=== PATIENT | male | born 1960 | race Caucasian/White ===

== ENCOUNTER 2020-07-06 | Inpatient (IN) | payer MEDICAID, SELFPAY ==
[2020-07-07 04:03] VITALS: BMI 11.0
[2020-07-08] VITALS (8 sets, daily range): BP systolic 112–155; BP diastolic 71–87; PULSE 65–92; RESP 18–20; TEMP 35.8–37; O2SAT 93–98; BMI 34.2
[2020-07-08 06:29] LABS: INTERNATIONAL NORM RATIO 1.3 (0.9-1.1); Prothrombin Time 15.2 SEC (10.8-13.0)
[2020-07-08 06:32] LABS: PTT Heparin Drip 61.7 SEC (53-77.9)
[2020-07-08] MEDS: Heparin Sodium,Porcine/1/2NS 25,000 UNIT/250 ML IV.SOLN 14.19 UNIT IVCONT (06:45)
[2020-07-08 06:49] LABS: Hematocrit 37.3 % (42-52); Hemoglobin 12.2 g/dl (14.0-18.0); Mean Corpuscular HGB Conc 32.7 g/dl (31.0-36.0); Mean Corpuscular Volume 97.9 fL (80-98); Mean Platelet Volume 10.7 fL (9.4-12.4); Platelet Count 452 X10*3/uL (160-400); Red Blood Count 3.81 X10*6/uL (4.60-5.80); Red Cell Distribution Width 12.6 % (11.0-16.0); White Blood Count 10.6 X10*3/uL (4.8-10.8)
--- NOTE | 2020-07-08 08:53 | P.CDIC_ITS ---
CDI Concurrent Query Service Date: 07/08/20 Documentation Clarification: Please clarify if you are treating a proba ble/suspected/likely or confirmed: Metabolic Encephalopathy Toxic Encephalopathy Toxic/Metabolic Encephalopathy Metabolic encephalopathy Provider Response: Metabolic Encephalopathy PLEASE DO NOT DELETE/MODIFY EXISTING CONTENT Additional information is needed in order to code to the highest accuracy and appropriate Severity of Illness (SOI). Please clarify the information noted below in your progress notes and discharge summary. Risk Factors/Clinical Indicators/Treatments 60 year old male admitted with NSTEMI, Acute on subacute Stroke, Encephalopathy possibly secondary to stroke, Right Hemianopsia Confused on admit, usually alert and oriented x3 T 98.6, P 65, R 18, BP 144/78, SAT 95% Trop 803.9, WBC 16.2 CDS: Pauly Booker RN Contact Number: [phone] Please Review the information above and exercise your independent professional judgment in responding to the query. If you concur, pleas document in the PROGRESS NOTES and DISCHARGE SUMMARY. If you do not agree with the query, please document in the query above. THIS QUERY IS PART OF THE PERMANENT MEDICAL RECORD
[2020-07-08] MEDS: Multivitamin TABLET 1 TAB PO (09:11)
[2020-07-08] MEDS: Aspirin 81 MG TAB.CHEW PO (09:11)
[2020-07-08] MEDS: Atorvastatin Calcium 80 MG TABLET PO (09:11)
--- NOTE | 2020-07-08 13:56 | P.PNIM_ITS ---
Subjective Subjective Date of Service: 07/08/20 Interval History: no new issues Constitutional Constitutional: Denies chills and Denies fever(s) ENT Ears, Nose, Mouth, and Throat: Denies neck pain Cardiovascular Cardiovascular: Denies chest pain and Denies dyspnea Respiratory Respiratory: Denies cough and Denies dyspnea Gastrointestinal Gastrointestinal: Denies abdominal pain, Denies diarrhea and Denies nausea Musculoskeletal Musculoskeletal: Denies neck pain Neurologic Neurologic: Denies focal weakness Physical Exam Vital Signs and I&O and Narrative: Vital Signs and I&O: Vital Signs Temp 97.1 F 07/08/20 12:00 Pulse 89 07/08/20 12:00 Resp 18 07/08/20 12:00 BP 140/87 H 07/08/20 12:00 Pulse Ox 95 07/08/20 04:00 Intake & Output 07/07/20 07/08/20 07/08/20 18:59 06:59 18:59 Intake Total 0 / 0 250 / 250 Output Total 500 / 500 400 / 400 Balance -500 / -500 -150 / -150 Urine Output (Aver age ml/kg/hr) 0.40 0.32 Weight 105 kg Intake: Intake, Intraper itoneal Amount 0 / 0 Intake, IV Amoun t 250 / 250 Heparin Sodium ,Porcine/1/2NS 25 250 / 250 ,000 unit In 2 50 ml @ Per Protocol IVCON T .Q0M [facility] Rx#: [id number] Output: Output, Urine Am ount 500 / 500 400 / 400 Other: Breakfast % Eate n 100% Urine Bathroom Urine Color Yellow Body Mass Index 34.2 Const: General: cooperative, healthy appearing and no acute distress Eyes: Pupils: Equal, round and reactive pupils present Neck: Neck: Yes supple Chest: Chest palpation & inspection: normal inspection of the chest Resp: Effort & Inspection: normal respiratory effort and able to speak in complete sentences Auscultation: clear to auscultation bilaterally Cardio: Jugular venous distension: no JVD Rhythm: regular rhythm Heart sounds: S1 normal heart sound present and S2 normal heart sound present GI: Inspection: Yes normal to inspection Palpation (GI): Soft to palpation Auscultation: normal bowel sounds Skin: General skin exam: no rashes or lesions noted Neuro: Cranial nerves: Yes Equal, round and reactive pupils present Motor exam (neuro): Other motor observations present ( no motor deficit) Objective Data Current Medications Generic Name Dose Route Start Last Admin Trade Name Freq PRN Reason Stop Dose Admin Acetaminophen 650 mg 07/08/20 00:00 Acetaminophen 325 Mg Tablet PO Q6H PRN Pain, Mild (Pain Scale 1-3) Al Hydroxide/Mg Hydroxide 30 ml 07/08/20 00:00 Magnesium Hydrox/Alum Hydrox 30 Ml Oral.Susp PO Q4H PRN heartburn/nausea Aspirin 81 mg 07/08/20 09:00 07/08/20 09:11 Aspirin 81 Mg Tab.Chew PO 81 mg DAILY JULIO Administration Atorvastatin Calcium 80 mg 07/08/20 09:00 07/08/20 09:11 Atorvastatin Calcium 80 Mg Tablet PO 80 mg DAILY JULIO Administration Docusate Sodium 100 mg 07/08/20 00:00 Docusate Sodium 100 Mg Capsule PO DAILY PRN Constipation Multivitamins/Vitamin C 1 tab 07/08/20 09:00 07/08/20 09:11 Multivitamin Tablet PO 1 tab DAILY [facility] Administration Ondansetron HCl 4 mg 07/08/20 00:00 Ondansetron Hcl 4 Mg/2 Ml Vial IVPUSH Q8H PRN Nausea and Vomiting Sodium Chloride 2 ml 07/08/20 00:00 07/08/20 09:11 0.9 % Sodium Chloride Flush 3 Ml Syringe IVFLUSH Not Given QSHIFT [facility] Warfarin Sodium 2 mg 07/08/20 18:00 Warfarin Sodium 2 Mg Tablet PO DAILY@1800 [facility] Warfarin Sodium 5 mg 07/08/20 18:00 Warfarin Sodium 5 Mg Tablet PO DAILY@1800 [facility] Labs CBC & Chem 7: 07/08/20 07:00 07/07/20 06:02 Labs: Laboratory Results - last 24 hr 07/05/20 07/05/20 07/05/20 19:33 19:33 19:55 MCV MCH MCHC RDW RDW Coeff of Nano Plt Count MPV Immature Gran % (Auto) Neut % (Auto) Lymph % (Auto) [place] % (Auto) Eos % (Auto) Baso % (Auto) Abs Immat Gran (auto) Absolute Lymphs (auto) Absolute Monos (auto) Absolute Eos (auto) Absolute Basos (auto) Absolute Nucleated RBC Nucleated RBC % (auto) Absolute Neutrophils Smear Tech's Comments Hold Purple Top PT INR APTT PTT (Heparin Protocol) Hold Blue Top Bicarbonate 27 Anion Gap 14 Estimated Creat Clear 138.0 Est GFR (Non-Af Amer) > 60 Random Glucose 94 Fasting Glucose Lactic Acid Calcium Magnesium Cancelled 2.3 Total Bilirubin 0.3 Direct Bilirubin 0.2 AST 18 ALT 42 H Alkaline Phosphatase 72 Troponin I High Sens Total Protein 7.3 Albumin 4.1 Triglycerides Cholesterol LDL Cholesterol, Calc HDL Cholesterol Lipase 8 Hold Red Top Urine Color Urine Appearance Urine pH Ur Specific [place] Urine Protein Urine Glucose (UA) Urine Ketones Urine Blood Urine Nitrite Urine WBC (Auto) Urine Opiates Screen Ur Barbiturates Screen Phencyclidine Screen Ur Amphetamines Screen U Benzodiazepines Scrn Urine Cocaine Screen U Cannabinoids Screen Ethyl Alcohol Coronavirus (PCR) NEGATIVE 07/05/20 07/05/20 07/05/20 19:55 19:55 19:55 MCV MCH MCHC RDW RDW Coeff of Nano Plt Count MPV Immature Gran % (Auto) Neut % (Auto) Lymph % (Auto) [place] % (Auto) Eos % (Auto) Baso % (Auto) Abs Immat Gran (auto) Absolute Lymphs (auto) Absolute Monos (auto) Absolute Eos (auto) Absolute Basos (auto) Absolute Nucleated RBC Nucleated RBC % (auto) Absolute Neutrophils Smear Tech's Comments Hold Purple Top PT INR APTT PTT (Heparin Protocol) Hold Blue Top SEE NOTE Bicarbonate Anion Gap Estimated Creat Clear Est GFR (Non-Af Amer) Random Glucose Fasting Glucose Lactic Acid Calcium Magnesium Total Bilirubin Direct Bilirubin AST ALT Alkaline Phosphatase Troponin I High Sens 803.9 H Total Protein Albumin Triglycerides Cholesterol LDL Cholesterol, Calc HDL Cholesterol Lipase Hold Red Top SEE NOTE Urine Color Urine Appearance Urine pH Ur Specific [place] Urine Protein Urine Glucose (UA) Urine Ketones Urine Blood Urine Nitrite Urine WBC (Auto) Urine Opiates Screen Ur Barbiturates Screen Phencyclidine Screen Ur Amphetamines Screen U Benzodiazepines Scrn Urine Cocaine Screen U Cannabinoids Screen Ethyl Alcohol Coronavirus (PCR) 07/05/20 07/05/20 07/05/20 19:55 19:55 20:14 MCV 97.0 MCH 32.5 MCHC 33.5 RDW RDW Coeff of Nano 12.2 Plt Count 436 H MPV 9.5 Immature Gran % (Auto) 0.5 H Neut % (Auto) 72.2 Lymph % (Auto) 15.4 L [place] % (Auto) 10.8 Eos % (Auto) 0.6 Baso % (Auto) 0.5 Abs Immat Gran (auto) 0.08 H Absolute Lymphs (auto) 2.5 Absolute Monos (auto) 1.7 H Absolute Eos (auto) 0.1 Absolute Basos (auto) 0.1 Absolute Nucleated RBC 0.000 Nucleated RBC % (auto) 0.0 Absolute Neutrophils 11.7 H Smear Tech's Comments VERIFIED Hold Purple Top SEE NOTE PT 16.2 H INR 1.4 H APTT 36.2 PTT (Heparin Protocol) Hold Blue Top Bicarbonate Anion Gap Estimated Creat Clear Est GFR (Non-Af Amer) Random Glucose Fasting Glucose Lactic Acid Calcium Magnesium Total Bilirubin Direct Bilirubin AST ALT Alkaline Phosphatase Troponin I High Sens Total Protein Albumin Triglycerides Cholesterol LDL Cholesterol, Calc HDL Cholesterol Lipase Hold Red Top Urine Color Urine Appearance Urine pH Ur Specific [place] Urine Protein Urine Glucose (UA) Urine Ketones Urine Blood Urine Nitrite Urine WBC (Auto) Urine Opiates Screen Ur Barbiturates Screen Phencyclidine Screen Ur Amphetamines Screen U Benzodiazepines Scrn Urine Cocaine Screen U Cannabinoids Screen Ethyl Alcohol < 10 Coronavirus (PCR) 07/05/20 07/05/20 07/05/20 20:14 20:14 22:07 MCV MCH MCHC RDW RDW Coeff of Nano Plt Count MPV Immature Gran % (Auto) Neut % (Auto) Lymph % (Auto) [place] % (Auto) Eos % (Auto) Baso % (Auto) Abs Immat Gran (auto) Absolute Lymphs (auto) Absolute Monos (auto) Absolute Eos (auto) Absolute Basos (auto) Absolute Nucleated RBC Nucleated RBC % (auto) Absolute Neutrophils Smear Tech's Comments Hold Purple Top PT INR APTT PTT (Heparin Protocol) Hold Blue Top Bicarbonate Anion Gap Estimated Creat Clear Est GFR (Non-Af Amer) Random Glucose Fasting Glucose Lactic Acid 1.7 Calcium Magnesium Total Bilirubin Direct Bilirubin AST ALT Alkaline Phosphatase Troponin I High Sens Total Protein Albumin Triglycerides Cholesterol LDL Cholesterol, Calc HDL Cholesterol Lipase Hold Red Top Urine Color YELLOW Urine Appearance CLEAR Urine pH 6.5 Ur Specific [place] 1.015 Urine Protein NEG Urine Glucose (UA) NEG Urine Ketones NEG Urine Blood NEG Urine Nitrite NEG Urine WBC (Auto) NEG Urine Opiates Screen Ur Barbiturates Screen Phencyclidine Screen Ur Amphetamines Screen U Benzodiazepines Scrn Urine Cocaine Screen U Cannabinoids Screen Ethyl Alcohol Coronavirus (PCR) Cancelled 07/05/20 07/06/20 07/06/20 22:07 00:44 00:44 MCV MCH MCHC RDW RDW Coeff of Nano Plt Count MPV Immature Gran % (Auto) Neut % (Auto) Lymph % (Auto) [place] % (Auto) Eos % (Auto) Baso % (Auto) Abs Immat Gran (auto) Absolute Lymphs (auto) Absolute Monos (auto) Absolute Eos (auto) Absolute Basos (auto) Absolute Nucleated RBC Nucleated RBC % (auto) Absolute Neutrophils Smear Tech's Comments Hold Purple Top PT INR APTT PTT (Heparin Protocol) 44.6 L Hold Blue Top Bicarbonate Anion Gap Estimated Creat Clear Est GFR (Non-Af Amer) Random Glucose Fasting Glucose Lactic Acid Calcium Magnesium Total Bilirubin Direct Bilirubin AST ALT Alkaline Phosphatase Troponin I High Sens 759.7 H Total Protein Albumin Triglycerides Cholesterol LDL Cholesterol, Calc HDL Cholesterol Lipase Hold Red Top Urine Color Urine Appearance Urine pH Ur Specific [place] Urine Protein Urine Glucose (UA) Urine Ketones Urine Blood Urine Nitrite Urine WBC (Auto) Urine Opiates Screen NOT DETECTED Ur Barbiturates Screen NOT DETECTED Phencyclidine Screen NOT DETECTED Ur Amphetamines Screen NOT DETECTED U Benzodiazepines Scrn NOT DETECTED Urine Cocaine Screen NOT DETECTED U Cannabinoids Screen NOT DETECTED Ethyl Alcohol Coronavirus (PCR) 07/06/20 07/06/20 07/06/20 03:58 03:58 03:58 MCV 96.0 MCH 32.5 MCHC 33.8 RDW RDW Coeff of Nano 12.4 Plt Count 437 H MPV 10.0 Immature Gran % (Auto) 0.4 Neut % (Auto) 60.0 Lymph % (Auto) 26.3 [place] % (Auto) 11.0 Eos % (Auto) 1.6 Baso % (Auto) 0.7 Abs Immat Gran (auto) 0.05 H Absolute Lymphs (auto) 3.1 Absolute Monos (auto) 1.3 H Absolute Eos (auto) 0.2 Absolute Basos (auto) 0.1 Absolute Nucleated RBC 0.000 Nucleated RBC % (auto) 0.0 Absolute Neutrophils 7.2 Smear Tech's Comments Hold Purple Top PT INR APTT PTT (Heparin Protocol) 42.4 L Hold Blue Top Bicarbonate 25 Anion Gap 12 Estimated Creat Clear 152.9 Est GFR (Non-Af Amer) > 60 Random Glucose Fasting Glucose 101 H Lactic Acid Calcium 8.6 Magnesium Total Bilirubin Direct Bilirubin AST ALT Alkaline Phosphatase Troponin I High Sens Total Protein Albumin Triglycerides Cholesterol LDL Cholesterol, Calc HDL Cholesterol Lipase Hold Red Top Urine Color Urine Appearance Urine pH Ur Specific [place] Urine Protein Urine Glucose (UA) Urine Ketones Urine Blood Urine Nitrite Urine WBC (Auto) Urine Opiates Screen Ur Barbiturates Screen Phencyclidine Screen Ur Amphetamines Screen U Benzodiazepines Scrn Urine Cocaine Screen U Cannabinoids Screen Ethyl Alcohol Coronavirus (PCR) 07/06/20 07/06/20 07/06/20 11:33 17:55 23:44 MCV MCH MCHC RDW RDW Coeff of Nano Plt Count MPV Immature Gran % (Auto) Neut % (Auto) Lymph % (Auto) [place] % (Auto) Eos % (Auto) Baso % (Auto) Abs Immat Gran (auto) Absolute Lymphs (auto) Absolute Monos (auto) Absolute Eos (auto) Absolute Basos (auto) Absolute Nucleated RBC Nucleated RBC % (auto) Absolute Neutrophils Smear Tech's Comments Hold Purple Top PT INR APTT PTT (Heparin Protocol) 39.9 L 61.1 D 62.1 Hold Blue Top Bicarbonate Anion Gap Estimated Creat Clear Est GFR (Non-Af Amer) Random Glucose Fasting Glucose Lactic Acid Calcium Magnesium Total Bilirubin Direct Bilirubin AST ALT Alkaline Phosphatase Troponin I High Sens Total Protein Albumin Triglycerides Cholesterol LDL Cholesterol, Calc HDL Cholesterol Lipase Hold Red Top Urine Color Urine Appearance Urine pH Ur Specific [place] Urine Protein Urine Glucose (UA) Urine Ketones Urine Blood Urine Nitrite Urine WBC (Auto) Urine Opiates Screen Ur Barbiturates Screen Phencyclidine Screen Ur Amphetamines Screen U Benzodiazepines Scrn Urine Cocaine Screen U Cannabinoids Screen Ethyl Alcohol Coronavirus (PCR) 07/07/20 07/07/20 07/07/20 06:02 06:02 06:02 MCV Cancelled MCH Cancelled MCHC Cancelled RDW RDW Coeff of Nano Cancelled Plt Count Cancelled MPV Cancelled Immature Gran % (Auto) Neut % (Auto) Lymph % (Auto) [place] % (Auto) Eos % (Auto) Baso % (Auto) Abs Immat Gran (auto) Absolute Lymphs (auto) Absolute Monos (auto) Absolute Eos (auto) Absolute Basos (auto) Absolute Nucleated RBC Cancelled Nucleated RBC % (auto) Cancelled Absolute Neutrophils Smear Tech's Comments Hold Purple Top PT INR APTT PTT (Heparin Protocol) Hold Blue Top Bicarbonate 28 Anion Gap 10 L Estimated Creat Clear 139.1 Est GFR (Non-Af Amer) > 60 Random Glucose Fasting Glucose 103 H Lactic Acid Calcium 9.1 Magnesium Total Bilirubin Direct Bilirubin AST ALT Alkaline Phosphatase Troponin I High Sens Total Protein Albumin Triglycerides 103 Cholesterol 148 LDL Cholesterol, Calc 105 HDL Cholesterol 23 Lipase Hold Red Top Urine Color Urine Appearance Urine pH Ur Specific [place] Urine Protein Urine Glucose (UA) Urine Ketones Urine Blood Urine Nitrite Urine WBC (Auto) Urine Opiates Screen Ur Barbiturates Screen Phencyclidine Screen Ur Amphetamines Screen U Benzodiazepines Scrn Urine Cocaine Screen U Cannabinoids Screen Ethyl Alcohol Coronavirus (PCR) 07/07/20 07/07/20 07/07/20 06:02 06:02 14:07 MCV 98.5 H MCH 32.1 MCHC 32.6 RDW RDW Coeff of Nano 12.8 Plt Count 448 H MPV 10.6 Immature Gran % (Auto) Neut % (Auto) Lymph % (Auto) [place] % (Auto) Eos % (Auto) Baso % (Auto) Abs Immat Gran (auto) Absolute Lymphs (auto) Absolute Monos (auto) Absolute Eos (auto) Absolute Basos (auto) Absolute Nucleated RBC 0.000 Nucleated RBC % (auto) 0.0 Absolute Neutrophils Smear Tech's Comments Hold Purple Top PT 15.7 H INR 1.3 H APTT PTT (Heparin Protocol) 59.1 Hold Blue Top Bicarbonate Anion Gap Estimated Creat Clear Est GFR (Non-Af Amer) Random Glucose Fasting Glucose Lactic Acid Calcium Magnesium Total Bilirubin Direct Bilirubin AST ALT Alkaline Phosphatase Troponin I High Sens Total Protein Albumin Triglycerides Cholesterol LDL Cholesterol, Calc HDL Cholesterol Lipase Hold Red Top Urine Color Urine Appearance Urine pH Ur Specific [place] Urine Protein Urine Glucose (UA) Urine Ketones Urine Blood Urine Nitrite Urine WBC (Auto) Urine Opiates Screen Ur Barbiturates Screen Phencyclidine Screen Ur Amphetamines Screen U Benzodiazepines Scrn Urine Cocaine Screen U Cannabinoids Screen Ethyl Alcohol Coronavirus (PCR) 07/08/20 07/08/20 07/08/20 05:55 05:55 06:00 MCV 97.9 MCH 32.0 MCHC 32.7 RDW 12.6 RDW Coeff of Nano Plt Count 452 H MPV 10.7 Immature Gran % (Auto) Neut % (Auto) Lymph % (Auto) [place] % (Auto) Eos % (Auto) Baso % (Auto) Abs Immat Gran (auto) Absolute Lymphs (auto) Absolute Monos (auto) Absolute Eos (auto) Absolute Basos (auto) Absolute Nucleated RBC 0.000 Nucleated RBC % (auto) 0.0 Absolute Neutrophils Smear Tech's Comments Hold Purple Top PT 15.2 H Not Rcvd INR 1.3 H Not Rcvd APTT PTT (Heparin Protocol) 61.7 Not Rcvd Hold Blue Top Bicarbonate Anion Gap Estimated Creat Clear Est GFR (Non-Af Amer) Random Glucose Fasting Glucose Lactic Acid Calcium Magnesium Total Bilirubin Direct Bilirubin AST ALT Alkaline Phosphatase Troponin I High Sens Total Protein Albumin Triglycerides Cholesterol LDL Cholesterol, Calc HDL Cholesterol Lipase Hold Red Top Urine Color Urine Appearance Urine pH Ur Specific [place] Urine Protein Urine Glucose (UA) Urine Ketones Urine Blood Urine Nitrite Urine WBC (Auto) Urine Opiates Screen Ur Barbiturates Screen Phencyclidine Screen Ur Amphetamines Screen U Benzodiazepines Scrn Urine Cocaine Screen U Cannabinoids Screen Ethyl Alcohol Coronavirus (PCR) 07/08/20 07:00 MCV Not Rcvd MCH Not Rcvd MCHC Not Rcvd RDW RDW Coeff of Nano Not Rcvd Plt Count Not Rcvd MPV Not Rcvd Immature Gran % (Auto) Neut % (Auto) Lymph % (Auto) [place] % (Auto) Eos % (Auto) Baso % (Auto) Abs Immat Gran (auto) Absolute Lymphs (auto) Absolute Monos (auto) Absolute Eos (auto) Absolute Basos (auto) Absolute Nucleated RBC Not Rcvd Nucleated RBC % (auto) Not Rcvd Absolute Neutrophils Smear Tech's Comments Hold Purple Top PT INR APTT PTT (Heparin Protocol) Hold Blue Top Bicarbonate Anion Gap Estimated Creat Clear Est GFR (Non-Af Amer) Random Glucose Fasting Glucose Lactic Acid Calcium Magnesium Total Bilirubin Direct Bilirubin AST ALT Alkaline Phosphatase Troponin I High Sens Total Protein Albumin Triglycerides Cholesterol LDL Cholesterol, Calc HDL Cholesterol Lipase Hold Red Top Urine Color Urine Appearance Urine pH Ur Specific [place] Urine Protein Urine Glucose (UA) Urine Ketones Urine Blood Urine Nitrite Urine WBC (Auto) Urine Opiates Screen Ur Barbiturates Screen Phencyclidine Screen Ur Amphetamines Screen U Benzodiazepines Scrn Urine Cocaine Screen U Cannabinoids Screen Ethyl Alcohol Coronavirus (PCR) Progress Note: A&P (1) Stroke: Status: Acute Assessment and Plan: this is a 60-year-old male who is admitted for CVA and NSTEMI 1. acute/subacute infarct of the left DIE [employer] territory suspect cardioembolic in nature aspirin, statin coumadin pt/ot 2. NSTEMI completed iv heparin gtt asa, statin start metoprolol -- 25mg bid outpatient ischemic work up 3. Leukocytosis reactive
--- NOTE | 2020-07-08 14:20 | P.PNCA_ITS ---
Subjective Subjective Principal diagnosis: CVA, recent inferior myocardial infarction Interval history: no new issues. patient denies any chest pain. Continues to have visual field issues. Also continues to have some mild memory deficits. Physical Exam Vital Signs and I&O: Vital Signs Temp 97.1 F 07/08/20 12:00 Pulse 89 07/08/20 12:00 Resp 18 07/08/20 12:00 BP 140/87 H 07/08/20 12:00 Pulse Ox 95 07/08/20 04:00 Intake & Output 07/07/20 07/08/20 07/08/20 18:59 06:59 18:59 Intake Total 0 / 0 470 / 470 Output Total 500 / 500 900 / 900 Balance -500 / -500 -430 / -430 Urine Output (Average ml/kg/hr) 0.40 0.71 Weight 231 lb 7.766 oz Intake: Intake, Oral Amount 220 / 220 Intake, Intraperitoneal Amount 0 / 0 Intake, IV Amount 250 / 250 Heparin Sodium,Porcine/1/2NS 25 250 / 250 ,000 unit In 250 ml @ Per Protocol IVCONT .Q0M [facility] Rx#: [id number] Output: Output, Urine Amount 500 / 500 900 / 900 Other: Breakfast % Eaten 100% Lunch % Eaten 75% Urine Bathroom Urine Color Yellow Body Mass Index 34.2 Const General: cooperative, comfortable, no acute distress, well developed, alert and awake Orientation/consciousness: patient oriented x3 HENMT Head: Yes normocephalic and Yes atraumatic Eyes General: appearance normal, both eyes and all related structures Neck Neck: Yes trachea midline and Yes no JVD Carotids: normal carotid upstroke Chest Chest palpation & inspection: normal inspection of the chest Resp Effort & Inspection: normal respiratory effort Auscultation: clear to auscultation bilaterally Cardio Palpation: normal PMI Rate: regular rate Rhythm: regular rhythm Heart sounds: S1 normal heart sound present and S2 normal heart sound present GI Inspection: Yes normal to inspection Auscultation: normal bowel sounds Skin General skin exam: no rashes or lesions noted, elasticity normal and turgor normal Neuro General: patient oriented x3 and no focal motor deficits Extrem General: Yes normal to inspection and Yes no clubbing, cyanosis or edema Psych Appearance: grossly normal and well kempt Progress Note: A&P Assessment and plan (1) Recent inferior myocardial infarction: Problem details: patient currently not having any cardiac symptoms. Currently on appropriate medical therapy. Continue low-dose aspirin therapy. Add Toprol-XL 25 mg if okay with Neurology. Continue high-intensity statin therapy. Eventually will require ischemic cardiac workup to evaluate for myocardial ischemia and further invasive workup if needed. Will currently deferred due to recent stroke. Ambulate as tolerated. Heparin can be stopped from cardiac perspective. However given that he most likely had embolic stroke, will need to transition to Lovenox if okay with Neurology and continue to use warfarin to target INR between 2 and 3. patient can be discharged from cardiac perspective. Follow-up will be set up in cardiology clinic after stress test in 4 weeks time. Status: Acute (2) Stroke: Status: Acute Fall Risk Details Current Medications: Current Medications Generic Name Dose Route Start Last Admin Trade Name Freq PRN Reason Stop Dose Admin Acetaminophen 650 mg 07/08/20 00:00 Acetaminophen 325 Mg Tablet PO Q6H PRN Pain, Mild (Pain Scale 1-3) Al Hydroxide/Mg Hydroxide 30 ml 07/08/20 00:00 Magnesium Hydrox/Alum Hydrox 30 Ml Oral.Susp PO Q4H PRN heartburn/nausea Aspirin 81 mg 07/08/20 09:00 07/08/20 09:11 Aspirin 81 Mg Tab.Chew PO 81 mg DAILY JULIO Administration Atorvastatin Calcium 80 mg 07/08/20 09:00 07/08/20 09:11 Atorvastatin Calcium 80 Mg Tablet PO 80 mg DAILY JULIO Administration Docusate Sodium 100 mg 07/08/20 00:00 Docusate Sodium 100 Mg Capsule PO DAILY PRN Constipation Metoprolol Tartrate 25 mg 07/08/20 21:00 Metoprolol Tartrate 25 Mg Tablet PO BID [facility] Protocol Multivitamins/Vitamin C 1 tab 07/08/20 09:00 07/08/20 09:11 Multivitamin Tablet PO 1 tab DAILY JULIO Administration Ondansetron HCl 4 mg 07/08/20 00:00 Ondansetron Hcl 4 Mg/2 Ml Vial IVPUSH Q8H PRN Nausea and Vomiting Sodium Chloride 2 ml 07/08/20 00:00 07/08/20 09:11 0.9 % Sodium Chloride Flush 3 Ml Syringe IVFLUSH Not Given QSHIFT [facility] Warfarin Sodium 2 mg 07/08/20 18:00 Warfarin Sodium 2 Mg Tablet PO DAILY@1800 [facility] Warfarin Sodium 5 mg 07/08/20 18:00 Warfarin Sodium 5 Mg Tablet PO DAILY@1800 JULIO Time Spent With Patient Time: Total time spent is greater than 50% in coordination of care (as documented) at patient's floor/unit and/or counseling patient: Time with patient: 15 - 24 minutes
--- NOTE | 2020-07-08 14:47 | MHC.STROKE ---
I met with the patient again today. We discussed his diagnosis of stroke, the location of his stroke and related deficits. I provided handouts and MRI screenshot of the actually stroke. We discussed his right visual field loss and neglect. He admits that he can't even determine if someone is on his right side. He talked about driving and I did mention that he is not cleared to drive due to the vision loss and he will only be able to drive when he is cleared by a doctor. He did mention that he has a family history of stroke and that his father from a stroke. He currently lives with his girlfriend and she had asked for some stroke information. I did review all the pamphlets with the RN today and she will review this with the girlfriend Little perez. I am also available for any questions. He could benefit from rehab but it is uncertain if he would qualify due to his limited insurance. He is willing to participate as an Outpatient but he's not sure how he would get here. His cognitive abilities are inconsistent and he definitely has difficultly remembering certain things. Case Management will need to clarify any safety concerns with the girlfriend Little. Review OT's recommendations. I did discuss this information with Dr. Erickson and the patient is not cleared for discharge today. I will continue to follow.
[2020-07-08] MEDS: 0.9 % Sodium Chloride Flush 3 ML SYRINGE 2 ML IVFLUSH ×2 (15:16→23:20)
[2020-07-08] MEDS: Warfarin Sodium 2 MG TABLET PO (17:44)
[2020-07-08] MEDS: Warfarin Sodium 5 MG TABLET PO (17:45)
[2020-07-08] MEDS: Metoprolol Tartrate 25 MG TABLET PO (23:18)
[2020-07-09] VITALS (11 sets, daily range): BP systolic 106–145; BP diastolic 58–86; PULSE 66–87; RESP 16–20; TEMP 36.5–37; O2SAT 94–98
[2020-07-09] MEDS: 0.9 % Sodium Chloride Flush 3 ML SYRINGE 2 ML IVFLUSH ×2 (10:42→16:23)
[2020-07-09] MEDS: Metoprolol Tartrate 25 MG TABLET PO ×2 (10:42→20:43)
[2020-07-09] MEDS: Multivitamin TABLET 1 TAB PO (10:42)
[2020-07-09] MEDS: Aspirin 81 MG TAB.CHEW PO (10:42)
--- NOTE | 2020-07-09 13:43 | MHC.CM.PN ---
Patient has a new PCP appt for 07/13/20 at 10:15 am with Any Patel NP at [address] [place] [address] Dr Mills. Covering MD made aware. CM will continue to follow patient for discharge needs.
[2020-07-09 13:46] LABS: INTERNATIONAL NORM RATIO 1.6 (0.9-1.1)
--- NOTE | 2020-07-09 14:34 | MHC.CM.PN ---
CM spoke with Tresa Yoo by phone and given new PCP appt information.
[2020-07-09] MEDS: Warfarin Sodium 5 MG TABLET PO (17:59)
[2020-07-09] MEDS: Warfarin Sodium 2 MG TABLET PO (18:00)
[2020-07-10 03:46] VITALS: BP 120/76; PULSE 61; RESP 18; TEMP 36.6; O2SAT 95
[2020-07-10 06:42] LABS: Hematocrit 40.3 % (42-52); Hemoglobin 12.6 g/dl (14.0-18.0); Mean Corpuscular HGB Conc 31.3 g/dl (31.0-36.0); Mean Corpuscular Hemoglobin 32.1 pg (27.0-33.0); Mean Corpuscular Volume 102.5 fL (80-98); Mean Platelet Volume 10.9 fL (9.4-12.4); Platelet Count 363 X10*3/uL (160-400); Red Blood Count 3.93 X10*6/uL (4.60-5.80); Red Cell Distribution Width 12.8 % (11.0-16.0); White Blood Count 9.2 X10*3/uL (4.8-10.8)
[2020-07-10 08:00] VITALS: BP 119/70; PULSE 61; RESP 18; TEMP 36.6; O2SAT 96
[2020-07-10] MEDS: Atorvastatin Calcium 80 MG TABLET PO (08:53)
[2020-07-10] MEDS: Metoprolol Tartrate 25 MG TABLET PO (08:53)
[2020-07-10] MEDS: Aspirin 81 MG TAB.CHEW PO (08:53)
[2020-07-10] MEDS: 0.9 % Sodium Chloride Flush 3 ML SYRINGE 2 ML IVFLUSH ×2 (08:53)
[2020-07-10] MEDS: Multivitamin TABLET 1 TAB PO (08:53)
[2020-07-10 12:00] VITALS: BP 130/78; PULSE 96; RESP 18; TEMP 36.7; O2SAT 96
--- NOTE | 2020-07-10 12:27 | PM.DS ---
DS: Providers Provider Date of admission: 07/07/20 03:18 Primary care physician: None Physician Consults: 07/07/20 04:14 Consult to Cardiology Routine Consulting Provider: Tyrone Montanez Reason for consultation: NSTEMI Has provider been notified: Yes 07/07/20 04:17 Consult to Neurology Routine Consulting Provider: Ciera Gray Reason for consultation: Stroke Has provider been notified: Yes DS: Diagnosis Discharge Diagnosis (1) Recent inferior myocardial infarction: Status: Acute (2) Stroke: Status: Acute DS: Summary Hospital Course Hospital Course: patient was admitted for acute / subacute CVA and NSTEMI. He received 48 hours of IV heparin. He was started on high-intensity statin and aspirin along with beta-camden. MRI revealed INS[employer] territory infarct. There was strong suspicion for cardioembolic stroke therefore after heparin course Coumadin was started. And will be continued. Patient now has some visual deficits, minimal motor deficits, plan is to discharge home and continue with aspirin, statin, Coumadin, beta-camden. He will follow-up with Cardiology for plans for stress test in 1 month. Time Spent with Patient Time attestation: Total time spent providing and/or coordinating discharge services: Physical Exam Vital Signs and I&O and Narrative: Vital Signs and I&O: Vital Signs Temp 98.0 F 07/10/20 12:00 Pulse 96 07/10/20 12:00 Resp 18 07/10/20 12:00 BP 130/78 07/10/20 12:00 Pulse Ox 96 07/10/20 12:00 Intake & Output 07/09/20 07/10/20 07/10/20 18:59 06:59 18:59 Intake Total 480 / 1280 800 / 1280 Output Total 300 / 301 Balance 180 / 979 799 / 979 Urine Output (Aver age ml/kg/hr) 0.24 0.00 0.00 Intake: Intake, Oral Klever unt 480 / 480 Intake, Intraper itoneal Amount 800 / 800 Output: Output, Urine Am ount 300 / 301 1 301 Other: Breakfast % Eate n 100% Lunch % Eaten 75% Number of Unmeas ured Voids 2 Urine Bathroom Urine Color Yellow Body Mass Index 34.2 Const: General: cooperative, healthy appearing, comfortable, no acute distress, well developed, alert and awake Orientation/consciousness: patient oriented x3 HENMT: Head: Yes normocephalic and Yes atraumatic Eyes: General: appearance normal, both eyes and all related structures Pupils: Equal, round and reactive pupils present Neck: Neck: Yes trachea midline, Yes supple and Yes no JVD Carotids: normal carotid upstroke Chest: Chest palpation & inspection: normal inspection of the chest Resp: Effort & Inspection: normal respiratory effort and able to speak in complete sentences Auscultation: clear to auscultation bilaterally Cardio: Jugular venous distension: no JVD Palpation: normal PMI Rate: regular rate Rhythm: regular rhythm Heart sounds: S1 normal heart sound present and S2 normal heart sound present GI: Inspection: Yes normal to inspection Palpation (GI): Soft to palpation Auscultation: normal bowel sounds Skin: General skin exam: no rashes or lesions noted, elasticity normal and turgor normal Neuro: General: patient oriented x3 and no focal motor deficits Cranial nerves: Yes Equal, round and reactive pupils present Extrem: General: Yes normal to inspection and Yes no clubbing, cyanosis or edema Psych: Appearance: grossly normal and well kempt DS: Data Data Completed and Pending Labs on day of discharge: Labs from last 24 hours 07/10/20 07/09/20 05:57 13:19 WBC 9.2 RBC 3.93 L Hgb 12.6 L Hct 40.3 L MCV 102.5 H MCH 32.1 MCHC 31.3 RDW 12.8 Plt Count 363 MPV 10.9 Absolute Nucleated RBC 0.000 Nucleated RBC % (auto) 0.0 PT 19.0 H D INR 1.6 H Discharge Plan Discharge Patient Disposition: Home, Self-Care Referrals: Ciera Gray MD [Physician] - 1 Week Physician,None [Primary Care Provider] - Tyrone Montanez MD [Physician] - 4 Weeks Discharge Medications: New atorvastatin 80 mg Tablet 80 mg PO DAILY Qty: 30 RF: 0 warfarin [Jantoven] 5 mg Tablet 5 mg PO DAILY@1800 Qty: 30 RF: 0 metoprolol tartrate 25 mg Tablet 25 mg PO BID Qty: 60 RF: 0 Continued multivitamin Tablet 1 tab PO DAILY RF: 0 aspirin 81 mg Tablet 81 mg PO DAILY RF: 0 Discharge Orders: Discharge Order (Routine); Ordered 10/03/20 Ordered By: Alfred Lin Activity on Discharge: As tolerated Patient Instructions: How to Stop Smoking (ED), Low-Sodium Diet (ED) Visit Report Forms: Patient Portal Discharge page Care Plan Goals: prevent further strokes Health Concerns: coronary disease, CVA Plan of Treatment: started on Coumadin, follow-up with Coumadin clinic and dose for INR 2-3 started on Lipitor, metoprolol continue aspirin follow-up with Cardiology for stress test in 1 month
[2020-07-10 12:32] LABS: INTERNATIONAL NORM RATIO 1.7 (0.9-1.1); Prothrombin Time 20.7 SEC (10.8-13.0)
--- NOTE | 2020-07-10 12:36 | MHC.CM.PN ---
PT WILL BE DISCHARGED HOME TODAY. PT HAS A FIRST APPT WITH YONATAN ARMANDO AT [address] [place] [address] ON 07/13/20 AT 10:15. DISCHARGE INSTRUCTIONS INCLUDE REQUESTING A [facility] REFERRAL AT THIS APPT SO THAT THE HOME PT SERVICES CAN START [facility] WILL NOT SEE PT UNTIL HE SEES A PCP
== END 2020-07-10 13:42 | disposition home or self-care (01) | DRG 64 ==
PROVIDERS: Internal Medicine; Admitting Provider Internal Medicine; Emergency Provider Nurse Practitioner Family; Visit Provider Internal Medicine
DX: I63.512 Cerebral infarction due to unspecified occlusion or stenosis of left middle cerebral artery (principal); I21.4 Non-ST elevation (NSTEMI) myocardial infarction; G93.41 Metabolic encephalopathy; F17.210 Nicotine dependence, cigarettes, uncomplicated; R29.700 NIHSS score 0; D72.829 Elevated white blood cell count, unspecified; H53.47 Heteronymous bilateral field defects; Z71.6 Tobacco abuse counseling; Z11.59 Encounter for screening for other viral diseases; Z79.82 Long term (current) use of aspirin; Z79.899 Other long term (current) drug therapy
CPT/HCPCS: 36415; 70450; 70496; 70498; 70551; 71046; 80048; 80051; 80061; 80076; 80307; 80320; 81003; 82550; 82565; 82947; 83605; 83690; 83735; 84484; 84520; 85025; 85027; 85610; 85730; 86618; 86666; 86753; 87040; 93005; 93306; 93880; 96361; 96365; 96366; 97163; 97167; 97530; 97535; 99285; Q9957; Q9967; U0003

== ENCOUNTER 2020-07-13 12:54 | Outpatient (REF) | payer OTHER, SELFPAY ==
[2020-07-13 14:16] LABS: MANUAL DIFF FLAG NO
[2020-07-13 14:18] LABS: Basophils Absolute Auto 0.1 X10*3/uL (0.0-0.2); Basophils Percent Auto 0.8 % (0-2); Eosinophils Absolute Auto 0.2 X10*3/uL (0.0-0.4); Eosinophils Percent Auto 1.9 % (0-4); Hematocrit 43.2 % (42-52); Hemoglobin 14.2 g/dl (14.0-18.0); Imm Gran Abs Auto 0.05 X10*3/uL (0.00-0.03); Imm Gran Pct Auto 0.6 % (0.0-0.4); Lymphocytes Absolute Auto 2.5 X10*3/uL (1.2-4.9); Lymphocytes Percent Auto 29.8 % (20-40); Mean Corpuscular HGB Conc 32.9 g/dl (31.0-36.0); Mean Corpuscular Hemoglobin 32.4 pg (27.0-33.0); Mean Corpuscular Volume 98.6 fL (80-98); Mean Platelet Volume 10.8 fL (9.4-12.4); Monocytes Absolute Auto 0.7 X10*3/uL (0.1-1.2); Monocytes Percent Auto 7.6 % (2-11); Neutrophils Percent Auto 59.3 % (45-73); Platelet Count 480 X10*3/uL (160-400); Red Blood Count 4.38 X10*6/uL (4.60-5.80); Red Cell Distribution Width 12.7 % (11.0-16.0); White Blood Count 8.5 X10*3/uL (4.8-10.8)
[2020-07-13 14:42] LABS: Anion Gap 12 (12-20); Blood Urea Nitrogen 20 mg/dL (9-16); Carbon Dioxide 30 mmol/L (22-29); Chloride 104 mmol/L (96-108); Estimated Glomerular Filt Rate > 60; Glucose Fasting 162 mg/dL (60-99); Potassium 4.9 mmol/l (3.3-5.1); Sodium 141 mmol/L (135-145)
[2020-07-13 15:35] LABS: Cholesterol 138 mg/dL; HDL Cholesterol 28 mg/dL; LDL Cholesterol Calculated 85 mg/dl; Triglycerides 129 mg/dL
== END 2020-07-13 12:55 | disposition home or self-care (01) ==
LOC: HO.LAB 12:54
PROVIDERS: PCP Nurse Practitioner Family; Visit Provider Nurse Practitioner Family
DX: I63.9 Cerebral infarction, unspecified (principal)
CPT/HCPCS: 36415; 80048; 80061; 85025

== ENCOUNTER 2020-07-19 10:08 | Outpatient (REF) | payer OTHER, SELFPAY ==
[2020-07-19 11:14] LABS: INTERNATIONAL NORM RATIO 1.6 (0.9-1.1); Prothrombin Time 19.3 SEC (10.8-13.0)
== END 2020-07-19 10:09 | disposition home or self-care (01) ==
LOC: HO.LAB 10:08
PROVIDERS: PCP Nurse Practitioner Family; Visit Provider Internal Medicine Cardiovascular Disease
DX: I63.9 Cerebral infarction, unspecified (principal)
CPT/HCPCS: 36415; 85610

== ENCOUNTER 2020-07-30 13:25 | Outpatient (REF) | payer OTHER, SELFPAY ==
[2020-07-30 14:29] LABS: INTERNATIONAL NORM RATIO 1.5 (0.9-1.1); Prothrombin Time 17.9 SEC (10.8-13.0)
== END 2020-07-30 13:26 | disposition home or self-care (01) ==
LOC: HO.LAB 13:25
PROVIDERS: Visit Provider Internal Medicine
DX: I63.9 Cerebral infarction, unspecified (principal)
CPT/HCPCS: 36415; 85610

== ENCOUNTER → 2020-08-02 10:28 | Outpatient (BNVA) | payer OTHER, SELFPAY | PROVIDERS: PCP Nurse Practitioner Family; Visit Provider Nurse Practitioner Family | DX: I21.19 ST elevation (STEMI) myocardial infarction involving other coronary artery of inferior wall (principal); I69.398 Other sequelae of cerebral infarction; H53.9 Unspecified visual disturbance | CPT/HCPCS: 93005; 99214 ==

== ENCOUNTER → 2020-08-06 10:24 | Outpatient (BNVA) | payer OTHER, SELFPAY | PROVIDERS: PCP Internal Medicine; Visit Provider Internal Medicine | DX: Z86.73 Personal history of transient ischemic attack (TIA), and cerebral infarction without residual deficits (principal); Z51.81 Encounter for therapeutic drug level monitoring; Z79.01 Long term (current) use of anticoagulants | CPT/HCPCS: 85610; 99211 ==

== ENCOUNTER → 2020-08-09 10:19 | Outpatient (BNVA) | payer OTHER, SELFPAY | PROVIDERS: PCP Internal Medicine; Visit Provider Internal Medicine | DX: Z86.73 Personal history of transient ischemic attack (TIA), and cerebral infarction without residual deficits (principal); Z51.81 Encounter for therapeutic drug level monitoring; Z79.01 Long term (current) use of anticoagulants | CPT/HCPCS: 85610; 99211 ==

== ENCOUNTER → 2020-08-12 | Outpatient (BNVA) | payer OTHER, SELFPAY | PROVIDERS: PCP Internal Medicine; Visit Provider Internal Medicine | DX: Z86.73 Personal history of transient ischemic attack (TIA), and cerebral infarction without residual deficits (principal) | CPT/HCPCS: 85610; 99211 ==

== ENCOUNTER → 2020-08-16 10:06 | Outpatient (BNVA) | payer OTHER, SELFPAY | PROVIDERS: PCP Internal Medicine; Visit Provider Internal Medicine | DX: Z86.73 Personal history of transient ischemic attack (TIA), and cerebral infarction without residual deficits (principal); Z51.81 Encounter for therapeutic drug level monitoring; Z79.01 Long term (current) use of anticoagulants | CPT/HCPCS: 85610; 99211 ==

== ENCOUNTER → 2020-08-17 08:21 | Outpatient (REF) | payer OTHER, SELFPAY ==
--- NOTE | 2020-08-17 | NM_ITS ---
Lexiscan Myocardial perfusion study Indication: Coronary disease, myocardial infarction, stroke, assess for ischemia Technique: The patient was brought in for a Lexiscan perfusion study on 08/17/2020 and was injected 0.4 mg of Lexiscan intravenously. Within a minute of this injection 35 mCi of sestamibi was given intravenously. Images were obtained using the SPECT gamma camera interlaced with the gating device. Images were obtained in supine position. Resting perfusion study was performed on 08/18/2020. Patient was administered 35 mCi of sestamibi intravenously at rest. Images were then obtained in supine position. Total DLP 81mGy-cm. Images were processed with the software and compared side to side in short axis, horizontal long axis and vertical long axis views. Findings: Raw acquisition was reviewed. The stress perfusion study showed absent tracer uptake along the inferior wall. No significant improvement with CT attenuation correction. The gated study shows normal LV systolic function with calculated LVEF of 55%. LV cavity is normal in size. The gated study shows absent wall thickening along the inferior wall. Resting study shows absent tracer uptake along the inferior wall. Gating at rest reveals ejection fraction at 56%. The findings are consistent with no reversible defects. Fixed inferior wall perfusion defect. NM/NM naa perf SPECT rest & str Impression: 1. Myocardial perfusion imaging study shows evidence of old inferior wall myocardial infarction. No clear evidence of any ischemia. 2. Gated LVEF is 55% during stress and 56% during rest. 3. Transient ischemic dilatation not present. EKG component of the test reported separately.
--- NOTE | 2020-08-17 08:29 | CA_ITS ---
Acquisition Time: 2020-08-17 09:41:08 Total Exercise Time: 00:02:00 Test Indications: Post [facility] Medications: METOPROLOL WARFARIN ATORVASTATIN SERTRALINE CYCLOBENZAPRINE Protocol: LEXISCAN Max HR: 115 BPM 70% of Pred: 162 BPM Max BP: 124/078 mmHG Max Work Load: 1.0 METS Pharmacological stress test using Lexiscan while sitting and kicking his feet. Pt tolerated well. Denies any anginal sx. EKG without any arrhythmias, non-diagnostic for ischemia. Nuclear images to follow. Normotensive response to test. Test reviewed with Dr. Ashley. Referred By: Tyrone Montanez Overread By: Pebbles Love
--- NOTE | 2020-08-17 08:29 | CA_ITS ---
Transthoracic Echocardiogram Patient (Last, First, Middle): Mau Guzman H Gender: Male Date of : 1960 Age: 60 Procedure Date: 08/17/2020 Procedure Type: Transthoracic Echocardiogram Location: OP Height: 175.26 cm Weight: 98.43 kg BSA: 2.14 m2 Heart Rate: bpm BP: 120 / 70 mmHg Lock Operator: TAINA Referring MD: Griselda Marie GEAR SHAPER-C Wound/Ostomy Clinical Nurse Specialist: Tyrone Montanez MD Symptoms: I21.19 - ST elevation (STEMI) myocardial infarction involving other coronary artery of inferior wall Study Quality: Fair ECG Rhythm: Sinus Conclusions: - 1. Low normal LV systolic function with inferior wall motion abnormality with no change compared to prior study Findings Left Ventricle Normal left ventricular cavity size. The left ventricular systolic function is low normal. The visually estimated ejection fraction is between 50-55%. definity contrast reveals wall motion abnormality in inferior wall and in the mid inferior wall there is a small outpouching consistent with aneurysm. Wall Motion Rest Echo Findings The basal inferior segment is hypokinetic. The mid inferior segment is akinetic. All other scored wall segments showed normal motion. Prior Study Comparison No significant change compared to prior study dated: 07/06/2020. Measurements 2D Systolic Function EF 4C: 58.10 >55% EF 2C: 46.00 >55% EF BiP: 52.70 >55% Mitral Valve MV Pk E: 0.46 MV PK A: 0.76 MV Decel Time: 158.00 E/A: 0.60 E'Lateral: 9.68 E'Medial: 6.53 E/E' Med: 7.10 E/E' Lat: 4.80 PHT: 46.00 MVA PHT: 4.78 Decel [place]: 2.91 Diastolic Function MV Pk E: 0.46 MV Pk A: 0.76 E/A: 0.60 E'Medial: 6.53 E/E' Med: 7.10 E' Laterial: 9.68 E/E' Lat: 4.80 Updated in Other Vendor System with Status of Final Tyrone Montanez MD electronically signed on 08/18/2020 2:04:35 PM with status of Final
== END ==
LOC: HO.CARD 08:21
PROVIDERS: Visit Provider Nurse Practitioner Family
DX: I63.9 Cerebral infarction, unspecified (principal); I21.19 ST elevation (STEMI) myocardial infarction involving other coronary artery of inferior wall
CPT/HCPCS: 70120; 78452; 93017; A9500; J0280; J2785; Q9957

== ENCOUNTER → 2020-08-19 09:34 | Outpatient (BNVA) | payer OTHER, SELFPAY | PROVIDERS: PCP Internal Medicine; Visit Provider Internal Medicine | DX: Z86.73 Personal history of transient ischemic attack (TIA), and cerebral infarction without residual deficits (principal); Z51.81 Encounter for therapeutic drug level monitoring; Z79.01 Long term (current) use of anticoagulants | CPT/HCPCS: 85610; 99211 ==

== ENCOUNTER → 2020-08-23 09:16 | Outpatient (BNVA) | payer OTHER, SELFPAY | PROVIDERS: PCP Internal Medicine; Visit Provider Internal Medicine | DX: Z86.73 Personal history of transient ischemic attack (TIA), and cerebral infarction without residual deficits (principal); Z51.81 Encounter for therapeutic drug level monitoring; Z79.01 Long term (current) use of anticoagulants | CPT/HCPCS: 85610; 99211 ==

== ENCOUNTER → 2020-08-26 09:41 | Outpatient (BNVA) | payer OTHER, SELFPAY | PROVIDERS: PCP Internal Medicine; Visit Provider Internal Medicine | DX: Z86.73 Personal history of transient ischemic attack (TIA), and cerebral infarction without residual deficits (principal); Z51.81 Encounter for therapeutic drug level monitoring; Z79.01 Long term (current) use of anticoagulants | CPT/HCPCS: 85610; 99211 ==

== ENCOUNTER → 2020-08-30 09:27 | Outpatient (BNVA) | payer OTHER, SELFPAY | PROVIDERS: PCP Internal Medicine; Visit Provider Internal Medicine | DX: Z86.73 Personal history of transient ischemic attack (TIA), and cerebral infarction without residual deficits (principal); Z51.81 Encounter for therapeutic drug level monitoring; Z79.01 Long term (current) use of anticoagulants | CPT/HCPCS: 85610; 99211 ==

== ENCOUNTER → 2020-09-09 10:22 | Outpatient (BNVA) | payer OTHER, SELFPAY | PROVIDERS: PCP Internal Medicine; Visit Provider Internal Medicine | DX: Z86.73 Personal history of transient ischemic attack (TIA), and cerebral infarction without residual deficits (principal); Z51.81 Encounter for therapeutic drug level monitoring; Z79.01 Long term (current) use of anticoagulants | CPT/HCPCS: 85610; 99211 ==

== ENCOUNTER → 2020-09-13 10:02 | Outpatient (BNVA) | payer OTHER, SELFPAY | PROVIDERS: PCP Internal Medicine; Referring Provider Internal Medicine; Visit Provider Internal Medicine Cardiovascular Disease | DX: I21.19 ST elevation (STEMI) myocardial infarction involving other coronary artery of inferior wall (principal); I63.9 Cerebral infarction, unspecified | CPT/HCPCS: 99212 ==

== ENCOUNTER → 2020-09-16 10:36 | Outpatient (BNVA) | payer OTHER, SELFPAY | PROVIDERS: PCP Internal Medicine; Visit Provider Internal Medicine | DX: Z86.73 Personal history of transient ischemic attack (TIA), and cerebral infarction without residual deficits (principal); Z51.81 Encounter for therapeutic drug level monitoring; Z79.01 Long term (current) use of anticoagulants | CPT/HCPCS: 85610; 99211 ==

== ENCOUNTER → 2020-09-20 10:22 | Outpatient (BNVA) | payer OTHER, SELFPAY | PROVIDERS: PCP Internal Medicine; Visit Provider Internal Medicine | DX: Z86.73 Personal history of transient ischemic attack (TIA), and cerebral infarction without residual deficits (principal); Z51.81 Encounter for therapeutic drug level monitoring; Z79.01 Long term (current) use of anticoagulants | CPT/HCPCS: 85610; 99211 ==

== ENCOUNTER → 2020-09-27 09:02 | Outpatient (BNVA) | payer OTHER, SELFPAY | PROVIDERS: PCP Internal Medicine; Visit Provider Internal Medicine | DX: Z86.73 Personal history of transient ischemic attack (TIA), and cerebral infarction without residual deficits (principal); Z51.81 Encounter for therapeutic drug level monitoring; Z79.01 Long term (current) use of anticoagulants | CPT/HCPCS: 85610; 99211 ==

== ENCOUNTER → 2020-10-07 09:22 | Outpatient (BNVA) | payer OTHER, SELFPAY | PROVIDERS: PCP Internal Medicine; Visit Provider Internal Medicine | DX: Z86.73 Personal history of transient ischemic attack (TIA), and cerebral infarction without residual deficits (principal); Z51.81 Encounter for therapeutic drug level monitoring; Z79.01 Long term (current) use of anticoagulants | CPT/HCPCS: 85610; 99211 ==

== ENCOUNTER → 2020-10-18 08:39 | Outpatient (BNVA) | payer OTHER, SELFPAY | PROVIDERS: PCP Internal Medicine; Visit Provider Internal Medicine | DX: Z86.73 Personal history of transient ischemic attack (TIA), and cerebral infarction without residual deficits (principal); Z79.01 Long term (current) use of anticoagulants; Z51.81 Encounter for therapeutic drug level monitoring | CPT/HCPCS: 85610; 99211 ==

== ENCOUNTER → 2020-11-01 08:36 | Outpatient (BNVA) | payer OTHER, SELFPAY | PROVIDERS: PCP Internal Medicine; Visit Provider Internal Medicine | DX: Z86.73 Personal history of transient ischemic attack (TIA), and cerebral infarction without residual deficits (principal); Z79.01 Long term (current) use of anticoagulants; Z51.81 Encounter for therapeutic drug level monitoring | CPT/HCPCS: 85610; 99211 ==

== ENCOUNTER → 2020-11-19 08:48 | Outpatient (BNVA) | payer OTHER, SELFPAY | PROVIDERS: PCP Internal Medicine; Visit Provider Internal Medicine | DX: Z86.73 Personal history of transient ischemic attack (TIA), and cerebral infarction without residual deficits (principal); Z51.81 Encounter for therapeutic drug level monitoring; Z79.01 Long term (current) use of anticoagulants | CPT/HCPCS: 85610; 99211 ==

== ENCOUNTER → 2020-11-29 08:27 | Outpatient (BNVA) | payer OTHER, SELFPAY | PROVIDERS: PCP Internal Medicine; Visit Provider Internal Medicine | DX: Z86.73 Personal history of transient ischemic attack (TIA), and cerebral infarction without residual deficits (principal); Z51.81 Encounter for therapeutic drug level monitoring; Z79.01 Long term (current) use of anticoagulants | CPT/HCPCS: 85610; 99211 ==

== ENCOUNTER → 2020-12-10 08:35 | Outpatient (BNVA) | payer OTHER, SELFPAY | PROVIDERS: PCP Internal Medicine; Visit Provider Internal Medicine | DX: Z86.73 Personal history of transient ischemic attack (TIA), and cerebral infarction without residual deficits (principal); Z51.81 Encounter for therapeutic drug level monitoring; Z79.01 Long term (current) use of anticoagulants | CPT/HCPCS: 85610; 99211 ==

== ENCOUNTER → 2020-12-24 08:35 | Outpatient (BNVA) | payer OTHER, SELFPAY | PROVIDERS: PCP Internal Medicine; Visit Provider Internal Medicine | DX: Z86.73 Personal history of transient ischemic attack (TIA), and cerebral infarction without residual deficits (principal); Z51.81 Encounter for therapeutic drug level monitoring; Z79.01 Long term (current) use of anticoagulants | CPT/HCPCS: 85610; 99211 ==

== ENCOUNTER → 2021-01-07 08:29 | Outpatient (BNVA) | payer OTHER, SELFPAY | PROVIDERS: PCP Internal Medicine; Visit Provider Internal Medicine | DX: Z86.73 Personal history of transient ischemic attack (TIA), and cerebral infarction without residual deficits (principal); Z79.01 Long term (current) use of anticoagulants; Z51.81 Encounter for therapeutic drug level monitoring | CPT/HCPCS: 85610; 99211 ==

== ENCOUNTER 2021-01-07 09:00 | Outpatient (REF) | payer OTHER, SELFPAY ==
[2021-01-07 13:32] LABS: SARS COV2 PCR INHOUSE NEGATIVE (Negative)
== END 2021-01-07 09:01 | disposition home or self-care (01) ==
LOC: HO.LAB 09:00
PROVIDERS: Visit Provider Internal Medicine
DX: Z20.822 Contact with and (suspected) exposure to COVID-19 (principal)
CPT/HCPCS: C9803; U0003

== ENCOUNTER → 2021-01-10 09:36 | Outpatient (BNVA) | payer OTHER, SELFPAY | PROVIDERS: PCP Internal Medicine; Visit Provider Internal Medicine | DX: Z86.73 Personal history of transient ischemic attack (TIA), and cerebral infarction without residual deficits (principal); Z79.01 Long term (current) use of anticoagulants; Z51.81 Encounter for therapeutic drug level monitoring | CPT/HCPCS: 85610; 99211 ==

== ENCOUNTER → 2021-01-14 08:39 | Outpatient (BNVA) | payer OTHER, SELFPAY | PROVIDERS: PCP Internal Medicine; Visit Provider Internal Medicine | DX: Z86.73 Personal history of transient ischemic attack (TIA), and cerebral infarction without residual deficits (principal); Z79.01 Long term (current) use of anticoagulants; Z51.81 Encounter for therapeutic drug level monitoring | CPT/HCPCS: 85610; 99211 ==

== ENCOUNTER → 2021-01-26 08:10 | Outpatient (BNVA) | payer OTHER, SELFPAY | PROVIDERS: PCP Internal Medicine; Visit Provider Internal Medicine | DX: Z86.73 Personal history of transient ischemic attack (TIA), and cerebral infarction without residual deficits (principal); Z79.01 Long term (current) use of anticoagulants; Z51.81 Encounter for therapeutic drug level monitoring | CPT/HCPCS: 36415; 85610; 99211 ==

== ENCOUNTER → 2021-01-28 08:27 | Outpatient (BNVA) | payer OTHER, SELFPAY | PROVIDERS: PCP Internal Medicine; Visit Provider Internal Medicine | DX: Z86.73 Personal history of transient ischemic attack (TIA), and cerebral infarction without residual deficits (principal); Z79.01 Long term (current) use of anticoagulants; Z51.81 Encounter for therapeutic drug level monitoring | CPT/HCPCS: 85610; 99211 ==

== ENCOUNTER → 2021-02-04 08:41 | Outpatient (BNVA) | payer OTHER, SELFPAY | PROVIDERS: PCP Internal Medicine; Visit Provider Internal Medicine | DX: Z86.73 Personal history of transient ischemic attack (TIA), and cerebral infarction without residual deficits (principal); Z51.81 Encounter for therapeutic drug level monitoring; Z79.01 Long term (current) use of anticoagulants | CPT/HCPCS: 85610; 99211 ==

== ENCOUNTER 2021-02-09 14:15 | Outpatient (RCR) | payer OTHER, SELFPAY ==
--- NOTE | 2020-09-09 12:07 | MHC.OT.DC ---
[address] [phone] F: [phone] Occupational Therapy Discharge Note Provider: Dr Gray Diagnosis: HEMIANOPSIA MILD RECEPTIVE APHASIA Date of Evaluation: 08/05/20 Date of Discharge: 09/09/20 Treatments to Date: 12 Cancellations to Date: 0 No Shows to Date: 0 Discharge Status: Achieved Goals Discharge Summary: Progressing w/ reading, coordination and strengthening. Still getting frustrated, but able to complete more tasks. Goals met, pt to continue reading at home and recommend television antenna installer consult and continue patching strong eye to strengthen weaker right eye. Pt to start w/ speech therapy next week, also w/ cardiology follow up. Electronically Signed By: Maryann Parada OTR/L Please Sign and return to therapist, thank you for your referral.
== END 2021-03-03 10:36 | disposition other institution (70) ==
LOC: HO.SH 14:15
PROVIDERS: Visit Provider Psychiatry & Neurology Neurology
DX: I63.9 Cerebral infarction, unspecified (principal); H54.10 Blindness, one eye, low vision other eye, unspecified eyes
CPT/HCPCS: 85610; 97110; 97112; 97166; 97530; 99211

== ENCOUNTER → 2021-02-11 08:46 | Outpatient (BNVA) | payer OTHER, SELFPAY | PROVIDERS: PCP Internal Medicine; Visit Provider Internal Medicine | DX: Z86.73 Personal history of transient ischemic attack (TIA), and cerebral infarction without residual deficits (principal); Z79.01 Long term (current) use of anticoagulants; Z51.81 Encounter for therapeutic drug level monitoring | CPT/HCPCS: 85610; 99211 ==

== ENCOUNTER → 2021-02-15 09:04 | Outpatient (BNVA) | payer OTHER, SELFPAY | PROVIDERS: PCP Internal Medicine; Visit Provider Internal Medicine | DX: Z86.73 Personal history of transient ischemic attack (TIA), and cerebral infarction without residual deficits (principal); Z51.81 Encounter for therapeutic drug level monitoring; Z79.01 Long term (current) use of anticoagulants | CPT/HCPCS: 36415; 85610; 99211 ==

== ENCOUNTER 2021-02-15 09:31 | Outpatient (REF) | payer OTHER, SELFPAY ==
[2021-02-15 09:52] LABS: COVID-19 Test Negative (Negative); IDNOW Serial# 55D5AD1C
== END 2021-02-15 09:32 | disposition home or self-care (01) ==
LOC: HO.LAB 09:31
PROVIDERS: Visit Provider Internal Medicine
DX: Z20.822 Contact with and (suspected) exposure to COVID-19 (principal)
CPT/HCPCS: 36415; 87635; C9803

== ENCOUNTER 2021-02-17 09:18 | Outpatient (REF) | payer OTHER, SELFPAY ==
[2021-02-17 09:59] LABS: Hematocrit 44.4 % (42-52); Hemoglobin 15.2 g/dl (14.0-18.0); Mean Corpuscular HGB Conc 34.2 g/dl (31.0-36.0); Mean Corpuscular Hemoglobin 31.5 pg (27.0-33.0); Mean Corpuscular Volume 91.9 fL (80-98); Platelet Count 344 X10*3/uL (160-400); Red Blood Count 4.83 X10*6/uL (4.60-5.80); Red Cell Distribution Width 13.2 % (11.0-16.0); White Blood Count 11.1 X10*3/uL (4.8-10.8)
[2021-02-17 10:15] LABS: Prothrombin Time 214.6 SEC (10.8-13.0)
[2021-02-17 10:24] LABS: INTERNATIONAL NORM RATIO 17.5 (0.9-1.1)
[2021-02-17 10:26] LABS: Anion Gap 15 (12-20); Blood Urea Nitrogen 20 mg/dL (9-16); Calcium 9.2 mg/dL (8.4-10.2); Carbon Dioxide 25 mmol/L (22-29); Chloride 98 mmol/L (96-108); Estimated Glomerular Filt Rate > 60; Glucose Random 152 mg/dL (60-115); Potassium 3.5 mmol/L (3.3-5.1); Sodium 134 mmol/L (135-145)
== END 2021-02-17 09:19 | disposition home or self-care (01) ==
LOC: HO.LAB 09:18
PROVIDERS: PCP Internal Medicine; Visit Provider Internal Medicine
DX: Z86.73 Personal history of transient ischemic attack (TIA), and cerebral infarction without residual deficits (principal); Z51.81 Encounter for therapeutic drug level monitoring; Z79.01 Long term (current) use of anticoagulants
CPT/HCPCS: 36415; 80048; 85027; 85610; 99212

== ENCOUNTER 2021-02-17 10:38 | Inpatient (IN) | payer OTHER, SELFPAY ==
--- NOTE | ~2021-02-17 | XR_ITS ---
EXAMINATION: XR ABDOMEN KUB CLINICAL INDICATION: Status post exploratory laparotomy. COMPARISON: Abdomen 02/19/2021. CT scan abdomen pelvis 02/20/2021 TECHNIQUE: AP view of the abdomen. FINDINGS: Surgical clips vertically oriented through the mid abdomen. Gastric tube partially visualized in the upper abdomen. There is continued significant gaseous distention of the bowel loops. The severity of distention of bowel loops is similar to the exam of 02/20/2021. XR/XR abdomen 1V IMPRESSION: Continued gaseous distention of bowel loops similar to prior CT study 02/20/2021. Surgical skin clips at the midline abdomen. Gastric tube partially visualized in the upper abdomen.
--- NOTE | ~2021-02-17 | XR_ITS ---
EXAMINATION: XR CHEST CLINICAL INFORMATION: NG tube placement. COMPARISON: 02/17/2021 at 3:25 PM TECHNIQUE: Frontal view of the chest was obtained. FINDINGS: The lungs are hypoexpanded but clear. The heart size and pulmonary vascularity is normal. There is an enteric tube with its tip at the GE junction and needs to be advanced at least by 10 cm. The end hole is in distal esophagus. XR/XR chest 1V IMPRESSION: Hypoexpanded lungs without acute process. Advanced enteric tube by 10 cm.
--- NOTE | ~2021-02-17 | XR_ITS ---
EXAMINATION: XR ABDOMEN COMPLETE CLINICAL INDICATION: Sigmoid colonic obstructions, suspected sigmoid volvulus. COMPARISON: CT of the abdomen and pelvis done on 02/17/2021. TECHNIQUE: 2 views of the abdomen. FINDINGS: Multiple air-fluid levels are seen at the upper to mid abdomen. No definite evidence of any free intraperitoneal air on this limited images. Distended bowel loops are reidentified, better visualized on prior CT study. Interval placement of an NG tube is seen. Overall the degree of distention of bowel loops appear improved. XR/XR abdomen 3V IMPRESSION: Interval improvement of bowel distention in this patient with distal sigmoid colonic obstruction secondary to soft tissue mass, visualized on prior CT study dated 02/17/2021.
--- NOTE | ~2021-02-17 | XR_ITS ---
EXAMINATION: XR ABDOMEN KUB CLINICAL INDICATION: Check NG tube placement COMPARISON: Previous CT of the abdomen and pelvis most recent 02/23/2021 TECHNIQUE: AP view of the abdomen. FINDINGS: There is a nasogastric tube projects over the proximal stomach. There is interval decrease in bowel dilatation compared to previous x-ray 02/23/2021. There is no evidence of free air. There are midline skin trevor. There is mild scoliosis and degenerative change of the spine. XR/XR abdomen 1V IMPRESSION: Nasogastric tube projects over the stomach. There is interval decrease in bowel dilatation compared to 02/23/2021 exam.
--- NOTE | ~2021-02-17 | XR_ITS ---
EXAMINATION: XR CHEST CLINICAL INFORMATION: NG tube placement COMPARISON: CT abdomen pelvis 11:32AM today TECHNIQUE: Frontal view of the chest was obtained. FINDINGS: Since the prior study an NG tube has been placed and has its tip in the distal gastric antrum. The chest radiograph is otherwise unremarkable. XR/XR chest 1V IMPRESSION: NG tube with tip in distal antrum
--- NOTE | ~2021-02-17 | CT_ITS ---
EXAMINATION: CT ABDOMEN AND PELVIS WITH CONTRAST CLINICAL INFORMATION: Upper abdominal pain with nausea and vomiting COMPARISON: None TECHNIQUE: Multidetector volumetric images were obtained from the superior aspect of the liver through the pubic symphysis following administration 85 mL of Omnipaque 350 intravenous contrast. Sagittal and coronal reformatted images were obtained on the technologist's workstation. Oral contrast: No This CT examination was performed using dose optimization techniques as appropriate, variously including the following: *Automated exposure control *Adjustment of mA and/or kV according to patient size (this includes techniques or standardized protocols for targeted exams where dose is matched to indication/reason for exam; i.e. extremities or head) *Use of iterative reconstruction technique DLP: 762 mGy-cm FINDINGS: LUNG BASES: Lung bases appear unremarkable without evidence of pleural or pericardial effusion. LIVER, GALLBLADDER, AND BILIARY TREE: The liver is normal in size, shape, and attenuation. No focal hepatic lesion or biliary ductal dilatation is present. The gallbladder is unremarkable with no evidence of radiopaque gallstones, gallbladder wall thickening, or obvious pericholecystic inflammatory changes. PANCREAS: There has been fatty atrophy of the pancreas. No suspicious masses or peripancreatic inflammatory change. SPLEEN: Unremarkable. ADRENAL GLANDS: Unremarkable. KIDNEYS AND URETERS: The kidneys are normal in size, shape, and attenuation. No hydronephrosis, hydroureter, or calculi seen. No perinephric stranding. There is a 2.4 cm right renal lower pole cyst. There is a small amount of fluid seen about the distal left ureter adjacent to sigmoid colon. BLADDER: Unremarkable. GASTROINTESTINAL TRACT: No free air or free fluid is identified. There are multiple loops of dilated small bowel as well as dilatation of the proximal descending, transverse, and right colon. The small bowel loops are dilated up to 5 cm in diameter. The cecum measures up to 8 cm in diameter. The proximal sigmoid colon is approximately 8 cm in diameter. There is colonic obstruction in the region of the sigmoid colon with there is a large soft tissue mass measuring approximately 5.1 x 3.6 x 3.3 cm in size. This is suspicious for sigmoid colon cancer. ABDOMINAL WALL: No significant hernia is appreciated. LYMPH NODES: No lymphadenopathy is appreciated. VASCULAR: Unremarkable. OSSEOUS STRUCTURES: There is multilevel degenerative change present. No suspicious destructive bony lesions are identified. CT/CT abdomen pelvis w con IMPRESSION: Sigmoid colon obstruction by soft tissue mass suspicious for colon carcinoma. Dilated loops of large and small bowel are present proximal to this level of obstruction.
--- NOTE | ~2021-02-17 | XR_ITS ---
EXAMINATION: XR CHEST CLINICAL INFORMATION: NG tube position COMPARISON: 02/28/2021 TECHNIQUE: Frontal view of the chest was obtained. FINDINGS: Enteric tube terminates in the region of the gastric fundus. Right-sided PICC line terminates near the cavoatrial junction. Cardiac leads overlie the chest. Lungs are well expanded. No consolidation, edema, or effusion. No pneumothorax. The cardiomediastinal silhouette is within normal limits. XR/XR chest 1V IMPRESSION: Enteric tube terminates in the stomach. No acute pulmonary finding.
--- NOTE | ~2021-02-17 | XR_ITS ---
EXAMINATION: XR CHEST CLINICAL INFORMATION: NG tube placement COMPARISON: 02/23/2021 TECHNIQUE: Frontal view of the chest was obtained. FINDINGS: No significant abnormality is noted involving the heart, lungs, mediastinum, bony thorax or soft tissues. A right-sided PICC line has its tip in the distal SVC. An NG tube is present, either new or the prior tube has been advanced, now with its tip coiled in the fundus. XR/XR chest 1V IMPRESSION: NG tube in good position with tip coiled in fundus. Interval placement of right-sided PICC line with tip in distal SVC
--- NOTE | ~2021-02-17 | CT_ITS ---
EXAMINATION: CT ABDOMEN AND PELVIS WITH CONTRAST CLINICAL INFORMATION: Abdominal distention. COMPARISON: CT of the abdomen and pelvis done on 02/17/2021. TECHNIQUE: Multidetector volumetric images were obtained from the superior aspect of the liver through the pubic symphysis following administration 85 mL of Omnipaque 350 intravenous contrast. Sagittal and coronal reformatted images were obtained on the technologist's workstation. Oral contrast: No This CT examination was performed using dose optimization techniques as appropriate, variously including the following: *Automated exposure control *Adjustment of mA and/or kV according to patient size (this includes techniques or standardized protocols for targeted exams where dose is matched to indication/reason for exam; i.e. extremities or head) *Use of iterative reconstruction technique DLP: 726 mGy-cm FINDINGS: LUNG BASES: Interval development of linear airspace disease is noted at both lung bases, most consistent with hypoventilatory, atelectatic changes. LIVER, GALLBLADDER, AND BILIARY TREE: The liver is normal in size, shape, and attenuation. No focal hepatic lesion or biliary ductal dilatation is present. The gallbladder is unremarkable with no evidence of radiopaque gallstones, gallbladder wall thickening, or obvious pericholecystic inflammatory changes. PANCREAS: Partially fatty replaced throughout the entire pancreas, unchanged. SPLEEN: Unremarkable. ADRENAL GLANDS: Unremarkable. KIDNEYS AND URETERS: The kidneys are normal in size, shape, and attenuation. No hydronephrosis, hydroureter, or calculi seen. No perinephric stranding. Stable 2.4 cm cortical renal cyst at the inferior pole of the right kidney. BLADDER: Suboptimally distended, grossly appears unremarkable. GASTROINTESTINAL TRACT: Reidentified evidence of distal sigmoid colonic high-grade obstruction secondary to lobulated annular constricting soft tissue mass, presumably represent malignancy. The degree of cecal distention measures 7.6 cm, appeared relatively unchanged. The degree of small bowel distention also appear similar to prior study. The stomach is decompressed secondary to NG tube with its tip seen projecting in the region of the second part of the duodenum. No evidence of any pneumatosis, free intraperitoneal air or mesenteric venous gas. No evidence of any definite mesenteric lymphadenopathy. ABDOMINAL WALL: No significant hernia is appreciated. LYMPH NODES: Normal. VASCULAR: Mild diffuse atherosclerotic disease. PELVIC VISCERA: There is no pelvic mass present. There is no free fluid and/or free air present. OSSEOUS STRUCTURES: No suspicious focal lesion. CT/CT abdomen pelvis w con IMPRESSION: 1. Evidence of high-grade distal sigmoid colonic obstruction secondary to presumed malignancy, appears similar to prior study dated 02/17/2021. 2. No CT evidence of superimposed bowel ischemia and/or perforation.
[2021-02-17 10:46] VITALS: BP 139/87; PULSE 85; RESP 15; TEMP 37.1; O2SAT 95; BMI 30.5
--- NOTE | 2021-02-17 10:53 | ED.RECABL ---
HPI - Recheck/Abnormal Lab/Rx General Chief Complaint: General Medical Stated Complaint: INR 17.5 Time Seen by Provider: 02/17/21 10:51 Source: patient and old records reviewed Mode of arrival: ambulatory Limitations: no limitations History of Present Illness HPI narrative: 61 yo male with hx of likely cardioembolic stroke in [employer]PRESENT[employer] territory with inf wall STEMI currently managed on coumadin but has had issues with stabilizing INR - has been off coumadin x 2 days due to INR 9.8 currently 17.5 no trauma no bleeding, does note 2 weeks of feeling ill poor PO intake, depressed, partner manages all of his medications, no NSAID use, denies ingesting extra doses, not on any NSAIDs MD complaint: abnormal lab Initial visit (ago): hour(s) Initial visit for: other Returns today for: called because of abnormal lab/test (INR 17.5) Symptoms since prior visit: no new symptoms Context: called for abnormal lab result Associated symptoms: malaise, nausea and abdominal pain Related Data Home Medications Medication Instructions Recorded Confirmed sertraline 50 mg tablet 50 mg PO DAILY 08/02/20 02/04/21 melatonin 10 mg PO DAILY PRN 10/04/20 02/04/21 gabapentin 300 mg capsule mg PO 11/29/20 02/04/21 sertraline 100 mg tablet 100 mg PO DAILY 11/29/20 02/04/21 melatonin 5 mg tablet 5 mg PO DAILY PRN 01/07/21 02/04/21 Previous Rx's Medication Instructions Recorded cyclobenzaprine 10 mg tablet 10 mg PO BEDTIME PRN #30 tab 10/03/20 meloxicam 7.5 mg tablet 7.5 mg PO DAILY #14 tab 10/13/20 atorvastatin 80 mg tablet 80 mg PO DAILY #30 tab 12/06/20 metoprolol tartrate 25 mg tablet 25 mg PO BID #60 tab 12/06/20 baclofen 20 mg tablet 20 mg PO DAILY #30 tab 12/11/20 zolpidem 5 mg tablet 5 mg PO BEDTIME 30 Days #30 tab 12/22/20 warfarin 7.5 mg tablet 7.5 mg PO DAILY #30 tab 02/04/21 Allergies Allergy/AdvReac Type Severity Reaction Status Date / Time No Known Allergies Allergy Verified 02/17/21 09:18 Review of Systems Review of Systems: Constitutional : pos Weight loss, No Fever, No Chills, pos Fatigue, pos Malaise ENT/Mouth : No sore throat, No Rhinorrhea Eyes: No Eye Pain, No Swelling, No Redness Cardiovascular : No Chest Pain, No SOB, No Dyspnea on Exertion, No Orthopnea, No Edema, No Palpitations Respiratory : No Cough, No Sputum, No Wheezing Gastrointestinal : pos Nausea, No Vomiting, No Diarrhea, No Constipation, pos abdominal Pain, No Hematochezia, No Melena Genitourinary : No Dysuria, No Urinary Frequency, No Hematuria, Musculoskeletal : No joint pain, No Myalgias, No Joint Swelling Skin : No Skin Lesions, No rash Neuro : pos Weakness, No Numbness, No Dizziness, No Headache Psych : No Anxiety/Panic, No Depression Heme/Lymph: No Bruising, No Bleeding,No Lymphadenopathy Endocrine : No Polyuria, No Polydipsia All other systems reviewed and are negative [facility] Past Medical History Attestation statement: The following information was validated with the patient. Medical History Depression High cholesterol HTN (hypertension) Knee pain, bilateral ST elevation myocardial infarction (STEMI) of inferior wall (~07/2020) Stroke (~07/2020) Family History Family History Father Stroke Mother No problems noted. Social History Social History Smoking Status: Current every day smoker Packs Per Day: 12 Cigarettes Per Day: 12 Advance Directives: No Advance Directives Information Provided: No Physical Exam Vital Signs: Vital Signs: Last Vital Signs Temp 98.7 F 02/17/21 10:46 Pulse 85 02/17/21 10:46 Resp 15 02/17/21 10:46 BP 139/87 02/17/21 10:46 Pulse Ox 95 02/17/21 10:46 Body Mass Index 30.5 Appearance: Alert. Oriented X3. No acute distress. Eyes: Pupils equal, round and reactive to light. ENT: Pharynx normal. Neck: Normal inspection. Neck supple. CVS: Normal heart rate and rhythm. Pulses normal. Respiratory: No respiratory distress. Breath sounds normal. Abdomen: Soft and nontender. Skin: Skin warm and dry. Normal skin color. Normal skin turgor. Extremities: No lower extremity edema. No calf ttp Neuro: Oriented X 3. No motor deficit. No sensory deficit. Course Course Course Narrative: call to surgery Dr. Mackenzie 1222pm Dr. Mackenzie aware - CT scan results and findings, recommends medical admit with GI then surgery will see discussed findings with patient and partner MDM - Recheck/Abnormal Lab/Rx MDM Narrative Medical decision making narrative: 61 yo male with hx of likely cardioembolic stroke in [employer]ENT[employer] territory with inf wall STEMI currently managed on coumadin but has had issues with stabilizing INR - has been off coumadin x 2 days due to INR 9.8 currently 17.5 no trauma no bleeding, does note 2 weeks of feeling ill poor PO intake, depressed, partner manages all of his medications, no NSAID use, denies ingesting extra doses, not on any NSAIDs at this time will need labs, type an screen, has no oral bleeding but oral Vit K ordered, CT scan for mass, IVF, zofran dispo per results and findings. Lab Data Labs: Lab Results 02/17/21 02/17/21 02/17/21 Range/Units 11:18 11:19 11:19 PT 229.1 H (10.8-13.0) SEC INR 18.7 H* (0.9-1.1) APTT 68.8 H* (24.1-38.0) SEC Magnesium 2.0 (1.6-2.6) mg/dL Total Bilirubin 0.7 (0.0-1.0) mg/dL Direct Bilirubin 0.5 (0.0-0.5) mg/dL AST 21 (5-37) U/L ALT 30 (0-40) U/L Alkaline Phosphatase 87 (39-117) U/L Total Protein 6.3 L (6.5-8.0) g/dL Albumin 3.6 (3.5-5.0) g/dL Lipase 5 L (8-78) U/L Blood Type A Positive Antibody Screen NEGATIVE ECG Data Attestation: I personally reviewed and interpreted this ECG as follows: ECG interpretation date: 02/17/21 ECG interpretation time: 11:36 Interpretation: Rate: 88 Rhythm: NSR [place]: left Normal P waves. Normal AYESHA. Normal QRS complex. ST T wave : no FRANCISCO, nonsepcific anterior leads qTC: normal prior studies: change from prior on 9/28/20 but at that time was inf wall STEMI The study has been interpreted contemporaneously by me. Discharge Plan Discharge Clinical Impression: Supratherapeutic INR, Colonic mass Patient Disposition: Admitted As Inpatient Prescriptions: No Action cyclobenzaprine 10 mg tablet 10 mg PO BEDTIME PRN (Reason: for muscle spasm) Qty: 30 RF: 0 meloxicam 7.5 mg tablet 7.5 mg PO DAILY Qty: 14 RF: 0 metoprolol tartrate 25 mg tablet 25 mg PO BID Qty: 60 RF: 2 atorvastatin 80 mg tablet 80 mg PO DAILY Qty: 30 RF: 2 baclofen 20 mg tablet 20 mg PO DAILY Qty: 30 RF: 0 zolpidem 5 mg tablet 5 mg PO BEDTIME 30 Days Qty: 30 RF: 0 warfarin 7.5 mg tablet 7.5 mg PO DAILY Qty: 30 RF: 11 melatonin 5 mg capsule 10 mg PO DAILY PRN (Reason: for insomnia) RF: 0 melatonin 5 mg tablet 5 mg PO DAILY PRN (Reason: insomnia) RF: 0 sertraline 50 mg tablet 50 mg PO DAILY RF: 0 gabapentin 300 mg capsule PO RF: 0 sertraline 100 mg tablet 100 mg PO DAILY RF: 0
--- NOTE | 2021-02-17 11:01 | ECG_ITS ---
Test Reason : GENERAL MEDICAL Blood Pressure : / mmHG Vent. Rate : 088 BPM Atrial Rate : 088 BPM P-R Int : 150 ms QRS Dur : 122 ms QT Int : 390 ms P-R-T Axes : 043 -23 036 degrees QTc Int : 471 ms Normal sinus rhythm Possible Lateral infarct , age undetermined Inferior infarct (cited on or before 05-JUL-2020) Abnormal ECG When compared with ECG of 05-JUL-2020 21:23, Borderline criteria for Lateral infarct are now Present ST no longer elevated in Inferior leads ST no longer depressed in Anterior leads Nonspecific T wave abnormality now evident in Anterior leads Nonspecific T wave abnormality, improved in Lateral leads Referred By: Brissa Landin Electronically Signed By:KAR NEW MD
[2021-02-17 11:39] LABS: Prothrombin Time 229.1 SEC (10.8-13.0)
[2021-02-17] MEDS: 0.9 % Sodium Chloride 1,000 ML 999 ML IVCONT (11:44)
[2021-02-17] MEDS: ondansetron HCL 4 MG/2 ML VIAL IVPUSH (11:45)
[2021-02-17] MEDS: Phytonadione (Vit K1) Oral 10 MG/ML AMPUL 5 MG PO ×2 (11:45→11:47)
[2021-02-17] MEDS: iohexoL 350 MG/ML 100 ML INFUS..BTL IV (11:47)
[2021-02-17 11:50] LABS: INTERNATIONAL NORM RATIO 18.7 (0.9-1.1); Partial Thromboplastin Time 68.8 SEC (24.1-38.0)
[2021-02-17 12:13] LABS: Alanine Aminotransferase 30 U/L (0-40); Albumin Level 3.6 g/dL (3.5-5.0); Alkaline Phosphatase 87 U/L (39-117); Aspartate Amino Transferase 21 U/L (5-37); Bilirubin Direct 0.5 mg/dL (0.0-0.5); Bilirubin Total 0.7 mg/dL (0.0-1.0); Lipase 5 U/L (8-78); Total Protein 6.3 g/dL (6.5-8.0)
[2021-02-17 14:21] LABS: Troponin-I High Sensitivity 15.8 ng/L (<3.5-35.0)
--- NOTE | 2021-02-17 14:22 | P.HPHOSP_ITS ---
History of Present Illness Date of Service: 02/17/21 Chief Complaint: abdominal pain, nausea, vomiting This is a 61-year-old male who is not the best of historians (due to prior stroke) with a past medical history of CVA and AR, on Coumadin who presents to the hospital with complaints of progressive abdominal pain with associated nausea and nonbloody/nonbilious vomiting over the last 2 weeks. He also endorses changes in bowel habit with intermittent diarrhea followed by constipation. He reports his last bowel movement as this AM. He reports passing flatus at this time. He denies any bleeding. He reports a decrease in appetite over these last few weeks as well. No fevers or chills reported. He denies mata ving a colonoscopy in the past. He endorses that his sister was diagnosed with colon cancer in her 50s. Upon arrival to the emergency room, his workup which included a CT scan of the abdomen and pelvis revealed sigmoid colon obstruction with a soft tissue mass which is suspicious for colon carcinoma. Dilated loops of small and large bowel are also present. His blood work revealed an INR greater than 18. In regards to this elevated INR -- I spoke with his significant other [place] who states that she gives him ALL his medications and he has missed a few days due to his abdominal symptoms. The case was discussed by the ED provider with General Surgeon stone sandblaster who recommended admission to Medicine with a Gastroenterology consult. I discussed the case with Dr. Romano from General surgery who will be seeing the patient and advised an NG tube insertion at this time. Review of Systems Review of Systems: General - denies fevers or chills, denies weakness or fatigue HEENT -denies blurred vision, denies headache, denies sore throat Cardiovascular - denies chest pain or palpitations, denies edema Respiratory -positive for diffuse abdominal pain, nausea, vomiting, changes in bowel habit Gastrointestinal - denies abdominal pain, nausea, vomiting, diarrhea - denies flank pain, denies dysuria, denies frequency or urgency Musculoskeletal - denies back pain, denies hip pain, denies knee pain, denies shoulder pain Neurological - +memory loss -- chronic Skin, denies any bruising or redness Psychiatric - denies any suicidal ideation, hallucinations, homicidal ideation Endocrinology - denies intolerance to hot / cold temperatures [facility] Medical History Depression High cholesterol HTN (hypertension) Knee pain, bilateral ST elevation myocardial infarction (STEMI) of inferior wall (~07/2020) Stroke (~07/2020) Family History (Updated 02/17/21 @ 14:35 by Anam Erickson MD) Father Stroke Mother No problems noted. Sister Colon cancer Social History Smoking Status: Current every day smoker Packs Per Day: 12 Cigarettes Per Day: 12 Advance Directives: No Advance Directives Information Provided: No Meds Allergies Allergy/AdvReac Type Severity Reaction Status Date / Time No Known Allergies Allergy Verified 02/17/21 09:18 Home Medications Medication Instructions Recorded Confirmed Last Taken Type sertraline 50 mg tablet 50 mg PO DAILY 08/02/20 02/04/21 10/04/20 History 50 melatonin 10 mg PO DAILY PRN 10/04/20 02/04/21 10/03/20 History gabapentin 300 mg capsule mg PO 11/29/20 02/04/21 Unknown History sertraline 100 mg tablet 100 mg PO DAILY 11/29/20 02/04/21 Unknown History melatonin 5 mg tablet 5 mg PO DAILY PRN 01/07/21 02/04/21 Unknown History Physical Exam Vital Signs and Narrative: Vital Signs: Last Vital Signs Temp 98.7 F 02/17/21 10:46 Pulse 85 02/17/21 10:46 Resp 15 02/17/21 10:46 BP 139/87 02/17/21 10:46 Pulse Ox 95 02/17/21 10:46 Body Mass Index 30.5 Const: Other: Constitutional - Awake and Alert, No apparent distress Eyes - PERRLA, EOMI Cardiovascular - S1S2, RRR, No edema Respiratory - Normal lung expansion, Normal respiratory effort, No respiratory distress, CTA bilaterally Gastrointestinal - distended but without any rebound or guarding; no significant tenderness to palpation - No CVA tenderness Extremities - no calf tenderness bilaterally, no swelling Musculoskeletal - Normal inspection, normal ROM Skin - Warm/Dry Neurological - AAOx3 but poor historian Psychological - Appropriate affect Results Labs Labs: Laboratory Results - last 24 hr 02/17/21 02/17/21 02/17/21 11:18 11:19 11:19 PT 229.1 H INR 18.7 H* APTT 68.8 H* Magnesium 2.0 Total Bilirubin 0.7 Direct Bilirubin 0.5 AST 21 ALT 30 Alkaline Phosphatase 87 Troponin I High Sens Total Protein 6.3 L Albumin 3.6 Lipase 5 L Blood Type A Positive Antibody Screen NEGATIVE 02/17/21 13:38 PT INR APTT Magnesium Total Bilirubin Direct Bilirubin AST ALT Alkaline Phosphatase Troponin I High Sens 15.8 Total Protein Albumin Lipase Blood Type Antibody Screen Imaging Radiologist's Impressions: Impressions Abdomen/Pelvis CT 02/17/21 11:01 IMPRESSION: Sigmoid colon obstruction by soft tissue mass suspicious for colon carcinoma. Dilated loops of large and small bowel are present proximal to this level of obstruction. Assessment and Plan (1) Colonic obstruction: Status: Acute This is a 61-year-old male with no prior colonoscopy who presents to the hospital with complaints of diffuse abdominal pain with associated nausea vomiting and changes in his bowel habits over the last several weeks along with poor oral intake. He is diagnosed with colonic obstruction likely secondary to colon cancer. 1. Colonic obstruction Per CT. Likely colon cancer Discussed with Dr. Romano from General surgery, she will be seen the patient. She recommended inserting NG tube at this time Will also get GI consult Suspect he will need Surgical resection -- given his cardiac history, will get cardiology for clerance keep NPO for now IVF fluids IV morphine for pain IV zofran for nausea 2. Supratherapeutic INR missed last few doses, suspect secondary to poor nutrition received Vit k in ED, will recheck tomorrow and proceed with further vit K as needed (will reverse more urgently if requested by GI/ Gen Surg). on coumadin - ? for cardioembolic nature of prior cva 3. CAD s/p AR continue baseline meds once med rec completed 4. History of CVA continue statin, hold coumadin as above Full Code DVT pptx, lovenox
[2021-02-17 14:55] VITALS: BP 143/91; PULSE 98; RESP 17; TEMP 37.1; O2SAT 94
[2021-02-17 16:00] VITALS: BP 121/82; PULSE 107; RESP 20; TEMP 37.4; O2SAT 94
[2021-02-17] MEDS: LORazepam 2 MG/ML VIAL 1 MG IVPUSH (16:15)
--- NOTE | 2021-02-17 17:13 | PC.NURSE ---
attempted to call report rn unavailable. awaiting call back.
[2021-02-17] MEDS: Dextrose 5 % and 0.9 % NaCl 1,000 ML 100 ML IVCONT (17:17)
--- NOTE | 2021-02-17 17:53 | PM.CNGS ---
History of Present Illness Consult details Consult date: 02/17/21 Reason for consult: other (Sigmoid Colonic obstruction) Requesting physician: Anam Erickson Narrative: This is a 61-year-old gentleman who has had no medical care until June of 2020 when he suffered a heart attack and stroke requiring him to be placed on Coumadin. Patient has been on Coumadin has been supratherapeutic for at least 2 weeks. He was in the clinic today for his normal follow-up to evaluate his INR level and was found to have an elevated level of 17. He was sent to the emergency department where he was found to have an INR of 18.7. Further history documents that he has felt unwell with poor appetite for several weeks and has had at least a 10 lb weight loss in that time frame. He reports he had a full day of vomiting of even liquids about 5-6 days ago. He has not had any vomiting since then but has had occasional nausea. He reports abdominal distention for several weeks. He has had alternating loose stools and some constipation. He has been moving his bowels at least every other day however. He had a bowel movement this morning and has been passing gas all along. Patient denies abdominal pain but reports feeling very fatigued. He denies any shortness of breath or chest pain. Patient has residual memory loss since the stroke in June of 2020. He is cared for by his girlfriend. Patient underwent a CT scan abdomen and pelvis today given his history and was found to have dilation of the small bowel and the colon all the way up to an area of narrowing in the distal sigmoid colon. Patient has normal white blood cell count. Review of Systems Constitutional: Constitutional: Denies chills, Reports difficulty sleeping, Denies excessive sweating, Reports fatigue, Denies fever(s), Denies headache(s), Denies night sweats, Reports weakness and Reports weight loss Eyes: Eyes: Reports blind spots, Denies blurry vision, Denies diplopia, Denies eye discharge, Reports loss of peripheral vision (Since having the stroke in June 2020) and Reports loss of vision ENT: Reports Normal hearing present, Denies change in voice, Denies headache(s), Denies neck mass, Denies sore throat, Denies throat swelling and Denies tongue swelling Cardiovascular: Cardiovascular: Denies chest pain, Denies chest pain at rest, Denies chest pain with activity, Denies edema, Denies leg edema and Denies dyspnea on exertion Respiratory: Respiratory: Denies cough, Denies excessive phlegm production, Denies dyspnea on exertion, Denies stridor and Denies wheezing Gastrointestinal: Gastrointestinal: Denies abdominal pain, Denies melena, Denies bloating, Denies hematochezia, Reports change in stool character (Loose stools), Reports constipation, Reports early satiety, Denies heartburn, Reports nausea and Denies vomiting Genitourinary: Genitourinary: Denies hematuria, Denies dysuria, Reports urinary frequency, Denies urinary hesitancy, Denies urinary incontinence and Denies urinary urgency Musculoskeletal: Musculoskeletal: Reports back pain, Reports arthralgias and Reports muscle weakness Integumentary/Breasts: Skin/Breast: Denies breast swelling, Denies breast pain, Denies breast mass, Denies change in pigmentation, Denies new lesions and Denies rash Neurologic: Reports Normal hearing present, Denies confusion, Denies headache(s), Denies lack of coordination, Denies focal weakness, Reports loss of vision, Reports memory loss, Denies paresthesias and Reports weakness Psychiatric: Psychiatric: Reports anxiety, Denies confusion, Reports depression and Reports memory loss Endocrine: Endocrine: Denies cold intolerance, Denies excessive sweating and Reports fatigue Hematologic/Lymphatic: Hematologic/Lymphatic: Denies easy bleeding, Denies easy bruising and Denies lymphadenopathy Allergic/Immunologic: Allergic/Immunologic: Denies urticaria, Denies throat swelling, Denies tongue swelling and Denies wheezing PMFSH Past Medical History Medical History (Updated 02/17/21 @ 18:01 by Maude Romano MD) Anxiety Depression High cholesterol HTN (hypertension) Knee pain, bilateral ST elevation myocardial infarction (STEMI) of inferior wall (~07/2020) Stroke (~07/2020) Family History Family History (Updated 02/17/21 @ 18:03 by Maude Romano MD) Father Stroke Heart attack Mother Heart attack Sister Diverticulitis Heart attack Brother No problems noted. Sister No problems noted. Brother No problems noted. Surgical History Surgical History (Updated 02/17/21 @ 18:01 by Maude Romano MD) No pertinent past surgical history Social History Social History (Updated 02/17/21 @ 18:04 by Maued Romano MD) Household Members: Significant Other Alcohol intake: former Smoking Status: Current every day smoker Cigarettes Per Day: 10 Use of substances other than those prescribed or required for medical reasons: No Advance Directives: No Advance Directives Information Provided: No Meds Allergies Allergy/AdvReac Type Severity Reaction Status Date / Time No Known Allergies Allergy Verified 02/17/21 09:18 Active Medications: Current Medications Generic Name Dose Route Start Last Admin Trade Name Freq PRN Reason Stop Dose Admin Acetaminophen 650 mg 02/17/21 17:35 Acetaminophen 325 Mg Tablet PO Q6H PRN Pain, Mild (Pain Scale 1-3) Dextrose/Sodium Chloride 1,000 mls @ 100 mls/hr 02/17/21 15:11 02/17/21 17:17 D5ns IVCONT 100 mls/hr .Q10H JULIO Administration Morphine Sulfate 4 mg 02/17/21 15:11 Morphine Sulfate 4 Mg/Ml Cartridge IVPUSH Q4H PRN Pain, Severe (Pain Scale 7-10) Pharmacy Consult 1 each 02/17/21 15:11 Consult Rx Perform Med Rec MISCELLANE ONCE PRN Consult order Sodium Chloride 3 ml 02/17/21 17:35 0.9 % Sodium Chloride Flush 3 Ml Syringe IVFLUSH QSHIFT [facility] Home Medications Medication Instructions Recorded Confirmed Last Taken Type gabapentin 300 mg capsule 300 mg PO BID 11/29/20 02/17/21 02/17/21 History sertraline 100 mg tablet 100 mg PO DAILY 11/29/20 02/17/21 02/17/21 History melatonin 5 mg tablet 5 mg PO DAILY PRN 01/07/21 02/17/21 02/16/21 History Physical Exam Vital Signs: Vital Signs: Last Vital Signs Temp 99.3 F 02/17/21 16:00 Pulse 107 H 02/17/21 16:00 Resp 20 02/17/21 16:00 BP 121/82 02/17/21 16:00 Pulse Ox 94 02/17/21 16:00 Body Mass Index 30.5 Const: General: No confusion Orientation/consciousness: No confusion HENMT: Head: Yes normal to inspection, Yes normocephalic and Yes atraumatic Ears: hearing grossly normal bilaterally Mouth: Normal oral and palatal mucosa present Throat: Yes posterior oropharynx normal Eyes: General: appearance normal, both eyes and all related structures EOM: EOMs intact bilaterally Neck: Neck: Yes normal visual inspection, Yes no lymphadenopathy, Yes trachea midline and Yes no JVD Resp: Effort & Inspection: normal respiratory effort and able to speak in complete sentences Auscultation: clear to auscultation bilaterally Cardio: Jugular venous distension: no JVD Heart sounds: S1 normal heart sound present, S2 normal heart sound present, no click, no gallops, no murmurs and no rubs GI: Other: Mild tympany to percussion Inspection: Yes distended (Softly) Palpation (GI): Soft to palpation, nontender, no guarding, not rigid, hepatosplenomegaly present, no hernias and no masses Rectal Exam - Male: Yes deferred Skin: General skin exam: no rashes or lesions noted Neuro: General: No confusion Cranial nerves: Yes Normal hearing present Extrem: General: Yes normal to inspection and Yes full ROM Psych: Appearance: grossly normal Results Labs Labs: Abnormal lab results 02/17/21 02/17/21 Range/Units 11:19 11:19 PT 229.1 H (10.8-13.0) SEC INR 18.7 H* (0.9-1.1) APTT 68.8 H* (24.1-38.0) SEC Total Protein 6.3 L (6.5-8.0) g/dL Lipase 5 L (8-78) U/L Liver Function 02/17/21 Range/Units 11:19 Total Bilirubin 0.7 (0.0-1.0) mg/dL Direct Bilirubin 0.5 (0.0-0.5) mg/dL AST 21 (5-37) U/L ALT 30 (0-40) U/L Alkaline Phosphatase 87 (39-117) U/L Albumin 3.6 (3.5-5.0) g/dL All other labs normal. Assessment and Plan (1) Colonic obstruction: Status: Acute This is a 61-year-old gentleman with a history of a heart attack and stroke in June of 2020 who previously had not had any medical care for 20 years. Patient has never had a colonoscopy and came into the emergency department today with 2 week history of obstipation nausea and poor oral intake. On CT scan the patient has been found to have an obstructing or nearly obstructing sigmoid lesion which is causing small-bowel and colonic distention. Patient does have recent history of passing gas and having bowel movements at least every other day so he may not be completely obstructed. GI consult should be obtained to determine whether this patient is appropriate for stenting and colonic prep to perform a colonoscopy to plan for sigmoid resection of this area seen on CT scan. If this patient is deemed to be in appropriate for colonic stenting of this obstructed area the patient will need a sigmoid resection with colostomy as his bowel cannot be prepped. I have discussed this at length with the patient and his girlfriend and they agree to proceed whichever way is appropriate. I will await the consult from the structural engineer before making a decision for surgical intervention. Thank you for this consultation I will continue to follow with you. Patient will need to have his INR reversed to a normal range which would be below 1.5 prior to surgical intervention. I spent about an hour and 10 minutes performing history and physical exam reviewing patient's blood work and radiologic studies and visualizing the CT scan images and discussing the plan with the patient and his girlfriend.
[2021-02-17 18:15] VITALS: BP 120/79; PULSE 111; RESP 18; TEMP 36.5; O2SAT 93
[2021-02-17 19:16] VITALS: BP 122/65; PULSE 105; RESP 20; TEMP 37.3; O2SAT 93
--- NOTE | 2021-02-17 19:40 | PM.EVENT ---
Event Note Date of Service: 02/17/21 Event Note: GI Consult received--I will see patient tomorrow and possibly try to set up a Flex sig to at least obtain a biopsy and make a tentative diagnosis before the weekend. I've ordered a STAT PT/INR for this evening and will try to correct INR. Will keep NPO after midnight.Thanks
[2021-02-17 20:30] LABS: Prothrombin Time 141.8 SEC (10.8-13.0)
[2021-02-17 20:33] LABS: INTERNATIONAL NORM RATIO 11.6 (0.9-1.1)
[2021-02-17] MEDS: Phytonadione (Vit K1) 10 MG in 0.9 % Sodium Chloride 50 ML 51 MG IV (23:04)
[2021-02-17 23:38] VITALS: BP 118/68; PULSE 105; RESP 18; TEMP 36.8; O2SAT 93
[2021-02-18] VITALS (8 sets, daily range): BP systolic 119–137; BP diastolic 68–88; PULSE 95–104; RESP 18–22; TEMP 36.5–37.9; O2SAT 91–96
[2021-02-18] MEDS: Dextrose 5 % and 0.9 % NaCl 1,000 ML 100 ML IVCONT (03:52)
[2021-02-18 06:37] LABS: Hemoglobin 13.3 g/dl (14.0-18.0); Mean Corpuscular HGB Conc 34.1 g/dl (31.0-36.0); Mean Corpuscular Hemoglobin 31.4 pg (27.0-33.0); Mean Platelet Volume 10.5 fL (9.4-12.4); Platelet Count 304 X10*3/uL (160-400); Red Blood Count 4.24 X10*6/uL (4.60-5.80); Red Cell Distribution Width 13.4 % (11.0-16.0); White Blood Count 12.4 X10*3/uL (4.8-10.8)
[2021-02-18 06:41] LABS: INTERNATIONAL NORM RATIO 2.2 (0.9-1.1); Prothrombin Time 26.5 SEC (10.8-13.0)
[2021-02-18 07:05] LABS: Band Neutrophils Percent 19 % (3-5); Eosinophils Absolute Manual 0.1 X10*3/UL (0.0-0.8); Eosinophils Percent Manual 1 % (0-4); Lymphocytes Absolute Manual 2.4 X10*3/uL (0.6-4.8); Lymphocytes Percent Manual 19 % (20-40); Monocytes Absolute Manual 2.4 X10*3/uL (0.0-1.2); Monocytes Percent Manual 19 % (2-11); Neutrophils Absolute Manual 7.6 X10*3/uL (2.2-7.9); Neutrophils Percent Manual 42 % (45-73)
[2021-02-18 07:10] LABS: Burr Cells 2+ (3-5) /OIF; Platelet Estimate NORMAL (NORMAL); Platelet Morphology Comment NORMAL; RBC Morphology NOTED
[2021-02-18 07:36] LABS: Anion Gap 11 (12-20); Blood Urea Nitrogen 18 mg/dL (9-16); Calcium 8.3 mg/dL (8.4-10.2); Carbon Dioxide 24 mmol/L (22-29); Chloride 104 mmol/L (96-108); Creatinine Clr Calc Pharmacy 149.9; Estimated Glomerular Filt Rate > 60; Glucose Random 139 mg/dL (60-115); Potassium 2.7 mmol/L (3.3-5.1); Sodium 136 mmol/L (135-145)
--- NOTE | 2021-02-18 09:12 | MHC.CM.PN ---
Patient is documented to not be the best Historian r/t past CVA in 2020; CM spoke with S.O./HCP/[facility] at [phone]. Patient lives in a duplex with Little and has no prior services nor DME. Home is the goal for dc and CM has initiated and will follow for dc planning.
[2021-02-18 09:49] LABS: Magnesium 2.1 mg/dL (1.6-2.6)
--- NOTE | 2021-02-18 09:51 | P.CDIC_ITS ---
CD[facility] Concurrent Query Service Date: 02/18/21 Documentation Clarification: Please clarify if you are treating a proba ble/suspected/likely or confirmed: Labs: Hypokalemia POA Please specify if known Hypokalemia Provider Response: Other Other Diagnosis: Hypokalemia PLEASE DO NOT DELETE/MODIFY EXISTING CONTENT Additional information is needed in order to code to the highest accuracy and appropriate Severity of Illness (SOI). Please clarify the information noted below in your progress notes and discharge summary. Risk Factors/Clinical Indicators/Treatments LAB FINDINGS: potassium 2.7 nausea, vomiting, malaise IV potassium chloride CDS: Rhina Sanchez CCS, [facility]IS Contact Number: [phone] Please Review the information above and exercise your independent professional judgment in responding to the query. If you concur, pleas document in the PROGRESS NOTES and DISCHARGE SUMMARY. If you do not agree with the query, please document in the query above. THIS QUERY IS PART OF THE PERMANENT MEDICAL RECORD
--- NOTE | 2021-02-18 10:20 | HO.PM.IMPN ---
Subjective Subjective Date of Service: 02/18/21 Interval History: seen and examined this AM reports minimal abd pain reports passing flatus denies other medical complaints ROS General - no fevers or chills Cardiovascular - no chest pain Respiratory - no shortness of breath or cough Abdominal- minimal abdominal pain, nausea, vomiting, diarrhea Physical Exam Vital Signs: Vital Signs: Last Vital Signs Temp 98.5 F 02/18/21 08:00 Pulse 100 02/18/21 08:00 Resp 20 02/18/21 08:00 BP 129/88 02/18/21 08:00 Pulse Ox 91 L 02/18/21 08:00 Body Mass Index 30.5 Const: Other: Constitutional - Awake and Alert, No apparent distress HEENT - PERRLA, EOMI, NG in place without any drainage Cardiovascular - S1S2, RRR, No edema Respiratory - Normal lung expansion, Normal respiratory effort, No respiratory distress, CTA bilaterally Gastrointestinal - distended but without any rebound or guarding; no significant tenderness to palpation - No CVA tenderness Extremities - no calf tenderness bilaterally, no swelling Musculoskeletal - Normal inspection, normal ROM Skin - Warm/Dry Neurological - AAOx3 but poor historian Psychological - Appropriate affect Objective Data Current Medications Generic Name Dose Route Start Last Admin Trade Name Freq PRN Reason Stop Dose Admin Acetaminophen 650 mg 02/17/21 17:35 Acetaminophen 325 Mg Tablet PO Q6H PRN Pain, Mild (Pain Scale 1-3) Potassium Chloride 10 meq in 100 mls @ 100 mls/hr 02/18/21 09:30 IV 02/18/21 13:29 Q1H JULIO Phytonadione 10 mg/ Sodium 51 mls @ 51 mls/hr 02/18/21 09:55 Chloride IV 02/18/21 10:54 ONCE ONE Potassium Chloride/Dextrose/Sod Cl 20 meq in 1,000 mls @ 100 mls/hr 02/18/21 11:00 IVCONT .Q10H JULIO Metoprolol Tartrate 5 mg 02/18/21 09:40 Metoprolol Tartrate 5 Mg/5 Ml Vial IVPUSH Q6H PRN HR > 110 Morphine Sulfate 4 mg 02/17/21 15:11 Morphine Sulfate 4 Mg/Ml Cartridge IVPUSH Q4H PRN Pain, Severe (Pain Scale 7-10) Pharmacy Consult 1 each 02/17/21 15:11 Consult Rx Perform Med Rec MISCELLANE ONCE PRN Consult order Sodium Chloride 3 ml 02/17/21 17:35 02/18/21 07:43 0.9 % Sodium Chloride Flush 3 Ml Syringe IVFLUSH Not Given QSHIFT JULIO Labs CBC & Chem 7: 02/18/21 06:14 02/18/21 06:14 Assessment and Plan (1) Colonic obstruction: Status: Acute Assessment and Plan: This is a 61-year-old male with no prior colonoscopy who presents to the hospital with complaints of diffuse abdominal pain with associated nausea vomiting and changes in his bowel habits over the last several weeks along with poor oral intake. He is diagnosed with colonic obstruction likely secondary to colon cancer. 1. Colonic obstruction Per CT. Likely colon cancer seen by surgery -- will ultimately need resection GI to see the patient today -- will plan for scope if INR able to decreased Keep NPO D/w Dr. Romano -- keep NG in place for now, keep NPO 2. Supratherapeutic INR Decreased down to 2.2 this AM will give a dose of IV vit k 10mg now and recheck a stat INR around 2pm, if within acceptable range may get his scope today 3. CAD s/p NM continue baseline meds once med rec completed will get cardiology evaluation for planned procedures 4. History of CVA continue statin, on coumadin as his prior CVA was felt to be secondary to cardioembolic source (see d/ summary from July 2020) 5. HypoK give IV 40meq K, change IVF to include 20meq of K in each bag check Mag Full Code DVT pptx, mechanical
[2021-02-18] MEDS: Phytonadione (Vit K1) 10 MG in 0.9 % Sodium Chloride 50 ML 51 MG IV (10:30)
[2021-02-18] MEDS: Potassium Chloride/H20 10 MEQ/100 ML PIGGYBACK 100 MEQ IV ×6 (10:38→17:46)
--- NOTE | 2021-02-18 10:52 | PM.CNCAR ---
History of Present Illness History of Present Illness Date of Service: 02/18/21 Requesting physician: Anam Erickson Chief complaint: colonic obstruction,supratherapeutic inr Narrative: 61-year-old gentleman who is known to Dr. Montanez in our office. He has background history of bilateral knee arthritis, stroke and in few was STEMI in July 2020. It appears he had CVA and OH at the same time. He has been on anticoagulation. 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 There is no transient ischemic dilatation pointing to her multivessel disease. He is now presenting for diffuse abdominal pain with nausea and vomiting. He has been found to have colonic obstruction likely due to colon cancer. He was on Coumadin due to the embolic CVA and is therapeutic right now. No bleeding issues. He is complaining of thirst and the has an NG tube in place. He is denying any chest discomfort shortness of breath. He is saying is not very active but denies symptoms right now. It appears for the inferior wall OH he had no symptoms and there is concern that he may have defective anginal warning system. Review of Systems Review of Systems: Abdominal discomfort, thirst Yes all other systems are reviewed and are negative [facility] Past Medical History Medical History (Updated 02/17/21 @ 18:01 by Maude Romano MD) Anxiety Depression High cholesterol HTN (hypertension) Knee pain, bilateral ST elevation myocardial infarction (STEMI) of inferior wall (~07/2020) Stroke (~07/2020) Family History Family History (Updated 02/17/21 @ 18:03 by Maude Romano MD) Father Stroke Heart attack Mother Heart attack Sister Diverticulitis Heart attack Brother No problems noted. Sister No problems noted. Brother No problems noted. Surgical History Surgical History (Updated 02/17/21 @ 18:01 by Maude Romano MD) No pertinent past surgical history Social History Social History (Updated 02/17/21 @ 18:04 by Maude Romano MD) Household Members: Spouse Housing: House Alcohol intake: former Smoking Status: Current every day smoker Packs Per Day: 0.5 Cigarettes Per Day: 10.0 Years Smoked: 30 Second Hand Smoke Exposure: No service: No Current occupational status: disabled Meds Allergies Allergy/AdvReac Type Severity Reaction Status Date / Time No Known Allergies Allergy Verified 02/17/21 09:18 Active Medications: Current Medications Generic Name Dose Route Start Last Admin Trade Name Vivian PRN Reason Stop Dose Admin Acetaminophen 650 mg 02/17/21 17:35 Acetaminophen 325 Mg Tablet PO Q6H PRN Pain, Mild (Pain Scale 1-3) Potassium Chloride 10 meq in 100 mls @ 100 mls/hr 02/18/21 09:30 02/18/21 10:38 IV 02/18/21 13:29 100 mls/hr Q1H JULIO Administration Phytonadione 10 mg/ Sodium 51 mls @ 51 mls/hr 02/18/21 09:55 02/18/21 10:30 Chloride IV 02/18/21 10:54 51 mls/hr ONCE ONE Administration Potassium Chloride/Dextrose/Sod Cl 20 meq in 1,000 mls @ 100 mls/hr 02/18/21 11:00 IVCONT .Q10H JULIO Metoprolol Tartrate 5 mg 02/18/21 09:40 Metoprolol Tartrate 5 Mg/5 Ml Vial IVPUSH Q6H PRN HR > 110 Morphine Sulfate 4 mg 02/17/21 15:11 Morphine Sulfate 4 Mg/Ml Cartridge IVPUSH Q4H PRN Pain, Severe (Pain Scale 7-10) Pharmacy Consult 1 each 02/17/21 15:11 Consult Rx Perform Med Rec MISCELLANE ONCE PRN Consult order Sodium Chloride 3 ml 02/17/21 17:35 02/18/21 07:43 0.9 % Sodium Chloride Flush 3 Ml Syringe IVFLUSH Not Given QSHIFT [facility] Home Medications Medication Instructions Recorded Confirmed Last Taken Type gabapentin 300 mg capsule 300 mg PO BID 11/29/20 02/17/21 02/17/21 History sertraline 100 mg tablet 100 mg PO DAILY 11/29/20 02/17/21 02/17/21 History melatonin 5 mg tablet 5 mg PO DAILY PRN 01/07/21 02/17/21 02/16/21 History Physical Exam Vital Signs: Vital Signs: Last Vital Signs Temp 98.5 F 02/18/21 08:00 Pulse 100 02/18/21 08:00 Resp 20 02/18/21 08:00 BP 129/88 02/18/21 08:00 Pulse Ox 91 L 02/18/21 08:00 Body Mass Index 30.5 GENERAL APPEARANCE: NG tube in place. NECK: no carotid bruit, no jugular venous distention. SKIN: no suspicious lesions, warm and dry. HEART: no murmurs, regular rate and rhythm. LUNGS: clear to auscultation bilaterally. ABDOMEN: Mildly distended. EXTREMITIES: no edema. PERIPHERAL PULSES: equal. NEUROLOGIC: AAO X 3 Results Labs and Meds Result diagrams: 02/18/21 06:14 02/18/21 06:14 Lab results: Laboratory Results - last 24 hr 02/17/21 02/17/21 02/17/21 11:18 11:19 11:19 WBC RBC Hgb Hct MCV MCH MCHC RDW Plt Count MPV Immature Gran % (Auto) Neut % (Auto) Lymph % (Auto) Angelina % (Auto) Eos % (Auto) Baso % (Auto) Lymph # (Auto) Angelina # (Auto) Eos # (Auto) Baso # (Auto) Abs Immat Gran (auto) Absolute Neuts (auto) Absolute Nucleated RBC Nucleated RBC % (auto) Neutrophils % (Manual) Band Neutrophils % Lymphocytes % (Manual) Monocytes % (Manual) Eosinophils % (Manual) Abs Neuts (Manual) Lymphocytes # (Manual) Monocytes # (Manual) Eosinophils # (Manual) Platelet Estimate Plt Morphology Comment RBC Morphology Yassine Cells PT 229.1 H INR 18.7 H* APTT 68.8 H* Sodium Potassium Chloride Carbon Dioxide Anion Gap BUN Creatinine Estim Creat Clear Calc Estimated GFR Random Glucose Calcium Magnesium 2.0 Total Bilirubin 0.7 Direct Bilirubin 0.5 AST 21 ALT 30 Alkaline Phosphatase 87 Troponin I High Sens Total Protein 6.3 L Albumin 3.6 Lipase 5 L Blood Type A Positive Antibody Screen NEGATIVE 02/17/21 02/17/21 02/18/21 13:38 20:10 06:14 WBC 12.4 H RBC 4.24 L Hgb 13.3 L Hct 39.0 L MCV 92.0 MCH 31.4 MCHC 34.1 RDW 13.4 Plt Count 304 MPV 10.5 Immature Gran % (Auto) Cancelled Neut % (Auto) Cancelled Lymph % (Auto) Cancelled Angelina % (Auto) Cancelled Eos % (Auto) Cancelled Baso % (Auto) Cancelled Lymph # (Auto) Cancelled Angelina # (Auto) Cancelled Eos # (Auto) Cancelled Baso # (Auto) Cancelled Abs Immat Gran (auto) Cancelled Absolute Neuts (auto) Cancelled Absolute Nucleated RBC 0.000 Nucleated RBC % (auto) 0.0 Neutrophils % (Manual) 42 L Band Neutrophils % 19 H Lymphocytes % (Manual) 19 L Monocytes % (Manual) 19 H Eosinophils % (Manual) 1 Abs Neuts (Manual) 7.6 Lymphocytes # (Manual) 2.4 Monocytes # (Manual) 2.4 H Eosinophils # (Manual) 0.1 Platelet Estimate NORMAL Plt Morphology Comment NORMAL RBC Morphology NOTED Yassine Cells 2+ (3-5) PT 141.8 H D INR 11.6 H* D APTT Sodium Potassium Chloride Carbon Dioxide Anion Gap BUN Creatinine Estim Creat Clear Calc Estimated GFR Random Glucose Calcium Magnesium Total Bilirubin Direct Bilirubin AST ALT Alkaline Phosphatase Troponin I High Sens 15.8 Total Protein Albumin Lipase Blood Type Antibody Screen 02/18/21 02/18/21 06:14 06:14 WBC RBC Hgb Hct MCV MCH MCHC RDW Plt Count MPV Immature Gran % (Auto) Neut % (Auto) Lymph % (Auto) Angelina % (Auto) Eos % (Auto) Baso % (Auto) Lymph # (Auto) Angelina # (Auto) Eos # (Auto) Baso # (Auto) Abs Immat Gran (auto) Absolute Neuts (auto) Absolute Nucleated RBC Nucleated RBC % (auto) Neutrophils % (Manual) Band Neutrophils % Lymphocytes % (Manual) Monocytes % (Manual) Eosinophils % (Manual) Abs Neuts (Manual) Lymphocytes # (Manual) Monocytes # (Manual) Eosinophils # (Manual) Platelet Estimate Plt Morphology Comment RBC Morphology Yassine Cells PT 26.5 H D INR 2.2 H APTT Sodium 136 Potassium 2.7 L D Chloride 104 Carbon Dioxide 24 Anion Gap 11 L BUN 18 H Creatinine 0.60 Estim Creat Clear Calc 149.9 Estimated GFR > 60 Random Glucose 139 H Calcium 8.3 L D Magnesium 2.1 Total Bilirubin Direct Bilirubin AST ALT Alkaline Phosphatase Troponin I High Sens Total Protein Albumin Lipase Blood Type Antibody Screen Imaging Radiologist's impression: Impressions Abdomen/Pelvis CT 02/17/21 11:01 IMPRESSION: Sigmoid colon obstruction by soft tissue mass suspicious for colon carcinoma. Dilated loops of large and small bowel are present proximal to this level of obstruction. Chest X-Ray 02/17/21 15:19 IMPRESSION: NG tube with tip in distal antrum Assessment and Plan (1) Colonic obstruction: Status: Acute (2) Colonic mass: Status: Acute (3) Stroke: Qualifiers: CVA mechanism: unspecified Qualified Code(s): I63.9 - Cerebral infarction, unspecified Status: Acute (4) ST elevation myocardial infarction (STEMI) of inferior wall: Status: Acute Pleasant 61-year-old gentleman who is here for colonic obstruction likely secondary to colon cancer. He has been managed with NG tube decompression right now. There is possibility that he may go to operating room. He previously had late presenting inferior wall OH for which she was medically managed and had likely embolic CVA at the same time and was started on Coumadin for this presentation. He never had chest discomfort shortness of breath. Subsequent to that he had a Lexiscan performed which showed infarct in the inferior wall without transient ischemic dilatation. He has no chest pain or shortness of breath. If he requires surgery I think he can proceed with intermediate risk. Continue to hold the Coumadin. With his previous embolic CVA, I think we should try not to reverse him with vitamin K unless we really need to. He is hypoxic which is likely due to atelectasis. As is abdomen is decompressed he should be given incentive spirometry. We will follow along with you. Thank you for allowing me to participate in the care of your patient. Please feel free to contact me if you have any questions.
--- NOTE | 2021-02-18 11:43 | PM.EVENT ---
Event Note Date of Service: 02/18/21 Event Note: GI Consult-Full note dictated Imp: Obstructing sigmoid mass, probably neoplastic. Presently feels a little better with NG drainage. Abdominal exam remains distended, tympanitic, and with decreased, high-pitched BS. Rec: Will attempt a Flex sig today after INR is corrected to some degree. Full consent obtained from the patient for this, including risks of bleeding and perforation. Will continue with Vit K, but may need some FFP. Further options after that would include a colonic stent placement at a different facility so as to allow for a bowel cleanout preoperatively, or just proceeding with surgery here which could then require a temporary colostomy. D/W patient in detail and he is comfortable with this plan. Will D/W Dr. Romano. Thanks
--- NOTE | 2021-02-18 11:51 | MHC.SHP ---
Pre-Procedural Eval Section A The patient is an INPATIENT: Yes The History & Physical has been completed within 30 days and I have reviewed it.: Yes Section B Chief Complaint: colonic obstruction,supratherapeutic inr Allergies: Allergies Allergy/AdvReac Type Severity Reaction Status Date / Time No Known Allergies Allergy Verified 02/17/21 09:18 Plan I have reviewed the history and physical and performed a pertinent physical examination on my patient. No changes have occurred unless specified.
[2021-02-18] MEDS: KCl 20 mEq in 5% Dex/0.45% Sod 20 MEQ/1,000 ML IV.SOLN 100 MEQ IVCONT ×2 (12:00→21:57)
[2021-02-18 14:51] LABS: INTERNATIONAL NORM RATIO 1.7 (0.9-1.1); Prothrombin Time 20.2 SEC (10.8-13.0)
--- NOTE | 2021-02-18 15:43 | P.CONAN_ITS ---
FORM[facility]LY [facility] Active Problems Active Problems: All Active Problems (Updated 02/17/21 @ 18:01 by Maude pettit MD) Colonic obstruction (Acute) Hospital discharge follow-up (Acute) Current use of anticoagulant therapy (Acute) Supratherapeutic INR (Acute) Colonic mass (Acute) ST elevation myocardial infarction (STEMI) of inferior wall (Acute ~07/2020) Stroke (Acute ~07/2020) Knee pain, bilateral (Acute) Past Medical History Medical History Anxiety Depression High cholesterol HTN (hypertension) Knee pain, bilateral ST elevation myocardial infarction (STEMI) of inferior wall (~07/2020) Stroke (~07/2020) Family History Family History Father Stroke Heart attack Mother Heart attack Sister Diverticulitis Heart attack Brother No problems noted. Sister No problems noted. Brother No problems noted. Surgical History Surgical History No pertinent past surgical history Social History Social History Household Members: Spouse Housing: House Alcohol intake: former Smoking Status: Current every day smoker Packs Per Day: 0.5 Cigarettes Per Day: 10.0 Years Smoked: 30 Second Hand Smoke Exposure: No service: No Current occupational status: disabled Meds Allergies Allergy/AdvReac Type Severity Reaction Status Date / Time No Known Allergies Allergy Verified 02/17/21 09:18 Active Medications: Current Medications Generic Name Dose Route Start Last Admin Trade Name Freq PRN Reason Stop Dose Admin Acetaminophen 650 mg 02/17/21 17:35 Acetaminophen 325 Mg Tablet PO Q6H PRN Pain, Mild (Pain Scale 1-3) Potassium Chloride/Dextrose/Sod Cl 20 meq in 1,000 mls @ 100 mls/hr 02/18/21 11:00 02/18/21 12:00 IVCONT 100 mls/hr .Q10H JULIO Administration Potassium Chloride 10 meq in 100 mls @ 100 mls/hr 02/18/21 15:30 IV 02/18/21 17:29 Q1H JULIO Metoprolol Tartrate 5 mg 02/18/21 09:40 Metoprolol Tartrate 5 Mg/5 Ml Vial IVPUSH Q6H PRN HR > 110 Morphine Sulfate 4 mg 02/17/21 15:11 Morphine Sulfate 4 Mg/Ml Cartridge IVPUSH Q4H PRN Pain, Severe (Pain Scale 7-10) Pharmacy Consult 1 each 02/17/21 15:11 Consult Rx Perform Med Rec MISCELLANE ONCE PRN Consult order Sodium Chloride 3 ml 02/17/21 17:35 02/18/21 07:43 0.9 % Sodium Chloride Flush 3 Ml Syringe IVFLUSH Not Given [facility] Home Medications Medication Instructions Recorded Confirmed Last Taken Type gabapentin 300 mg capsule 300 mg PO BID 11/29/20 02/17/21 02/17/21 History sertraline 100 mg tablet 100 mg PO DAILY 11/29/20 02/17/21 02/17/21 History melatonin 5 mg tablet 5 mg PO DAILY PRN 01/07/21 02/17/21 02/16/21 History Exam Exam Date and Time: February 18, 2021 1543 Height,Weight and Vital Signs: Height 5 ft 9 in Weight 93.894 kg Last Vital Signs Temp 100.3 F 02/18/21 15:29 Pulse 100 02/18/21 15:29 Resp 18 02/18/21 15:29 BP 128/76 02/18/21 15:29 Pulse Ox 95 02/18/21 15:29 Pertinent Lab Results Pertinent Lab Results: Laboratory Tests 02/17/21 02/17/21 02/17/21 11:18 11:19 11:19 WBC RBC Hgb Hct MCV MCH MCHC RDW Plt Count MPV Immature Gran % (Auto) Neut % (Auto) Lymph % (Auto) Keith % (Auto) Eos % (Auto) Baso % (Auto) Lymph # (Auto) Keith # (Auto) Eos # (Auto) Baso # (Auto) Abs Immat Gran (auto) Absolute Neuts (auto) Absolute Nucleated RBC Nucleated RBC % (auto) Neutrophils % (Manual) Band Neutrophils % Lymphocytes % (Manual) Monocytes % (Manual) Eosinophils % (Manual) Abs Neuts (Manual) Lymphocytes # (Manual) Monocytes # (Manual) Eosinophils # (Manual) Platelet Estimate Plt Morphology Comment RBC Morphology Eden Cells PT 229.1 H INR 18.7 H* APTT 68.8 H* Sodium Potassium Chloride Carbon Dioxide Anion Gap BUN Creatinine Estim Creat Clear Calc Estimated GFR Random Glucose Calcium Magnesium 2.0 Total Bilirubin 0.7 Direct Bilirubin 0.5 AST 21 ALT 30 Alkaline Phosphatase 87 Troponin I High Sens Total Protein 6.3 L Albumin 3.6 Lipase 5 L Carcinoembryonic Ag Blood Type A Positive Antibody Screen NEGATIVE 02/17/21 02/17/21 02/18/21 13:38 20:10 06:14 WBC 12.4 H RBC 4.24 L Hgb 13.3 L Hct 39.0 L MCV 92.0 MCH 31.4 MCHC 34.1 RDW 13.4 Plt Count 304 MPV 10.5 Immature Gran % (Auto) Cancelled Neut % (Auto) Cancelled Lymph % (Auto) Cancelled Keith % (Auto) Cancelled Eos % (Auto) Cancelled Baso % (Auto) Cancelled Lymph # (Auto) Cancelled Keith # (Auto) Cancelled Eos # (Auto) Cancelled Baso # (Auto) Cancelled Abs Immat Gran (auto) Cancelled Absolute Neuts (auto) Cancelled Absolute Nucleated RBC 0.000 Nucleated RBC % (auto) 0.0 Neutrophils % (Manual) 42 L Band Neutrophils % 19 H Lymphocytes % (Manual) 19 L Monocytes % (Manual) 19 H Eosinophils % (Manual) 1 Abs Neuts (Manual) 7.6 Lymphocytes # (Manual) 2.4 Monocytes # (Manual) 2.4 H Eosinophils # (Manual) 0.1 Platelet Estimate NORMAL Plt Morphology Comment NORMAL RBC Morphology NOTED Eden Cells 2+ (3-5) PT 141.8 H D INR 11.6 H* D APTT Sodium Potassium Chloride Carbon Dioxide Anion Gap BUN Creatinine Estim Creat Clear Calc Estimated GFR Random Glucose Calcium Magnesium Total Bilirubin Direct Bilirubin AST ALT Alkaline Phosphatase Troponin I High Sens 15.8 Total Protein Albumin Lipase Carcinoembryonic Ag Blood Type Antibody Screen 02/18/21 02/18/21 02/18/21 06:14 06:14 14:17 WBC RBC Hgb Hct MCV MCH MCHC RDW Plt Count MPV Immature Gran % (Auto) Neut % (Auto) Lymph % (Auto) Keith % (Auto) Eos % (Auto) Baso % (Auto) Lymph # (Auto) Keith # (Auto) Eos # (Auto) Baso # (Auto) Abs Immat Gran (auto) Absolute Neuts (auto) Absolute Nucleated RBC Nucleated RBC % (auto) Neutrophils % (Manual) Band Neutrophils % Lymphocytes % (Manual) Monocytes % (Manual) Eosinophils % (Manual) Abs Neuts (Manual) Lymphocytes # (Manual) Monocytes # (Manual) Eosinophils # (Manual) Platelet Estimate Plt Morphology Comment RBC Morphology Yassine Cells PT 26.5 H D 20.2 H D INR 2.2 H 1.7 H APTT Sodium 136 Potassium 2.7 L D Chloride 104 Carbon Dioxide 24 Anion Gap 11 L BUN 18 H Creatinine 0.60 Estim Creat Clear Calc 149.9 Estimated GFR > 60 Random Glucose 139 H Calcium 8.3 L D Magnesium 2.1 Total Bilirubin Direct Bilirubin AST ALT Alkaline Phosphatase Troponin I High Sens Total Protein Albumin Lipase Carcinoembryonic Ag 1.80 Blood Type Antibody Screen 02/18/21 14:17 WBC RBC Hgb Hct MCV MCH MCHC RDW Plt Count MPV Immature Gran % (Auto) Neut % (Auto) Lymph % (Auto) Keith % (Auto) Eos % (Auto) Baso % (Auto) Lymph # (Auto) Keith # (Auto) Eos # (Auto) Baso # (Auto) Abs Immat Gran (auto) Absolute Neuts (auto) Absolute Nucleated RBC Nucleated RBC % (auto) Neutrophils % (Manual) Band Neutrophils % Lymphocytes % (Manual) Monocytes % (Manual) Eosinophils % (Manual) Abs Neuts (Manual) Lymphocytes # (Manual) Monocytes # (Manual) Eosinophils # (Manual) Platelet Estimate Plt Morphology Comment RBC Morphology Yassine Cells PT INR APTT Sodium Potassium 3.0 L Chloride Carbon Dioxide Anion Gap BUN Creatinine Estim Creat Clear Calc Estimated GFR Random Glucose Calcium Magnesium Total Bilirubin Direct Bilirubin AST ALT Alkaline Phosphatase Troponin I High Sens Total Protein Albumin Lipase Carcinoembryonic Ag Blood Type Antibody Screen Airway Mallampati Class: II TM Dist: >3cm Neck ROM: Full Assessment and Plan Assessment Anesthesia Assessment: Anesthesia Plan Discussed and Chart Reviewed Final Anesthetic Review NPO: Yes ASA Class: III and Emergency Final Preanesthetic Review: No Changes in Pt Med Stat, Meds/Allgs Chart Re viewed, Consent Obtained/Reviewed and Anes Risks/Benef Reviewed Patient Risk: Intermediate Procedure Risk: Low Assessment/Block/Sedation in SS: Assess/Block/Sedation-SS Anesthetic Plan Anesthetic Plan: MAC: Disposition: Standard PACU
--- NOTE | 2021-02-18 17:45 | PM.OP ---
Brief Operative Note Date of Service: 02/18/21 Pre-op diagnosis: Sigmoid colon obstruction Post-op diagnosis: other (Probable sigmoid colon volvulus) Procedure: Colonoscopy to the transverse colon Surgeon: Jr German Was an [employer]ing [employer] Operator used for this Procedure?: No Estimated blood loss (mL): 0 Pathology: none sent Condition: stable Disposition: PACU
--- NOTE | 2021-02-18 17:46 | PM.EVENT ---
Event Note Date of Service: 02/18/21 Event Note: Colonoscopy to the transverse colon-Full note dictated Findings: 1. I was able to reach the transverse colon judging by anatomic features. There was no sign of obstructing mass in the sigmoid colon. 2. There was a a lot of solid and liquid brown stool from the rectum to the transverse colon. 3. At 20 cm was an area of persistent puckering and whirl of the folds. The mucosa just distal to this area was notable for pallor, but there was no sign of colitis nor ischemia. The scope easily passed this area at 20cm into a dilated proximal sigmoid colon with normal mucosa. 4. Internal hemorrhoids Rec: Continue NG tube, F/U KUB in AM, NPO except ice and sips. If the obstruction/volvulus recurs he will need surgical intervention. No contraindication to starting Heparin as per Cardioloogy's recommendations. D/W patient. D/W Dr. Stevens. Thanks
[2021-02-18] MEDS: Enoxaparin Sodium 100 MG/ML SYRINGE 95 MG SUBCUT (19:43)
--- NOTE | 2021-02-18 20:32 | OP_ITS ---
SURGEON: Jr German MD INDICATIONS: The patient presents for evaluation of colon obstruction and question of sigmoid mass on CAT scan. Full consent has been obtained from him for this, including risks of bleeding and perforation. PREOPERATIVE DIAGNOSIS: POSTOPERATIVE DIAGNOSIS: PROCEDURE PERFORMED: Colonoscopy to the transverse colon. ESTIMATED BLOOD LOSS: COMPLICATIONS: ANESTHESIA: Monitored anesthesia care. ASSISTANTS: SPECIMENS: PREOPERATIVE DIAGNOSES: Colon obstruction and question of sigmoid mass on CAT scan. POSTOPERATIVE DIAGNOSES: Probable sigmoid volvulus and internal hemorrhoids. No mass visualized.. DESCRIPTION OF PROCEDURE: The patient was placed in the left lateral decubitus position. The digital rectal exam revealed no abnormalities. The Olympus video pediatric colonoscope was entered into the rectum. There was a large amount of stool in the rectum and very distal sigmoid colon. With copious irrigation and insufflation of air, I was able to visualize the lumen to some degree and then get into the transverse colon fairly easily. The transverse colon was clearly visible based on anatomic features. At that point, the scope was slowly withdrawn. There was a large amount of stool, which obscured mucosal view to a great extent. There was no obvious large mass nor any type of obstruction. However, at 20 cm, was what appeared to be a twist with associated puckering and whirl of the colonic folds. I was able to get back and forth past this area, but I could visualize the recurring puckering and whirling of the colonic folds and lumen as my scope was withdrawn into the very distal sigmoid colon. Of note, the sigmoid colon mucosa just distal to this apparent twist was pale, but there was no sign of colitis nor ischemia. The mucosa just proximal to this area was also erythematous, but again no sign of colitis nor ischemia. Again, I did not visualize any mass at this level. In the rectum, the scope was retroflexed visualizing internal hemorrhoids. Portions of the rectal mucosa I did visualize appeared normal. The scope was straightened out and withdrawn from the patient. He tolerated the procedure well and was returned to the recovery area in stable condition. IMPRESSION: 1. Colonic obstruction at level of distal sigmoid colon at 20 cm with what appeared to be a sigmoid volvulus. I did not visualize any mass. 2. Internal hemorrhoids. PLAN: At this point, I would recommend his nasogastric tube be kept in place as I suspect this will recur and he will become obstructed again. I have ordered an abdominal x-ray for the morning. I did review this with Dr. Stevens and he will follow the patient over the weekend and decide if he needs surgery for this problem. He will otherwise be kept n.p.o. except for ice chips and sips of liquid. I do not see any contraindication to starting IV heparin for his underlying cardiac and cerebrovascular disease as recommended by Cardiology. This has been discussed with the patient, his significant other, and Dr. Stevens. MD WILNER Viveros/DUGLAS / [id number] MTDD
--- NOTE | 2021-02-18 22:17 | CONS_ITS ---
DATE OF SERVICE: 02/18/2021 REQUESTING PHYSICIAN: Dr. Erickson REASON FOR CONSULTATION: Sigmoid obstruction due to mass seen on CAT scan. HISTORY OF PRESENT ILLNESS: This has been obtained from the patient and the medical record. The patient is a 61-year-old male who describes at least 2 weeks of progressive GI issues with intermittent nausea, vomiting, abdominal distention, and irregular bowel movements. Prior to this, he reports he was not really having any chronic GI complaints. He has never had a colonoscopy. He has not noticed any hematemesis, coffee-grounds emesis, hematochezia, nor melena. He has noticed abdominal distention and some mild abdominal discomfort. He did have the onset of some vomiting at home but again without any sign of bleeding. He denies any known family history of colorectal cancer. Since admission here, he did have a nasogastric tube placed, which has given him some relief of the distention and discomfort. He describes that he did pass some flatus yesterday and today but has not had a bowel movement. He denies any urinary symptoms. CURRENT MEDICATIONS: Here in the hospital include acetaminophen, potassium, lorazepam, metoprolol, morphine p.r.n., Zofran, vitamin K. At home, he was on medications including Coumadin, atorvastatin, gabapentin, melatonin, metoprolol, sertraline, and Ambien. 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 He denies any history of diabetes nor lung disease. He reports that he has not had any cardiac problems since the heart attack in July. He denies any surgeries. He has a history of hyperlipidemia and depression. Hypertension. 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 He does smoke. He denies any significant alcohol use. FAMILY HISTORY: Negative, although his sister has some type of intraabdominal malignancy, but he is not sure what type. REVIEW OF SYSTEMS: CONSTITUTIONAL: He has been feeling poorly at home in regard to his appetite and energy level. SKIN: No rash. No pruritus. CARDIAC: No chest pain. PULMONARY: No coughing nor hemoptysis. GI: As above. URINARY: No dysuria or hematuria. NEUROLOGIC: He does have some balance issues. EYES: Loss of vision in the right eye due to the stroke. PHYSICAL EXAMINATION: GENERAL: The patient is a pleasant, alert male. He has a nasogastric tube in place. SKIN: Warm and dry. HEENT: Anicteric sclerae. NECK: Supple. CHEST: Clear. CARDIAC: Normal S1, S2. ABDOMEN: Soft and distended. It is tympanitic. Bowel sounds are diminished and somewhat high-pitched. There is no focal mass nor rebound. EXTREMITIES: Without edema. LABORATORY DATA: His CAT scan from last evening describes a dilated small bowel and colon to the level of the sigmoid colon. There appeared to be a colonic obstruction in the region of the sigmoid colon with a probable mass measuring at least 5 cm in diameter. There was no sign of any lymphadenopathy. IMPRESSION: Given the patient's clinical history, this does appear consistent with a bowel obstruction in relation to a neoplastic process in the sigmoid colon. This most likely represents a colon cancer. At this point, he does appear at least significantly partially obstructed. At this point, once we are able to sufficiently lower his PT with INR, I could then perform a flexible sigmoidoscopy at least to obtain biopsies and make a more definitive diagnosis of the situation. I shall try to schedule that for today, but if the INR remains significantly elevated, we could then need to give him FFP to get the procedure done today, or simply wait till Sunday, February 21. Full consent has been obtained for the sigmoidoscopy, including risks of bleeding and perforation. The other issue that comes up at this point would be whether or not he would benefit from a colonic stent placement to open things up and then allow for an overnight oral bowel prep to facilitate surgery and increase the chances of doing a primary resection and anastomosis as opposed to his needing a temporary colostomy. At this point, we shall hopefully get the sigmoidoscopy done today and make further plans depending upon the findings. This has all been discussed with the patient in detail, and he is comfortable with this plan. I shall discuss this with Dr. Romano from Surgery as well. Thank you for this consultation. MD WILNER Viveros/DUGLAS / [id number] MTDD
[2021-02-19] VITALS (7 sets, daily range): BP systolic 123–132; BP diastolic 56–78; PULSE 92–102; RESP 16–20; TEMP 36.6–37.2; O2SAT 92–96
[2021-02-19 05:08] LABS: Hematocrit 34.4 % (42-52); Hemoglobin 11.8 g/dl (14.0-18.0); Mean Corpuscular HGB Conc 34.3 g/dl (31.0-36.0); Mean Corpuscular Hemoglobin 31.6 pg (27.0-33.0); Mean Platelet Volume 10.5 fL (9.4-12.4); Platelet Count 275 X10*3/uL (160-400); Red Blood Count 3.74 X10*6/uL (4.60-5.80); Red Cell Distribution Width 13.3 % (11.0-16.0); White Blood Count 14.4 X10*3/uL (4.8-10.8)
[2021-02-19 05:12] LABS: INTERNATIONAL NORM RATIO 1.6 (0.9-1.1); Prothrombin Time 19.2 SEC (10.8-13.0)
[2021-02-19 05:31] LABS: Anion Gap 9 (12-20); Blood Urea Nitrogen 9 mg/dL (9-16); Carbon Dioxide 27 mmol/L (22-29); Chloride 103 mmol/L (96-108); Creatinine Clr Calc Pharmacy 169.7; Estimated Glomerular Filt Rate > 60; Glucose Random 105 mg/dL (60-115); Potassium 2.8 mmol/L (3.3-5.1); Sodium 136 mmol/L (135-145)
[2021-02-19] MEDS: Enoxaparin Sodium 100 MG/ML SYRINGE 95 MG SUBCUT ×2 (06:08→18:02)
--- NOTE | 2021-02-19 07:14 | HO.POSTANES ---
Post Anesthesia Evaluation Post Anesthesia Evaluation Vital Signs: Vital Signs Temp Pulse Resp BP Pulse Ox 02/19/21 07:12 98.9 F 96 16 132/69 94 02/19/21 04:00 98.4 F 96 18 125/56 L 92 02/18/21 23:16 99.3 F 100 18 122/70 92 02/18/21 19:47 97.7 F 100 18 137/75 93 Anesthesia: Monitored Mental Status: Awake Pain Control: Satisfactory Nausea/Vomiting: None Hydration: Adequate Anesthesia-Related Issues: No Anes. Related Issues
[2021-02-19] MEDS: KCl 20 mEq in 5% Dex/0.45% Sod 20 MEQ/1,000 ML IV.SOLN 100 MEQ IVCONT ×2 (07:28→16:59)
[2021-02-19] MEDS: 0.9 % Sodium Chloride Flush 3 ML SYRINGE IVFLUSH ×3 (07:29→20:41)
--- NOTE | 2021-02-19 09:04 | PM.PNGS ---
Subjective Subjective Date of Service: 02/19/21 Interval history: Patient reports hunger pains but denies passing flatus or bowel movement. Nasogastric tube in place. Physical Exam Vital Signs: Vital Signs: Last Vital Signs Temp 98.9 F 02/19/21 07:12 Pulse 96 02/19/21 07:12 Resp 16 02/19/21 07:12 BP 132/69 02/19/21 07:12 Pulse Ox 94 02/19/21 07:12 Body Mass Index 30.5 Const: General: comfortable and no acute distress Nutritional Appearance: average body habitus Orientation/consciousness: patient oriented x3 Resp: Effort & Inspection: normal respiratory effort GI: Other: Soft, distended and tympanitic to percussion, nontender to palpation. No rebound, guarding, or rigidity Skin: Other: Warm and dry, no rash Neuro: General: patient oriented x3 Extrem: Other: No edema Progress Note: A&P Assessment and plan (1) Colonic obstruction: Status: Acute Assessment and Plan: Discussed with Dr. German last evening following colonoscopy. A whirl sign was identified on colonoscopy suggestive of a volvulus however review of CT reveals a nonredundant sigmoid colon abdominal x-ray today (official report not available the time of this dictation) reveals no evidence of volvulus with a stool filled transverse left and right colon.? Extrinsic compression. Nasogastric tube remains with high output of bilious fluid therefore it is not ready to be removed. Patient will need to stay NPO with nasogastric tube decompression for now. Await return of bowel function. Fall Risk Details Current Medications: Current Medications Generic Name Dose Route Start Last Admin Trade Name Freq PRN Reason Stop Dose Admin Acetaminophen 650 mg 02/17/21 17:35 Acetaminophen 325 Mg Tablet PO Q6H PRN Pain, Mild (Pain Scale 1-3) Enoxaparin Sodium 95 mg 02/18/21 19:00 02/19/21 06:08 Enoxaparin Sodium 100 Mg/Ml Syringe 1 mg/kg (95 mg) 95 mg SUBCUT Administration Q12H JULIO Potassium Chloride/Dextrose/Sod Cl 20 meq in 1,000 mls @ 100 mls/hr 02/18/21 11:00 02/19/21 07:28 IVCONT 100 mls/hr .Q10H JLUIO Administration Metoprolol Tartrate 5 mg 02/18/21 09:40 Metoprolol Tartrate 5 Mg/5 Ml Vial IVPUSH Q6H PRN HR > 110 Morphine Sulfate 4 mg 02/17/21 15:11 Morphine Sulfate 4 Mg/Ml Cartridge IVPUSH Q4H PRN Pain, Severe (Pain Scale 7-10) Pharmacy Consult 1 each 02/17/21 15:11 Consult Rx Perform Med Rec MISCELLANE ONCE PRN Consult order Sodium Chloride 3 ml 02/17/21 17:35 02/19/21 07:29 0.9 % Sodium Chloride Flush 3 Ml Syringe IVFLUSH 3 ml QSHIFT JULIO Administration Time Spent With Patient Time: Total time spent is greater than 50% in coordination of care (as documented) at patient's floor/unit and/or counseling patient: Time with patient: 25 - 35 minutes
--- NOTE | 2021-02-19 10:59 | PM.PNCARD ---
Subjective Subjective Date of Service: 02/19/21 Principal diagnosis: Prior FL, prior CVA, anticoagulation use, colon obstruction Interval history: Cardiology follow-up for prior FL, anticoagulation. Seen at 09:15. Today he reports that he feels uncomfortable with the nasogastric tube. He denies much abdominal discomfort. No shortness of breath with the exception of nasal congestion. No chest pains, palpitations, dizziness, edema. Review of Systems Review of Systems As above Yes all other systems are reviewed and are negative Physical Exam Vital Signs: Last Vital Signs Temp 98.9 F 02/19/21 07:12 Pulse 96 02/19/21 07:12 Resp 16 02/19/21 07:12 BP 132/69 02/19/21 07:12 Pulse Ox 94 02/19/21 07:12 Body Mass Index 30.5 Const General: cooperative, no acute distress, alert and awake Orientation/consciousness: patient oriented x3 Neck Neck: Yes normal visual inspection and Yes no JVD Resp Effort & Inspection: normal respiratory effort, able to speak in complete sentences and not labored Auscultation: clear to auscultation bilaterally, no crackles, no rales, no rhonchi and no wheezes Cardio Palpation: normal PMI Rate: regular rate Rhythm: regular rhythm Heart sounds: S1 normal heart sound present and S2 normal heart sound present Peripheral pulses: Peripheral pulses 2+ throughout Neuro General: patient oriented x3 Extrem General: Yes normal to inspection and No edema Results Labs and Meds Result diagrams: 02/19/21 04:19 02/19/21 04:19 Lab results: Laboratory Results - last 24 hr 02/18/21 02/18/21 02/19/21 14:17 14:17 04:19 WBC RBC Hgb Hct MCV MCH MCHC RDW Plt Count MPV Absolute Nucleated RBC Nucleated RBC % (auto) PT 20.2 H D 19.2 H INR 1.7 H 1.6 H Sodium Potassium 3.0 L Chloride Carbon Dioxide Anion Gap BUN Creatinine Estim Creat Clear Calc Estimated GFR Random Glucose Calcium 02/19/21 02/19/21 04:19 04:19 WBC 14.4 H RBC 3.74 L Hgb 11.8 L Hct 34.4 L MCV 92.0 MCH 31.6 MCHC 34.3 RDW 13.3 Plt Count 275 MPV 10.5 Absolute Nucleated RBC 0.000 Nucleated RBC % (auto) 0.0 PT INR Sodium 136 Potassium 2.8 L Chloride 103 Carbon Dioxide 27 Anion Gap 9 L BUN 9 Creatinine 0.53 Estim Creat Clear Calc 169.7 Estimated GFR > 60 Random Glucose 105 Calcium 8.0 L Imaging Radiologist's impression: Impressions Abdomen X-Ray 02/19/21 07:45 IMPRESSION: Interval improvement of bowel distention in this patient with distal sigmoid colonic obstruction secondary to soft tissue mass, visualized on prior CT study dated 02/17/2021. 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 This admission for abdominal pain, colon obstruction. He has no reports of anginal sounding symptoms. Last echo 08/17/2020 shows EF 50-55%, inferior wall motion abnormality. Nuclear stress test done 08/2020 showing no ischemia, old inferior FL, no TID. His home atorvastatin, aspirin, p.o. metoprolol, Coumadin ( for prior CVA) all on hold. IV metoprolol and Lovenox being given. monitor and storage bin tender shows stable sinus rhythm. In the event that he needs surgery he would be an intermediate cardiac risk. Plan to resume p.o. medications/ coumadin when medically appropriate. Will follow as needed and arrange for outpatient Cardiology follow-up (2) Coronary artery disease: Status: Acute (3) HTN (hypertension): Status: Acute Assessment and Plan: Controlled at present time. (4) Colonic obstruction: Status: Acute Fall Risk Details Current Medications: Current Medications Generic Name Dose Route Start Last Admin Trade Name Pepeq PRN Reason Stop Dose Admin Acetaminophen 650 mg 02/17/21 17:35 Acetaminophen 325 Mg Tablet PO Q6H PRN Pain, Mild (Pain Scale 1-3) Enoxaparin Sodium 95 mg 02/18/21 19:00 02/19/21 06:08 Enoxaparin Sodium 100 Mg/Ml Syringe 1 mg/kg (95 mg) 95 mg SUBCUT Administration Q12H JULIO Potassium Chloride/Dextrose/Sod Cl 20 meq in 1,000 mls @ 100 mls/hr 02/18/21 11:00 02/19/21 07:28 IVCONT 100 mls/hr .Q10H JUILO Administration Metoprolol Tartrate 5 mg 02/18/21 09:40 Metoprolol Tartrate 5 Mg/5 Ml Vial IVPUSH Q6H PRN HR > 110 Morphine Sulfate 4 mg 02/17/21 15:11 Morphine Sulfate 4 Mg/Ml Cartridge IVPUSH Q4H PRN Pain, Severe (Pain Scale 7-10) Pharmacy Consult 1 each 02/17/21 15:11 Consult Rx Perform Med Rec MISCELLANE ONCE PRN Consult order Sodium Chloride 3 ml 02/17/21 17:35 02/19/21 07:29 0.9 % Sodium Chloride Flush 3 Ml Syringe IVFLUSH 3 ml QSHIFT JULIO Administration Time Spent With Patient Time: Total time spent is greater than 50% in coordination of care (as documented) at patient's floor/unit and/or counseling patient: 20 Time with patient: 15 - 24 minutes
--- NOTE | 2021-02-19 12:42 | P.PNIM_ITS ---
Subjective Subjective Date of Service: 02/19/21 <Lana Tobar NP - Last Filed: 02/19/21 13:00> 02/19/21 <David Dumont MD - Last Filed: 02/19/21 13:44> Interval History: Follow up SBO Uncomfortable with NGT Still no flatus or BM Feeling hungry <Lana Tobar NP - Last Filed: 02/19/21 13:00> Physical Exam Vital Signs: Vital Signs: Last Vital Signs Temp 98.5 F 02/19/21 11:04 Pulse 97 02/19/21 11:04 Resp 18 02/19/21 11:04 BP 124/72 02/19/21 11:04 Pulse Ox 94 02/19/21 11:04 Body Mass Index 30.5 <Lana Tobar NP - Last Filed: 02/19/21 13:00> Appearing in no acute distress lung sounds are clear to auscultation heart regular rate rhythm, clear S1, S2 positive bowel sounds, abdomen is soft, nontender neuro patient is alert x3, no focal deficits NGT in place <Lana Tobar NP - Last Filed: 02/19/21 13:00> Objective Data Current Medications Generic Name Dose Route Start Last Admin Trade Name Freq PRN Reason Stop Dose Admin Acetaminophen 650 mg 02/17/21 17:35 Acetaminophen 325 Mg Tablet PO Q6H PRN Pain, Mild (Pain Scale 1-3) Enoxaparin Sodium 95 mg 02/18/21 19:00 02/19/21 06:08 Enoxaparin Sodium 100 Mg/Ml Syringe 1 mg/kg (95 mg) 95 mg SUBCUT Administration Q12H JULIO Potassium Chloride/Dextrose/Sod Cl 20 meq in 1,000 mls @ 100 mls/hr 02/18/21 11:00 02/19/21 07:28 IVCONT 100 mls/hr .Q10H JULIO Administration Metoprolol Tartrate 5 mg 02/18/21 09:40 Metoprolol Tartrate 5 Mg/5 Ml Vial IVPUSH Q6H PRN HR > 110 Morphine Sulfate 4 mg 02/17/21 15:11 Morphine Sulfate 4 Mg/Ml Cartridge IVPUSH Q4H PRN Pain, Severe (Pain Scale 7-10) Pharmacy Consult 1 each 02/17/21 15:11 Consult Rx Perform Med Rec MISCELLANE ONCE PRN Consult order Sodium Chloride 3 ml 02/17/21 17:35 02/19/21 07:29 0.9 % Sodium Chloride Flush 3 Ml Syringe IVFLUSH 3 ml QSHIFT JULIO Administration <Lana Tobar NP - Last Filed: 02/19/21 13:00> Labs CBC & Chem 7: : 02/19/21 04:19 02/19/21 04:19 <Lana Tobar NP - Last Filed: 02/19/21 13:00> Assessment and Plan (1) Bowel obstruction: Status: Acute <Lana Tobar NP - Last Filed: 02/19/21 13:00> Assessment and Plan: This is a 61-year-old male with no prior colonoscopy who presents to the hospital with complaints of diffuse abdominal pain with associated nausea vomiting and changes in his bowel habits over the last several weeks along with poor oral intake. He is diagnosed with colonic obstruction likely secondary to colon cancer. Colonic obstruction. Colonoscopy revealed redundant colon with stool filled transverse colon No flatus or BM, still with high output bilious fluid -Continue NG tube -NPO -GI and gen surg following Hypokalemia. -IV potassium -Follow BMP Supratherapeutic INR. Down to 1.6 today -Coumadin on hold -Continue Lovenox CAD s/p [place] -Cardiology following -No ACS History of CVA -continue statin -coumadin for cardioembolic source but held for now HypoK. resolved -follow BMP Full Code DVT pptx Lovenox (also Therapeutic) Attending: Dr. Dumont <Lana Tobar NP - Last Filed: 02/19/21 13:00> (2) Colonic obstruction: Status: Acute <Lana Tobar NP - Last Filed: 02/19/21 13:00> Assessment and Plan: I saw and examined this patient and discussed finding with CIRCULAR KNIFE CUTTER MACHINE, I agree with above except Hypokalemia has not yet resovlved K of 2.8 and will replace with via IV <David Dumont MD - Last Filed: 02/19/21 13:44>
[2021-02-19] MEDS: Potassium Chloride/H20 10 MEQ/100 ML PIGGYBACK 100 MEQ IV (13:29)
[2021-02-19] MEDS: Potassium Chloride ER 20 MEQ TAB.ER.PRT 60 MEQ PO (16:03)
[2021-02-19] MEDS: Throat Lozenge, Medicated LOZENGE 1 LOZENGE MUCOUS MEM (18:30)
[2021-02-20 03:17] VITALS: BP 121/71; PULSE 106; RESP 18; TEMP 36.9; O2SAT 91
[2021-02-20] MEDS: KCl 20 mEq in 5% Dex/0.45% Sod 20 MEQ/1,000 ML IV.SOLN 100 MEQ IVCONT ×3 (03:20→23:02)
[2021-02-20] MEDS: Enoxaparin Sodium 100 MG/ML SYRINGE 95 MG SUBCUT ×2 (06:20→20:04)
[2021-02-20 06:21] LABS: Basophils Absolute Auto 0.1 X10*3/uL (0.0-0.2); Basophils Percent Auto 0.3 % (0-2); Eosinophils Absolute Auto 0.1 X10*3/uL (0.0-0.4); Eosinophils Percent Auto 0.2 % (0-4); Hematocrit 39.5 % (42-52); Hemoglobin 13.5 g/dl (14.0-18.0); Imm Gran Abs Auto 0.42 X10*3/uL (0.00-0.03); Imm Gran Pct Auto 2.1 % (0.0-0.4); Lymphocytes Absolute Auto 2.4 X10*3/uL (1.2-4.9); Lymphocytes Percent Auto 11.6 % (20-40); MANUAL DIFF FLAG SCAN; Mean Corpuscular HGB Conc 34.2 g/dl (31.0-36.0); Mean Corpuscular Hemoglobin 31.3 pg (27.0-33.0); Mean Corpuscular Volume 91.4 fL (80-98); Mean Platelet Volume 10.7 fL (9.4-12.4); Monocytes Absolute Auto 2.6 X10*3/uL (0.1-1.2); Monocytes Percent Auto 12.7 % (2-11); Neutrophils Absolute Auto 14.9 X10*3/uL (2.0-8.3); Neutrophils Percent Auto 73.1 % (45-73); Red Blood Count 4.32 X10*6/uL (4.60-5.80); Red Cell Distribution Width 13.2 % (11.0-16.0); SCAN SMEAR FLAG 1; White Blood Count 20.4 X10*3/uL (4.8-10.8)
[2021-02-20 06:30] LABS: INTERNATIONAL NORM RATIO 1.5 (0.9-1.1); Prothrombin Time 17.4 SEC (10.8-13.0)
[2021-02-20 06:44] LABS: Anion Gap 12 (12-20); Blood Urea Nitrogen 9 mg/dL (9-16); Calcium 8.5 mg/dL (8.4-10.2); Carbon Dioxide 27 mmol/L (22-29); Chloride 101 mmol/L (96-108); Creatinine Clr Calc Pharmacy 163.5; Estimated Glomerular Filt Rate > 60; Glucose Random 123 mg/dL (60-115); Potassium 3.8 mmol/L (3.3-5.1); Sodium 136 mmol/L (135-145)
[2021-02-20 06:52] LABS: Platelet Count 319 X10*3/uL (160-400); SLIDE REVIEW VERIFIED
[2021-02-20 07:31] VITALS: BP 129/75; PULSE 112; RESP 20; TEMP 36.2; O2SAT 92
[2021-02-20] MEDS: 0.9 % Sodium Chloride Flush 3 ML SYRINGE IVFLUSH ×2 (08:44→20:04)
--- NOTE | 2021-02-20 10:24 | P.PNGS_ITS ---
Subjective Subjective Date of Service: 02/20/21 Interval history: Patient denies passing stool or flatus. Denies significant abdominal pain he continues to feel hungry. Physical Exam Vital Signs: Vital Signs: Last Vital Signs Temp 97.2 F 02/20/21 07:31 Pulse 112 H 02/20/21 07:31 Resp 20 02/20/21 07:31 BP 129/75 02/20/21 07:31 Pulse Ox 92 02/20/21 07:31 Body Mass Index 30.5 Const: General: no acute distress Orientation/consciousness: patient oriented x3 Resp: Other: No respiratory distress Effort & Inspection: normal respiratory effort GI: Other: Nasogastric tube continues to produce bilious material in high quantity. Abdomen is softer, mild tenderness but no rebound, guarding, or rigidity. Skin: General skin exam: no rashes or lesions noted Neuro: General: patient oriented x3 Extrem: General: Yes no clubbing, cyanosis or edema Progress Note: A&P Assessment and plan (1) Bowel obstruction: Status: Acute Assessment and Plan: Patient presents with a distal colonic obstruction presumably from a twist although there is no evidence of volvulus by abdominal x-ray. Previous CT seemed indicated a mass within the wall of the colon however this was not identified by colonoscopy. Repeat abdominal x-ray seems indicate a decrease in the small-bowel dilatation, however he continues to have a high output from the nasogastric tube. He has yet to have a return of his bowel function. I would agree a repeat CT of the abdomen pelvis may be helpful to re-evaluate this area of colonic obstruction, possibly from extrinsic compression verses internal herniation/adhesive band. Patient may require abdominal exploration if con tinued obstruction. Fall Risk Details Current Medications: Current Medications Generic Name Dose Route Start Last Admin Trade Name Freq PRN Reason Stop Dose Admin Acetaminophen 650 mg 02/17/21 17:35 Acetaminophen 325 Mg Tablet PO Q6H PRN Pain, Mild (Pain Scale 1-3) Benzocaine 1 lozenge 02/19/21 18:07 02/19/21 18:30 Throat Lozenge, Medicated Lozenge MUCOUS MEM 1 lozenge Q2H PRN Administration Sore Throat Enoxaparin Sodium 95 mg 02/18/21 19:00 02/20/21 06:20 Enoxaparin Sodium 100 Mg/Ml Syringe 1 mg/kg (95 mg) 95 mg SUBCUT Administration Q12H JULIO Potassium Chloride/Dextrose/Sod Cl 20 meq in 1,000 mls @ 100 mls/hr 02/18/21 11:00 02/20/21 03:20 IVCONT 100 mls/hr .Q10H JULIO Administration Metoprolol Tartrate 5 mg 02/18/21 09:40 Metoprolol Tartrate 5 Mg/5 Ml Vial IVPUSH Q6H PRN HR > 110 Morphine Sulfate 4 mg 02/17/21 15:11 Morphine Sulfate 4 Mg/Ml Cartridge IVPUSH Q4H PRN Pain, Severe (Pain Scale 7-10) Multi-Ingred Medicated Throat [place] 1 spray 02/19/21 18:08 Throat [place], Medicated 20 Ml Bottle MUCOUS MEM Q2H PRN throat pain Pharmacy Consult 1 each 02/17/21 15:11 Consult Rx Perform Med Rec MISCELLANE ONCE PRN Consult order Sodium Chloride 3 ml 02/17/21 17:35 02/20/21 08:44 0.9 % Sodium Chloride Flush 3 Ml Syringe IVFLUSH 3 ml QSHIFT JULIO Administration Time Spent With Patient Time: Total time spent is greater than 50% in coordination of care (as documented) at patient's floor/unit and/or counseling patient: Time with patient: 15 - 24 minutes
[2021-02-20] MEDS: iohexoL 350 MG/ML 100 ML INFUS..BTL 85 ML IV (10:58)
[2021-02-20 11:55] VITALS: BP 132/88; PULSE 106; RESP 20; TEMP 37; O2SAT 92
--- NOTE | 2021-02-20 12:55 | P.PNIM_ITS ---
Subjective Subjective Date of Service: 02/20/21 <Lana Tobar NP - Last Filed: 02/20/21 12:59> 03/08/21 <David Dumont MD - Last Filed: 03/08/21 17:45> Interval History: Follow up SBO Still with discomfort from NGT Abd more distended No flatus or BM <Lana Tobar NP - Last Filed: 02/20/21 12:59> Physical Exam Vital Signs: Vital Signs: Last Vital Signs Temp 98.6 F 02/20/21 11:55 Pulse 106 H 02/20/21 11:55 Resp 20 02/20/21 11:55 BP 132/88 02/20/21 11:55 Pulse Ox 92 02/20/21 11:55 Body Mass Index 30.5 <Lana Tobar NP - Last Filed: 02/20/21 12:59> Appearing in no acute distress lung sounds are clear to auscultation heart regular rate rhythm, clear S1, S2 abdomen distended neuro patient is alert x3, no focal deficits <Lana Tobar NP - Last Filed: 02/20/21 12:59> Objective Data Current Medications Generic Name Dose Route Start Last Admin Trade Name Freq PRN Reason Stop Dose Admin Acetaminophen 650 mg 02/17/21 17:35 Acetaminophen 325 Mg Tablet PO Q6H PRN Pain, Mild (Pain Scale 1-3) Benzocaine 1 lozenge 02/19/21 18:07 02/19/21 18:30 Throat Lozenge, Medicated Lozenge MUCOUS MEM 1 lozenge Q2H PRN Administration Sore Throat Enoxaparin Sodium 95 mg 02/18/21 19:00 02/20/21 06:20 Enoxaparin Sodium 100 Mg/Ml Syringe 1 mg/kg (95 mg) 95 mg SUBCUT Administration Q12H JULIO Potassium Chloride/Dextrose/Sod Cl 20 meq in 1,000 mls @ 100 mls/hr 02/18/21 11:00 02/20/21 03:20 IVCONT 100 mls/hr .Q10H JULIO Administration Metoprolol Tartrate 5 mg 02/18/21 09:40 Metoprolol Tartrate 5 Mg/5 Ml Vial IVPUSH Q6H PRN HR > 110 Morphine Sulfate 4 mg 02/17/21 15:11 Morphine Sulfate 4 Mg/Ml Cartridge IVPUSH Q4H PRN Pain, Severe (Pain Scale 7-10) Multi-Ingred Medicated Throat [place] 1 spray 02/19/21 18:08 Throat [place], Medicated 20 Ml Bottle MUCOUS MEM Q2H PRN throat pain Pharmacy Consult 1 each 02/17/21 15:11 Consult Rx Perform Med Rec MISCELLANE ONCE PRN Consult order Sodium Chloride 3 ml 02/17/21 17:35 02/20/21 08:44 0.9 % Sodium Chloride Flush 3 Ml Syringe IVFLUSH 3 ml QSHIFT JULIO Administration <Lana Tobar NP - Last Filed: 02/20/21 12:59> Labs CBC & Chem 7: : 03/03/21 05:17 03/03/21 05:17 <Lana Tobar NP - Last Filed: 02/20/21 12:59> Assessment and Plan (1) Bowel obstruction: Status: Acute <Lana Tobar NP - Last Filed: 02/20/21 12:59> Assessment and Plan: This is a 61-year-old male with no prior colonoscopy who presents to the hospital with complaints of diffuse abdominal pain with associated nausea vomiting and changes in his bowel habits over the last several weeks along with poor oral intake. He is diagnosed with colonic obstruction likely secondary to colon cancer. Colonic obstruction. Colonoscopy revealed redundant colon with stool filled transverse colon No flatus or BM, still with high output bilious fluid repeat CT today showed HIGH GRADE distal sigmoid obstruction -Continue NG tube -remains NPO -Seen by Gen surg, may need exploratory Hypokalemia. Resolved -IV potassium -Follow BMP Supratherapeutic INR. Down to 1.5 today -Coumadin on hold -Continue Lovenox CAD s/p [place] -Cardiology following -No ACS History of CVA -hold statin -coumadin for cardioembolic source but held for now Full Code DVT pptx Lovenox (also Therapeutic) Attending: Dr. Dumont <Lana Tobar NP - Last Filed: 02/20/21 12:59>
[2021-02-20 15:04] VITALS: BP 123/82; PULSE 104; RESP 20; TEMP 36.6; O2SAT 94
--- NOTE | 2021-02-20 18:05 | PC.NURSE ---
Assumed care at 0700 - NGT placed to low intermittent suction. Abdomen distended, semi firm, hypoactive bowel sounds. Patient not passing flatus but reports having small bowel movement. Total output from NGT from [id number], green/[place] color. Lana Tobar updated and notified General Surgery. Per provider,plan for general surgery to consult in AM to discuss plan of care. Patient updated and aware of plan at this time. Will continue to monitor.
[2021-02-20 19:12] VITALS: BP 112/73; PULSE 109; RESP 18; TEMP 36.8; O2SAT 92
[2021-02-20 23:38] VITALS: BP 125/74; PULSE 75; RESP 18; TEMP 37.4; O2SAT 98
[2021-02-21 04:00] VITALS: BP 130/70; PULSE 102; RESP 18; TEMP 36.4; O2SAT 91
[2021-02-21 04:58] LABS: Hematocrit 38.8 % (42-52); Hemoglobin 13.3 g/dl (14.0-18.0); Mean Corpuscular HGB Conc 34.3 g/dl (31.0-36.0); Mean Corpuscular Hemoglobin 31.3 pg (27.0-33.0); Mean Corpuscular Volume 91.3 fL (80-98); Mean Platelet Volume 10.2 fL (9.4-12.4); Platelet Count 294 X10*3/uL (160-400); Red Blood Count 4.25 X10*6/uL (4.60-5.80); Red Cell Distribution Width 13.4 % (11.0-16.0); White Blood Count 12.5 X10*3/uL (4.8-10.8)
[2021-02-21 05:17] LABS: INTERNATIONAL NORM RATIO 1.4 (0.9-1.1)
[2021-02-21 05:25] LABS: Anion Gap 14 (12-20); Blood Urea Nitrogen 15 mg/dL (9-16); Calcium 8.5 mg/dL (8.4-10.2); Carbon Dioxide 31 mmol/L (22-29); Chloride 99 mmol/L (96-108); Creatinine Clr Calc Pharmacy 152.4; Estimated Glomerular Filt Rate > 60; Glucose Random 129 mg/dL (60-115); Potassium 3.5 mmol/L (3.3-5.1); Sodium 140 mmol/L (135-145)
[2021-02-21 07:51] VITALS: BP 112/74; PULSE 109; RESP 20; TEMP 36.2; O2SAT 93
[2021-02-21 09:12] LABS: Lactate Dehydrogenase 165 U/L (118-273)
--- NOTE | 2021-02-21 09:22 | P.PNGS_ITS ---
Subjective Subjective Date of Service: 02/21/21 Interval history: Patient continues to have very high NG tube outputs on the order of 2500 per shift. Patient underwent sigmoidoscopy 3 days ago which showed no evidence of mass within the colon. The sigmoidoscopy was able to reach the transverse colon and no mucosal lesions were seen or compression. Patient had a repeat CT scan which again documents the same findings as the initial CT scan that there is a mass that is compressing in the mid to distal sigmoid colon. The small bowel and the colon our office still dilated similar to 1st CT scan. Patient does report that he is having bowel movements although there is no documentation of flatus or bowel movement. Repeat CT scan showed that the NG tube was well into the duodenum likely in the 2nd to 3rd portion of duodenum. I recommended that the NG tube be pulled back. Patient's electrolytes are still within normal range. Patient's INR was 1.4 today and he is receiving Lovenox for his anticoagulation. Physical Exam Vital Signs: Vital Signs: Last Vital Signs Temp 97.2 F 02/21/21 07:51 Pulse 109 H 02/21/21 07:51 Resp 20 02/21/21 07:51 BP 112/74 02/21/21 07:51 Pulse Ox 93 02/21/21 07:51 Body Mass Index 30.5 Const: General: cooperative, comfortable and no acute distress GI: Inspection: Yes distended and No incision Palpation (GI): Soft to palpation, Tenderness to palpation present (GI) (Minimally to deep palpation), no guarding, not rigid and No hepatosplenomegaly present Extrem: General: Yes normal to inspection, Yes full ROM, Yes no clubbing, cyanosis or edema and Yes no calf tenderness Progress Note: A&P Assessment and plan (1) Bowel obstruction: Status: Acute Assessment and Plan: This is a 61-year-old gentleman with 2-3 weeks history of bowel obstruction symptoms and a CT scan showing a mass or some external compression of the sigmoid colon causing large and small bowel obstruction. Colonoscopy findings have been negative. Patient will have his NG tube pulled back into the stomach from the duodenum. Continue to monitor electrolytes and replace as needed. I have scheduled the patient for an exploratory laparotomy, sigmoid colectomy, and colostomy creation for feb 23 2021. I will discuss the risks benefits and alternatives with his healthcare proxy as the patient does have some evidence of some confusion given his stroke in June of 2020. Fall Risk Details Current Medications: Current Medications Generic Name Dose Route Start Last Admin Trade Name Freq PRN Reason Stop Dose Admin Acetaminophen 650 mg 02/17/21 17:35 Acetaminophen 325 Mg Tablet PO Q6H PRN Pain, Mild (Pain Scale 1-3) Benzocaine 1 lozenge 02/19/21 18:07 02/19/21 18:30 Throat Lozenge, Medicated Lozenge MUCOUS MEM 1 lozenge Q2H PRN Administration Sore Throat Enoxaparin Sodium 95 mg 02/18/21 19:00 02/21/21 07:45 Enoxaparin Sodium 100 Mg/Ml Syringe 1 mg/kg (95 mg) Not Given SUBCUT Q12H JULIO Potassium Chloride/Dextrose/Sod Cl 20 meq in 1,000 mls @ 100 mls/hr 02/18/21 11:00 02/20/21 23:02 IVCONT 100 mls/hr .Q10H JULIO Administration Metoprolol Tartrate 5 mg 02/18/21 09:40 Metoprolol Tartrate 5 Mg/5 Ml Vial IVPUSH Q6H PRN HR > 110 Morphine Sulfate 4 mg 02/17/21 15:11 Morphine Sulfate 4 Mg/Ml Cartridge IVPUSH Q4H PRN Pain, Severe (Pain Scale 7-10) Multi-Ingred Medicated Throat [place] 1 spray 02/19/21 18:08 02/20/21 17:50 Throat [place], Medicated 20 Ml Bottle MUCOUS MEM 1 spray Q2H PRN Administration throat pain Pharmacy Consult 1 each 02/17/21 15:11 Consult Rx Perform Med Rec MISCELLANE ONCE PRN Consult order Sodium Chloride 3 ml 02/17/21 17:35 02/20/21 20:04 0.9 % Sodium Chloride Flush 3 Ml Syringe IVFLUSH 3 ml QSHIFT JULIO Administration Time Spent With Patient Time: Total time spent is greater than 50% in coordination of care (as documented) at patient's floor/unit and/or counseling patient: Time with patient: 15 - 24 minutes
[2021-02-21] MEDS: Enoxaparin Sodium 100 MG/ML SYRINGE 95 MG SUBCUT ×2 (09:54→20:42)
[2021-02-21] MEDS: 0.9 % Sodium Chloride Flush 3 ML SYRINGE IVFLUSH ×2 (09:54→20:44)
[2021-02-21] MEDS: KCl 20 mEq in 5% Dex/0.45% Sod 20 MEQ/1,000 ML IV.SOLN 100 MEQ IVCONT (09:56)
[2021-02-21 11:30] VITALS: BP 127/80; PULSE 105; RESP 18; TEMP 36.5; O2SAT 91
--- NOTE | 2021-02-21 12:09 | HO.PM.IMPN ---
Subjective Subjective Date of Service: 02/21/21 <Lana Tobar NP - Last Filed: 02/21/21 12:19> 02/21/21 <Anam Erickson MD - Last Filed: 02/21/21 15:40> Interval History: Follow up SBO No Abd pain Discomfort from the NG tube No flatus Small bowel movement last night <Lana Tobar NP - Last Filed: 02/21/21 12:19> Physical Exam Vital Signs: Vital Signs: Last Vital Signs Temp 97.7 F 02/21/21 11:30 Pulse 105 H 02/21/21 11:30 Resp 18 02/21/21 11:30 BP 127/80 02/21/21 11:30 Pulse Ox 91 L 02/21/21 11:30 Body Mass Index 30.5 <Lana Tobar NP - Last Filed: 02/21/21 12:19> Appearing in no acute distress NG tube in place lung sounds are clear to auscultation heart regular rate rhythm, clear S1, S2 hypoactive bowel sounds, abdomen is mildly distended neuro patient is alert x3, no focal deficits <Lana Tobar NP - Last Filed: 02/21/21 12:19> Objective Data Current Medications Generic Name Dose Route Start Last Admin Trade Name Freq PRN Reason Stop Dose Admin Acetaminophen 650 mg 02/17/21 17:35 Acetaminophen 325 Mg Tablet PO Q6H PRN Pain, Mild (Pain Scale 1-3) Benzocaine 1 lozenge 02/19/21 18:07 02/19/21 18:30 Throat Lozenge, Medicated Lozenge MUCOUS MEM 1 lozenge Q2H PRN Administration Sore Throat Enoxaparin Sodium 95 mg 02/21/21 10:00 02/21/21 09:54 Enoxaparin Sodium 100 Mg/Ml Syringe 1 mg/kg (95 mg) 95 mg SUBCUT Administration Q12H JULIO Metoprolol Tartrate 5 mg 02/18/21 09:40 Metoprolol Tartrate 5 Mg/5 Ml Vial IVPUSH Q6H PRN HR > 110 Morphine Sulfate 4 mg 02/17/21 15:11 Morphine Sulfate 4 Mg/Ml Cartridge IVPUSH Q4H PRN Pain, Severe (Pain Scale 7-10) Multi-Ingred Medicated Throat [place] 1 spray 02/19/21 18:08 02/21/21 10:48 Throat [place], Medicated 20 Ml Bottle MUCOUS MEM 1 spray Q2H PRN Administration throat pain Pharmacy Consult 1 each 02/17/21 15:11 Consult Rx Perform Med Rec MISCELLANE ONCE PRN Consult order Sodium Chloride 3 ml 02/17/21 17:35 02/21/21 09:54 0.9 % Sodium Chloride Flush 3 Ml Syringe IVFLUSH 3 ml QSHIFT JULIO Administration <Lana Tobar NP - Last Filed: 02/21/21 12:19> Labs CBC & Chem 7: : 02/21/21 04:24 02/21/21 04:24 <Lana Tobar NP - Last Filed: 02/21/21 12:19> Microbiology Microbiology Results: Microbiology 02/20/21 08:39 Blood - Venous Blood Culture - Preliminary No growth after 24 hours. 02/20/21 08:39 Blood - Venous Blood Culture - Preliminary No growth after 24 hours. <Lana Tobar NP - Last Filed: 02/21/21 12:19> Assessment and Plan (1) Bowel obstruction: Status: Acute <Lana Tobar NP - Last Filed: 02/21/21 12:19> Assessment and Plan: This is a 61-year-old male with no prior colonoscopy who presents to the hospital with complaints of diffuse abdominal pain with associated nausea vomiting and changes in his bowel habits over the last several weeks along with poor oral intake. He is diagnosed with colonic obstruction likely secondary to colon cancer. Colonic obstruction. Colonoscopy revealed redundant colon with stool filled transverse colon No flatus, reports small bowel movement last night NG tube in the duodenum likely reason for I output repeat CT today showed HIGH GRADE distal sigmoid obstruction -adjust NG tube -remains NPO -Seen by Gen surg, exploratory lap on Sunday -hold Lovenox sunday morning Hypokalemia. Resolved -IV potassium -Follow BMP Supratherapeutic INR. Down to 1.4 today -Coumadin on hold -Continue Lovenox CAD s/p [place] -Cardiology following -No ACS History of CVA -hold statin -coumadin for cardioembolic source but held for now Full Code DVT pptx Lovenox (also Therapeutic) Attending: Dr. Erickson <Lana Tobar NP - Last Filed: 02/21/21 12:19>
[2021-02-21 15:58] VITALS: BP 145/65; PULSE 110; RESP 19; TEMP 37.1
[2021-02-21 19:59] VITALS: BP 128/85; PULSE 102; RESP 19; TEMP 36.4; O2SAT 90
[2021-02-21] MEDS: KCl 20 mEq in 5% Dex/0.45% Sod 20 MEQ/1,000 ML IV.SOLN 80 MEQ IVCONT (23:37)
[2021-02-22] VITALS (7 sets, daily range): BP systolic 123–147; BP diastolic 65–94; PULSE 95–112; RESP 17–20; TEMP 36.2–36.8; O2SAT 92–94
[2021-02-22 07:03] LABS: Hematocrit 37.9 % (42-52); Hemoglobin 12.9 g/dl (14.0-18.0); Mean Corpuscular Hemoglobin 31.5 pg (27.0-33.0); Mean Corpuscular Volume 92.4 fL (80-98); Mean Platelet Volume 10.1 fL (9.4-12.4); Platelet Count 294 X10*3/uL (160-400); Red Cell Distribution Width 13.3 % (11.0-16.0); White Blood Count 13.5 X10*3/uL (4.8-10.8)
[2021-02-22 07:10] LABS: INTERNATIONAL NORM RATIO 1.5 (0.9-1.1); Prothrombin Time 17.6 SEC (10.8-13.0)
[2021-02-22 07:31] LABS: Anion Gap 12 (12-20); Blood Urea Nitrogen 17 mg/dL (9-16); Calcium 8.6 mg/dL (8.4-10.2); Carbon Dioxide 33 mmol/L (22-29); Chloride 98 mmol/L (96-108); Creatinine Clr Calc Pharmacy 157.8; Estimated Glomerular Filt Rate > 60; Glucose Random 127 mg/dL (60-115); Potassium 3.7 mmol/L (3.3-5.1); Sodium 139 mmol/L (135-145)
[2021-02-22] MEDS: 0.9 % Sodium Chloride Flush 3 ML SYRINGE IVFLUSH (10:10)
[2021-02-22] MEDS: KCl 20 mEq in 5% Dex/0.45% Sod 20 MEQ/1,000 ML IV.SOLN 80 MEQ IVCONT ×2 (12:09→23:41)
--- NOTE | 2021-02-22 16:47 | P.PNIM_ITS ---
Subjective Subjective Date of Service: 02/23/21 Interval History: Follow up SBO Review of Systems No significant abdominal pain has some diffuse discomfort in the left lower abdominal area. No flatus Still draining to the NG section but improving from yesterday as per the review with staff around 1600-700 mL in last 24 hour. Physical Exam Vital Signs: Vital Signs: Last Vital Signs Temp 98.3 F 02/22/21 15:58 Pulse 100 02/22/21 15:58 Resp 19 02/22/21 15:58 BP 144/88 H 02/22/21 15:58 Pulse Ox 93 02/22/21 15:58 Body Mass Index 30.5 Physical exam: Constitutional: no acute distress NG tube in place-has 300 mL around in the section bag Lungs: lung sounds are clear to auscultation CVS: heart regular rate rhythm, clear S1, S2 Abdomen: hypoactive bowel sounds, abdomen is mildly distended neuro: patient is alert x3, no focal deficits Objective Data Current Medications Generic Name Dose Route Start Last Admin Trade Name Freq PRN Reason Stop Dose Admin Acetaminophen 650 mg 02/17/21 17:35 Acetaminophen 325 Mg Tablet PO Q6H PRN Pain, Mild (Pain Scale 1-3) Benzocaine 1 lozenge 02/19/21 18:07 02/19/21 18:30 Throat Lozenge, Medicated Lozenge MUCOUS MEM 1 lozenge Q2H PRN Administration Sore Throat Enoxaparin Sodium 95 mg 02/21/21 10:00 02/21/21 20:42 Enoxaparin Sodium 100 Mg/Ml Syringe 1 mg/kg (95 mg) 95 mg SUBCUT Administration Q12H JULIO Potassium Chloride/Dextrose/Sod Cl 20 meq in 1,000 mls @ 80 mls/hr 02/21/21 2 3:15 02/22/21 12:09 IVCONT 80 mls/hr .[id number] JULIO Administration Metoprolol Tartrate 5 mg 02/18/21 09:40 Metoprolol Tartrate 5 Mg/5 Ml Vial IVPUSH Q6H PRN HR > 110 Multi-Ingred Medicated Throat [place] 1 spray 02/19/21 18:08 02/21/21 17:52 Throat [place], Medicated 20 Ml Bottle MUCOUS MEM 1 spray Q2H PRN Administration throat pain Pharmacy Consult 1 each 05/13/21 15:11 Consult Rx Perform Med Rec MISCELLANE ONCE PRN Consult order Sodium Chloride 3 ml 02/17/21 17:35 02/22/21 16:04 0.9 % Sodium Chloride Flush 3 Ml Syringe IVFLUSH Not Given QSHIFT JULIO Labs CBC & Chem 7: 02/23/21 05:50 02/23/21 05:50 Microbiology Microbiology Results: Microbiology 02/20/21 08:39 Blood - Venous Blood Culture - Preliminary No growth after 48 hours. 02/20/21 08:39 Blood - Venous Blood Culture - Preliminary No growth after 48 hours. Assessment and Plan (1) Bowel obstruction: Status: Acute Assessment and Plan: 61-year-old male with no prior colonoscopy who presents to the hospital with complaints of diffuse abdominal pain with associated nausea vomiting and changes in his bowel habits over the last several weeks along with poor oral intake. He is diagnosed with colonic obstruction likely secondary to colon cancer. 1.Colonic obstruction. Colonoscopy revealed redundant colon with stool filled transverse colon No flatus, reports small bowel movement last night NG tube in the duodenum likely reason for I output repeat CT today showed HIGH GRADE distal sigmoid obstruction NPO-still draining -Seen by Gen surg, exploratory lap on Sunday -hold Lovenox sunday morning 2.Hypokalemia. Resolved -IV potassium -Follow BMP 3.Supratherapeutic INR. Down to 1.5 today -Coumadin on hold on hold Lovenox for surgery tomorrow. 4.CAD s/p NC -Cardiology following -No ACS 5.History of CVA -hold statin -coumadin for cardioembolic source but held for now
[2021-02-23] VITALS (16 sets, daily range): BP systolic 117–146; BP diastolic 68–96; PULSE 99–106; RESP 15–19; TEMP 35.8–36.8; O2SAT 85–98
[2021-02-23 06:49] LABS: Hematocrit 37.4 % (42-52); Hemoglobin 12.6 g/dl (14.0-18.0); Mean Corpuscular HGB Conc 33.7 g/dl (31.0-36.0); Mean Corpuscular Hemoglobin 31.5 pg (27.0-33.0); Mean Corpuscular Volume 93.5 fL (80-98); Mean Platelet Volume 10.3 fL (9.4-12.4); Platelet Count 294 X10*3/uL (160-400); Red Cell Distribution Width 13.3 % (11.0-16.0); White Blood Count 13.5 X10*3/uL (4.8-10.8)
[2021-02-23 07:03] LABS: INTERNATIONAL NORM RATIO 1.3 (0.9-1.1); Prothrombin Time 15.8 SEC (10.8-13.0)
[2021-02-23 07:07] LABS: Anion Gap 13 (12-20); Blood Urea Nitrogen 15 mg/dL (9-16); Calcium 8.4 mg/dL (8.4-10.2); Carbon Dioxide 30 mmol/L (22-29); Chloride 99 mmol/L (96-108); Creatinine Clr Calc Pharmacy 166.6; Estimated Glomerular Filt Rate > 60; Glucose Random 114 mg/dL (60-115); Potassium 3.7 mmol/L (3.3-5.1); Sodium 138 mmol/L (135-145)
--- NOTE | 2021-02-23 07:35 | PC.NURSE ---
0600; Patient woke up and reported his NG tube feels like it's coming out, he is not sure if he accidentally pulled on it while sleeping. The secure for the NG tube is completely off the nose. Patient is scheduled for exploratory lap today. Hospitalist, Dr. Tidwell was notified and per , NG tube advanced and cxr ordered to verify NG tube placement. Surgery made aware as well. Day shift RN updated.
--- NOTE | 2021-02-23 09:20 | HO.PM.IMPN ---
Subjective Subjective Date of Service: 02/24/21 <Yamil Land MD - Last Filed: 02/24/21 16:55> 02/23/21 <Babs Aguirre PA-C - Last Filed: 02/24/21 12:31> Interval History: mild abd discomfort in left side , had small bm yeaterday ngt suction around 2701-5933 ml <Yamil Land MD - Last Filed: 02/24/21 16:55> Physical Exam Vital Signs: Vital Signs: Last Vital Signs Temp 97.9 F 02/23/21 07:23 Pulse 102 H 02/23/21 07:23 Resp 19 02/23/21 07:23 BP 137/95 H 02/23/21 07:23 Pulse Ox 94 02/23/21 07:23 Body Mass Index 30.5 <Yamil Land MD - Last Filed: 02/24/21 16:55> Constitutional: no acute distress NG tube in place- in the section bag Lungs: lung sounds are clear to auscultation CVS: heart regular rate rhythm, clear S1, S2 Abdomen: hypoactive bowel sounds, abdomen is mildly distended neuro: patient is alert x3, no focal deficits <Yamil Land MD - Last Filed: 02/24/21 16:55> Objective Data Current Medications Generic Name Dose Route Start Last Admin Trade Name Freq PRN Reason Stop Dose Admin Acetaminophen 650 mg 02/17/21 17:35 Acetaminophen 325 Mg Tablet PO Q6H PRN Pain, Mild (Pain Scale 1-3) Benzocaine 1 lozenge 02/19/21 18:07 02/19/21 18:30 Throat Lozenge, Medicated Lozenge MUCOUS MEM 1 lozenge Q2H PRN Administration Sore Throat Enoxaparin Sodium 95 mg 02/21/21 10:00 02/21/21 20:42 Enoxaparin Sodium 100 Mg/Ml Syringe 1 mg/kg (95 mg) 95 mg SUBCUT Administration Q12H JULIO Potassium Chloride/Dextrose/Sod Cl 20 meq in 1,000 mls @ 80 mls/hr 02/21/21 23:15 02/22/21 23:41 IVCONT 80 mls/hr .[id number] JULIO Administration Metoprolol Tartrate 5 mg 02/18/21 09:40 Metoprolol Tartrate 5 Mg/5 Ml Vial IVPUSH Q6H PRN HR > 110 Multi-Ingred Medicated Throat [employer] 1 spray 02/19/21 18:08 02/22/21 20:15 Throat [employer], Medicated 20 Ml Bottle MUCOUS MEM 1 spray Q2H PRN Administration throat pain Pharmacy Consult 1 each 02/17/21 15:11 Consult Rx Perform Med Rec MISCELLANE ONCE PRN Consult order Sodium Chloride 3 ml 02/17/21 17:35 02/23/21 07:43 0.9 % Sodium Chloride Flush 3 Ml Syringe IVFLUSH Not Given QSHIFT JULIO <Yamil Land MD - Last Filed: 02/24/21 16:55> Labs CBC & Chem 7: : 02/24/21 05:23 02/24/21 05:23 <Yamil Land MD - Last Filed: 02/24/21 16:55> Microbiology Microbiology Results: Microbiology 02/20/21 08:39 Blood - Venous Blood Culture - Preliminary No growth after 48 hours. 02/20/21 08:39 Blood - Venous Blood Culture - Preliminary No growth after 48 hours. <Yamil Land MD - Last Filed: 02/24/21 16:55> Assessment and Plan (1) Bowel obstruction: Status: Acute <Yamil Land MD - Last Filed: 02/24/21 16:55> Assessment and Plan: 61-year-old male with no prior colonoscopy who presents to the hospital with complaints of diffuse abdominal pain with associated nausea vomiting and changes in his bowel habits over the last several weeks along with poor oral intake. He is diagnosed with colonic obstruction likely secondary to colon cancer. 1.Colonic obstruction. Colonoscopy revealed redundant colon with stool filled transverse colon No flatus, reports small bowel movement last night NG tube in the duodenum likely reason for I output repeat CT today showed HIGH GRADE distal sigmoid obstruction NPO-still draining -Seen by Gen surg, exploratory lap on today -hold Lovenox 2.Hypokalemia. Resolved given IV potassium, hypokalemia resolved. -Follow BMP 3.Supratherapeutic INR. Down to 1.5 today -Coumadin on hold on hold Lovenox for surgery tomorrow. 4.CAD s/p [place] -Cardiology following -No ACS 5.History of CVA -hold statin -coumadin for cardioembolic source but held for now <Yamil Land MD - Last Filed: 02/24/21 16:55>
--- NOTE | 2021-02-23 10:06 | MHC.CM.PN ---
Patient is having an Exploratory Lap today and appears not likely to be medically cleared for dc today. Home/no services is the goal for dc and CM will continue to follow for possible need to adjust the dc plan.
--- NOTE | 2021-02-23 11:39 | P.PNGS_ITS ---
Subjective Subjective Date of Service: 02/23/21 Interval history: Patient still with average of 400 mL output from the NG tube per shift. No evidence of bowel function. Patient still with distended abdomen but denies abdominal pain. Plan is to take the patient today to the operating room for exploratory laparotomy and likely sigmoid colectomy with colostomy creation as treatment for the obstruction. Lovenox has been held since yesterday. This morning's INR is 1.3 and is appropriate for surgery. Physical Exam Vital Signs: Vital Signs: Last Vital Signs Temp 97.2 F 02/23/21 11:25 Pulse 101 H 02/23/21 11:25 Resp 18 02/23/21 11:25 BP 139/90 H 02/23/21 11:25 Pulse Ox 97 02/23/21 11:25 Body Mass Index 30.5 Const: General: cooperative, comfortable and no acute distress; No confusion Orientation/consciousness: No confusion HENMT: Head: Yes normal to inspection, Yes normocephalic and Yes atraumatic Ears: hearing grossly normal bilaterally Mouth: Normal oral and palatal mucosa present Throat: Yes posterior oropharynx normal Eyes: General: appearance normal, both eyes and all related structures EOM: EOMs intact bilaterally Neck: Neck: Yes normal visual inspection, Yes no lymphadenopathy, Yes trachea midline and Yes no JVD Resp: Effort & Inspection: normal respiratory effort and able to speak in complete sentences Auscultation: clear to auscultation bilaterally Cardio: Jugular venous distension: no JVD Heart sounds: S1 normal heart sound present, S2 normal heart sound present, no click, no gallops, no murmurs and no rubs GI: Other: Mild tympany to percussion Inspection: Yes distended and No incision Palpation (GI): Soft to palpation, nontender, no guarding, not rigid, No hepatosplenomegaly present, no hernias and no masses Rectal Exam - Male: Yes deferred Skin: General skin exam: no rashes or lesions noted Neuro: General: No confusion Cranial nerves: Yes Normal hearing present Extrem: General: Yes normal to inspection, Yes full ROM, Yes no clubbing, cyanosis or edema and Yes no calf tenderness Psych: Appearance: grossly normal Progress Note: A&P Assessment and plan (1) Bowel obstruction: Status: Acute Assessment and Plan: 61-year-old gentleman with obstruction at the level of sigmoid colon but does not appear to be a mucosal lesion causing the obstruction as evidence by the rec ent sigmoidoscopy. Patient continues to have a bowel obstruction with high NG tube outputs. Patient will be taken to the operating room for an exploratory laparotomy with likely sigmoid colectomy and colostomy creation to treat the area of obstruction. Risks benefits and alternatives were discussed with the patient he agrees to proceed. Fall Risk Details Current Medications: Current Medications Generic Name Dose Route Start Last Admin Trade Name Freq PRN Reason Stop Dose Admin Acetaminophen 650 mg 02/17/21 17:35 Acetaminophen 325 Mg Tablet PO Q6H PRN Pain, Mild (Pain Scale 1-3) Benzocaine 1 lozenge 02/19/21 18:07 02/19/21 18:30 Throat Lozenge, Medicated Lozenge MUCOUS MEM 1 lozenge Q2H PRN Administration Sore Throat Enoxaparin Sodium 95 mg 02/21/21 10:00 02/21/21 20:42 Enoxaparin Sodium 100 Mg/Ml Syringe 1 mg/kg (95 mg) 95 mg SUBCUT Administration Q12H JULIO Potassium Chloride/Dextrose/Sod Cl 20 meq in 1,000 mls @ 80 mls/hr 02/21/21 23:15 02/22/21 23:41 IVCONT 80 mls/hr .[id number] JULIO Administration Metoprolol Tartrate 5 mg 02/18/21 09:40 Metoprolol Tartrate 5 Mg/5 Ml Vial IVPUSH Q6H PRN HR > 110 Multi-Ingred Medicated Throat [place] 1 spray 02/19/21 18:08 02/22/21 20:15 Throat [place], Medicated 20 Ml Bottle MUCOUS MEM 1 spray Q2H PRN Administration throat pain Pharmacy Consult 1 each 02/17/21 15:11 Consult Rx Perform Med Rec MISCELLANE ONCE PRN Consult order Sodium Chloride 3 ml 02/17/21 17:35 02/23/21 07:43 0.9 % Sodium Chloride Flush 3 Ml Syringe IVFLUSH Not Given QSHIFT JULIO Time Spent With Patient Time: Total time spent is greater than 50% in coordination of care (as documented) at patient's floor/unit and/or counseling patient: Time with patient: 15 - 24 minutes Procedures Date of Service Date of Service: 02/23/21
[2021-02-23] MEDS: KCl 20 mEq in 5% Dex/0.45% Sod 20 MEQ/1,000 ML IV.SOLN 80 MEQ IVCONT (12:21)
--- NOTE | 2021-02-23 14:27 | P.CONAN_ITS ---
[facility] Active Problems Active Problems: All Active Problems (Updated 02/19/21 @ 12:47 by Lana hastings NP) Bowel obstruction (Acute) HTN (hypertension) (Acute) Coronary artery disease (Acute) History of acute inferior wall [place] (Acute) Colonic obstruction (Acute) Hospital discharge follow-up (Acute) Current use of anticoagulant therapy (Acute) Supratherapeutic INR (Acute) Colonic mass (Acute) ST elevation myocardial infarction (STEMI) of inferior wall (Acute ~07/2020) Stroke (Acute ~07/2020) Knee pain, bilateral (Acute) Past Medical History Medical History Anxiety Coronary artery disease Depression High cholesterol HTN (hypertension) Knee pain, bilateral ST elevation myocardial infarction (STEMI) of inferior wall (~07/2020) Stroke (~07/2020) Family History Family History Father Stroke Heart attack Mother Heart attack Sister Diverticulitis Heart attack Brother No problems noted. Sister No problems noted. Brother No problems noted. Surgical History Surgical History No pertinent past surgical history Social History Social History Household Members: Spouse Housing: House Alcohol intake: former Smoking Status: Current every day smoker Packs Per Day: 0.5 Cigarettes Per Day: 10.0 Years Smoked: 30 Second Hand Smoke Exposure: No service: No Current occupational status: disabled Meds Allergies Allergy/AdvReac Type Severity Reaction Status Date / Time No Known Allergies Allergy Verified 02/17/21 09:18 Active Medications: Current Medications Generic Name Dose Route Start Last Admin Trade Name Freq PRN Reason Stop Dose Admin Acetaminophen 650 mg 02/17/21 17:35 Acetaminophen 325 Mg Tablet PO Q6H PRN Pain, Mild (Pain Scale 1-3) Benzocaine 1 lozenge 02/19/21 18:07 02/19/21 18:30 Throat Lozenge, Medicated Lozenge MUCOUS MEM 1 lozenge Q2H PRN Administration Sore Throat Enoxaparin Sodium 95 mg 02/21/21 10:00 02/21/21 20:42 Enoxaparin Sodium 100 Mg/Ml Syringe 1 mg/kg (95 mg) 95 mg SUBCUT Administration Q12H JULIO Potassium Chloride/Dextrose/Sod Cl 20 meq in 1,000 mls @ 80 mls/hr 02/21/21 23:15 02/23/21 12:21 IVCONT 80 mls/hr .[id number] JULIO Administration Metoprolol Tartrate 5 mg 02/18/21 09:40 Metoprolol Tartrate 5 Mg/5 Ml Vial IVPUSH Q6H PRN HR > 110 Multi-Ingred Medicated Throat [place] 1 spray 02/19/21 18:08 02/22/21 20:15 Throat [place], Medicated 20 Ml Bottle MUCOUS MEM 1 spray Q2H PRN Administration throat pain Pharmacy Consult 1 each 02/17/21 15:11 Consult Rx Perform Med Rec MISCELLANE ONCE PRN Consult order Sodium Chloride 3 ml 02/17/21 17:35 02/23/21 07:43 0.9 % Sodium Chloride Flush 3 Ml Syringe IVFLUSH Not Given QSHIFT [facility] [place] Home Medications Medication Instructions Recorded Confirmed Last Taken Type gabapentin 300 mg capsule 300 mg PO BID 11/29/20 02/17/21 02/17/21 History sertraline 100 mg tablet 100 mg PO DAILY 11/29/20 02/17/21 02/17/21 History melatonin 5 mg tablet 5 mg PO DAILY PRN 01/07/21 02/17/21 02/16/21 History Exam Exam Date and Time: February 23, 2021 1427 Height,Weight and Vital Signs: Height 5 ft 9 in Weight 93.894 kg Last Vital Signs Temp 97.5 F 02/23/21 14:00 Pulse 101 H 02/23/21 14:00 Resp 18 02/23/21 14:00 BP 127/83 02/23/21 14:00 Pulse Ox 94 02/23/21 14:00 Pertinent Lab Results Pertinent Lab Results: Laboratory Tests 02/17/21 02/17/21 02/17/21 11:18 11:19 11:19 WBC RBC Hgb Hct MCV MCH MCHC RDW Plt Count MPV Immature Gran % (Auto) Neut % (Auto) Lymph % (Auto) [place] % (Auto) Eos % (Auto) Baso % (Auto) Lymph # (Auto) [place] # (Auto) Eos # (Auto) Baso # (Auto) Abs Immat Gran (auto) Absolute Neuts (auto) Absolute Nucleated RBC Nucleated RBC % (auto) Neutrophils % (Manual) Band Neutrophils % Lymphocytes % (Manual) Monocytes % (Manual) Eosinophils % (Manual) Abs Neuts (Manual) Lymphocytes # (Manual) Monocytes # (Manual) Eosinophils # (Manual) Platelet Estimate Plt Morphology Comment RBC Morphology [place] Cells Smear Tech's Comments PT 229.1 H INR 18.7 H* APTT 68.8 H* Sodium Potassium Chloride Carbon Dioxide Anion Gap BUN Creatinine Estim Creat Clear Calc Estimated GFR Random Glucose Calcium Magnesium 2.0 Total Bilirubin 0.7 Direct Bilirubin 0.5 AST 21 ALT 30 Alkaline Phosphatase 87 Lactate Dehydrogenase Troponin I High Sens Total Protein 6.3 L Albumin 3.6 Lipase 5 L Carcinoembryonic Ag Blood Type A Positive Antibody Screen NEGATIVE 02/17/21 02/17/21 02/18/21 13:38 20:10 06:14 WBC 12.4 H RBC 4.24 L Hgb 13.3 L Hct 39.0 L MCV 92.0 MCH 31.4 MCHC 34.1 RDW 13.4 Plt Count 304 MPV 10.5 Immature Gran % (Auto) Cancelled Neut % (Auto) Cancelled Lymph % (Auto) Cancelled [place] % (Auto) Cancelled Eos % (Auto) Cancelled Baso % (Auto) Cancelled Lymph # (Auto) Cancelled [place] # (Auto) Cancelled Eos # (Auto) Cancelled Baso # (Auto) Cancelled Abs Immat Gran (auto) Cancelled Absolute Neuts (auto) Cancelled Absolute Nucleated RBC 0.000 Nucleated RBC % (auto) 0.0 Neutrophils % (Manual) 42 L Band Neutrophils % 19 H Lymphocytes % (Manual) 19 L Monocytes % (Manual) 19 H Eosinophils % (Manual) 1 Abs Neuts (Manual) 7.6 Lymphocytes # (Manual) 2.4 Monocytes # (Manual) 2.4 H Eosinophils # (Manual) 0.1 Platelet Estimate NORMAL Plt Morphology Comment NORMAL RBC Morphology NOTED [place] Cells 2+ (3-5) Smear Tech's Comments PT 141.8 H D INR 11.6 H* D APTT Sodium Potassium Chloride Carbon Dioxide Anion Gap BUN Creatinine Estim Creat Clear Calc Estimated GFR Random Glucose Calcium Magnesium Total Bilirubin Direct Bilirubin AST ALT Alkaline Phosphatase Lactate Dehydrogenase Troponin I High Sens 15.8 Total Protein Albumin Lipase Carcinoembryonic Ag Blood Type Antibody Screen 02/18/21 02/18/21 02/18/21 06:14 06:14 14:17 WBC RBC Hgb Hct MCV MCH MCHC RDW Plt Count MPV Immature Gran % (Auto) Neut % (Auto) Lymph % (Auto) [place] % (Auto) Eos % (Auto) Baso % (Auto) Lymph # (Auto) [place] # (Auto) Eos # (Auto) Baso # (Auto) Abs Immat Gran (auto) Absolute Neuts (auto) Absolute Nucleated RBC Nucleated RBC % (auto) Neutrophils % (Manual) Band Neutrophils % Lymphocytes % (Manual) Monocytes % (Manual) Eosinophils % (Manual) Abs Neuts (Manual) Lymphocytes # (Manual) Monocytes # (Manual) Eosinophils # (Manual) Platelet Estimate Plt Morphology Comment RBC Morphology [place] Cells Smear Tech's Comments PT 26.5 H D 20.2 H D INR 2.2 H 1.7 H APTT Sodium 136 Potassium 2.7 L D Chloride 104 Carbon Dioxide 24 Anion Gap 11 L BUN 18 H Creatinine 0.60 Estim Creat Clear Calc 149.9 Estimated GFR > 60 Random Glucose 139 H Calcium 8.3 L D Magnesium 2.1 Total Bilirubin Direct Bilirubin AST ALT Alkaline Phosphatase Lactate Dehydrogenase Troponin I High Sens Total Protein Albumin Lipase Carcinoembryonic Ag 1.80 Blood Type Antibody Screen 02/18/21 02/19/21 02/19/21 14:17 04:19 04:19 WBC 14.4 H RBC 3.74 L Hgb 11.8 L Hct 34.4 L MCV 92.0 MCH 31.6 MCHC 34.3 RDW 13.3 Plt Count 275 MPV 10.5 Immature Gran % (Auto) Neut % (Auto) Lymph % (Auto) [place] % (Auto) Eos % (Auto) Baso % (Auto) Lymph # (Auto) [place] # (Auto) Eos # (Auto) Baso # (Auto) Abs Immat Gran (auto) Absolute Neuts (auto) Absolute Nucleated RBC 0.000 Nucleated RBC % (auto) 0.0 Neutrophils % (Manual) Band Neutrophils % Lymphocytes % (Manual) Monocytes % (Manual) Eosinophils % (Manual) Abs Neuts (Manual) Lymphocytes # (Manual) Monocytes # (Manual) Eosinophils # (Manual) Platelet Estimate Plt Morphology Comment RBC Morphology [place] Cells Smear Tech's Comments PT 19.2 H INR 1.6 H APTT Sodium Potassium 3.0 L Chloride Carbon Dioxide Anion Gap BUN Creatinine Estim Creat Clear Calc Estimated GFR Random Glucose Calcium Magnesium Total Bilirubin Direct Bilirubin AST ALT Alkaline Phosphatase Lactate Dehydrogenase Troponin I High Sens Total Protein Albumin Lipase Carcinoembryonic Ag Blood Type Antibody Screen 02/19/21 02/20/21 02/20/21 04:19 05:22 05:22 WBC 20.4 H RBC 4.32 L Hgb 13.5 L Hct 39.5 L MCV 91.4 MCH 31.3 MCHC 34.2 RDW 13.2 Plt Count 319 MPV 10.7 Immature Gran % (Auto) 2.1 H Neut % (Auto) 73.1 H Lymph % (Auto) 11.6 L [place] % (Auto) 12.7 H Eos % (Auto) 0.2 Baso % (Auto) 0.3 Lymph # (Auto) 2.4 [place] # (Auto) 2.6 H Eos # (Auto) 0.1 Baso # (Auto) 0.1 Abs Immat Gran (auto) 0.42 H Absolute Neuts (auto) 14.9 H Absolute Nucleated RBC 0.000 Nucleated RBC % (auto) 0.0 Neutrophils % (Manual) Band Neutrophils % Lymphocytes % (Manual) Monocytes % (Manual) Eosinophils % (Manual) Abs Neuts (Manual) Lymphocytes # (Manual) Monocytes # (Manual) Eosinophils # (Manual) Platelet Estimate Plt Morphology Comment RBC Morphology [place] Cells Smear Tech's Comments VERIFIED PT INR APTT Sodium 136 136 Potassium 2.8 L 3.8 D Chloride 103 101 Carbon Dioxide 27 27 Anion Gap 9 L 12 BUN 9 9 Creatinine 0.53 0.55 Estim Creat Clear Calc 169.7 163.5 Estimated GFR > 60 > 60 Random Glucose 105 123 H Calcium 8.0 L 8.5 D Magnesium Total Bilirubin Direct Bilirubin AST ALT Alkaline Phosphatase Lactate Dehydrogenase Troponin I High Sens Total Protein Albumin Lipase Carcinoembryonic Ag Blood Type Antibody Screen 02/20/21 02/21/21 02/21/21 05:22 04:24 04:24 WBC 12.5 H RBC 4.25 L Hgb 13.3 L Hct 38.8 L MCV 91.3 MCH 31.3 MCHC 34.3 RDW 13.4 Plt Count 294 MPV 10.2 Immature Gran % (Auto) Neut % (Auto) Lymph % (Auto) [place] % (Auto) Eos % (Auto) Baso % (Auto) Lymph # (Auto) [place] # (Auto) Eos # (Auto) Baso # (Auto) Abs Immat Gran (auto) Absolute Neuts (auto) Absolute Nucleated RBC 0.000 Nucleated RBC % (auto) 0.0 Neutrophils % (Manual) Band Neutrophils % Lymphocytes % (Manual) Monocytes % (Manual) Eosinophils % (Manual) Abs Neuts (Manual) Lymphocytes # (Manual) Monocytes # (Manual) Eosinophils # (Manual) Platelet Estimate Plt Morphology Comment RBC Morphology [place] Cells Smear Tech's Comments PT 17.4 H 17.0 H INR 1.5 H 1.4 H APTT Sodium Potassium Chloride Carbon Dioxide Anion Gap BUN Creatinine Estim Creat Clear Calc Estimated GFR Random Glucose Calcium Magnesium Total Bilirubin Direct Bilirubin AST ALT Alkaline Phosphatase Lactate Dehydrogenase Troponin I High Sens Total Protein Albumin Lipase Carcinoembryonic Ag Blood Type Antibody Screen 02/21/21 02/22/21 02/22/21 04:24 06:31 06:35 WBC 13.5 H RBC 4.10 L Hgb 12.9 L Hct 37.9 L MCV 92.4 MCH 31.5 MCHC 34.0 RDW 13.3 Plt Count 294 MPV 10.1 Immature Gran % (Auto) Neut % (Auto) Lymph % (Auto) [place] % (Auto) Eos % (Auto) Baso % (Auto) Lymph # (Auto) [place] # (Auto) Eos # (Auto) Baso # (Auto) Abs Immat Gran (auto) Absolute Neuts (auto) Absolute Nucleated RBC 0.000 Nucleated RBC % (auto) 0.0 Neutrophils % (Manual) Band Neutrophils % Lymphocytes % (Manual) Monocytes % (Manual) Eosinophils % (Manual) Abs Neuts (Manual) Lymphocytes # (Manual) Monocytes # (Manual) Eosinophils # (Manual) Platelet Estimate Plt Morphology Comment RBC Morphology [place] Cells Smear Tech's Comments PT INR APTT Sodium 140 139 Potassium 3.5 3.7 Chloride 99 98 Carbon Dioxide 31 H 33 H Anion Gap 14 12 BUN 15 D 17 H Creatinine 0.59 0.57 Estim Creat Clear Calc 152.4 157.8 Estimated GFR > 60 > 60 Random Glucose 129 H 127 H Calcium 8.5 8.6 Magnesium Total Bilirubin Direct Bilirubin AST ALT Alkaline Phosphatase Lactate Dehydrogenase 165 Troponin I High Sens Total Protein Albumin Lipase Carcinoembryonic Ag Blood Type Antibody Screen 02/22/21 02/23/21 02/23/21 06:35 05:50 05:50 WBC 13.5 H RBC 4.00 L Hgb 12.6 L Hct 37.4 L MCV 93.5 MCH 31.5 MCHC 33.7 RDW 13.3 Plt Count 294 MPV 10.3 Immature Gran % (Auto) Neut % (Auto) Lymph % (Auto) [place] % (Auto) Eos % (Auto) Baso % (Auto) Lymph # (Auto) [place] # (Auto) Eos # (Auto) Baso # (Auto) Abs Immat Gran (auto) Absolute Neuts (auto) Absolute Nucleated RBC 0.000 Nucleated RBC % (auto) 0.0 Neutrophils % (Manual) Band Neutrophils % Lymphocytes % (Manual) Monocytes % (Manual) Eosinophils % (Manual) Abs Neuts (Manual) Lymphocytes # (Manual) Monocytes # (Manual) Eosinophils # (Manual) Platelet Estimate Plt Morphology Comment RBC Morphology [place] Cells Smear Tech's Comments PT 17.6 H 15.8 H INR 1.5 H 1.3 H APTT Sodium Potassium Chloride Carbon Dioxide Anion Gap BUN Creatinine Estim Creat Clear Calc Estimated GFR Random Glucose Calcium Magnesium Total Bilirubin Direct Bilirubin AST ALT Alkaline Phosphatase Lactate Dehydrogenase Troponin I High Sens Total Protein Albumin Lipase Carcinoembryonic Ag Blood Type Antibody Screen 02/23/21 02/23/21 02/23/21 05:50 05:50 09:50 WBC RBC Hgb Hct MCV MCH MCHC RDW Plt Count MPV Immature Gran % (Auto) Neut % (Auto) Lymph % (Auto) [place] % (Auto) Eos % (Auto) Baso % (Auto) Lymph # (Auto) [place] # (Auto) Eos # (Auto) Baso # (Auto) Abs Immat Gran (auto) Absolute Neuts (auto) Absolute Nucleated RBC Nucleated RBC % (auto) Neutrophils % (Manual) Band Neutrophils % Lymphocytes % (Manual) Monocytes % (Manual) Eosinophils % (Manual) Abs Neuts (Manual) Lymphocytes # (Manual) Monocytes # (Manual) Eosinophils # (Manual) Platelet Estimate Plt Morphology Comment RBC Morphology [place] Cells Smear Tech's Comments PT Cancelled INR Cancelled APTT Sodium 138 Potassium 3.7 Chloride 99 Carbon Dioxide 30 H Anion Gap 13 BUN 15 Creatinine 0.54 Estim Creat Clear Calc 166.6 Estimated GFR > 60 Random Glucose 114 Calcium 8.4 Magnesium Total Bilirubin Direct Bilirubin AST ALT Alkaline Phosphatase Lactate Dehydrogenase Troponin I High Sens Total Protein Albumin Lipase Carcinoembryonic Ag Blood Type A Positive Antibody Screen NEGATIVE Airway Mallampati Class: III TM Dist: >3cm Neck ROM: Full Loose/Missing/Broken Teeth: Yes and Lower Heart: RRR Lungs: CTA
--- NOTE | 2021-02-23 14:30 | PC.NURSE ---
pt to [facility] for colectomy ngt in place left nare from floor. clamped. per dr Muniz place on low wall suction. placement verifed with air. scant amt of brown secretions noted in tubing. Dr Muniz informed. pt denies pain/ n-v. abd lg. round soft. shaved/washed.
--- NOTE | 2021-02-23 18:46 | PM.OP ---
Brief Operative Note Date of Service: 02/23/21 Pre-op diagnosis: Small and large bowel obstruction secondary to sigmoid mass Post-op diagnosis: same Procedure: Exploratory laparotomy, sigmoid colectomy, colostomy creation, takedown of splenic flexure Implants: None Surgeon: Maude Romano MD Anesthesia: GETA Was an Type Rolling Machine Operator used for this Procedure?: Yes Type Rolling Machine Operator: Harjinder Stevens Estimated blood loss (mL): 50 Pathology: other (Sigmoid colon) Condition: stable Disposition: PACU
--- NOTE | 2021-02-23 20:04 | P.PNGS_ITS ---
Subjective Subjective Date of Service: 02/24/21 <Babs Aguirre PA-C - Last Filed: 02/23/21 20:11> 02/24/21 <Maude Romano MD - Last Filed: 02/24/21 09:51> Interval history: POD#1 exploratory laparotomy, sigmoid colectomy, colostomy creation, takedown of splenic flexure. <Babs Aguirre PA-C - Last Filed: 02/23/21 20:11> This is a 61-year-old gentleman on postoperative day 1. 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 Patient is doing well this morning he only complains of incisional tenderness. 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 Patient denies nausea or vomiting. NG tube output over the past shift was 400. Patient would like to drink and has been drinking water even though he has an NG tube in place and should be NPO. Patient's vital signs are within normal limits for postoperative day 1. Patient's heart rate is slightly elevated secondary to pain. Patient's white blood cell count is 23 which is likely related to relative dehydration as we did remove about 1000 mL of stool and gastric contents through the NG tube during surgery. <Maude Romano MD - Last Filed: 02/24/21 09:51> Physical Exam Vital Signs: Vital Signs: Last Vital Signs Temp 98.0 F 02/23/21 19:45 Pulse 104 H 02/23/21 19:45 Resp 18 02/23/21 19:45 BP 136/85 02/23/21 19:45 Pulse Ox 85 L 02/23/21 19:45 Body Mass Index 30.5 <Babs Aguirre PA-C - Last Filed: 02/23/21 20:11> Const: General: cooperative, comfortable and no acute distress <Maude Romano MD - Last Filed: 02/24/21 09:51> GI: Other: Soft mildly distended appropriate incisional tenderness. Dressings are in place and are clean dry intact. Ostomy is in place in the left abdomen is slightly dusky but is productive of stool. <Maude Romano MD - Last Filed: 02/24/21 09:51> Extrem: General: Yes normal to inspection, Yes full ROM, Yes no clubbing, cyanosis or edema and Yes no calf tenderness <Maude Romano MD - Last Filed: 02/24/21 09:51> Progress Note: A&P Assessment and plan (1) Bowel obstruction: Status: Acute <Babs Aguirre PA-C - Last Filed: 02/23/21 20:11> (2) Colonic obstruction: Status: Acute <Babs Aguirre PA-C - Last Filed: 02/23/21 20:11> (3) Colonic mass: Status: Acute <JACE Lockwood Last Filed: 02/23/21 20:11> (4) Colostomy in place: Status: Acute <JACE Lockwood Last Filed: 02/23/21 20:11> (5) H/O resection of large bowel: Status: Acute <Babs Aguirre PA-C - Last Filed: 02/23/21 20:11> (6) Status post Jenna's procedure: Status: Acute <JACE Lockwood Last Filed: 02/23/21 20:11> Assessment and Plan: POD#1 s/p exploratory laparotomy, sigmoid colectomy, colostomy creation, takedown of splenic flexure, which was indicated for small and large bowel obstruction secondary to sigmoid mass. <Babs Aguirre PA-C - Last Filed: 02/23/21 20:11> This is a 61-year-old gentleman who is postoperative day 1. Status post Jenna's procedure for sigmoid colon tumor causing small and large bowel obstruction. Patient has evidence of some bowel function as evidenced through the colostomy. We will continue NG tube placement for now until there is further evidence of bowel function with decrease in the NG tube outputs. Patient should be strict NPO without any ice chips or water so we can determine how much is coming out of the NG tube. We will add TPN as the patient has been relatively malnourished for several weeks prior to coming to the hospital. Patient will be up and out of bed to ambulate or at least in the chair with help from the nursing staff. We will also ensure that patient is using incentive spirometer regularly to avoid atelectasis or pneumonia. We have ordered repeat labs including CBC and basic metabolic panel for tomorrow morning. Gruber catheter will also be be discontinued but strict ins and outs should continue. The <Maude Romano MD - Last Filed: 02/24/21 09:51> Fall Risk Details Current Medications: Current Medications Generic Name Dose Route Start Last Admin Trade Name Freq PRN Reason Stop Dose Admin Acetaminophen 650 mg 02/17/21 17:35 Acetaminophen 325 Mg Tablet PO Q6H PRN Pain, Mild (Pain Scale 1-3) Benzocaine 1 lozenge 02/19/21 18:07 02/19/21 18:30 Throat Lozenge, Medicated Lozenge MUCOUS MEM 1 lozenge Q2H PRN Administration Sore Throat Enoxaparin Sodium 95 mg 02/21/21 10:00 02/21/21 20:42 Enoxaparin Sodium 100 Mg/Ml Syringe 1 mg/kg (95 mg) 95 mg SUBCUT Administration Q12H [facility] Fentanyl 25 mcg 02/23/21 14:44 Fentanyl Citrate/Pf 100 Mcg/2 Ml Vial IVPUSH Q5M PRN Pain, Moderate (Pain Scale 4-6 Fentanyl 25 mcg 02/23/21 17:52 Fentanyl Citrate/Pf 100 Mcg/2 Ml Vial IVPUSH Q5M PRN Pain, Moderate (Pain Scale 4-6 Potassium Chloride/Dextrose/Sod Cl 20 meq in 1,000 mls @ 80 mls/hr 02/21/21 23:15 02/23/21 12:21 IVCONT 80 mls/hr .[id number] JULIO Administration Morphine Sulfate 100 mg in 100 mls @ 0 mls/hr 02/23/21 17:45 IVCONT .Q0M [facility] Protocol Per Protocol Metoprolol Tartrate 5 mg 02/18/21 09:40 Metoprolol Tartrate 5 Mg/5 Ml Vial IVPUSH Q6H PRN HR > 110 Multi-Ingred Medicated Throat [place] 1 spray 02/19/21 18:08 02/22/21 20:15 Throat [place], Medicated 20 Ml Bottle MUCOUS MEM 1 spray Q2H PRN Administration throat pain Naloxone HCl 0.2 mg 02/23/21 16:58 Naloxone Hcl 0.4 Mg/Ml Vial IVPUSH Q2M PRN Excessive sedation or RR < 8 Ondansetron HCl 4 mg 02/23/21 14:44 Ondansetron Hcl 4 Mg/2 Ml Vial IVPUSH ONCE PRN Nausea and Vomiting Ondansetron HCl 4 mg 02/23/21 17:52 Ondansetron Hcl 4 Mg/2 Ml Vial IVPUSH ONCE PRN Nausea and Vomiting Pharmacy Consult 1 each 02/17/21 15:11 Consult Rx Perform Med Rec MISCELLANE ONCE PRN Consult order Sodium Chloride 3 ml 02/17/21 17:35 02/23/21 15:43 0.9 % Sodium Chloride Flush 3 Ml Syringe IVFLUSH Not Given QSHIFT [facility] <Babs Aguirre PA-C - Last Filed: 02/23/21 20:11> Time Spent With Patient Time: Total time spent is greater than 50% in coordination of care (as documented) at patient's floor/unit and/or counseling patient: <Babs Aguirre PA-C - Last Filed: 02/23/21 20:11> Time with patient: less than 15 minutes <Maude Romano MD - Last Filed: 02/24/21 09:51> Procedures Date of Service Date of Service: 02/24/21 <Maude Romano MD - Last Filed: 02/24/21 09:51>
[2021-02-23] MEDS: Morphine Sulfate/NS 100 MG/100 ML PLAST..BAG IVCONT (20:26)
[2021-02-23] MEDS: 0.9 % Sodium Chloride Flush 3 ML SYRINGE IVFLUSH (20:40)
--- NOTE | 2021-02-23 20:51 | PC.NURSE ---
02/23/20212009 Reviewed GYROSCOPIC INSTRUMENT MECHANIC pump setting against ordered in the MAR at bedside with Ector Ramos C RN in addition to assessment of patient surgical dressing and colostomy site . Patient complaining of some pain after transport to his room. Dayana Ramos RN hanging floor ordered IV fluids and GYROSCOPIC INSTRUMENT MECHANIC pump with second RN.
--- NOTE | 2021-02-23 22:29 | OP_ITS ---
SURGEON: Maude Romano MD PREOPERATIVE DIAGNOSIS: Small bowel and large bowel obstruction secondary to a distal sigmoid mass. POSTOPERATIVE DIAGNOSIS: Small bowel and large bowel obstruction secondary to a distal sigmoid mass. PROCEDURE PERFORMED: Exploratory laparotomy, sigmoid colectomy, colostomy creation, splenic flexure takedown. ESTIMATED BLOOD LOSS: About 50 mL. COMPLICATIONS: None. ANESTHESIA: General endotracheal. ASSISTANTS: 1. Babs Aguirre PA-C. 2. Harjinder Stevens MD. SPECIMENS: PREPROCEDURE DIAGNOSIS: Small bowel and large bowel obstruction secondary to a distal sigmoid mass. FINDINGS: A large sigmoid colon mass that was located about 10 cm from the peritoneal reflection causing obstruction of the large and small bowel. CONDITION: Postprocedure is good. COMPLICATIONS: None. DESCRIPTION OF PROCEDURE: The patient was brought into the operating room and placed on operating room table in the supine position. Normal DVT prophylaxis and 2 grams of IV cefotetan were given preoperatively. General anesthesia was induced. The abdomen was prepped and draped in normal sterile fashion using ChloraPrep. Next, a marking pen was used to diamond the planned incision site in the midline. A mixture of 1% lidocaine with epinephrine, 0.25% Marcaine plain was used to anesthetize the planned incision site and subcutaneous tissues. A #10 scalpel was used to make the skin incision. The subcutaneous tissues were dissected down to the level of fascia using cautery. The fascia was opened in the midline as well as the posterior fascia and then the peritoneum was grasped between 2 Hood clamps and entered using Metzenbaum scissors. The peritoneal and fascial incisions were carried to the length of the skin incision. We were able to visualize significantly dilated small intestine. We then found the ileocecal valve and milked the fluid within the bowel and gas back to the stomach until the bowel was completely decompressed. We had Anesthesia placed a new nasogastric tube as the initial tube was completely clogged. After the bowel was completely decompressed, we had drained the stomach of 800 mL to 1 L of feculent material. We then used a Bookwalter to pack away the small bowel in the sides of the abdominal wall in order to get a better look at the sigmoid colon, which we could feel had a hard mass in it about 10 cm from the peritoneal reflection. There were some dense adhesions to the left pelvic sidewall. We took down the white line of Toldt laterally and mobilize the descending colon as much as we could. We then visualized the left side ureter and protected it throughout the dissection of the descending colon. We took down the adhesions to the left pelvic sidewall and mobilized the descending colon down to the peritoneal reflection. We then created a window in the mesentery just above the peritoneal reflection and stapled across the bowel using a Covidien stapler with a purple load. We divided the mesentery using the LigaSure device up to about 10 cm proximal to the palpable mass within the sigmoid colon. We then used an additional purple load contour stapler and 1 additional firing of the 60 mm linear Covidien stapler to complete the resection of this portion of the colon. We passed this off the field for pathology. We then mobilized the proximal portion of the colon up to half of the distal transverse colon. We took down the splenic flexure using the LigaSure device and divided a portion of the gastrocolic omentum as well to get more length on the descending colon to bring it up at the colostomy. Once we had enough length, we created a defect in the abdominal wall on the left side of the abdominal wall at just above the umbilical level, located in the left lateral abdomen. We removed a 2 cm round area of skin and subcutaneous tissue down to the level of fascia. We made a cruciate incision in the anterior fascia and then used a muscle-splitting technique to reach the peritoneum. We opened the peritoneum and dilated 2 to 3 fingerbreadths and brought out the end colostomy onto the abdominal wall without any tension. The bowel was healthy and pink. We then removed the Bookwalter in all of our packing from the abdominal cavity and performed our first count which was correct with the exception of having 2 additional forceps that were added to the count. We then closed the midline surgical incision using 2-0 looped PDS sutures, 1 from the superior portion incision, 1 from the inferior portion incision. We tied the sutures in the midline after palpating the undersurface of the abdominal wall and making sure there was no viscera attached to the suture. There were no gaps in the fascia closure. We then closed the skin with trevor. We placed a blue towel over the trevor. We then matured the colostomy using 3-0 Vicryl sutures. The colostomy was healthy and pink; and prior to maturing the colostomy, we excised the staple line to complete the maturation of the colostomy. I then digitized the colostomy as widely patent. There was no evidence of obstruction or there was no evidence of ischemia at the prostate. We applied a colostomy bag to the colostomy and dry sterile dressing along with ABDs and tape. Given that there were 2 additional instruments found at the final count, we did perform an on-table x-ray to ensure that there were no other instruments on abdominal x-ray. Abdominal x-ray was normal and there were no instruments seen on x-ray. The patient was awakened in stable condition prior to extubation and transferred to the recovery room. There were no complications. SPECIMEN: The sigmoid colon. Maude Romano MD UM/MODL / [id number] MTDD
[2021-02-24] VITALS (23 sets, daily range): BP systolic 112–134; BP diastolic 67–86; PULSE 89–112; RESP 18–20; TEMP 36.4–37.5; O2SAT 90–97; BMI 30.5
[2021-02-24 06:47] LABS: Hematocrit 39.3 % (42-52); Hemoglobin 13.3 g/dl (14.0-18.0); Mean Corpuscular HGB Conc 33.8 g/dl (31.0-36.0); Mean Corpuscular Volume 94.5 fL (80-98); Mean Platelet Volume 10.3 fL (9.4-12.4); Platelet Count 320 X10*3/uL (160-400); Red Blood Count 4.16 X10*6/uL (4.60-5.80); Red Cell Distribution Width 13.6 % (11.0-16.0)
[2021-02-24 06:53] LABS: INTERNATIONAL NORM RATIO 1.5 (0.9-1.1); Prothrombin Time 17.9 SEC (10.8-13.0)
[2021-02-24 07:19] LABS: Anion Gap 14 (12-20); Blood Urea Nitrogen 16 mg/dL (9-16); Carbon Dioxide 30 mmol/L (22-29); Chloride 98 mmol/L (96-108); Creatinine Clr Calc Pharmacy 140.5; Estimated Glomerular Filt Rate > 60; Glucose Random 142 mg/dL (60-115); Potassium 3.9 mmol/L (3.3-5.1); Sodium 138 mmol/L (135-145)
[2021-02-24 07:33] LABS: Calcium 8.2 mg/dL (8.4-10.2)
[2021-02-24] MEDS: KCl 20 mEq in 5% Dex/0.45% Sod 20 MEQ/1,000 ML IV.SOLN 80 MEQ IVCONT (07:45)
[2021-02-24] MEDS: 0.9 % Sodium Chloride Flush 3 ML SYRINGE IVFLUSH (09:36)
[2021-02-24 10:25] LABS: Albumin Level 2.7 g/dL (3.5-5.0); Magnesium 1.9 mg/dL (1.6-2.6); Phosphorus 4.4 mg/dL (2.7-4.5); Triglycerides 72 mg/dL
--- NOTE | 2021-02-24 10:42 | MHC.CLN ---
RE: CONSULT PT TO RECEIVE PPN; RECOMMEND D10 AA4.25 AT 45CC/HR TO PROVIDE 551KCALS, 46G PROTEIN DISCUSSED WITH PHARMACY AND PA; REPLETE LYTES NEEDED
[2021-02-24] MEDS: Lactated Ringers 1,000 ML 80 ML IVCONT ×2 (11:36→23:05)
--- NOTE | 2021-02-24 13:34 | HO.POSTANES ---
Post Anesthesia Evaluation Post Anesthesia Evaluation Vital Signs: Vital Signs Temp Pulse Resp BP Pulse Ox 02/24/21 12:00 106 H 18 133/81 92 02/24/21 11:22 98.9 F 106 H 18 133/81 92 02/24/21 10:00 103 H 18 130/86 92 02/24/21 09:24 97.6 F 108 H 18 130/86 92 02/24/21 08:00 102 H 18 134/73 92 02/24/21 07:18 97.7 F 103 H 18 134/73 93 02/24/21 06:00 97.7 F 105 H 18 127/73 92 02/24/21 04:00 97.9 F 104 H 18 121/70 93 02/24/21 02:49 92 02/24/21 02:00 101 H 18 132/77 94 02/24/21 01:39 97.9 F 101 H 18 132/77 94 Anesthesia: General Endotracheal-GETA Mental Status: Awake Pain Control: Satisfactory Nausea/Vomiting: None Hydration: Adequate Anesthesia-Related Issues: No Anes. Related Issues
[2021-02-24] MEDS: Metoprolol Tartrate 5 MG/5 ML VIAL IVPUSH (16:27)
--- NOTE | 2021-02-24 16:55 | P.PNIM_ITS ---
Subjective Subjective Date of Service: 02/25/21 Interval History: bowel obstruction Review of Systems Patient denies any nausea vomiting No fevers Has some abdominal soreness in the operative area Physical Exam Vital Signs: Vital Signs: Last Vital Signs Temp 98.6 F 02/24/21 15:25 Pulse 112 H 02/24/21 16:27 Resp 20 02/24/21 16:00 BP 134/76 02/24/21 16:27 Pulse Ox 91 L 02/24/21 16:00 Body Mass Index 30.5 Physical exam: Cvs: rrr, [id number] , no murmur res: clear to auscultation ,no rhonchii or wheezing abd: Abdomen seems more soft, still has soreness in the operative area and pain Bowel sounds are heard, no rebound or guarding ext pulses present , no cyanosis neuro: axo3 , nonfocal. Objective Data Current Medications Generic Name Dose Route Start Last Admin Trade Name Freq PRN Reason Stop Dose Admin Acetaminophen 650 mg 02/17/21 17:35 Acetaminophen 325 Mg Tablet PO Q6H PRN Pain, Mild (Pain Scale 1-3) Benzocaine 1 lozenge 02/19/21 18:07 02/19/21 18:30 Throat Lozenge, Medicated Lozenge MUCOUS MEM 1 lozenge Q2H PRN Administration Sore Throat Enoxaparin Sodium 95 mg 02/21/21 10:00 02/21/21 20:42 Enoxaparin Sodium 100 Mg/Ml Syringe 1 mg/kg (95 mg) 95 mg SUBCUT Administration Q12H JULIO Morphine Sulfate 100 mg in 100 mls @ 0 mls/hr 02/23/21 17:45 02/23/21 20:26 IVCONT 1 mg/hr .Q0M JULIO 1 mls/hr Administration Protocol Per Protocol Multivitamins 18.5 ml/ Trace 1,080 mls @ 45 mls/hr 02/24/21 18:00 Metals 1.9 ml/ Amino Acids/ IV 02/25/21 17:59 Electrolytes/Dextrose DAILY@1800 JULIO Lactated Ringer's 1,000 mls @ 80 mls/hr 02/24/21 11:00 02/24/21 11:36 Lr IVCONT 80 mls/hr .[id number] JULIO Administration Metoprolol Tartrate 5 mg 02/18/21 09:40 02/24/21 16:27 Metoprolol Tartrate 5 Mg/5 Ml Vial IVPUSH 5 mg Q6H PRN Administration HR > 110 Multi-Ingred Medicated Throat [place] 1 spray 02/19/21 18:08 02/22/21 20:15 Throat [place], Medicated 20 Ml Bottle MUCOUS MEM 1 spray Q2H PRN Administration throat pain Naloxone HCl 0.2 mg 02/23/21 16:58 Naloxone Hcl 0.4 Mg/Ml Vial IVPUSH Q2M PRN Excessive sedation or RR < 8 Pharmacy Consult 1 each 02/17/21 15:11 Consult Rx Perform Med Rec MISCELLANE ONCE PRN Consult order Sodium Chloride 3 ml 02/17/21 17:35 02/24/21 16:17 0.9 % Sodium Chloride Flush 3 Ml Syringe IVFLUSH Not Given QSHIFT JULIO Labs CBC & Chem 7: 02/25/21 05:27 02/25/21 05:27 Microbiology Microbiology Results: Microbiology 02/20/21 08:39 Blood - Venous Blood Culture - Preliminary No growth after 48 hours. 02/20/21 08:39 Blood - Venous Blood Culture - Preliminary No growth after 48 hours. Assessment and Plan (1) H/O resection of large bowel: Status: Acute (2) Bowel obstruction: Status: Acute Assessment and Plan: 61-year-old male with no prior colonoscopy who presents to the hospital with complaints of diffuse abdominal pain with associated nausea vomiting and changes in his bowel habits over the last several weeks along with poor oral intake. He is diagnosed with colonic obstruction likely secondary to colon cancer. 1.Colonic obstruction. Colonoscopy revealed redundant colon with stool filled transverse colon No flatus, reports small bowel movement last night NG tube in the duodenum likely reason for I output repeat CT today showed HIGH GRADE distal sigmoid obstruction npo , still has ngt suction -Seen by Gen surg, exploratory lap on yetserday -hold Lovenox as per surgery-plan to start 1/2 dose of lovenox in am. started on ppn 2.Hypokalemia. Resolved given IV potassium, hypokalemia resolved. -Follow BMP 3.Supratherapeutic INR. Down to 1.5 today -Coumadin on hold on hold Lovenox for surgery tomorrow. 4.CAD s/p [place] -Cardiology following -No ACS 5.History of CVA -hold statin -coumadin on hold 6. Leukocytosis: No fever UA, chest x-ray, abdominal CT does not show sign of infection, blood culture ne gative Patient is asymptomatic Will monitor CBC Id evaluation
--- NOTE | 2021-02-24 19:41 | PC.NURSE ---
Patient's NGT suctioning minimally. Colostomy minimally full with solid stool. Patient education printed re colostomy. ASSISTANT MEDIA PLANNER assessments q 2 hrs, patient utilizing minimally, reports pain only when moving. Patient's HR sustained in the 110s x 1 hour, PRN metoprolol given at 1630 with good effect; HR 112 to 96. Patient now in the low 100s. No complaints.
--- NOTE | 2021-02-24 22:30 | P.CNID_ITS ---
History of Present Illness Data of Consult Service Date: 02/24/21 Requesting physician: Yamil Land Primary Care Provider: Sanjay Cline MD [facility] Reason for consult: SBO He presents with abdominal discomfort last week He has obstruction due to colon cancer He has no fever or chills Review of Systems Review of Systems: Yes all other systems are reviewed and are negative PMFSH Past Medical History Medical History (Updated 03/11/21 @ 00:02 by Background Jeanne) Anxiety Colostomy in place Coronary artery disease Depression High cholesterol History of acute inferior wall ME HTN (hypertension) Knee pain, bilateral ST elevation myocardial infarction (STEMI) of inferior wall (~07/2020) Stroke (~07/2020) Family History Family History Father Stroke Heart attack Mother Heart attack Sister Diverticulitis Heart attack Brother No problems noted. Sister No problems noted. Brother No problems noted. Surgical History Surgical History (Updated 03/11/21 @ 00:02 by Background Jeanne) H/O resection of large bowel Status post Jenna's procedure Social History Social History (Updated 03/10/21 @ 10:55 by Radha Tobar LPN) Household Members: Spouse Housing: House Do you presently have visiting nurse or other home services: No Alcohol intake: former Patient Tobacco Use Status: Current everyday Tobacco user Cigarette Packs Per Day: 0.5 Cigarettes Per Day: 10.0 Years Smoked: 30 Second Hand Smoke Exposure: No service: No Current occupational status: disabled Meds Allergies Allergy/AdvReac Type Severity Reaction Status Date / Time No Known Allergies Allergy Verified 03/10/21 11:52 Active Medications: Current Medications Generic Name Dose Route Start Last Admin Trade Name Freq PRN Reason Stop Dose Admin Acetaminophen 650 mg 02/17/21 17:35 Acetaminophen 325 Mg Tablet PO Q6H PRN Pain, Mild (Pain Scale 1-3) Benzocaine 1 lozenge 02/19/21 18:07 02/19/21 18:30 Throat Lozenge, Medicated Lozenge MUCOUS MEM 1 lozenge Q2H PRN Administration Sore Throat Enoxaparin Sodium 95 mg 02/21/21 10:00 02/21/21 20:42 Enoxaparin Sodium 100 Mg/Ml Syringe 1 mg/kg (95 mg) 95 mg SUBCUT Administration Q12H JULIO Morphine Sulfate 100 mg in 100 mls @ 0 mls/hr 02/23/21 17:45 02/23/21 20:26 IVCONT 1 mg/hr .Q0M JULIO 1 mls/hr Administration Protocol Per Protocol Multivitamins 18.5 ml/ Trace 1,080 mls @ 45 mls/hr 02/24/21 18:00 02/24/21 17:28 Metals 1.9 ml/ Amino Acids/ IV 02/25/21 17:59 45 mls/hr Electrolytes/Dextrose DAILY@1800 JULIO Administration Lactated Ringer's 1,000 mls @ 80 mls/hr 02/24/21 11:00 02/24/21 11:36 Lr IVCONT 80 mls/hr .[id number] JULIO Administration Metoprolol Tartrate 5 mg 02/18/21 09:40 02/24/21 16:27 Metoprolol Tartrate 5 Mg/5 Ml Vial IVPUSH 5 mg Q6H PRN Administration HR > 110 Multi-Ingred Medicated Throat [place] 1 spray 02/19/21 18:08 02/22/21 20:15 Throat [place], Medicated 20 Ml Bottle MUCOUS MEM 1 spray Q2H PRN Administration throat pain Naloxone HCl 0.2 mg 02/23/21 16:58 Naloxone Hcl 0.4 Mg/Ml Vial IVPUSH Q2M PRN Excessive sedation or RR < 8 Pharmacy Consult 1 each 02/17/21 15:11 Consult Rx Perform Med Rec MISCELLANE ONCE PRN Consult order Sodium Chloride 3 ml 02/17/21 17:35 02/24/21 16:17 0.9 % Sodium Chloride Flush 3 Ml Syringe IVFLUSH Not Given QSHIFT ON LICENSE OF [facility] Home Medications Medication Instructions Recorded Confirmed Last Taken Type melatonin 5 mg tablet 5 mg PO DAILY PRN 01/07/21 03/10/21 02/16/21 History lorazepam 0.5 mg tablet 0.5 mg PO TID PRN 03/10/21 03/10/21 Unknown History warfarin 7.5 mg tablet 7.5 mg PO DAILY 03/10/21 03/10/21 Unknown History Physical Exam Vital Signs: Vital Signs: Last Vital Signs Temp 99.5 F 02/24/21 21:50 Pulse 105 H 02/24/21 22:00 Resp 18 02/24/21 22:00 BP 127/67 02/24/21 22:00 Pulse Ox 91 L 02/24/21 22:00 Body Mass Index 30.5 Const: General: cooperative HENMT: Head: Yes normal to inspection Mouth: abnormal oral mucosae Resp: Effort & Inspection: normal respiratory effort Cardio: Rate: regular rate Rhythm: regular rhythm GI: Palpation (GI): Soft to palpation and nontender : General: Yes no CVA tenderness Back/Spine/Pelvis: Back: no CVA tenderness Results Labs CBC & Chem 7: 03/03/21 05:17 03/03/21 05:17 Labs: Short CBC 02/24/21 Range/Units 05:23 WBC 23.0 H (4.8-10.8) X10*3/uL Hgb 13.3 L (14.0-18.0) g/dl Hct 39.3 L (42-52) % Plt Count 320 (160-400) X10*3/uL BMP 02/24/21 05:23 Sodium 138 Potassium 3.9 Chloride 98 Carbon Dioxide 30 H BUN 16 Creatinine 0.64 Calcium 8.2 L Liver Function 02/24/21 Range/Units 05:23 Albumin 2.7 L D (3.5-5.0) g/dL Microbiology Microbiology Results: Microbiology 02/20/21 08:39 Blood - Venous Blood Culture - Preliminary No growth after 48 hours. 02/20/21 08:39 Blood - Venous Blood Culture - Preliminary No growth after 48 hours. Assessment and Plan (1) Status post Jenna's procedure: Status: Acute He has SBO He has no signs bacteremia He has no signs of infection at this time Leukocytosis may be due to bowel obstruction Would hold antibiotics at this time Follow for any infection Surgery following for any further procedures if needed No contraindication to midline line,no bacteremia
[2021-02-25] VITALS (12 sets, daily range): BP systolic 117–153; BP diastolic 64–83; PULSE 100–122; RESP 16–20; TEMP 36.7–37.6; O2SAT 89–93
[2021-02-25 06:42] LABS: Basophils Percent Auto 0.2 % (0-2); Eosinophils Absolute Auto 0.1 X10*3/uL (0.0-0.4); Eosinophils Percent Auto 0.2 % (0-4); Hematocrit 31.8 % (42-52); Hemoglobin 10.5 g/dl (14.0-18.0); Imm Gran Abs Auto 0.19 X10*3/uL (0.00-0.03); Imm Gran Pct Auto 0.9 % (0.0-0.4); Lymphocytes Absolute Auto 2.2 X10*3/uL (1.2-4.9); Lymphocytes Percent Auto 10.7 % (20-40); MANUAL DIFF FLAG SCAN; Mean Corpuscular Hemoglobin 31.3 pg (27.0-33.0); Mean Corpuscular Volume 94.6 fL (80-98); Mean Platelet Volume 9.9 fL (9.4-12.4); Monocytes Absolute Auto 1.6 X10*3/uL (0.1-1.2); Monocytes Percent Auto 7.8 % (2-11); Neutrophils Absolute Auto 16.8 X10*3/uL (2.0-8.3); Neutrophils Percent Auto 80.2 % (45-73); Platelet Count 258 X10*3/uL (160-400); Red Blood Count 3.36 X10*6/uL (4.60-5.80); Red Cell Distribution Width 13.8 % (11.0-16.0); SCAN SMEAR FLAG 1; White Blood Count 20.9 X10*3/uL (4.8-10.8)
[2021-02-25 06:56] LABS: INTERNATIONAL NORM RATIO 1.5 (0.9-1.1); Prothrombin Time 17.7 SEC (10.8-13.0)
[2021-02-25 07:02] LABS: Anion Gap 8 (12-20); Blood Urea Nitrogen 11 mg/dL (9-16); Calcium 7.9 mg/dL (8.4-10.2); Carbon Dioxide 33 mmol/L (22-29); Chloride 100 mmol/L (96-108); Creatinine Clr Calc Pharmacy 169.7; Estimated Glomerular Filt Rate > 60; Glucose Random 118 mg/dL (60-115); Potassium 3.2 mmol/L (3.3-5.1); Sodium 138 mmol/L (135-145)
[2021-02-25 07:11] LABS: SLIDE REVIEW VERIFIED
--- NOTE | 2021-02-25 08:08 | PC.NURSE ---
[id number]; Patient has a COUNTER DISH CARRIER pump for pain management. This RN educated patient on proper use of COUNTER DISH CARRIER for pain management. Patient has not used the COUNTER DISH CARRIER the entire shift. This RN educated patient multiple times on proper use of COUNTER DISH CARRIER. Patient reports pain level is manageable and does not feel the need to use the COUNTER DISH CARRIER pump. Next shift RN made aware.
--- NOTE | 2021-02-25 09:05 | P.PNGS_ITS ---
Subjective Subjective Date of Service: 02/25/21 Interval history: This is a 61-year-old gentleman on postoperative day 2. Status post sigmoid colectomy and colostomy creation for obstructing sigmoid colon mass. Patient is doing relatively well. White blood cell count is slowly decreasing and is down from 23 yesterday to 20 today. Patient has a decreased potassium level which will be replaced. He reports his pain is well controlled and mostly has discomfort when he gets up from the lying down position or his abdomen is palpated. He denies any nausea or vomiting. NG tube output was not well documented by the nursing staff overnight as there was some difficulty getting the suction to work. The nursing staff reports 300 mL in the past couple of hours from the NG tube and 600 mL of output from 8 p.m. last evening until 6 a.m. this morning. Patient received peripheral nutrition yesterday but will need a PICC line for TPN placement as he has still large amounts of output from the NG tube. Physical Exam Vital Signs: Vital Signs: Last Vital Signs Temp 98.9 F 02/25/21 07:32 Pulse 102 H 02/25/21 07:32 Resp 20 02/25/21 07:32 BP 134/66 02/25/21 07:32 Pulse Ox 89 L 02/25/21 07:32 Body Mass Index 30.5 Const: General: cooperative, healthy appearing, comfortable and no acute distress GI: Other: Abdomen is soft nondistended appropriate incisional tenderness. Colostomy in place in left abdomen which is pink and productive of stool. Midline incision is clean dry intact with trevor in place. There is no evidence of erythema or drainage. Dressing was changed. Inspection: Yes incision Extrem: General: Yes normal to inspection, Yes full ROM, Yes no clubbing, cyanosis or edema and Yes no calf tenderness Progress Note: A&P Assessment and plan (1) Status post Jenna's procedure: Status: Acute Assessment and Plan: This is a 61-year-old gentleman on postoperative day 2. Status post Jenna's procedure for obstructing sigmoid colon mass. We do not have pathology yet. Patient still has large amounts of NG tube output and will be continued on an NG tube suction to low intermittent. Given that the patient has not had any sign ificant nutrition in several weeks patient will have a PICC line placed with TPN administration until there is evidence of return of bowel function with decreasing NG tube outputs. Patient should be out of bed to ambulate or at least to the chair. Gruber catheter was discontinued. Repeat complete blood count was ordered for tomorrow. Patient will have his potassium replaced as well. Ambulation was encouraged. We will discontinue the OCCUPATIONAL HEALTH AND SAFETY OFFICER is the patient is not using the OCCUPATIONAL HEALTH AND SAFETY OFFICER and will add Dilaudid intermittently through the IV. Patient will be restarted on half dose of his Lovenox which will be 50 units b.i.d. through the weekend and then he may be restarted on full-dose Lovenox starting the beginning of the week. Fall Risk Details Current Medications: Current Medications Generic Name Dose Route Start Last Admin Trade Name Freq PRN Reason Stop Dose Admin Acetaminophen 650 mg 02/17/21 17:35 Acetaminophen 325 Mg Tablet PO Q6H PRN Pain, Mild (Pain Scale 1-3) Benzocaine 1 lozenge 02/19/21 18:07 02/19/21 18:30 Throat Lozenge, Medicated Lozenge MUCOUS MEM 1 lozenge Q2H PRN Administration Sore Throat Enoxaparin Sodium 50 mg 02/25/21 09:00 Enoxaparin Sodium 60 Mg/0.6 Ml Syringe SUBCUT Q12H JULIO Morphine Sulfate 100 mg in 100 mls @ 0 mls/hr 02/23/21 17:45 02/23/21 20:26 IVCONT 1 mg/hr .Q0M JULIO 1 mls/hr Administration Protocol Per Protocol Multivitamins 18.5 ml/ Trace 1,080 mls @ 45 mls/hr 02/24/21 18:00 02/24/21 17:28 Metals 1.9 ml/ Amino Acids/ IV 02/25/21 17:59 45 mls/hr Electrolytes/Dextrose DAILY@1800 JULIO Administration Potassium Chloride 10 meq in 100 mls @ 100 mls/hr 02/25/21 08:30 IV 02/25/21 10:29 Q1H JULIO Metoprolol Tartrate 5 mg 02/18/21 09:40 02/24/21 16:27 Metoprolol Tartrate 5 Mg/5 Ml Vial IVPUSH 5 mg Q6H PRN Administration HR > 110 Multi-Ingred Medicated Throat [place] 1 spray 02/19/21 18:08 02/22/21 20:15 Throat [place], Medicated 20 Ml Bottle MUCOUS MEM 1 spray Q2H PRN Administration throat pain Naloxone HCl 0.2 mg 02/23/21 16:58 Naloxone Hcl 0.4 Mg/Ml Vial IVPUSH Q2M PRN Excessive sedation or RR < 8 Pharmacy Consult 1 each 02/17/21 15:11 Consult Rx Perform Med Rec MISCELLANE ONCE PRN Consult order Sodium Chloride 3 ml 02/17/21 17:35 02/25/21 08:24 0.9 % Sodium Chloride Flush 3 Ml Syringe IVFLUSH Not Given QSHIFT JULIO Time Spent With Patient Time: Total time spent is greater than 50% in coordination of care (as documented) at patient's floor/unit and/or counseling patient: Time with patient: less than 15 minutes Procedures Date of Service Date of Service: 02/25/21
--- NOTE | 2021-02-25 09:08 | PM.PNGS ---
Subjective Subjective Date of Service: 02/25/21 Interval history: Patient about to ambulate with assist, will check in again later. WBC trending down. Slightly hypokalemic. Physical Exam Vital Signs: Vital Signs: Last Vital Signs Temp 98.9 F 02/25/21 07:32 Pulse 102 H 02/25/21 07:32 Resp 20 02/25/21 07:32 BP 134/66 02/25/21 07:32 Pulse Ox 89 L 02/25/21 07:32 Body Mass Index 30.5 Progress Note: A&P Fall Risk Details Current Medications: Current Medications Generic Name Dose Route Start Last Admin Trade Name Freq PRN Reason Stop Dose Admin Acetaminophen 650 mg 02/17/21 17:35 Acetaminophen 325 Mg Tablet PO Q6H PRN Pain, Mild (Pain Scale 1-3) Benzocaine 1 lozenge 02/19/21 18:07 02/19/21 18:30 Throat Lozenge, Medicated Lozenge MUCOUS MEM 1 lozenge Q2H PRN Administration Sore Throat Enoxaparin Sodium 50 mg 02/25/21 09:00 Enoxaparin Sodium 60 Mg/0.6 Ml Syringe SUBCUT Q12H JULIO Morphine Sulfate 100 mg in 100 mls @ 0 mls/hr 02/23/21 17:45 02/23/21 20:26 IVCONT 1 mg/hr .Q0M JULIO 1 mls/hr Administration Protocol Per Protocol Multivitamins 18.5 ml/ Trace 1,080 mls @ 45 mls/hr 02/24/21 18:00 02/24/21 17:28 Metals 1.9 ml/ Amino Acids/ IV 02/25/21 17:59 45 mls/hr Electrolytes/Dextrose DAILY@1800 JULIO Administration Potassium Chloride 10 meq in 100 mls @ 100 mls/hr 02/25/21 08:30 IV 02/25/21 10:29 Q1H JULIO Metoprolol Tartrate 5 mg 02/18/21 09:40 02/24/21 16:27 Metoprolol Tartrate 5 Mg/5 Ml Vial IVPUSH 5 mg Q6H PRN Administration HR > 110 Multi-Ingred Medicated Throat [place] 1 spray 02/19/21 18:08 02/22/21 20:15 Throat [place], Medicated 20 Ml Bottle MUCOUS MEM 1 spray Q2H PRN Administration throat pain Naloxone HCl 0.2 mg 02/23/21 16:58 Naloxone Hcl 0.4 Mg/Ml Vial IVPUSH Q2M PRN Excessive sedation or RR < 8 Pharmacy Consult 1 each 02/17/21 15:11 Consult Rx Perform Med Rec MISCELLANE ONCE PRN Consult order Sodium Chloride 3 ml 02/17/21 17:35 02/25/21 08:24 0.9 % Sodium Chloride Flush 3 Ml Syringe IVFLUSH Not Given QSHIFT JULIO Time Spent With Patient Time: Total time spent is greater than 50% in coordination of care (as documented) at patient's floor/unit and/or counseling patient:
[2021-02-25] MEDS: HYDROmorphone HCl 0.5 MG/0.5 ML SYRINGE IVPUSH (10:29)
[2021-02-25] MEDS: Potassium Chloride/H20 10 MEQ/100 ML PIGGYBACK 100 MEQ IV ×2 (10:29→11:36)
--- NOTE | 2021-02-25 11:31 | MHC.CM.PN ---
Per ROUNDS discussion, Patient is not yet medically cleared for dc (Patient needs a Midline and TPN to be started). Home is the goal for dc and CM will continue to follow for possible need to adjust the dc plan.
--- NOTE | 2021-02-25 12:23 | MHC.CLN ---
F/U PT RECEIVING PPN; RECOMMEND INCREASING D10 AA4.25 AT 65CC/HR TO PROVIDE 796KCALS, 66G PROTEIN DISCUSSED WITH PHARMACY; PT TO RECEIVE PICC LINE FOR TPN IF PICC LINE PLACED RECOMMEND CHANGING D15 AA5% AT MAX GOAL RATE 100CC/HR REPLETE LYTES NEEDED
[2021-02-25 13:04] LABS: Albumin Level 2.3 g/dL (3.5-5.0); Magnesium 2.1 mg/dL (1.6-2.6); Phosphorus 2.4 mg/dL (2.7-4.5)
--- NOTE | 2021-02-25 14:15 | PC.NURSE ---
Gruber removed at 0900. Voided 300cc concentrated jean-paul urine at 1400. Dtv#2 @ 2000.
--- NOTE | 2021-02-25 14:16 | PC.NURSE ---
colostomy bag leaked onto dressing, brown soft/loose stool. No stool got on incision. Bag changed. Stoma dark red. Dressing changed to mid abdomen. [employer] d'c'd at 1000. Wasteed 82cc morphine. Witnessed by Joanne Zapata RN. Medicated with dilaudid prn for pain with good effect.
--- NOTE | 2021-02-25 15:45 | HO.PICC ---
PICC Line Insertion NPICC Diagnosis: BOWEL OBSTRUCTION, POOR PO INTAKE Indication: CENTRAL LINE ACCESS FOR TPN ADMINISTRATION Pertinent Labs: REVIEWED Technique: Following informed consent including risks, benefits and alternatives and using sterile technique including cap and mask, sterile gown, glove and drape, the RIGHT arm was prepped and draped in the usual sterile fashion of full barrier technique with CHG. Following completion of [place] Protocol the skin and soft tissues were anesthetized with 1% Lidocaine plain. Using ultrasound guidance, BASILIC vein access was obtained IN SINGLE ATTEMPT BY THIS RN. Over an 0.018 wire through peel-away sheath, a TRIPLE LUMEN, 5-NEPALI, PASV PICC line was positioned. Catheter length is 40 CM internal length, 0 CM external length, for a total trimmed length of 40 CM. The procedure was performed in S272. Tip verification was performed by Codie Aparicio with [employer] 3CG. Tip located in SVC. Ultrasound was used to document vein patency and for needle entry. A formal ultrasound picture and cardiac rhythm strip was recorded. [facility] [place] has released the line for use and it is currently dressed with a StatLock, Tegaderm, and CHG disc. Verification has been performed for blood return and line patency. Arm Circumference: 34 CM Equipment: [employer] POWERPICC SOLO Catheter Type: TRIPLE LUMEN, 5-NEPALI, PASV Lot #: [id number]
--- NOTE | 2021-02-25 16:12 | PM.IDPN ---
Subjective Subjective Date of Service: 02/25/21 Interval History: he has no complaints except abdominal discomfort Critical Care Time (minutes): 15 Objective Data Labs CBC & Chem 7: 03/03/21 05:17 03/03/21 05:17 Labs: Laboratory Results - last 24 hr 02/25/21 02/25/21 02/25/21 05:27 05:27 05:27 WBC 20.9 H RBC 3.36 L Hgb 10.5 L D Hct 31.8 L MCV 94.6 MCH 31.3 MCHC 33.0 RDW 13.8 Plt Count 258 MPV 9.9 Immature Gran % (Auto) 0.9 H Neut % (Auto) 80.2 H Lymph % (Auto) 10.7 L [place] % (Auto) 7.8 Eos % (Auto) 0.2 Baso % (Auto) 0.2 Lymph # (Auto) 2.2 [place] # (Auto) 1.6 H Eos # (Auto) 0.1 Baso # (Auto) 0.0 Abs Immat Gran (auto) 0.19 H Absolute Neuts (auto) 16.8 H Absolute Nucleated RBC 0.000 Nucleated RBC % (auto) 0.0 Smear Tech's Comments VERIFIED PT 17.7 H INR 1.5 H Sodium 138 Potassium 3.2 L Chloride 100 Carbon Dioxide 33 H Anion Gap 8 L BUN 11 Creatinine 0.53 Estim Creat Clear Calc 169.7 Estimated GFR > 60 Random Glucose 118 H Calcium 7.9 L Phosphorus 2.4 L Magnesium 2.1 Albumin 2.3 L Microbiology Microbiology Results: Microbiology 02/20/21 08:39 Blood - Venous Blood Culture - Final No growth after 5 days. 02/20/21 08:39 Blood - Venous Blood Culture - Final No growth after 5 days. Physical Exam Vital Signs: Vital Signs: Last Vital Signs Temp 98.4 F 02/25/21 14:00 Pulse 101 H 02/25/21 14:00 Resp 18 02/25/21 14:00 BP 124/82 02/25/21 14:00 Pulse Ox 91 L 02/25/21 14:00 Body Mass Index 30.5 Const: General: cooperative Resp: Effort & Inspection: normal respiratory effort Cardio: Rate: regular rate Rhythm: regular rhythm GI: Palpation (GI): Soft to palpation and Tenderness to palpation present (GI) Assessment and Plan Assessment and plan (1) Status post Jenna's procedure: Problem details: Leukocytosis new Would check blood culture ?fungus Rx Caspofungin if fungus or worsens Status: Acute (2) H/O resection of large bowel: Status: Acute Time Spent With Patient Time: Total time spent is greater than 50% in coordination of care (as documented) at patient's floor/unit and/or counseling patient: Time with patient: 15 - 24 minutes
[2021-02-25] MEDS: 0.9 % Sodium Chloride Flush 10 ML SYRINGE 5 ML IVFLUSH ×2 (17:41→22:34)
[2021-02-25] MEDS: 0.9 % Sodium Chloride Flush 3 ML SYRINGE IVFLUSH (17:41)
--- NOTE | 2021-02-25 18:03 | HO.PM.IMPN ---
Subjective Subjective Date of Service: 02/25/21 Interval History: bowel obstruction Review of Systems patient still has abdominal soreness, did not pass the the flattus yet still has sectioning significant around 400 mL this morning denies any shortness of breath or Cough or phlegm Physical Exam Vital Signs: Vital Signs: Last Vital Signs Temp 98.4 F 02/25/21 14:00 Pulse 101 H 02/25/21 14:00 Resp 18 02/25/21 14:00 BP 124/82 02/25/21 14:00 Pulse Ox 91 L 02/25/21 14:00 Body Mass Index 30.5 physical exam: Constitutional; not in acute in distress. Cvs: rrr, [id number] , no murmur res: clear to auscultation ,no rhonchii or wheezing abd: Abdomen seems more soft, still has soreness in the operative area and pain. ext pulses present , no cyanosis neuro: axo3 , nonfocal. Objective Data Current Medications Generic Name Dose Route Start Last Admin Trade Name Freq PRN Reason Stop Dose Admin Acetaminophen 650 mg 02/17/21 17:35 Acetaminophen 325 Mg Tablet PO Q6H PRN Pain, Mild (Pain Scale 1-3) Benzocaine 1 lozenge 02/19/21 18:07 02/19/21 18:30 Throat Lozenge, Medicated Lozenge MUCOUS MEM 1 lozenge Q2H PRN Administration Sore Throat Enoxaparin Sodium 50 mg 02/25/21 09:00 Enoxaparin Sodium 60 Mg/0.6 Ml Syringe SUBCUT Q12H JULIO Hydromorphone HCl 0.5 mg 02/25/21 09:12 02/25/21 10:29 Hydromorphone Hcl 0.5 Mg/0.5 Ml Syringe IVPUSH 0.5 mg Q2H PRN Administration Pain, Moderate (Pain Scale 4-6 Multivitamins 14 ml/ Trace 1,440 mls @ 60 mls/hr 02/25/21 18:00 Metals 1.4 ml/ Amino Acids/ IV 02/26/21 17:59 Electrolytes DAILY@1800 JULIO Levalbuterol HCl 1.25 mg 02/25/21 12:00 02/25/21 14:54 Levalbuterol Hcl 1.25 Mg/0.5 Ml Vial.Neb INHALE Not Given RQ4H WHILE AWAKE JULIO Metoprolol Tartrate 5 mg 02/18/21 09:40 02/24/21 16:27 Metoprolol Tartrate 5 Mg/5 Ml Vial IVPUSH 5 mg Q6H PRN Administration HR > 110 Multi-Ingred Medicated Throat [place] 1 spray 02/19/21 18:08 02/22/21 20:15 Throat [place], Medicated 20 Ml Bottle MUCOUS MEM 1 spray Q2H PRN Administration throat pain Naloxone HCl 0.2 mg 02/23/21 16:58 Naloxone Hcl 0.4 Mg/Ml Vial IVPUSH Q2M PRN Excessive sedation or RR < 8 Pharmacy Consult 1 each 02/17/21 15:11 Consult Rx Perform Med Rec MISCELLANE ONCE PRN Consult order Sodium Chloride 3 ml 02/17/21 17:35 02/25/21 17:41 0.9 % Sodium Chloride Flush 3 Ml Syringe IVFLUSH 3 ml QSHIFT JULIO Administration Sodium Chloride 5 ml 02/25/21 15:45 02/25/21 17:41 0.9 % Sodium Chloride Flush 10 Ml Syringe IVFLUSH 5 ml TID JULIO Administration Labs CBC & Chem 7: 02/25/21 05:27 02/25/21 05:27 Microbiology Microbiology Results: Microbiology 02/20/21 08:39 Blood - Venous Blood Culture - Final No growth after 5 days. 02/20/21 08:39 Blood - Venous Blood Culture - Final No growth after 5 days. Assessment and Plan (1) Bowel obstruction: Status: Acute Assessment and Plan: 61-year-old male with no prior colonoscopy who presents to the hospital with complaints of diffuse abdominal pain with associated nausea vomiting and changes in his bowel habits over the last several weeks along with poor oral intake. He is diagnosed with colonic obstruction likely secondary to colon cancer. 1.Colonic obstruction. Colonoscopy revealed redundant colon with stool filled transverse colon No flatus, reports small bowel movement last night NG tube in the duodenum likely reason for I output repeat CT today showed HIGH GRADE distal sigmoid obstruction npo , still has ngt suction, incentive spirometry, chest physio, DuoNeb. -Seen by Gen surg, exploratory lap on yetserday -started 1/2 dose of lovenox in am. started on ppn, switch to tppn once has triple lumen 2.Hypokalemia. Resolved given IV potassium, hypokalemia resolved. -Follow BMP 3.Supratherapeutic INR. Down to 1.5 today -Coumadin on hold on hold Lovenox for surgery tomorrow. 4.CAD s/p [place] -Cardiology following -No ACS 5.History of CVA -hold statin -coumadin on hold 6. Leukocytosis:trending down No fever UA, chest x-ray, abdominal CT does not show sign of infection, blood culture negative Patient is asymptomatic Will monitor CBC Id evaluation (2) H/O resection of large bowel: Status: Acute
[2021-02-26] VITALS (9 sets, daily range): BP systolic 119–140; BP diastolic 63–83; PULSE 87–101; RESP 18–20; TEMP 36.6–38.2; O2SAT 91–98
[2021-02-26] MEDS: 0.9 % Sodium Chloride Flush 3 ML SYRINGE IVFLUSH ×2 (07:38→16:37)
[2021-02-26] MEDS: 0.9 % Sodium Chloride Flush 10 ML SYRINGE 5 ML IVFLUSH ×3 (07:38→22:01)
[2021-02-26 07:53] LABS: Hematocrit 31.4 % (42-52); Hemoglobin 10.4 g/dl (14.0-18.0); Mean Corpuscular HGB Conc 33.1 g/dl (31.0-36.0); Mean Corpuscular Hemoglobin 31.4 pg (27.0-33.0); Mean Corpuscular Volume 94.9 fL (80-98); Mean Platelet Volume 10.2 fL (9.4-12.4); Platelet Count 269 X10*3/uL (160-400); Red Blood Count 3.31 X10*6/uL (4.60-5.80); Red Cell Distribution Width 13.8 % (11.0-16.0); White Blood Count 18.7 X10*3/uL (4.8-10.8)
[2021-02-26 07:56] LABS: INTERNATIONAL NORM RATIO 1.3 (0.9-1.1); Prothrombin Time 15.8 SEC (10.8-13.0)
--- NOTE | 2021-02-26 08:25 | HO.PM.IMPN ---
Subjective Subjective Date of Service: 02/26/21 Interval History: bowel obsruction/mass Review of Systems Still has the abdominal soreness since the sutures area. In denies any chest pain or shortness of breath or cough or phlegm or fever or chills Still has NGT suction around 200 mL Physical Exam Vital Signs: Vital Signs: Last Vital Signs Temp 98.2 F 02/26/21 08:08 Pulse 101 H 02/26/21 08:08 Resp 20 02/26/21 08:08 BP 128/66 02/26/21 08:08 Pulse Ox 92 02/26/21 06:00 Body Mass Index 30.5 Physical exam: Constitutional: Not inacute distress Cvs: rrr, [id number] , no murmur res: clear to auscultation ,no rhonchii or wheezing abd: Abdomen seems more soft, still has soreness in the operative area and pain. ext pulses present , no cyanosis neuro: axo3 , nonfocal. Objective Data Current Medications Generic Name Dose Route Start Last Admin Trade Name Pepeq PRN Reason Stop Dose Admin Acetaminophen 650 mg 02/17/21 17:35 Acetaminophen 325 Mg Tablet PO Q6H PRN Pain, Mild (Pain Scale 1-3) Benzocaine 1 lozenge 02/19/21 18:07 02/19/21 18:30 Throat Lozenge, Medicated Lozenge MUCOUS MEM 1 lozenge Q2H PRN Administration Sore Throat Enoxaparin Sodium 50 mg 02/25/21 09:00 Enoxaparin Sodium 60 Mg/0.6 Ml Syringe SUBCUT Q12H JULIO Hydromorphone HCl 0.5 mg 02/25/21 09:12 02/25/21 10:29 Hydromorphone Hcl 0.5 Mg/0.5 Ml Syringe IVPUSH 0.5 mg Q2H PRN Administration Pain, Moderate (Pain Scale 4-6 Multivitamins 14 ml/ Trace 1,440 mls @ 60 mls/hr 02/25/21 18:00 02/25/21 19:18 Metals 1.4 ml/ Amino Acids/ IV 02/26/21 17:59 60 mls/hr Electrolytes DAILY@1800 JULOI Administration Levalbuterol HCl 1.25 mg 02/25/21 12:00 02/26/21 07:15 Levalbuterol Hcl 1.25 Mg/0.5 Ml Vial.Neb INHALE 1.25 mg RQ4H WHILE AWAKE JULIO Administration Metoprolol Tartrate 5 mg 02/18/21 09:40 02/24/21 16:27 Metoprolol Tartrate 5 Mg/5 Ml Vial IVPUSH 5 mg Q6H PRN Administration HR > 110 Multi-Ingred Medicated Throat [place] 1 spray 02/19/21 18:08 02/22/21 20:15 Throat [place], Medicated 20 Ml Bottle MUCOUS MEM 1 spray Q2H PRN Administration throat pain Naloxone HCl 0.2 mg 02/23/21 16:58 Naloxone Hcl 0.4 Mg/Ml Vial IVPUSH Q2M PRN Excessive sedation or RR < 8 Pharmacy Consult 1 each 02/17/21 15:11 Consult Rx Perform Med Rec MISCELLANE ONCE PRN Consult order Sodium Chloride 3 ml 02/17/21 17:35 02/26/21 07:38 0.9 % Sodium Chloride Flush 3 Ml Syringe IVFLUSH 3 ml QSHIFT JULIO Administration Sodium Chloride 5 ml 02/25/21 15:45 02/26/21 07:38 0.9 % Sodium Chloride Flush 10 Ml Syringe IVFLUSH 5 ml TID JULIO Administration Labs CBC & Chem 7: 02/26/21 05:50 02/26/21 05:50 Microbiology Microbiology Results: Microbiology 02/20/21 08:39 Blood - Venous Blood Culture - Final No growth after 5 days. 02/20/21 08:39 Blood - Venous Blood Culture - Final No growth after 5 days. Assessment and Plan (1) H/O resection of large bowel: Status: Acute (2) Bowel obstruction: Status: Acute Assessment and Plan: 61-year-old male with no prior colonoscopy who presents to the hospital with complaints of diffuse abdominal pain with associated nausea vomiting and changes in his bowel habits over the last several weeks along with poor oral intake. He is diagnosed with colonic obstruction likely secondary to colon cancer. 1.Colonic obstruction. Colonoscopy revealed redundant colon with stool filled transverse colon No flatus, reports small bowel movement last night NG tube in the duodenum likely reason for I output repeat CT today showed HIGH GRADE distal sigmoid obstruction -Seen by Gen surg, exploratory lap on 02/23 npo , still has ngt suction, incentive spirometry, chest physio, DuoNeb prn patient has bm's in his ostomy bag today -started 1/2 dose of lovenox , warfarin hold for now. switch to tpn once has triple lumen 2.Hypokalemia. will add IV potassium, hypokalemia resolved. -Follow BMP 3.Supratherapeutic INR. Down to 1.3 today -Coumadin on hold on Lovenox as above. 4.CAD s/p [place] -Cardiology following -No ACS 5.History of CVA -hold statin -coumadin on hold 6. Leukocytosis:trending down No fever UA, chest x-ray, abdominal CT does not show sign of infection, blood culture negative Patient is asymptomatic Will monitor CBC Id evaluation noted -repeated blood cultures also neg.
[2021-02-26 08:26] LABS: Anion Gap 9 (12-20); Blood Urea Nitrogen 10 mg/dL (9-16); Calcium 8.1 mg/dL (8.4-10.2); Carbon Dioxide 33 mmol/L (22-29); Chloride 101 mmol/L (96-108); Creatinine Clr Calc Pharmacy 183.6; Estimated Glomerular Filt Rate > 60; Glucose Random 132 mg/dL (60-115); Potassium 3.1 mmol/L (3.3-5.1); Sodium 140 mmol/L (135-145)
--- NOTE | 2021-02-26 16:19 | PM.PNGS ---
Subjective Subjective Date of Service: 02/26/21 Interval history: No complaints of nausea. No significant abdominal pain. Physical Exam Vital Signs: Vital Signs: Last Vital Signs Temp 97.8 F 02/26/21 15:55 Pulse 88 02/26/21 15:55 Resp 19 02/26/21 15:55 BP 125/83 02/26/21 15:55 Pulse Ox 91 L 02/26/21 15:55 Body Mass Index 30.5 Const: General: cooperative, no acute distress and alert Resp: Effort & Inspection: normal respiratory effort Auscultation: clear to auscultation bilaterally Cardio: Rate: regular rate Rhythm: regular rhythm GI: Other: Soft, nondistended, incisions clean, healthy appearing left lower quadrant ostomy with moderate liquid stool output Skin: Other: Normal color, warm and dry Progress Note: A&P Assessment and plan (1) Status post Jenna's procedure: Status: Acute (2) Colonic obstruction: Status: Acute Assessment and Plan: 61-year-old male status post Jenna procedure for obstruction of the sigmoid colon on 02/23/2021. He has evidence of return of bowel function with moderate ostomy output, but NG output has been high as well. A trial of NG clamping will be undertaken. Mild hypokalemia is present again today. Will receive KCl IV. Continue TPN. Fall Risk Details Current Medications: Current Medications Generic Name Dose Route Start Last Admin Trade Name Freq PRN Reason Stop Dose Admin Acetaminophen 650 mg 02/17/21 17:35 Acetaminophen 325 Mg Tablet PO Q6H PRN Pain, Mild (Pain Scale 1-3) Benzocaine 1 lozenge 02/19/21 18:07 02/19/21 18:30 Throat Lozenge, Medicated Lozenge MUCOUS MEM 1 lozenge Q2H PRN Administration Sore Throat Enoxaparin Sodium 50 mg 02/25/21 09:00 Enoxaparin Sodium 60 Mg/0.6 Ml Syringe SUBCUT Q12H JULIO Hydromorphone HCl 0.5 mg 02/25/21 09:12 02/25/21 10:29 Hydromorphone Hcl 0.5 Mg/0.5 Ml Syringe IVPUSH 0.5 mg Q2H PRN Administration Pain, Moderate (Pain Scale 4-6 Multivitamins 14 ml/ Trace 1,440 mls @ 60 mls/hr 02/25/21 18:00 02/25/21 19:18 Metals 1.4 ml/ Amino Acids/ IV 02/26/21 17:59 60 mls/hr Electrolytes DAILY@1800 JULIO Administration Multivitamins 10.5 ml/ Trace 1,920 mls @ 80 mls/hr 02/26/21 18:00 Metals 1.1 ml/ Amino Acids/ IV 02/27/21 17:59 Electrolytes DAILY@1800 JULIO Fat Emulsion Intravenous 84 mls @ 7 mls/hr 02/26/21 18:00 Intralipid IV 02/27/21 05:59 .Q12H JULIO Levalbuterol HCl 1.25 mg 02/25/21 12:00 02/26/21 15:11 Levalbuterol Hcl 1.25 Mg/0.5 Ml Vial.Neb INHALE Not Given RQ4H WHILE AWAKE JULIO Metoprolol Tartrate 5 mg 02/18/21 09:40 02/24/21 16:27 Metoprolol Tartrate 5 Mg/5 Ml Vial IVPUSH 5 mg Q6H PRN Administration HR > 110 Multi-Ingred Medicated Throat [place] 1 spray 02/19/21 18:08 02/22/21 20:15 Throat [place], Medicated 20 Ml Bottle MUCOUS MEM 1 spray Q2H PRN Administration throat pain Naloxone HCl 0.2 mg 02/23/21 16:58 Naloxone Hcl 0.4 Mg/Ml Vial IVPUSH Q2M PRN Excessive sedation or RR < 8 Pharmacy Consult 1 each 02/17/21 15:11 Consult Rx Perform Med Rec MISCELLANE ONCE PRN Consult order Sodium Chloride 3 ml 02/17/21 17:35 02/26/21 07:38 0.9 % Sodium Chloride Flush 3 Ml Syringe IVFLUSH 3 ml QSHIFT JULIO Administration Sodium Chloride 5 ml 02/25/21 15:45 02/26/21 07:38 0.9 % Sodium Chloride Flush 10 Ml Syringe IVFLUSH 5 ml TID JULIO Administration Time Spent With Patient Time: Total time spent is greater than 50% in coordination of care (as documented) at patient's floor/unit and/or counseling patient: Time with patient: less than 15 minutes Procedures Date of Service Date of Service: 02/26/21
[2021-02-26] MEDS: HYDROmorphone HCl 0.5 MG/0.5 ML SYRINGE IVPUSH ×2 (16:37→18:42)
[2021-02-26] MEDS: Potassium Chloride/H20 10 MEQ/100 ML PIGGYBACK 100 MEQ IV ×4 (17:19→22:02)
--- NOTE | 2021-02-26 18:34 | PC.NURSE ---
NGT clamped 1135 to 1535; output [address] Portillo notified and this RN was instructed to clamp for another 4 hours and reassess output. Potassium replaced IV. TPN changed, lipids added. Ambulated patient to bathroom with [address], drained 200 mL of liquid stool. Abdominal dressing clean, dry, and intact. Sequentials on. Will pass to oncoming nurse.
[2021-02-27 03:28] VITALS: BP 118/70; PULSE 91; RESP 20; TEMP 36.6; O2SAT 96
[2021-02-27 05:27] LABS: INTERNATIONAL NORM RATIO 1.3 (0.9-1.1); Prothrombin Time 15.7 SEC (10.8-13.0)
[2021-02-27 05:35] LABS: Hematocrit 31.1 % (42-52); Hemoglobin 10.3 g/dl (14.0-18.0); Mean Corpuscular HGB Conc 33.1 g/dl (31.0-36.0); Mean Corpuscular Hemoglobin 31.4 pg (27.0-33.0); Mean Corpuscular Volume 94.8 fL (80-98); Mean Platelet Volume 9.8 fL (9.4-12.4); Platelet Count 302 X10*3/uL (160-400); Red Blood Count 3.28 X10*6/uL (4.60-5.80); Red Cell Distribution Width 13.8 % (11.0-16.0); White Blood Count 14.1 X10*3/uL (4.8-10.8)
[2021-02-27 05:48] LABS: Anion Gap 9 (12-20); Blood Urea Nitrogen 11 mg/dL (9-16); Carbon Dioxide 32 mmol/L (22-29); Chloride 102 mmol/L (96-108); Creatinine Clr Calc Pharmacy 183.6; Estimated Glomerular Filt Rate > 60; Glucose Random 118 mg/dL (60-115); Potassium 3.3 mmol/L (3.3-5.1); Sodium 140 mmol/L (135-145)
[2021-02-27] MEDS: 0.9 % Sodium Chloride Flush 10 ML SYRINGE 5 ML IVFLUSH ×3 (07:31→20:25)
[2021-02-27] MEDS: 0.9 % Sodium Chloride Flush 3 ML SYRINGE IVFLUSH ×3 (07:31→20:25)
[2021-02-27 07:47] VITALS: BP 119/73; PULSE 87; RESP 19; TEMP 36.9; O2SAT 93
[2021-02-27 12:00] VITALS: BP 141/68; PULSE 99; RESP 19; TEMP 36.3; O2SAT 97
--- NOTE | 2021-02-27 13:25 | PM.PNGS ---
Subjective Subjective Date of Service: 02/27/21 Interval history: Thirsty and feels congested from NG tube, no other complaints Physical Exam Vital Signs: Vital Signs: Last Vital Signs Temp 98.4 F 02/27/21 07:47 Pulse 87 02/27/21 07:47 Resp 19 02/27/21 07:47 BP 119/73 02/27/21 07:47 Pulse Ox 93 02/27/21 07:47 Body Mass Index 30.5 Const: Other: Alert, no apparent distress Resp: Effort & Inspection: normal respiratory effort Auscultation: clear to auscultation bilaterally Cardio: Rate: regular rate Rhythm: regular rhythm GI: Other: Soft, nondistended, normal bowel sounds, [place] brown liquid stool and ostomy appliance Skin: Other: Normal color, warm and dry Progress Note: A&P Assessment and plan (1) Status post Jenna's procedure: Status: Acute (2) Bowel obstruction: Status: Acute Assessment and Plan: 61-year-old male presenting with colonic obstruction, now day for post Jenna procedure. Return of bowel function is slow. He is on TPN for nutritional support. Will continue this. Residuals were intermediate with NG tube clamping yesterday and NG tube was left in place. Will repeat trial today. Will request physical therapy evaluation. Hypokalemia resolved today. Fall Risk Details Current Medications: Current Medications Generic Name Dose Route Start Last Admin Trade Name Freq PRN Reason Stop Dose Admin Acetaminophen 650 mg 02/17/21 17:35 Acetaminophen 325 Mg Tablet PO Q6H PRN Pain, Mild (Pain Scale 1-3) Benzocaine 1 lozenge 02/19/21 18:07 02/19/21 18:30 Throat Lozenge, Medicated Lozenge MUCOUS MEM 1 lozenge Q2H PRN Administration Sore Throat Enoxaparin Sodium 50 mg 02/25/21 09:00 Enoxaparin Sodium 60 Mg/0.6 Ml Syringe SUBCUT Q12H JULIO Hydromorphone HCl 0.5 mg 02/25/21 09:12 02/26/21 18:42 Hydromorphone Hcl 0.5 Mg/0.5 Ml Syringe IVPUSH 0.5 mg Q2H PRN Administration Pain, Moderate (Pain Scale 4-6 Multivitamins 10.5 ml/ Trace 1,920 mls @ 80 mls/hr 02/26/21 18:00 02/26/21 19:06 Metals 1.1 ml/ Amino Acids/ IV 02/27/21 17:59 80 mls/hr Electrolytes DAILY@1800 JULIO Administration Multivitamins 10.5 ml/ Trace 1,920 mls @ 80 mls/hr 02/27/21 18:00 Metals 1.1 ml/ Amino Acids/ IV 02/28/21 17:59 Electrolytes DAILY@1800 JULIO Fat Emulsion Intravenous 84 mls @ 7 mls/hr 02/27/21 18:00 Intralipid IV 02/28/21 05:59 .Q12H JULIO Levalbuterol HCl 1.25 mg 02/25/21 12:00 02/27/21 11:40 Levalbuterol Hcl 1.25 Mg/0.5 Ml Vial.Neb INHALE Not Given RQ4H WHILE AWAKE JULIO Metoprolol Tartrate 5 mg 02/18/21 09:40 02/24/21 16:27 Metoprolol Tartrate 5 Mg/5 Ml Vial IVPUSH 5 mg Q6H PRN Administration HR > 110 Multi-Ingred Medicated Throat [place] 1 spray 02/19/21 18:08 02/22/21 20:15 Throat [place], Medicated 20 Ml Bottle MUCOUS MEM 1 spray Q2H PRN Administration throat pain Naloxone HCl 0.2 mg 02/23/21 16:58 Naloxone Hcl 0.4 Mg/Ml Vial IVPUSH Q2M PRN Excessive sedation or RR < 8 Pharmacy Consult 1 each 02/17/21 15:11 Consult Rx Perform Med Rec MISCELLANE ONCE PRN Consult order Sodium Chloride 3 ml 02/17/21 17:35 02/27/21 07:31 0.9 % Sodium Chloride Flush 3 Ml Syringe IVFLUSH 3 ml QSHIFT JULIO Administration Sodium Chloride 5 ml 02/25/21 15:45 02/27/21 07:31 0.9 % Sodium Chloride Flush 10 Ml Syringe IVFLUSH 5 ml TID JULIO Administration Time Spent With Patient Time: Total time spent is greater than 50% in coordination of care (as documented) at patient's floor/unit and/or counseling patient: Time with patient: less than 15 minutes Procedures Date of Service Date of Service: 02/27/21
[2021-02-27 16:00] VITALS: BP 129/73; PULSE 86; RESP 17; TEMP 36.6; O2SAT 93
--- NOTE | 2021-02-27 16:35 | P.PNIM_ITS ---
Subjective Subjective Date of Service: 02/28/21 Interval History: Patient offers no acute complaints requesting to removed the NG-tube, denies abdominal pain. ROS General no headache, no dizziness, no fever CVS no chest pain, no palpitation. Respiratory no cough ,no sob. Gastrointestinal no abdominal pain Physical Exam Vital Signs: Vital Signs: Last Vital Signs Temp 98 F 02/27/21 16:00 Pulse 86 02/27/21 16:00 Resp 17 02/27/21 16:00 BP 129/73 02/27/21 16:00 Pulse Ox 93 02/27/21 16:00 Body Mass Index 30.5 General resting comfortably, no acute distress. Neck supple no JVD. CVS regular rate rhythm, Respiratory lungs clear to auscultation, no respiratory distress, no wheeze, no rhonchi. Gastrointestinal abdomen soft, nontender, midline incision with mild serosang. drainage, ostomy functioning with dark liquidy stool , NG tube with brown drainage Extremities no clubbing cyanosis or edema. Neuro nonfocal, speech clear. Skin no rash Objective Data Current Medications Generic Name Dose Route Start Last Admin Trade Name Freq PRN Reason Stop Dose Admin Acetaminophen 650 mg 02/17/21 17:35 Acetaminophen 325 Mg Tablet PO Q6H PRN Pain, Mild (Pain Scale 1-3) Benzocaine 1 lozenge 02/19/21 18:07 02/19/21 18:30 Throat Lozenge, Medicated Lozenge MUCOUS MEM 1 lozenge Q2H PRN Administration Sore Throat Enoxaparin Sodium 50 mg 02/25/21 09:00 Enoxaparin Sodium 60 Mg/0.6 Ml Syringe SUBCUT Q12H JULIO Hydromorphone HCl 0.5 mg 02/25/21 09:12 02/26/21 18:42 Hydromorphone Hcl 0.5 Mg/0.5 Ml Syringe IVPUSH 0.5 mg Q2H PRN Administration Pain, Moderate (Pain Scale 4-6 Multivitamins 10.5 ml/ Trace 1,920 mls @ 80 mls/hr 02/26/21 18:00 02/26/21 19:06 Metals 1.1 ml/ Amino Acids/ IV 02/27/21 17:59 80 mls/hr Electrolytes DAILY@1800 JULIO Administration Multivitamins 10.5 ml/ Trace 1,920 mls @ 80 mls/hr 02/27/21 18:00 Metals 1.1 ml/ Amino Acids/ IV 02/28/21 17:59 Electrolytes DAILY@1800 [facility] Fat Emulsion Intravenous 84 mls @ 7 mls/hr 02/27/21 18:00 Intralipid IV 02/28/21 05:59 .Q12H JULIO Levalbuterol HCl 1.25 mg 02/25/21 12:00 02/27/21 15:06 Levalbuterol Hcl 1.25 Mg/0.5 Ml Vial.Neb INHALE Not Given RQ4H WHILE AWAKE [facility] Metoprolol Tartrate 5 mg 02/18/21 09:40 02/24/21 16:27 Metoprolol Tartrate 5 Mg/5 Ml Vial IVPUSH 5 mg Q6H PRN Administration HR > 110 Multi-Ingred Medicated Throat [place] 1 spray 02/19/21 18:08 02/22/21 20:15 Throat [place], Medicated 20 Ml Bottle MUCOUS MEM 1 spray Q2H PRN Administration throat pain Naloxone HCl 0.2 mg 02/23/21 16:58 Naloxone Hcl 0.4 Mg/Ml Vial IVPUSH Q2M PRN Excessive sedation or RR < 8 Pharmacy Consult 1 each 02/17/21 15:11 Consult Rx Perform Med Rec MISCELLANE ONCE PRN Consult order Sodium Chloride 3 ml 02/17/21 17:35 02/27/21 14:49 0.9 % Sodium Chloride Flush 3 Ml Syringe IVFLUSH 3 ml QSHIFT JULIO Administration Sodium Chloride 5 ml 02/25/21 15:45 02/27/21 14:49 0.9 % Sodium Chloride Flush 10 Ml Syringe IVFLUSH 5 ml TID JULIO Administration Labs CBC & Chem 7: 02/28/21 06:24 02/28/21 06:23 Microbiology Microbiology Results: Microbiology 02/25/21 13:21 Blood - Venous Blood Culture - Preliminary No growth after 48 hours. 02/25/21 13:21 Blood - Venous Blood Culture - Preliminary No growth after 48 hours. 02/20/21 08:39 Blood - Venous Blood Culture - Final No growth after 5 days. 02/20/21 08:39 Blood - Venous Blood Culture - Final No growth after 5 days. Assessment and Plan (1) Hypokalemia: Status: Acute (2) Status post Jenna's procedure: Status: Acute (3) H/O resection of large bowel: Status: Acute (4) Colostomy in place: Status: Acute (5) Bowel obstruction: Status: Acute (6) HTN (hypertension): Status: Acute (7) Coronary artery disease: Status: Acute (8) History of acute inferior wall PR: Status: Acute (9) Supratherapeutic INR: Status: Acute Assessment and Plan: 61-year-old male with no prior colonoscopy who presents to the hospital with complaints of diffuse abdominal pain with associated nausea vomiting and changes in his bowel habits over the last several weeks along with poor oral intake. He is diagnosed with colonic obstruction likely secondary to colon cancer. 1.Colonic obstruction due to HIGH GRADE distal sigmoid obstruction patient underwent exploratory lap on 02/23 status post Jenna procedure, status post sigmoid colectomy denies abd pain,is npo ,has Ng in place due to high Ng output ,trial of Ng cl amping given by Dr Portillo Continue TPN, moderate ostomy output. Encourage out of bed to chair. 2.Hypokalemia. Potassium improved to 3.3 will give additional IV potassium and Follow BMP 3.Supratherapeutic INR. Down to 1.3 today,Coumadin on hold since npo, continue Lovenox as above. 4.CAD s/p PR Acute coronary syndrome ruled out 5.History of CVA, will resume Coumadin once okay with General surgery, hold statin and resume once tolerating po. 6. Leukocytosis:trending down, No fever workup for infection negative with normal UA, chest x-ray, abdominal CT does not show sign of infection, blood culture negative hold antibiotic Follow clinical course
[2021-02-27] MEDS: Potassium Chloride/H20 10 MEQ/100 ML PIGGYBACK 100 MEQ IV (17:27)
--- NOTE | 2021-02-27 18:37 | PC.NURSE ---
NGT clamped per Dr Portillo 0930 to 1330. 125 mL output x 1 hr later. Cont on intermittent suction as instructed. Ice chips/small sips of water OK. Potassium replaced. TPN/lipids running. No issues.
[2021-02-27 20:00] VITALS: BP 124/80; PULSE 91; RESP 18; TEMP 36.1; O2SAT 93
[2021-02-27 23:53] VITALS: BP 124/73; PULSE 71; RESP 18; TEMP 36.8; O2SAT 92
[2021-02-28] VITALS (10 sets, daily range): BP systolic 118–133; BP diastolic 62–77; PULSE 89–100; RESP 17–20; TEMP 36.4–37.3; O2SAT 91–98
[2021-02-28 07:30] LABS: Hematocrit 34.3 % (42-52); Hemoglobin 11.3 g/dl (14.0-18.0); Mean Corpuscular HGB Conc 32.9 g/dl (31.0-36.0); Mean Corpuscular Hemoglobin 31.6 pg (27.0-33.0); Mean Corpuscular Volume 95.8 fL (80-98); Mean Platelet Volume 10.1 fL (9.4-12.4); Platelet Count 342 X10*3/uL (160-400); Red Blood Count 3.58 X10*6/uL (4.60-5.80); White Blood Count 16.7 X10*3/uL (4.8-10.8)
[2021-02-28 08:19] LABS: Alanine Aminotransferase 161 U/L (0-40); Albumin Level 2.8 g/dL (3.5-5.0); Alkaline Phosphatase 75 U/L (39-117); Anion Gap 15 (12-20); Aspartate Amino Transferase 116 U/L (5-37); Bilirubin Direct 0.3 mg/dL (0.0-0.5); Bilirubin Total 0.7 mg/dL (0.0-1.0); Blood Urea Nitrogen 14 mg/dL (9-16); Calcium 8.4 mg/dL (8.4-10.2); Carbon Dioxide 30 mmol/L (22-29); Chloride 100 mmol/L (96-108); Creatinine Clr Calc Pharmacy 166.6; Estimated Glomerular Filt Rate > 60; Glucose Fasting 124 mg/dL (60-99); Sodium 142 mmol/L (135-145); Total Protein 5.7 g/dL (6.5-8.0)
[2021-02-28 08:22] LABS: Phosphorus 3.9 mg/dL (2.7-4.5)
[2021-02-28 08:27] LABS: Magnesium 2.4 mg/dL (1.6-2.6)
[2021-02-28] MEDS: 0.9 % Sodium Chloride Flush 3 ML SYRINGE IVFLUSH ×3 (08:59→20:56)
[2021-02-28] MEDS: 0.9 % Sodium Chloride Flush 10 ML SYRINGE 5 ML IVFLUSH ×3 (09:00→20:57)
--- NOTE | 2021-02-28 09:18 | PM.PNGS ---
Subjective Subjective Date of Service: 02/28/21 Physical Exam Vital Signs: Vital Signs: Last Vital Signs Temp 98.3 F 02/28/21 07:42 Pulse 92 02/28/21 08:11 Resp 17 02/28/21 07:42 BP 124/74 02/28/21 07:42 Pulse Ox 94 02/28/21 07:42 Body Mass Index 30.5 Const: General: cooperative, healthy appearing, comfortable and no acute distress Resp: Effort & Inspection: normal respiratory effort and able to speak in complete sentences GI: Other: Abdomen is soft nondistended appropriate incisional tenderness. Colostomy in place in left abdomen which is pink and productive of liquid stool. Midline incision is clean dry intact with trevor in place. There is no evidence of erythema or drainage. Inspection: No distended and Yes incision Palpation (GI): Soft to palpation, nontender, no guarding, not rigid, No hepatosplenomegaly present, no hernias and no masses Extrem: General: Yes normal to inspection, Yes full ROM, Yes no clubbing, cyanosis or edema and Yes no calf tenderness Progress Note: A&P Assessment and plan (1) H/O resection of large bowel: Status: Acute (2) Colostomy in place: Status: Acute Assessment and Plan: This is a 61-year-old gentleman on postoperative day number 5 status post Jenna's procedure with colostomy creation for an obstructing sigmoid colon mass. We do not have pathology results yet. Patient denies any nausea or vomiting. He is interested in at least drinking. The patient has been drinking water and ice chips and had a significant amount of output from the NG tube about 1000 mL overnight. Patient has also reportedly been receiving p.o. medications. The patient is to be strict NPO so that we can know how much is coming out the NG tube. Once NG tube output decreases significantly we will perform a clamping trial and if there is less than 100 mL from the NG tube after clamping trial NG tube may be removed and we can start clear liquid diet. Given the NG tube output I will recheck a abdominal x-ray to verify placement of NG tube in the stomach and not in the duodenum. We will continue with strict ins and outs to determine the output from the NG tube. Patient should be out of bed ambulating at least 4 times a day to encourage return of bowel function. Patient should continue on TPN until he is on a regular diet. Patient's full-dose Lovenox may be resumed today Fall Risk Details Current Medications: Current Medications Generic Name Dose Route Start Last Admin Trade Name Vivian PRN Reason Stop Dose Admin Acetaminophen 650 mg 02/17/21 17:35 Acetaminophen 325 Mg Tablet PO Q6H PRN Pain, Mild (Pain Scale 1-3) Benzocaine 1 lozenge 02/19/21 18:07 02/19/21 18:30 Throat Lozenge, Medicated Lozenge MUCOUS MEM 1 lozenge Q2H PRN Administration Sore Throat Enoxaparin Sodium 50 mg 02/25/21 09:00 Enoxaparin Sodium 60 Mg/0.6 Ml Syringe SUBCUT Q12H JULIO Hydromorphone HCl 0.5 mg 02/25/21 09:12 02/26/21 18:42 Hydromorphone Hcl 0.5 Mg/0.5 Ml Syringe IVPUSH 0.5 mg Q2H PRN Administration Pain, Moderate (Pain Scale 4-6 Multivitamins 10.5 ml/ Trace 1,920 mls @ 80 mls/hr 02/27/21 18:00 02/27/21 18:22 Metals 1.1 ml/ Amino Acids/ IV 02/28/21 17:59 80 mls/hr Electrolytes DAILY@1800 JULIO Administration Potassium Chloride 10 meq in 100 mls @ 100 mls/hr 02/28/21 09:15 IV 02/28/21 11:14 Q1H JULIO Levalbuterol HCl 1.25 mg 02/25/21 12:00 02/28/21 08:10 Levalbuterol Hcl 1.25 Mg/0.5 Ml Vial.Neb INHALE 1.25 mg RQ4H WHILE AWAKE JULIO Administration Metoprolol Tartrate 5 mg 02/18/21 09:40 02/24/21 16:27 Metoprolol Tartrate 5 Mg/5 Ml Vial IVPUSH 5 mg Q6H PRN Administration HR > 110 Multi-Ingred Medicated Throat [place] 1 spray 02/19/21 18:08 02/22/21 20:15 Throat [place], Medicated 20 Ml Bottle MUCOUS MEM 1 spray Q2H PRN Administration throat pain Naloxone HCl 0.2 mg 02/23/21 16:58 Naloxone Hcl 0.4 Mg/Ml Vial IVPUSH Q2M PRN Excessive sedation or RR < 8 Pharmacy Consult 1 each 02/17/21 15:11 Consult Rx Perform Med Rec MISCELLANE ONCE PRN Consult order Sodium Chloride 3 ml 02/17/21 17:35 02/28/21 08:59 0.9 % Sodium Chloride Flush 3 Ml Syringe IVFLUSH 3 ml QSHIFT JULIO Administration Sodium Chloride 5 ml 02/25/21 15:45 02/28/21 09:00 0.9 % Sodium Chloride Flush 10 Ml Syringe IVFLUSH 5 ml TID JULIO Administration Time Spent With Patient Time: Total time spent is greater than 50% in coordination of care (as documented) at patient's floor/unit and/or counseling patient: Time with patient: 15 - 24 minutes Procedures Date of Service Date of Service: 02/28/21
[2021-02-28 09:21] LABS: Triglycerides 103 mg/dL
[2021-02-28] MEDS: Potassium Chloride/H20 10 MEQ/100 ML PIGGYBACK 100 MEQ IV ×2 (09:36→11:04)
--- NOTE | 2021-02-28 09:51 | MHC.CLN ---
F/U REVIEWED LABS PT DID RECEIVE PICC; TPN FORMULA CHANGED TO D15 AA5% PT CURRENTLY RECEIVING D15 AA5% AT 80CC/HR WITH 7ML OF 20% LIPIDS PROVIDES 1531KCALS, 96G PROTEIN (1.2G/KG) RECOMMEND INCREASING FORMULA TO D15 AA5% AT MAX GOAL RATE 100CC/HR WITH 7ML OF 20% LIPIDS TO PROVIDE 1872KCALS (23KCALS/KG BASED ON CMW), 120G PROTEIN (1.5G/KG) S/P SX DISCUSSED WITH PHARMACY REPLETE LYTES NEEDED
[2021-02-28] MEDS: LORazepam 2 MG/ML VIAL 0.25 MG IVPUSH (12:46)
[2021-02-28] MEDS: Pantoprazole Sodium 40 MG/10 ML VIAL IVPUSH (13:10)
--- NOTE | 2021-02-28 15:32 | MHC.CM.PN ---
per rounds pt on tpn no plans for dc at [facility] time
--- NOTE | 2021-02-28 16:05 | P.PNIM_ITS ---
Subjective Subjective Date of Service: 02/28/21 Interval History: Patient feeling thirsty noted to have significant NG output overnight up to 1000 mL, since morning shift at 700 mL, daughter at bedside feels patient is anxious. ROS General no headache, no dizziness, no fever CVS no chest pain, no palpitation. Respiratory no cough ,no sob. Gastrointestinal no abdominal pain Physical Exam Vital Signs: Vital Signs: Last Vital Signs Temp 98.2 F 02/28/21 15:25 Pulse 94 02/28/21 15:58 Resp 20 02/28/21 15:25 BP 130/77 02/28/21 15:25 Pulse Ox 92 02/28/21 15:25 Body Mass Index 30.5 General resting comfortably, no acute distress. Neck supple no JVD. CVS regular rate rhythm, Respiratory lungs clear to auscultation, no respiratory distress, no wheeze, no rhonchi. Gastrointestinal abdomen soft, nontender, midline incision in place, ostomy functioning with dark liquidy stool , NG tube with brown drainage 700 mL Extremities no clubbing cyanosis or edema. Neuro nonfocal, speech clear. Skin no rash Objective Data Current Medications Generic Name Dose Route Start Last Admin Trade Name Freq PRN Reason Stop Dose Admin Acetaminophen 650 mg 02/17/21 17:35 Acetaminophen 325 Mg Tablet PO Q6H PRN Pain, Mild (Pain Scale 1-3) Benzocaine 1 lozenge 02/19/21 18:07 02/19/21 18:30 Throat Lozenge, Medicated Lozenge MUCOUS MEM 1 lozenge Q2H PRN Administration Sore Throat Enoxaparin Sodium 50 mg 02/25/21 09:00 Enoxaparin Sodium 60 Mg/0.6 Ml Syringe SUBCUT Q12H JULIO Hydromorphone HCl 0.5 mg 02/25/21 09:12 02/26/21 18:42 Hydromorphone Hcl 0.5 Mg/0.5 Ml Syringe IVPUSH 0.5 mg Q2H PRN Administration Pain, Moderate (Pain Scale 4-6 Multivitamins 10.5 ml/ Trace 1,920 mls @ 80 mls/hr 02/27/21 18:00 02/27/21 18:22 Metals 1.1 ml/ Amino Acids/ IV 02/28/21 17:59 80 mls/hr Electrolytes DAILY@1800 JULIO Administration Potassium Chloride 70 meq/ 2,096 mls @ 100 mls/hr 02/28/21 18:00 Sodium Chloride 70 meq/ IVCONT 03/01/21 14:00 Magnesium Sulfate 10 meq/ DAILY@1800 [facility] Potassium Phosphate 30 mmol/ Calcium Gluconate 9.3 meq/ Multivitamins 10 ml/ Trace Metals 1 ml/ Amino Acids/ Dextrose Fat Emulsion Intravenous 84 mls @ 7 mls/hr 02/28/21 18:00 Intralipid IVCONT 03/01/21 05:59 DAILY@1800 [facility] Potassium Chloride 35 meq/ 400 mls @ 100 mls/hr 03/01/21 14:00 Sodium Chloride 35 meq/ IVCONT 03/01/21 17:59 Magnesium Sulfate 5 meq/ DAILY JULIO Potassium Phosphate 15 mmol/ Calcium Gluconate 4.5 meq/ Amino Acids/Dextrose Levalbuterol HCl 1.25 mg 02/25/21 12:00 02/28/21 15:57 Levalbuterol Hcl 1.25 Mg/0.5 Ml Vial.Neb INHALE 1.25 mg RQ4H WHILE AWAKE JULIO Administration Metoprolol Tartrate 5 mg 02/18/21 09:40 02/24/21 16:27 Metoprolol Tartrate 5 Mg/5 Ml Vial IVPUSH 5 mg Q6H PRN Administration HR > 110 Multi-Ingred Medicated Throat [place] 1 spray 02/19/21 18:08 02/22/21 20:15 Throat [place], Medicated 20 Ml Bottle MUCOUS MEM 1 spray Q2H PRN Administration throat pain Naloxone HCl 0.2 mg 02/23/21 16:58 Naloxone Hcl 0.4 Mg/Ml Vial IVPUSH Q2M PRN Excessive sedation or RR < 8 Pantoprazole Sodium 40 mg 02/28/21 12:45 02/28/21 13:10 Pantoprazole Sodium 40 Mg/10 Ml Vial IVPUSH 40 mg DAILY@0630 [facility] Administration Pharmacy Consult 1 each 02/17/21 15:11 Consult Rx Perform Med Rec MISCELLANE ONCE PRN Consult order Sodium Chloride 3 ml 02/17/21 17:35 02/28/21 15:50 0.9 % Sodium Chloride Flush 3 Ml Syringe IVFLUSH 3 ml QSHIFT [facility] Administration Sodium Chloride 5 ml 02/25/21 15:45 02/28/21 15:50 0.9 % Sodium Chloride Flush 10 Ml Syringe IVFLUSH 5 ml TID JULIO Administration Labs CBC & Chem 7: 02/28/21 06:24 02/28/21 06:23 Microbiology Microbiology Results: Microbiology 02/25/21 13:21 Blood - Venous Blood Culture - Preliminary No growth after 48 hours. 02/25/21 13:21 Blood - Venous Blood Culture - Preliminary No growth after 48 hours. 02/20/21 08:39 Blood - Venous Blood Culture - Final No growth after 5 days. 02/20/21 08:39 Blood - Venous Blood Culture - Final No growth after 5 days. Assessment and Plan (1) Hypokalemia: Status: Acute (2) H/O resection of large bowel: Status: Acute (3) Colostomy in place: Status: Acute (4) Status post Jenna's procedure: Status: Acute (5) Bowel obstruction: Status: Acute (6) HTN (hypertension): Status: Acute (7) Coronary artery disease: Status: Acute Assessment and Plan: 61-year-old male with no prior colonoscopy who presents to the hospital with complaints of diffuse abdominal pain with associated nausea vomiting and changes in his bowel habits over the last several weeks along with poor oral intake. He is diagnosed with colonic obstruction likely secondary to colon cancer. 1.Colonic obstruction due to HIGH GRADE distal sigmoid obstruction patient underwent exploratory lap on 02/23 status post Jenna procedure, status post sigmoid colectomy denies abd pain,is npo ,has Ng in place due to high Ng output , KUB obtained that showed improvement and dilatation of bowels Continue TPN, strongly recommend to completely abstain from drinking water, moderate ostomy output. Encourage out of bed to chair. Will give low-dose Ativan for anxiety, aggressively replace potassium. Case discussed with and daughter at bedside and informed them about Clinical status. 2.Hypokalemia. Potassium dropped to 3.0 will give IV potassium 20 mEq and will add additional potassium and TPN and Follow BMP 3.Supratherapeutic INR. INR remains 1.3 today,Coumadin on hold since npo, con tinue Lovenox as above, hematocrit stable. 4.CAD s/p [place] Acute coronary syndrome ruled out 5.History of CVA, will resume Coumadin once okay with General surgery, hold statin and resume once tolerating po. 6. Leukocytosis: Fluctuating WBC, likely reactive No fever workup for infection negative with normal UA, chest x-ray, abdominal CT does not show sign of infection, blood culture negative hold antibiotic Follow clinical course
[2021-02-28] MEDS: HYDROmorphone HCl 0.5 MG/0.5 ML SYRINGE IVPUSH (17:10)
[2021-02-28] MEDS: Fat Emulsions 20% 250 ML 7 ML IVCONT (18:08)
--- NOTE | 2021-02-28 22:52 | PC.NURSE ---
Addendum entered by Valeria Collier RN 03/01/21 06:29: CRX showed new NG tube is coiled in the fundus. Hospitalist notified - NG tube pulled back. Minimal output throughout most of the night. Hospitalist made aware. Advised to replace NG tube. [employer] at bedside to assist with adjustments and confirm placement, NG tube appears to be in place. New CRX ordered and shows that NG tube is in the stomach. Original Note: Patient noted at 2200 rounds to have pulled out NG tube. Hospitalist notified. New NG tube placed and waiting on chest xray.
[2021-03-01 04:00] VITALS: BP 128/68; PULSE 98; RESP 18; TEMP 36.8; O2SAT 92
[2021-03-01] MEDS: HYDROmorphone HCl 0.5 MG/0.5 ML SYRINGE IVPUSH (04:21)
[2021-03-01] MEDS: Pantoprazole Sodium 40 MG/10 ML VIAL IVPUSH (05:54)
[2021-03-01 06:45] LABS: Basophils Absolute Auto 0.1 X10*3/uL (0.0-0.2); Basophils Percent Auto 0.4 % (0-2); Eosinophils Absolute Auto 0.1 X10*3/uL (0.0-0.4); Eosinophils Percent Auto 0.8 % (0-4); Hematocrit 34.4 % (42-52); Hemoglobin 11.2 g/dl (14.0-18.0); Imm Gran Abs Auto 0.15 X10*3/uL (0.00-0.03); Imm Gran Pct Auto 0.9 % (0.0-0.4); MANUAL DIFF FLAG SCAN; Mean Corpuscular HGB Conc 32.6 g/dl (31.0-36.0); Mean Corpuscular Hemoglobin 31.6 pg (27.0-33.0); Mean Corpuscular Volume 97.2 fL (80-98); Mean Platelet Volume 10.1 fL (9.4-12.4); Monocytes Absolute Auto 1.5 X10*3/uL (0.1-1.2); Neutrophils Absolute Auto 12.9 X10*3/uL (2.0-8.3); Neutrophils Percent Auto 76.9 % (45-73); Platelet Count 359 X10*3/uL (160-400); Red Blood Count 3.54 X10*6/uL (4.60-5.80); Red Cell Distribution Width 14.1 % (11.0-16.0); SCAN SMEAR FLAG 1; White Blood Count 16.7 X10*3/uL (4.8-10.8)
[2021-03-01 07:15] LABS: SLIDE REVIEW VERIFIED
[2021-03-01 07:16] LABS: Anion Gap 14 (12-20); Blood Urea Nitrogen 18 mg/dL (9-16); Calcium 8.3 mg/dL (8.4-10.2); Carbon Dioxide 27 mmol/L (22-29); Chloride 103 mmol/L (96-108); Creatinine Clr Calc Pharmacy 163.5; Estimated Glomerular Filt Rate > 60; Glucose Random 130 mg/dL (60-115); Potassium 3.3 mmol/L (3.3-5.1); Sodium 141 mmol/L (135-145)
[2021-03-01 07:34] VITALS: BP 123/69; PULSE 92; RESP 18; TEMP 36.6; O2SAT 95
--- NOTE | 2021-03-01 09:00 | PM.PNGS ---
Subjective Subjective Date of Service: 03/01/21 Interval history: Patient feels well today. He denies any abdominal pain. Ostomy is working well. Vital signs are within normal limits. White blood cell count is 16.7 other labs are within normal limits. Patient is still on TPN for nutritional support. NG tube output has decreased significantly and was only 100 mL overnight. NG tube output is very clear. Patient denies nausea or vomiting and denies any abdominal bloating. Abdominal x-ray from yesterday showed decrease and bowel gas and the NG tube in the center portion of the stomach. Physical Exam Vital Signs: Vital Signs: Last Vital Signs Temp 97.9 F 03/01/21 07:34 Pulse 92 03/01/21 07:34 Resp 18 03/01/21 07:34 BP 123/69 03/01/21 07:34 Pulse Ox 95 03/01/21 07:34 Body Mass Index 30.5 Const: General: cooperative, healthy appearing, comfortable and no acute distress HENMT: Head: Yes normal to inspection, Yes normocephalic and Yes atraumatic Ears: hearing grossly normal bilaterally Mouth: Normal oral and palatal mucosa present Throat: Yes posterior oropharynx normal Eyes: General: appearance normal, both eyes and all related structures EOM: EOMs intact bilaterally GI: Other: Abdomen is soft nondistended appropriate incisional tenderness. Colostomy in place in left abdomen which is pink and productive of liquid stool. Midline incision is clean dry intact with trevor in place. There is no evidence of erythema or drainage. Inspection: No distended and Yes incision Palpation (GI): Soft to palpation, nontender, no guarding, not rigid, No hepatosplenomegaly present, no hernias and no masses Rectal Exam - Male: Yes deferred Extrem: General: Yes normal to inspection, Yes full ROM, Yes no clubbing, cyanosis or edema and Yes no calf tenderness Psych: Appearance: grossly normal Progress Note: A&P Assessment and plan (1) Status post Jenna's procedure: Status: Acute Assessment and Plan: This is a 61-year-old gentleman on postoperative day 6. Status post Jenna's procedure for obstructing sigmoid colon mass. Patient now with evidence of bowel function return. NG tube output has decreased and ostomy is functioning well. Patient has no abdominal pain and his abdominal distention has resolved. We will clamp the NG tube for 4 hours and recheck the residuals. If residuals are less than 100 mL we will discontinue the NG tube and start clear liquids. Patient encouraged to ambulate in the hallway at least 4 times daily. Continue incentive spirometer use. Continue full dose Lovenox for history of stroke and myocardial infarction recently. Continue TPN for nutritional support and replace electrolytes. Repeat blood work ordered for tomorrow. Fall Risk Details Current Medications: Current Medications Generic Name Dose Route Start Last Admin Trade Name Freq PRN Reason Stop Dose Admin Acetaminophen 650 mg 02/17/21 17:35 Acetaminophen 325 Mg Tablet PO Q6H PRN Pain, Mild (Pain Scale 1-3) Benzocaine 1 lozenge 02/19/21 18:07 02/19/21 18:30 Throat Lozenge, Medicated Lozenge MUCOUS MEM 1 lozenge Q2H PRN Administration Sore Throat Enoxaparin Sodium 50 mg 02/25/21 09:00 Enoxaparin Sodium 60 Mg/0.6 Ml Syringe SUBCUT Q12H JULIO Hydromorphone HCl 0.5 mg 02/25/21 09:12 03/01/21 04:21 Hydromorphone Hcl 0.5 Mg/0.5 Ml Syringe IVPUSH 0.5 mg Q2H PRN Administration Pain, Moderate (Pain Scale 4-6 Potassium Chloride 70 meq/ 2,096 mls @ 100 mls/hr 02/28/21 18:00 02/28/21 17:46 Sodium Chloride 70 meq/ IVCONT 03/01/21 14:00 100 mls/hr Magnesium Sulfate 10 meq/ DAILY@1800 JULIO Administration Potassium Phosphate 30 mmol/ Calcium Gluconate 9.3 meq/ Multivitamins 10 ml/ Trace Metals 1 ml/ Amino Acids/ Dextrose Potassium Chloride 35 meq/ 400 mls @ 100 mls/hr 03/01/21 14:00 Sodium Chloride 35 meq/ IVCONT 03/01/21 17:59 Magnesium Sulfate 5 meq/ DAILY [facility] Potassium Phosphate 15 mmol/ Calcium Gluconate 4.5 meq/ Amino Acids/Dextrose Levalbuterol HCl 1.25 mg 02/25/21 12:00 03/01/21 07:09 Levalbuterol Hcl 1.25 Mg/0.5 Ml Vial.Neb INHALE Not Given RQ4H WHILE AWAKE [facility] Metoprolol Tartrate 5 mg 02/18/21 09:40 02/24/21 16:27 Metoprolol Tartrate 5 Mg/5 Ml Vial IVPUSH 5 mg Q6H PRN Administration HR > 110 Multi-Ingred Medicated Throat [place] 1 spray 02/19/21 18:08 02/28/21 17:12 Throat [place], Medicated 20 Ml Bottle MUCOUS MEM 1 spray Q2H PRN Administration throat pain Naloxone HCl 0.2 mg 02/23/21 16:58 Naloxone Hcl 0.4 Mg/Ml Vial IVPUSH Q2M PRN Excessive sedation or RR < 8 Pantoprazole Sodium 40 mg 02/28/21 12:45 03/01/21 05:54 Pantoprazole Sodium 40 Mg/10 Ml Vial IVPUSH 40 mg DAILY@0630 [facility] Administration Pharmacy Consult 1 each 02/17/21 15:11 Consult Rx Perform Med Rec MISCELLANE ONCE PRN Consult order Sodium Chloride 3 ml 02/17/21 17:35 02/28/21 20:56 0.9 % Sodium Chloride Flush 3 Ml Syringe IVFLUSH 3 ml QSHIFT JULIO Administration Sodium Chloride 5 ml 02/25/21 15:45 02/28/21 20:57 0.9 % Sodium Chloride Flush 10 Ml Syringe IVFLUSH 5 ml TID JULIO Administration Time Spent With Patient Time: Total time spent is greater than 50% in coordination of care (as documented) at patient's floor/unit and/or counseling patient: Time with patient: less than 15 minutes Procedures Date of Service Date of Service: 03/01/21
[2021-03-01 09:34] LABS: Albumin Level 2.8 g/dL (3.5-5.0); Magnesium 2.5 mg/dL (1.6-2.6); Phosphorus 3.7 mg/dL (2.7-4.5)
[2021-03-01] MEDS: 0.9 % Sodium Chloride Flush 3 ML SYRINGE IVFLUSH ×6 (09:43→21:26)
[2021-03-01] MEDS: 0.9 % Sodium Chloride Flush 10 ML SYRINGE 5 ML IVFLUSH ×3 (09:44→21:25)
--- NOTE | 2021-03-01 10:15 | MHC.CLN ---
F/U REVIEWED LABS PT RECEIVING D15 AA5% AT MAX GOAL RATE 100CC/HR WITH 7ML OF 20% LIPIDS TO PROVIDE 1872KCALS (23KCALS/KG BASED ON CMW), 120G PROTEIN (1.5G/KG) S/P SX DISCUSSED WITH PHARMACY; WILL MONITOR BUN CLOSELY REPLETE LYTES NEEDED
[2021-03-01 11:18] VITALS: BP 119/66; PULSE 93; RESP 16; TEMP 37.1; O2SAT 95
[2021-03-01] MEDS: LORazepam 2 MG/ML VIAL 0.25 MG IVPUSH (12:23)
[2021-03-01 15:25] VITALS: BP 125/70; PULSE 89; RESP 20; TEMP 36.8; O2SAT 95
--- NOTE | 2021-03-01 16:01 | PC.NURSE ---
ngtube connected to sxn after being clammped for 4 hrs, no output. Dr Mackenzie notified , ngtube removed per DR andersen. Clear liquid bdiet will be ordered
--- NOTE | 2021-03-01 17:22 | HO.PM.IMPN ---
Subjective Subjective Date of Service: 03/01/21 Interval History: Patient awake alert complaining of discomfort with NG tube noted to have significant decline in NG drainage in last 24 hours, no abdominal pain, no fevers, no other acute issues. ROS General no headache, no dizziness, no fever CVS no chest pain, no palpitation. Respiratory no cough ,no sob. Gastrointestinal no abdominal pain. Physical Exam Vital Signs: Vital Signs: Last Vital Signs Temp 98.3 F 03/01/21 15:25 Pulse 89 03/01/21 15:25 Resp 20 03/01/21 15:25 BP 125/70 03/01/21 15:25 Pulse Ox 95 03/01/21 15:25 Body Mass Index 30.5 General resting comfortably, no acute distress. Neck supple, no JVD. CVS regular rate rhythm, Respiratory lungs clear to auscultation, no respiratory distress, no wheeze, no rhonchi. Gastrointestinal abdomen soft, nontender, midline incision in place, ostomy functioning with dark liquidy stool , NG tube with brown drainage Extremities no clubbing cyanosis or edema. Neuro nonfocal, speech clear. Skin no rash Objective Data Current Medications Generic Name Dose Route Start Last Admin Trade Name Freq PRN Reason Stop Dose Admin Acetaminophen 650 mg 02/17/21 17:35 Acetaminophen 325 Mg Tablet PO Q6H PRN Pain, Mild (Pain Scale 1-3) Benzocaine 1 lozenge 02/19/21 18:07 02/19/21 18:30 Throat Lozenge, Medicated Lozenge MUCOUS MEM 1 lozenge Q2H PRN Administration Sore Throat Enoxaparin Sodium 50 mg 02/25/21 09:00 Enoxaparin Sodium 60 Mg/0.6 Ml Syringe SUBCUT Q12H JULIO Hydromorphone HCl 0.5 mg 02/25/21 09:12 03/01/21 04:21 Hydromorphone Hcl 0.5 Mg/0.5 Ml Syringe IVPUSH 0.5 mg Q2H PRN Administration Pain, Moderate (Pain Scale 4-6 Potassium Chloride 35 meq/ 400 mls @ 100 mls/hr 03/01/21 14:00 03/01/21 14:07 Sodium Chloride 35 meq/ IVCONT 03/01/21 17:59 100 mls/hr Magnesium Sulfate 5 meq/ DAILY JULIO Administration Potassium Phosphate 15 mmol/ Calcium Gluconate 4.5 meq/ Amino Acids/Dextrose Potassium Chloride 70 meq/ 2,094.1048 mls @ 100 mls/hr 03/01/21 18:00 Sodium Chloride 70 meq/ IVCONT 03/02/21 14:57 Magnesium Sulfate 5 meq/ DAILY@1800 [facility] Potassium Phosphate 30 mmol/ Calcium Gluconate 9 meq/ Multivitamins 10 ml/ Trace Metals 1 ml/ Amino Acids/ Dextrose Fat Emulsion Intravenous 84 mls @ 7 mls/hr 03/01/21 18:00 Intralipid IVCONT 03/02/21 05:59 DAILY@1800 [facility] Potassium Chloride 35 meq/ 300 mls @ 100 mls/hr 03/02/21 15:00 Sodium Chloride 35 meq/ IVCONT 03/02/21 17:59 Magnesium Sulfate 2.5 meq/ DAILY@1800 [facility] Potassium Phosphate 15 mmol/ Calcium Gluconate 4.5 meq/ Amino Acids/Dextrose Levalbuterol HCl 1.25 mg 02/25/21 12:00 03/01/21 15:12 Levalbuterol Hcl 1.25 Mg/0.5 Ml Vial.Neb INHALE Not Given RQ4H WHILE AWAKE [facility] Metoprolol Tartrate 5 mg 02/18/21 09:40 02/24/21 16:27 Metoprolol Tartrate 5 Mg/5 Ml Vial IVPUSH 5 mg Q6H PRN Administration HR > 110 Multi-Ingred Medicated Throat [place] 1 spray 02/19/21 18:08 02/28/21 17:12 Throat [place], Medicated 20 Ml Bottle MUCOUS MEM 1 spray Q2H PRN Administration throat pain Naloxone HCl 0.2 mg 02/23/21 16:58 Naloxone Hcl 0.4 Mg/Ml Vial IVPUSH Q2M PRN Excessive sedation or RR < 8 Pantoprazole Sodium 40 mg 02/28/21 12:45 03/01/21 05:54 Pantoprazole Sodium 40 Mg/10 Ml Vial IVPUSH 40 mg DAILY@0630 [facility] Administration Pharmacy Consult 1 each 02/17/21 15:11 Consult Rx Perform Med Rec MISCELLANE ONCE PRN Consult order Sodium Chloride 3 ml 02/17/21 17:35 03/01/21 14:10 0.9 % Sodium Chloride Flush 3 Ml Syringe IVFLUSH 3 ml QSHIFT [facility] Administration Sodium Chloride 5 ml 02/25/21 15:45 03/01/21 14:11 0.9 % Sodium Chloride Flush 10 Ml Syringe IVFLUSH 5 ml TID JULIO Administration Labs CBC & Chem 7: 03/01/21 05:40 03/01/21 05:40 Microbiology Microbiology Results: Microbiology 02/25/21 13:21 Blood - Venous Blood Culture - Preliminary No growth after 48 hours. 02/25/21 13:21 Blood - Venous Blood Culture - Preliminary No growth after 48 hours. 02/20/21 08:39 Blood - Venous Blood Culture - Final No growth after 5 days. 02/20/21 08:39 Blood - Venous Blood Culture - Final No growth after 5 days. Assessment and Plan (1) Hypokalemia: Status: Acute (2) Bowel obstruction: Status: Acute (3) H/O resection of large bowel: Status: Acute (4) Colostomy in place: Status: Acute (5) Status post Jenna's procedure: Status: Acute (6) HTN (hypertension): Status: Acute (7) Coronary artery disease: Status: Acute (8) Current use of anticoagulant therapy: Status: Acute Assessment and Plan: 61-year-old male with no prior colonoscopy who presents to the hospital with complaints of diffuse abdominal pain with associated nausea vomiting and changes in his bowel habits over the last several weeks along with poor oral intake. He is diagnosed with colonic obstruction likely secondary to colon cancer. 1.Colonic obstruction due to HIGH GRADE distal sigmoid obstruction patient underwent exploratory lap on 02/23 status post Jenna procedure, status post sigmoid colectomy denies abd pain,is npo , decreased NG output today, NG tube clamped if continue to have low output, NG will be discontinued and patient will be placed on clear liquid diet case discussed with General surgery Continue TPN, , moderate ostomy output. Encourage out of bed to chair prn Ativan for anxiety. IV Protonix added for GI prophylaxis 2.Hypokalemia. Potassium improved to 3.3, continue additional potassium in TPN and Follow BMP 3.Supratherapeutic INR. Coumadin on hold since npo, hematocrit stable. 4.CAD s/p [place] Acute coronary syndrome ruled out 5.History of CVA, for possible cardio embolic nature of prior CVA patient has been on Coumadin will resume Coumadin once okay with General surgery, hold statin and resume once tolerating po. Continue Lovenox 6. Leukocytosis: Fluctuating WBC, likely reactive No fever workup for infection negative with normal UA, chest x-ray, abdominal CT does not show sign of infection, blood culture negative hold antibiotic Follow clinical course
[2021-03-01] MEDS: Fat Emulsions 20% 250 ML 7 ML IVCONT (18:32)
[2021-03-01 19:39] VITALS: BP 113/63; PULSE 84; RESP 20; TEMP 36.8; O2SAT 95
[2021-03-01 23:25] VITALS: BP 104/63; PULSE 82; RESP 17; TEMP 36.5; O2SAT 93
[2021-03-02 03:04] VITALS: BP 98/62; PULSE 77; RESP 15; TEMP 36.4; O2SAT 94
[2021-03-02 04:49] LABS: CDIFF Ag Negative (Negative); CDIFF Internal ctrl Dots and bkg OK (V); CDiff Toxin Negative (Negative)
[2021-03-02] MEDS: Pantoprazole Sodium 40 MG/10 ML VIAL IVPUSH (05:29)
[2021-03-02 06:28] LABS: Hematocrit 30.6 % (42-52); Hemoglobin 9.9 g/dl (14.0-18.0); Mean Corpuscular HGB Conc 32.4 g/dl (31.0-36.0); Mean Corpuscular Hemoglobin 31.6 pg (27.0-33.0); Mean Corpuscular Volume 97.8 fL (80-98); Mean Platelet Volume 10.2 fL (9.4-12.4); Platelet Count 344 X10*3/uL (160-400); Red Blood Count 3.13 X10*6/uL (4.60-5.80); Red Cell Distribution Width 14.2 % (11.0-16.0); White Blood Count 13.6 X10*3/uL (4.8-10.8)
[2021-03-02 06:55] LABS: Anion Gap 10 (12-20); Blood Urea Nitrogen 16 mg/dL (9-16); Calcium 7.9 mg/dL (8.4-10.2); Carbon Dioxide 26 mmol/L (22-29); Chloride 102 mmol/L (96-108); Creatinine Clr Calc Pharmacy 176.4; Estimated Glomerular Filt Rate > 60; Glucose Random 111 mg/dL (60-115); Magnesium 2.1 mg/dL (1.6-2.6); Phosphorus 3.2 mg/dL (2.7-4.5); Potassium 3.4 mmol/L (3.3-5.1); Sodium 135 mmol/L (135-145)
[2021-03-02 07:36] VITALS: BP 106/55; PULSE 85; RESP 18; TEMP 36.6; O2SAT 93
--- NOTE | 2021-03-02 08:51 | PM.PNGS ---
Subjective Subjective Date of Service: 03/02/21 Interval history: No significant overnight events. NG tube was removed yesterday and clear liquids were started. Patient tolerated clear liquids well without any nausea vomiting. White blood cell count continues to decrease and is now 13 from 16 yesterday. Patient has been out of bed with assistance to ambulate. Ostomy is working well. Physical Exam Vital Signs: Vital Signs: Last Vital Signs Temp 97.9 F 03/02/21 07:36 Pulse 85 03/02/21 07:36 Resp 18 03/02/21 07:36 BP 106/55 L 03/02/21 07:36 Pulse Ox 93 03/02/21 07:36 Body Mass Index 30.5 Const: General: cooperative, healthy appearing, comfortable and no acute distress GI: Other: Soft nondistended mild appropriate incisional tenderness. Incision is clean dry intact without erythema or drainage. Piotr are in place. Ostomy is pink and is functioning and is productive of semi solid stool. Extrem: General: Yes normal to inspection, Yes no clubbing, cyanosis or edema and Yes no calf tenderness Progress Note: A&P Assessment and plan (1) Status post Jenna's procedure: Status: Acute Assessment and Plan: Patient is postop day 7. Status post Jenna's procedure for obstructing sigmoid colon mass. Pathology is still pending. Patient is doing well he is tolerating clear liquid diet. I will advance him to a full liquid diet. If he tolerates full liquid diet today he will be advanced to regular diet tomorrow. We will restart Coumadin today and he will continue with bridging of Lovenox and to Coumadin is therapeutic. Patient should be out of bed to ambulate. Patient will need ostomy teaching for discharge. Fall Risk Details Current Medications: Current Medications Generic Name Dose Route Start Last Admin Trade Name Freq PRN Reason Stop Dose Admin Acetaminophen 650 mg 02/17/21 17:35 Acetaminophen 325 Mg Tablet PO Q6H PRN Pain, Mild (Pain Scale 1-3) Benzocaine 1 lozenge 02/19/21 18:07 02/19/21 18:30 Throat Lozenge, Medicated Lozenge MUCOUS MEM 1 lozenge Q2H PRN Administration Sore Throat Enoxaparin Sodium 50 mg 02/25/21 09:00 Enoxaparin Sodium 60 Mg/0.6 Ml Syringe SUBCUT Q12H JULIO Hydromorphone HCl 0.5 mg 02/25/21 09:12 03/01/21 04:21 Hydromorphone Hcl 0.5 Mg/0.5 Ml Syringe IVPUSH 0.5 mg Q2H PRN Administration Pain, Moderate (Pain Scale 4-6 Potassium Chloride 70 meq/ 2,094.1048 mls @ 100 mls/hr 03/01/21 18:00 03/01/21 18:03 Sodium Chloride 70 meq/ IVCONT 03/02/21 14:57 100 mls/hr Magnesium Sulfate 5 meq/ DAILY@1800 [facility] Administration Potassium Phosphate 30 mmol/ Calcium Gluconate 9 meq/ Multivitamins 10 ml/ Trace Metals 1 ml/ Amino Acids/ Dextrose Potassium Chloride 35 meq/ 300 mls @ 100 mls/hr 03/02/21 15:00 Sodium Chloride 35 meq/ IVCONT 03/02/21 17:59 Magnesium Sulfate 2.5 meq/ DAILY@1800 [facility] Potassium Phosphate 15 mmol/ Calcium Gluconate 4.5 meq/ Amino Acids/Dextrose Levalbuterol HCl 1.25 mg 02/25/21 12:00 03/02/21 07:31 Levalbuterol Hcl 1.25 Mg/0.5 Ml Vial.Neb INHALE Not Given RQ4H WHILE AWAKE [facility] Metoprolol Tartrate 5 mg 02/18/21 09:40 02/24/21 16:27 Metoprolol Tartrate 5 Mg/5 Ml Vial IVPUSH 5 mg Q6H PRN Administration HR > 110 Multi-Ingred Medicated Throat [place] 1 spray 02/19/21 18:08 02/28/21 17:12 Throat [place], Medicated 20 Ml Bottle MUCOUS MEM 1 spray Q2H PRN Administration throat pain Naloxone HCl 0.2 mg 02/23/21 16:58 Naloxone Hcl 0.4 Mg/Ml Vial IVPUSH Q2M PRN Excessive sedation or RR < 8 Pantoprazole Sodium 40 mg 02/28/21 12:45 03/02/21 05:29 Pantoprazole Sodium 40 Mg/10 Ml Vial IVPUSH 40 mg DAILY@0630 [facility] Administration Pharmacy Consult 1 each 02/17/21 15:11 Consult Rx Perform Med Rec MISCELLANE ONCE PRN Consult order Sodium Chloride 3 ml 02/17/21 17:35 03/01/21 21:26 0.9 % Sodium Chloride Flush 3 Ml Syringe IVFLUSH 3 ml QSHIFT JULIO Administration Sodium Chloride 5 ml 02/25/21 15:45 03/01/21 21:25 0.9 % Sodium Chloride Flush 10 Ml Syringe IVFLUSH 5 ml TID JULIO Administration Time Spent With Patient Time: Total time spent is greater than 50% in coordination of care (as documented) at patient's floor/unit and/or counseling patient: Time with patient: less than 15 minutes Procedures Date of Service Date of Service: 03/02/21
[2021-03-02] MEDS: 0.9 % Sodium Chloride Flush 10 ML SYRINGE 5 ML IVFLUSH ×2 (09:25→20:32)
[2021-03-02 11:12] VITALS: BP 111/68; PULSE 74; RESP 18; TEMP 37.3; O2SAT 95
--- NOTE | 2021-03-02 11:12 | MHC.CLN ---
F/U TPN D/C; DISCUSSED WITH MD DURING ROUNDS DIET RX: F/L ADVANCING PER MD PT TOLERATING F/L DIET RECOMMEND ADDING ENSURE TID TO PROVIDE 1050KCALS, 60G PROTEIN R/T INCREASED NUTRITION NEEDS MONITOR PO INTAKE, N/V AND DIET TOLERANCE FOLLOWING
--- NOTE | 2021-03-02 15:09 | P.PNIM_ITS ---
Subjective Subjective Date of Service: 03/02/21 Interval History: Patient feeling better tolerating clear liquid diet, denies abdominal pain, no nausea no vomiting, is legally blind therefore difficulty to learn colostomy care. ROS General no headache, no dizziness, no fever CVS no chest pain, no palpitation. Respiratory no cough ,no sob. Gastrointestinal , no nausea, no vomiting, no abdominal pain. Physical Exam Vital Signs: Vital Signs: Last Vital Signs Temp 99.1 F 03/02/21 11:12 Pulse 74 03/02/21 11:12 Resp 18 03/02/21 11:12 BP 111/68 03/02/21 11:12 Pulse Ox 95 03/02/21 11:12 Body Mass Index 30.5 General resting comfortably, no acute distress. Neck supple, no JVD. CVS regular rate rhythm, Respiratory lungs clear to auscultation, no respiratory distress, no wheeze, no rhonchi. Gastrointestinal abdomen soft, nontender, midline incision in place, ostomy functioning with dark liquidy stool Extremities no clubbing cyanosis or edema. Neuro nonfocal, speech clear. Skin no rash Objective Data Current Medications Generic Name Dose Route Start Last Admin Trade Name Freq PRN Reason Stop Dose Admin Acetaminophen 650 mg 02/17/21 17:35 Acetaminophen 325 Mg Tablet PO Q6H PRN Pain, Mild (Pain Scale 1-3) Benzocaine 1 lozenge 02/19/21 18:07 02/19/21 18:30 Throat Lozenge, Medicated Lozenge MUCOUS MEM 1 lozenge Q2H PRN Administration Sore Throat Enoxaparin Sodium 50 mg 02/25/21 09:00 Enoxaparin Sodium 60 Mg/0.6 Ml Syringe SUBCUT Q12H JULIO Potassium Chloride 35 meq/ 300 mls @ 100 mls/hr 03/02/21 15:00 Sodium Chloride 35 meq/ IVCONT 03/02/21 17:59 Magnesium Sulfate 2.5 meq/ DAILY@1800 JULIO Potassium Phosphate 15 mmol/ Calcium Gluconate 4.5 meq/ Amino Acids/Dextrose Levalbuterol HCl 1.25 mg 02/25/21 12:00 03/02/21 15:05 Levalbuterol Hcl 1.25 Mg/0.5 Ml Vial.Neb INHALE Not Given RQ4H WHILE AWAKE [facility] Metoprolol Tartrate 5 mg 02/18/21 09:40 02/24/21 16:27 Metoprolol Tartrate 5 Mg/5 Ml Vial IVPUSH 5 mg Q6H PRN Administration HR > 110 Multi-Ingred Medicated Throat [place] 1 spray 02/19/21 18:08 02/28/21 17:12 Throat [place], Medicated 20 Ml Bottle MUCOUS MEM 1 spray Q2H PRN Administration throat pain Naloxone HCl 0.2 mg 02/23/21 16:58 Naloxone Hcl 0.4 Mg/Ml Vial IVPUSH Q2M PRN Excessive sedation or RR < 8 Oxycodone HCl 5 mg 03/02/21 08:55 Oxycodone Hcl Immed Release 5 Mg Tablet PO Q3H PRN Pain, Moderate (Pain Scale 4-6 Oxycodone HCl 10 mg 03/02/21 08:56 Oxycodone Hcl Immed Release 5 Mg Tablet PO Q3H PRN Pain, Severe (Pain Scale 7-10) Pantoprazole Sodium 40 mg 02/28/21 12:45 03/02/21 05:29 Pantoprazole Sodium 40 Mg/10 Ml Vial IVPUSH 40 mg DAILY@0630 [facility] Administration Pharmacy Consult 1 each 02/17/21 15:11 Consult Rx Perform Med Rec MISCELLANE ONCE PRN Consult order Sodium Chloride 3 ml 02/17/21 17:35 03/01/21 21:26 0.9 % Sodium Chloride Flush 3 Ml Syringe IVFLUSH 3 ml QSHIFT [facility] Administration Sodium Chloride 5 ml 02/25/21 15:45 03/02/21 09:25 0.9 % Sodium Chloride Flush 10 Ml Syringe IVFLUSH 5 ml TID [facility] Administration Labs CBC & Chem 7: 03/02/21 05:29 03/02/21 05:29 Microbiology Microbiology Results: Microbiology 02/25/21 13:21 Blood - Venous Blood Culture - Preliminary No growth after 48 hours. 02/25/21 13:21 Blood - Venous Blood Culture - Preliminary No growth after 48 hours. 02/20/21 08:39 Blood - Venous Blood Culture - Final No growth after 5 days. 02/20/21 08:39 Blood - Venous Blood Culture - Final No growth after 5 days. Assessment and Plan (1) Hypokalemia: Status: Acute (2) Bowel obstruction: Status: Acute (3) H/O resection of large bowel: Status: Acute (4) Colostomy in place: Status: Acute (5) Status post Jenna's procedure: Status: Acute (6) HTN (hypertension): Status: Acute (7) Coronary artery disease: Status: Acute Assessment and Plan: 61-year-old male with no prior colonoscopy who presents to the hospital with complaints of diffuse abdominal pain with associated nausea vomiting and changes in his bowel habits over the last several weeks along with poor oral intake. He is diagnosed with colonic obstruction likely secondary to colon cancer. 1.Colonic obstruction due to HIGH GRADE distal sigmoid obstruction patient underwent exploratory lap on 02/23 status post Jenna procedure, status post sigmoid colectomy Feeling better this am, denies abd pain, tolerating clear liquid diet Case discussed with general surgeon, diet advanced to full liquids will dc TPN,add supplements Encourage out of bed to chair prn Ativan for anxiety. dc IV Protonix and change to oral ppiadded for GI prophylaxis Pathology report from colon resection pending, outpatient follow-up with General surgery for treatment options depending on pathology report. 2.Hypokalemia. Potassium improved to 3.4. 3.Supratherapeutic INR. Coumadin on hold since npo, hematocrit stable. 4.CAD s/p [place] Acute coronary syndrome ruled out 5.History of CVA, for possible cardio embolic nature of prior CVA patient has b een on Coumadin will resume Coumadin since okay with Dr. Adams, hold statin and resume once tolerating regular. Continue Lovenox. 6. Leukocytosis: Fluctuating WBC, likely reactive No fever workup for infection negative with normal UA, chest x-ray, abdominal CT does not show sign of infection, blood culture negative hold antibiotic stable clinical course 7. Disposition to rehab facility tomorrow
[2021-03-02 15:29] VITALS: BP 107/61; PULSE 76; RESP 19; TEMP 37.5; O2SAT 94
--- NOTE | 2021-03-02 15:45 | MHC.CM.PN ---
met with pt and s/o amos updated them on bed search and anticipation of dc tomorrow to [facility] awaiting ins auth
[2021-03-02] MEDS: Warfarin Sodium 6 MG TABLET PO (17:58)
[2021-03-02 19:10] VITALS: BP 100/57; PULSE 73; RESP 18; TEMP 37.1; O2SAT 94
[2021-03-02] MEDS: 0.9 % Sodium Chloride Flush 3 ML SYRINGE IVFLUSH (20:30)
[2021-03-02 23:26] VITALS: BP 107/55; PULSE 79; RESP 18; TEMP 37.4; O2SAT 92
[2021-03-03 04:00] VITALS: BP 120/70; PULSE 81; RESP 18; TEMP 36.9; O2SAT 92
[2021-03-03] MEDS: Omeprazole 20 MG CAPSULE.DR PO (05:55)
[2021-03-03 06:22] LABS: MANUAL DIFF FLAG NO
[2021-03-03 06:44] LABS: Basophils Absolute Auto 0.1 X10*3/uL (0.0-0.2); Basophils Percent Auto 0.6 % (0-2); Eosinophils Absolute Auto 0.3 X10*3/uL (0.0-0.4); Eosinophils Percent Auto 2.8 % (0-4); Hematocrit 30.5 % (42-52); Hemoglobin 10.1 g/dl (14.0-18.0); INTERNATIONAL NORM RATIO 1.3 (0.9-1.1); Imm Gran Abs Auto 0.11 X10*3/uL (0.00-0.03); Lymphocytes Absolute Auto 2.1 X10*3/uL (1.2-4.9); Lymphocytes Percent Auto 19.8 % (20-40); Mean Corpuscular HGB Conc 33.1 g/dl (31.0-36.0); Mean Corpuscular Hemoglobin 31.7 pg (27.0-33.0); Mean Corpuscular Volume 95.6 fL (80-98); Mean Platelet Volume 10.3 fL (9.4-12.4); Monocytes Absolute Auto 1.2 X10*3/uL (0.1-1.2); Monocytes Percent Auto 10.8 % (2-11); Platelet Count 375 X10*3/uL (160-400); Red Blood Count 3.19 X10*6/uL (4.60-5.80); Red Cell Distribution Width 13.9 % (11.0-16.0); White Blood Count 10.8 X10*3/uL (4.8-10.8)
[2021-03-03 06:57] LABS: Anion Gap 12 (12-20); Blood Urea Nitrogen 11 mg/dL (9-16); Calcium 8.1 mg/dL (8.4-10.2); Carbon Dioxide 23 mmol/L (22-29); Chloride 102 mmol/L (96-108); Creatinine Clr Calc Pharmacy 169.7; Estimated Glomerular Filt Rate > 60; Glucose Random 82 mg/dL (60-115); Potassium 3.5 mmol/L (3.3-5.1); Sodium 133 mmol/L (135-145)
[2021-03-03 07:29] VITALS: BP 108/71; PULSE 79; RESP 18; TEMP 37; O2SAT 94
--- NOTE | 2021-03-03 07:54 | PM.PNGS ---
Subjective Subjective Date of Service: 03/03/21 Interval history: Patient sleepy but denies abdominal pain, nausea or vomiting. Tolerating liquid diet Physical Exam Vital Signs: Vital Signs: Last Vital Signs Temp 98.6 F 03/03/21 07:29 Pulse 79 03/03/21 07:29 Resp 18 03/03/21 07:29 BP 108/71 03/03/21 07:29 Pulse Ox 94 03/03/21 07:29 Body Mass Index 30.5 Const: General: comfortable and no acute distress Nutritional Appearance: thin Orientation/consciousness: patient oriented x3 Resp: Effort & Inspection: normal respiratory effort and no cough Auscultation: no rhonchi and no wheezes GI: Other: ostomy viable and functioning Inspection: Yes normal to inspection Palpation (GI): Soft to palpation, nontender, no guarding and not rigid Skin: General skin exam: no rashes or lesions noted Neuro: General: patient oriented x3 Extrem: General: No edema Progress Note: A&P Assessment and plan (1) Status post Jenna's procedure: Status: Acute Assessment and Plan: S/P Hartmans procedure. 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 - Multiple reactive appearing lymph nodes. - No malignancy identified. COMMENT: The fistula tract is contiguous with the fibrous adhesions, which raises the possibility of perforation with associated inflammatory reaction. He is tolerating full liquid diet; will advance to a regular low residue diet today. Colostomy teaching and OOB and ambulation. Discharge planning. Fall Risk Details Current Medications: Current Medications Generic Name Dose Route Start Last Admin Trade Name Freq PRN Reason Stop Dose Admin Acetaminophen 650 mg 02/17/21 17:35 Acetaminophen 325 Mg Tablet PO Q6H PRN Pain, Mild (Pain Scale 1-3) Benzocaine 1 lozenge 02/19/21 18:07 02/19/21 18:30 Throat Lozenge, Medicated Lozenge MUCOUS MEM 1 lozenge Q2H PRN Administration Sore Throat Enoxaparin Sodium 50 mg 02/25/21 09:00 Enoxaparin Sodium 60 Mg/0.6 Ml Syringe SUBCUT Q12H JULIO Levalbuterol HCl 1.25 mg 02/25/21 12:00 03/03/21 07:22 Levalbuterol Hcl 1.25 Mg/0.5 Ml Vial.Neb INHALE Not Given RQ4H WHILE AWAKE JULIO Metoprolol Tartrate 5 mg 02/18/21 09:40 02/24/21 16:27 Metoprolol Tartrate 5 Mg/5 Ml Vial IVPUSH 5 mg Q6H PRN Administration HR > 110 Multi-Ingred Medicated Throat [place] 1 spray 02/19/21 18:08 02/28/21 17:12 Throat [place], Medicated 20 Ml Bottle MUCOUS MEM 1 spray Q2H PRN Administration throat pain Naloxone HCl 0.2 mg 02/23/21 16:58 Naloxone Hcl 0.4 Mg/Ml Vial IVPUSH Q2M PRN Excessive sedation or RR < 8 Omeprazole 20 mg 03/03/21 06:30 03/03/21 05:55 Omeprazole 20 Mg Capsule.Dr PO 20 mg DAILY@0630 JULIO Administration Oxycodone HCl 5 mg 03/02/21 08:55 Oxycodone Hcl Immed Release 5 Mg Tablet PO Q3H PRN Pain, Moderate (Pain Scale 4-6 Oxycodone HCl 10 mg 03/02/21 08:56 Oxycodone Hcl Immed Release 5 Mg Tablet PO Q3H PRN Pain, Severe (Pain Scale 7-10) Pharmacy Consult 1 each 02/17/21 15:11 Consult Rx Perform Med Rec MISCELLANE ONCE PRN Consult order Sodium Chloride 3 ml 02/17/21 17:35 03/02/21 20:30 0.9 % Sodium Chloride Flush 3 Ml Syringe IVFLUSH 3 ml QSHIFT JULIO Administration Sodium Chloride 5 ml 02/25/21 15:45 03/02/21 20:32 0.9 % Sodium Chloride Flush 10 Ml Syringe IVFLUSH 5 ml TID JULIO Administration Warfarin Sodium 6 mg 03/02/21 18:00 03/02/21 17:58 Warfarin Sodium 6 Mg Tablet PO 6 mg DAILY@1800 JULIO Administration Time Spent With Patient Time: Total time spent is greater than 50% in coordination of care (as documented) at patient's floor/unit and/or counseling patient: Time with patient: 15 - 24 minutes Procedures Date of Service Date of Service: 03/03/21
[2021-03-03 08:29] LABS: Cholesterol 101 mg/dL; Triglycerides 119 mg/dL
[2021-03-03 08:55] LABS: HDL Cholesterol 13 mg/dL; LDL Cholesterol Calculated 65 mg/dl
[2021-03-03 11:08] VITALS: BP 127/71; PULSE 78; RESP 18; TEMP 36.4; O2SAT 95
[2021-03-03] MEDS: 0.9 % Sodium Chloride Flush 10 ML SYRINGE 5 ML IVFLUSH (11:34)
[2021-03-03] MEDS: 0.9 % Sodium Chloride Flush 3 ML SYRINGE IVFLUSH (11:34)
--- NOTE | 2021-03-03 12:07 | MHC.CM.PN ---
Addendum entered by Emma Maciel 03/03/21 12:09: [facility] also requesting ostomy supplies be sent with pt as they will not have them available immediately. Request passed to pts nurse. Original Note: CM informed [facility] had received auth from [facility] [place] to be admitted to them for STR. [facility] liaison requested a HCP be completed for pt which was done. Pt name his s/o, Little as his agent. CM spoke to Little who reports she will bring pts clothes to the SNF. Pt will be transported via BLS. Pt will DC to [facility] today at 1330 hours via BLS
--- NOTE | 2021-03-03 12:33 | PM.DS ---
DS: Providers Provider Date of Service: 03/03/21 Date of admission: 02/17/21 13:42 Primary care physician: Sanjay Cline MD Consults: 02/24/21 11:22 Consult to Infectious Diseases Routine Consulting Provider: Angie Austin Reason for consultation: Leucocytosis Has provider been notified: No DS: Diagnosis Discharge Diagnosis (1) Status post Jenna's procedure: Status: Acute Problem details: Leukocytosis new Would check blood culture ?fungus Rx Caspofungin if fungus or worsens DS: Medications Discharge Medications Home Medications: Home Medications Medication Instructions Recorded Confirmed melatonin 5 mg tablet 5 mg PO DAILY PRN 01/07/21 02/17/21 Previous Rx's Medication Instructions Recorded warfarin 7.5 mg tablet 7.5 mg PO DAILY #30 tab 02/04/21 acetaminophen 650 mg PO Q6H PRN #30 tab 03/03/21 omeprazole 20 mg PO DAILY@0630 #30 cap 03/03/21 sertraline 50 mg PO DAILY #0 tab 03/03/21 DS: Summary Hospital Course Hospital Course: Date of Service: 02/17/21 Chief Complaint: abdominal pain, nausea, vomiting This is a 61-year-old male who is not the best of historians (due to prior stroke) with a past medical history of CVA and MA, on Coumadin who presents to the hospital with complaints of progressive abdominal pain with associated nausea and nonbloody/nonbilious vomiting over the last 2 weeks. He also endorses changes in bowel habit with intermittent diarrhea followed by constipation. He reports his last bowel movement as this AM. He reports passing flatus at this time. He denies any bleeding. He reports a decrease in appetite over these last few weeks as well. No fevers or chills reported. He denies having a colonoscopy in the past. He endorses that his sister was diagnosed with colon cancer in her 50s. Upon arrival to the emergency room, his workup which included a CT scan of the abdomen and pelvis revealed sigmoid colon obstruction with a soft tissue mass which is suspicious for colon carcinoma. Dilated loops of small and large bowel are also present. His blood work revealed an INR greater than 18. In regards to this elevated INR -- I spoke with his significant other Little Zamancipriano who states that she gives him ALL his medications and he has missed a few days due to his abdominal symptoms. Hospital course Colonic obstruction due to HIGH GRADE distal sigmoid obstruction 61-year-old male with no prior colonoscopy who presents to the hospital with complaints of diffuse abdominal pain with associated nausea vomiting and changes in his bowel habits over the last several weeks along with poor oral intake, CT abdomen showedColonic obstruction due to HIGH GRADE distal sigmoid obstruction patient underwent exploratory lap on 02/23 status post Jenna procedure, status post sigmoid colectomy, postprocedure patient developed ileus and hypokalemia therefore placed on TPN, now patient is tolerating regular diet, TPN has been discontinued due to low albumin patient has been placed on Ensure supplements at present patient has no abdominal pain ileostomy is functioning well pathology from bowel resection showed no malignancy, it showed 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 Adams for removal of trevor there is mild serosanguineous drainage from lower incision continue daily dressing. Patient had leukocytosis now normalized was likely due to abdominal infection. Hypokalemia. Due to nasogastric drainage resolved History of CVA with possible cardioembolic nature of prior CVA patient is on Coumadin initially noted to have supratherapeutic INR due to surgery patient Coumadin was held and was treated with Lovenox b.i.d. since now patient is tolerating diet he has been placed on Coumadin follow PT INR closely with goal of INR 2-3 History of CAD s/p MA blood pressure and low cholesterol therefore statins and beta-camden held that can be resumed once BP allows follow lipid profile in 3 months Time Spent with Patient Time attestation: Total time spent providing and/or coordinating discharge services: Discharge coordination time: Greater than 30 minutes Quality: Stroke Does the patient have a stroke diagnosis?: No Physical Exam Vital Signs: Vital Signs: Last Vital Signs Temp 97.5 F 03/03/21 11:08 Pulse 78 03/03/21 11:08 Resp 18 03/03/21 11:08 BP 127/71 03/03/21 11:08 Pulse Ox 95 03/03/21 11:08 Body Mass Index 30.5 General resting comfortably, no acute distress, legally blind. Neck supple, no JVD. CVS regular rate rhythm, Respiratory lungs clear to auscultation, no respiratory distress, no wheeze, no rhonchi. Gastrointestinal abdomen soft, nontender, midline incision in place, minimal serosanguineous drainage from incision site, ostomy functioning with dark liquidy stool Extremities no clubbing cyanosis or edema. Neuro nonfocal, speech clear. Skin no rash DS: Data Data Completed and Pending Completed studies during hospitalization [Text1]: Pending at discharge 02/23/21 17:08 Surgical [PTH] Routine Labs on day of discharge: Laboratory Results - last 24 hr 03/03/21 03/03/21 03/03/21 05:17 05:17 05:17 WBC 10.8 RBC 3.19 L Hgb 10.1 L Hct 30.5 L MCV 95.6 MCH 31.7 MCHC 33.1 RDW 13.9 Plt Count 375 MPV 10.3 Immature Gran % (Auto) 1.0 H Neut % (Auto) 65.0 Lymph % (Auto) 19.8 L [place] % (Auto) 10.8 Eos % (Auto) 2.8 Baso % (Auto) 0.6 Lymph # (Auto) 2.1 [place] # (Auto) 1.2 Eos # (Auto) 0.3 Baso # (Auto) 0.1 Abs Immat Gran (auto) 0.11 H Absolute Neuts (auto) 7.0 Absolute Nucleated RBC 0.000 Nucleated RBC % (auto) 0.0 PT 16.0 H INR 1.3 H Sodium 133 L Potassium 3.5 Chloride 102 Carbon Dioxide 23 Anion Gap 12 BUN 11 Creatinine 0.53 Estim Creat Clear Calc 169.7 Estimated GFR > 60 Random Glucose 82 Calcium 8.1 L Triglycerides 119 Cholesterol 101 D LDL Cholesterol, Calc 65 HDL Cholesterol 13 D Discharge Plan Discharge Patient Disposition: Xfer [facility] Discharge Diagnosis: Colonic obstruction a status post Jenna procedure and sigmoid colectomy Supratherapeutic INR Hypokalemia Leukocytosis Referrals: [facility] [Outside] - 1 Week Sanjay Cline MD [Primary Care Provider] - 1 Week Discharge Medications: New acetaminophen 325 mg Tablet 650 mg PO Q6H PRN (Reason: Pain, Mild (Pain Scale 1-3)) Qty: 30 RF: 0 omeprazole 20 mg Capsule,Delayed Release(Dr/Ec) 20 mg PO DAILY@0630 Qty: 30 RF: 0 Continued warfarin 7.5 mg tablet 7.5 mg PO DAILY Qty: 30 RF: 11 melatonin 5 mg tablet 5 mg PO DAILY PRN (Reason: insomnia) RF: 0 Changed sertraline 100 mg tablet 50 mg PO DAILY Qty: 0 RF: 0 Discontinued metoprolol tartrate 25 mg tablet 25 mg PO BID Qty: 60 RF: 2 atorvastatin 80 mg tablet 80 mg PO DAILY Qty: 30 RF: 2 zolpidem 5 mg tablet 5 mg PO BEDTIME 30 Days Qty: 30 RF: 0 gabapentin 300 mg capsule 300 mg PO BID RF: 0 Discharge Orders: Discharge Order (Routine); Ordered 03/03/21 Ordered By: Kirill Suero Diet: low fat, low cholesterol Activity on Discharge: As tolerated Stand Alone Forms: Patient Portal Discharge page Care Plan Goals: Colonic obstruction, status post Jenna procedure and sigmoid colectomy pathology showed diverticular disease and no malignancy concern for cardioembolic nature of prior CVA patient is on Coumadin follow PT INR closely with INR goal 2-3 Continue regular diet with Ensure supplements Leukocytosis resolved pt/inr at am and daily x 3 days restarted on coumadin 03/02/21 Health Concerns: History of stroke, LDL 65 will hold Lipitor recheck lipid profile in next 3 months and resume statins if noted to have elevated cholesterol and LDL History of hypertension metoprolol on hold due to soft blood pressure Plan of Treatment: Outpatient follow-up with surgery Dr. Adams in 1 week for removal of sutures and follow up. Assessment: As above
[2021-03-03 13:29] LABS: COVID-19 Test Negative (Negative)
--- NOTE | 2021-03-03 13:30 | HO.PICC ---
PICC Line Insertion PICC REMOVAL 1. DATE: 03/03/21 2. REASON: PER REQUEST, NO LONGER NEEDED 3. INSERTED: 5-PAKISTANI TRIPLE LUMEN 40 CM PICC TO RUE 4. REMOVED: FUNCTIONAL, INTACT 5-PAKISTANI TRIPLE LUMEN 40 CM PICC FROM RUE. 5. NO NOTED SWELLING/BLEEDING. PT DENIES COMPLAINTS. GAUZE/TEGADERM DRESSING APPLIED.
--- NOTE | 2021-03-03 13:30 | P.PICC_ITS ---
PICC Line Insertion PICC REMOVAL 1. DATE: 03/03/21 2. REASON: PER REQUEST, NO LONGER NEEDED 3. INSERTED: 5-MALDIVIAN TRIPLE LUMEN 40 CM PICC TO RUE 4. REMOVED: FUNCTIONAL, INTACT 5-MALDIVIAN TRIPLE LUMEN 40 CM PICC FROM RUE. 5. NO NOTED SWELLING/BLEEDING. PT DENIES COMPLAINTS. GAUZE/TEGADERM DRESSING APPLIED.
== END 2021-03-03 14:04 | disposition skilled nursing facility (03) | DRG 231 ==
LOC: HO.ED 13:11 → HO.EDOVER 14:14 → HO.IMC 16:34
PROVIDERS: Internal Medicine; Nurse Practitioner Acute Care; Surgery; Admitting Provider Family Medicine; Emergency Provider Emergency Medicine; PCP Internal Medicine; Visit Provider Hospitalist
PROC: 0DJD8ZZ Inspection of Lower Intestinal Tract, Via Natural or Artificial Opening Endoscopic (ICD-10-PCS; CPT 45330; principal; 2021-02-18 15:30)
PROC: 0D1M0Z4 Bypass Descending Colon to Cutaneous, Open Approach (ICD-10-PCS; principal; 2021-02-23 14:40)
DX: K57.20 Diverticulitis of large intestine with perforation and abscess without bleeding (principal); K56.2 Volvulus; K63.2 Fistula of intestine; D72.829 Elevated white blood cell count, unspecified; E87.6 Hypokalemia; R79.1 Abnormal coagulation profile; F17.210 Nicotine dependence, cigarettes, uncomplicated; I10 Essential (primary) hypertension; I25.2 Old myocardial infarction; I25.10 Atherosclerotic heart disease of native coronary artery without angina pectoris; K66.0 Peritoneal adhesions (postprocedural) (postinfection); K64.8 Other hemorrhoids; K56.7 Ileus, unspecified; J98.11 Atelectasis; Z20.822 Contact with and (suspected) exposure to COVID-19; Z86.73 Personal history of transient ischemic attack (TIA), and cerebral infarction without residual deficits; Z71.6 Tobacco abuse counseling; Z79.01 Long term (current) use of anticoagulants; Z79.899 Other long term (current) drug therapy
CPT/HCPCS: 36415; 36573; 71045; 74018; 74021; 74177; 80048; 80061; 80076; 82040; 82378; 83615; 83690; 83735; 84100; 84132; 84478; 84484; 85007; 85025; 85027; 85610; 85730; 86850; 86900; 86901; 87040; 87324; 87449; 87635; 88307; 88342; 93005; 94640; 96365; 96375; 97116; 97162; 97530; 99024; 99285; C1751; J0131; J0610; J1100; J1170; J1650; J2060; J2250; J2270; J2405; J3010; J3430; J3475; Q9967; Q9968

== ENCOUNTER 2021-03-04 05:03 | Outpatient (REF) | payer OTHER, SELFPAY ==
[2021-03-04 05:15] LABS: Hematocrit 29.4 % (42-52); Hemoglobin 9.9 g/dl (14.0-18.0); Mean Corpuscular HGB Conc 33.7 g/dl (31.0-36.0); Mean Corpuscular Hemoglobin 31.8 pg (27.0-33.0); Mean Corpuscular Volume 94.5 fL (80-98); Mean Platelet Volume 10.2 fL (9.4-12.4); Platelet Count 401 X10*3/uL (160-400); Red Blood Count 3.11 X10*6/uL (4.60-5.80); White Blood Count 8.9 X10*3/uL (4.8-10.8)
[2021-03-04 05:24] LABS: INTERNATIONAL NORM RATIO 1.3 (0.9-1.1); Prothrombin Time 15.5 SEC (10.8-13.0)
[2021-03-04 05:49] LABS: Alanine Aminotransferase 247 U/L (0-40); Albumin Level 2.4 g/dL (3.5-5.0); Alkaline Phosphatase 102 U/L (39-117); Anion Gap 11 (12-20); Aspartate Amino Transferase 80 U/L (5-37); Bilirubin Total 0.3 mg/dL (0.0-1.0); Blood Urea Nitrogen 9 mg/dL (9-16); Calcium 8.1 mg/dL (8.4-10.2); Carbon Dioxide 24 mmol/L (22-29); Chloride 104 mmol/L (96-108); Estimated Glomerular Filt Rate > 60; Glucose Random 113 mg/dL (60-115); Potassium 3.5 mmol/L (3.3-5.1); Sodium 135 mmol/L (135-145); Total Protein 5.1 g/dL (6.5-8.0)
== END 2021-03-04 05:04 | disposition home or self-care (01) ==
LOC: HO.MMNH1L 05:03
PROVIDERS: Visit Provider Family Medicine
DX: I63.9 Cerebral infarction, unspecified (principal)
CPT/HCPCS: 36415; 80053; 85027; 85610

== ENCOUNTER 2021-03-08 | Outpatient (REF) | payer OTHER, SELFPAY ==
[2021-03-08 07:16] LABS: Hematocrit 32.5 % (42-52); Hemoglobin 10.4 g/dl (14.0-18.0); Mean Corpuscular Hemoglobin 31.2 pg (27.0-33.0); Mean Corpuscular Volume 97.6 fL (80-98); Mean Platelet Volume 10.4 fL (9.4-12.4); Platelet Count 570 X10*3/uL (160-400); Red Blood Count 3.33 X10*6/uL (4.60-5.80); White Blood Count 7.4 X10*3/uL (4.8-10.8)
[2021-03-08 07:24] LABS: INTERNATIONAL NORM RATIO 1.5 (0.9-1.1); Prothrombin Time 17.3 SEC (10.8-13.0)
[2021-03-08 07:31] LABS: Anion Gap 12 (12-20); Blood Urea Nitrogen 8 mg/dL (9-16); Calcium 8.6 mg/dL (8.4-10.2); Carbon Dioxide 29 mmol/L (22-29); Chloride 104 mmol/L (96-108); Estimated Glomerular Filt Rate > 60; Glucose Random 110 mg/dL (60-115); Potassium 3.8 mmol/L (3.3-5.1); Sodium 141 mmol/L (135-145)
== END 2021-03-08 00:01 | disposition home or self-care (01) ==
LOC: HO.MMNH1L
PROVIDERS: Visit Provider Family Medicine
DX: I21.9 Acute myocardial infarction, unspecified (principal); Z86.73 Personal history of transient ischemic attack (TIA), and cerebral infarction without residual deficits
CPT/HCPCS: 36415; 80048; 85027; 85610

== ENCOUNTER → 2021-03-10 10:21 | Outpatient (BNVA) | payer OTHER, SELFPAY | PROVIDERS: PCP Internal Medicine; Visit Provider Surgery | DX: Z93.3 Colostomy status (principal) | CPT/HCPCS: 99212 ==

== ENCOUNTER 2021-03-11 09:07 | Outpatient (REF) | payer OTHER, SELFPAY ==
[2021-03-11 09:20] LABS: INTERNATIONAL NORM RATIO 1.7 (0.9-1.1); Prothrombin Time 19.7 SEC (10.8-13.0)
== END 2021-03-11 09:08 | disposition home or self-care (01) ==
LOC: HO.MMNH1L 09:07
PROVIDERS: Visit Provider Family Medicine
DX: I48.91 Unspecified atrial fibrillation (principal)
CPT/HCPCS: 36415; 85610

== ENCOUNTER 2021-03-14 00:47 | Outpatient (REF) | payer OTHER, SELFPAY ==
[2021-03-14 07:44] LABS: INTERNATIONAL NORM RATIO 2.1 (0.9-1.1); Prothrombin Time 24.8 SEC (10.8-13.0)
[2021-03-14 07:49] LABS: Hematocrit 32.4 % (42-52); Hemoglobin 10.5 g/dl (14.0-18.0); Mean Corpuscular HGB Conc 32.4 g/dl (31.0-36.0); Mean Corpuscular Hemoglobin 31.3 pg (27.0-33.0); Mean Corpuscular Volume 96.4 fL (80-98); Mean Platelet Volume 10.2 fL (9.4-12.4); Platelet Count 505 X10*3/uL (160-400); Red Blood Count 3.36 X10*6/uL (4.60-5.80); Red Cell Distribution Width 15.5 % (11.0-16.0); White Blood Count 8.7 X10*3/uL (4.8-10.8)
[2021-03-14 08:12] LABS: Anion Gap 13 (12-20); Blood Urea Nitrogen 10 mg/dL (9-16); Calcium 8.3 mg/dL (8.4-10.2); Carbon Dioxide 26 mmol/L (22-29); Chloride 106 mmol/L (96-108); Estimated Glomerular Filt Rate > 60; Glucose Random 90 mg/dL (60-115); Sodium 141 mmol/L (135-145)
== END 2021-03-14 00:48 | disposition home or self-care (01) ==
LOC: HO.MMNH1L 00:47
PROVIDERS: Visit Provider Family Medicine
DX: I63.9 Cerebral infarction, unspecified (principal)
CPT/HCPCS: 36415; 80048; 85027; 85610

== ENCOUNTER → 2021-03-18 14:29 | Outpatient (BNVA) | payer OTHER, SELFPAY | PROVIDERS: PCP Internal Medicine; Visit Provider Internal Medicine | DX: Z86.73 Personal history of transient ischemic attack (TIA), and cerebral infarction without residual deficits (principal); Z51.81 Encounter for therapeutic drug level monitoring; Z79.01 Long term (current) use of anticoagulants | CPT/HCPCS: 85610; 99212 ==

== ENCOUNTER 2021-03-21 00:25 | Outpatient (REF) | payer OTHER, SELFPAY | END 2021-03-21 00:26 | disposition home or self-care (01) | LOC: HO.MMNH1L 00:25 | PROVIDERS: Visit Provider Family Medicine | DX: I63.9 Cerebral infarction, unspecified (principal); Z51.81 Encounter for therapeutic drug level monitoring; Z79.01 Long term (current) use of anticoagulants | CPT/HCPCS: 99211 ==

== ENCOUNTER → 2021-03-24 13:25 | Outpatient (BNVA) | payer OTHER, SELFPAY | PROVIDERS: PCP Internal Medicine; Visit Provider Internal Medicine ==

== ENCOUNTER → 2021-03-28 15:26 | Outpatient (BNVA) | payer OTHER, SELFPAY | PROVIDERS: PCP Internal Medicine; Visit Provider Internal Medicine | DX: Z86.73 Personal history of transient ischemic attack (TIA), and cerebral infarction without residual deficits (principal) | CPT/HCPCS: Q3014 ==

== ENCOUNTER → 2021-04-04 14:13 | Outpatient (BNVA) | payer OTHER, SELFPAY | PROVIDERS: PCP Internal Medicine; Visit Provider Internal Medicine ==

== ENCOUNTER → 2021-04-08 10:07 | Outpatient (BNVA) | payer OTHER, SELFPAY | PROVIDERS: PCP Internal Medicine; Referring Provider Internal Medicine; Visit Provider Surgery | DX: Z48.815 Encounter for surgical aftercare following surgery on the digestive system (principal); Z93.3 Colostomy status | CPT/HCPCS: 99212 ==

== ENCOUNTER → 2021-04-12 14:17 | Outpatient (BNVA) | payer OTHER, SELFPAY | PROVIDERS: PCP Internal Medicine; Visit Provider Internal Medicine ==

== ENCOUNTER → 2021-04-18 10:03 | Outpatient (BNVA) | payer OTHER, SELFPAY | PROVIDERS: PCP Internal Medicine; Referring Provider Internal Medicine; Visit Provider Surgery | DX: Z93.3 Colostomy status (principal); Z79.01 Long term (current) use of anticoagulants; Z51.81 Encounter for therapeutic drug level monitoring | CPT/HCPCS: 99212 ==

== ENCOUNTER → 2021-04-25 11:50 | Outpatient (BNVA) | payer OTHER, SELFPAY | PROVIDERS: PCP Internal Medicine; Visit Provider Internal Medicine | DX: Z86.73 Personal history of transient ischemic attack (TIA), and cerebral infarction without residual deficits (principal); Z51.81 Encounter for therapeutic drug level monitoring; Z79.01 Long term (current) use of anticoagulants | CPT/HCPCS: Q3014 ==

== ENCOUNTER → 2021-05-02 10:33 | Outpatient (BNVA) | payer OTHER, SELFPAY | PROVIDERS: PCP Internal Medicine; Referring Provider Internal Medicine; Visit Provider Surgery | DX: Z93.3 Colostomy status (principal) | CPT/HCPCS: 99212 ==

== ENCOUNTER → 2021-05-13 09:27 | Outpatient (BNVA) | payer OTHER, SELFPAY | PROVIDERS: PCP Internal Medicine; Visit Provider Internal Medicine | DX: Z86.73 Personal history of transient ischemic attack (TIA), and cerebral infarction without residual deficits (principal); Z51.81 Encounter for therapeutic drug level monitoring; Z79.01 Long term (current) use of anticoagulants | CPT/HCPCS: 85610; 99211 ==

== ENCOUNTER → 2021-05-17 09:59 | Outpatient (BNVA) | payer OTHER, SELFPAY | PROVIDERS: PCP Internal Medicine; Referring Provider Internal Medicine; Visit Provider Surgery | DX: Z93.3 Colostomy status (principal) | CPT/HCPCS: 99212 ==

== ENCOUNTER → 2021-05-27 09:19 | Outpatient (BNVA) | payer OTHER, SELFPAY | PROVIDERS: PCP Internal Medicine; Visit Provider Internal Medicine | DX: Z86.73 Personal history of transient ischemic attack (TIA), and cerebral infarction without residual deficits (principal); Z51.81 Encounter for therapeutic drug level monitoring; Z79.01 Long term (current) use of anticoagulants | CPT/HCPCS: 85610; 99211 ==

== ENCOUNTER → 2021-06-10 09:21 | Outpatient (BNVA) | payer OTHER, SELFPAY | PROVIDERS: PCP Internal Medicine; Visit Provider Internal Medicine | DX: Z86.73 Personal history of transient ischemic attack (TIA), and cerebral infarction without residual deficits (principal); Z51.81 Encounter for therapeutic drug level monitoring; Z79.01 Long term (current) use of anticoagulants | CPT/HCPCS: 85610; 99211 ==

== ENCOUNTER → 2021-06-16 10:56 | Outpatient (REF) | payer OTHER, SELFPAY ==
--- NOTE | 2021-06-16 12:02 | ECG_ITS ---
Test Reason : SOB Blood Pressure : / mmHG Vent. Rate : 062 BPM Atrial Rate : 062 BPM P-R Int : 140 ms QRS Dur : 114 ms QT Int : 440 ms P-R-T Axes : 043 035 -32 degrees QTc Int : 446 ms Normal sinus rhythm Inferior infarct (cited on or before 05-JUL-2020) Abnormal ECG When compared with ECG of 17-FEB-2021 11:10, Borderline criteria for Lateral infarct are no longer Present T wave inversion now evident in Inferior leads Nonspecific T wave abnormality no longer evident in Anterolateral leads Referred By: Maude Romano Electronically Signed By:CASIE PEACOCK
[2021-06-16 12:45] LABS: MANUAL DIFF FLAG NO
[2021-06-16 12:50] LABS: Basophils Absolute Auto 0.1 X10*3/uL (0.0-0.2); Basophils Percent Auto 0.8 % (0-2); Eosinophils Absolute Auto 0.1 X10*3/uL (0.0-0.4); Eosinophils Percent Auto 1.8 % (0-4); Hematocrit 40.5 % (42-52); Hemoglobin 13.5 g/dl (14.0-18.0); Imm Gran Abs Auto 0.02 X10*3/uL (0.00-0.03); Imm Gran Pct Auto 0.3 % (0.0-0.4); Lymphocytes Absolute Auto 2.7 X10*3/uL (1.2-4.9); Lymphocytes Percent Auto 34.8 % (20-40); Mean Corpuscular HGB Conc 33.3 g/dl (31.0-36.0); Mean Corpuscular Hemoglobin 31.3 pg (27.0-33.0); Mean Corpuscular Volume 93.8 fL (80-98); Mean Platelet Volume 10.6 fL (9.4-12.4); Monocytes Absolute Auto 0.8 X10*3/uL (0.1-1.2); Monocytes Percent Auto 10.5 % (2-11); Neutrophils Percent Auto 51.8 % (45-73); Platelet Count 248 X10*3/uL (160-400); Red Blood Count 4.32 X10*6/uL (4.60-5.80); Red Cell Distribution Width 13.4 % (11.0-16.0); White Blood Count 7.6 X10*3/uL (4.8-10.8)
[2021-06-16 13:11] LABS: Alanine Aminotransferase 15 U/L (0-40); Albumin Level 3.9 g/dL (3.5-5.0); Alkaline Phosphatase 84 U/L (39-117); Aspartate Amino Transferase 16 U/L (5-37); Bilirubin Direct 0.2 mg/dL (0.0-0.5); Bilirubin Total 0.3 mg/dL (0.0-1.0); Cholesterol 138 mg/dL; HDL Cholesterol 33 mg/dL; LDL Cholesterol Calculated 89 mg/dl; Total Protein 6.5 g/dL (6.5-8.0); Triglycerides 80 mg/dL
[2021-06-16 13:13] LABS: INTERNATIONAL NORM RATIO 1.5 (0.9-1.1); Prothrombin Time 17.1 SEC (9.9-13.0)
[2021-06-16 13:15] LABS: Partial Thromboplastin Time 40.3 SEC (24.1-38.0)
[2021-06-16 13:19] LABS: Alanine Aminotransferase 15 U/L (0-40); Albumin Level 3.9 g/dL (3.5-5.0); Alkaline Phosphatase 84 U/L (39-117); Anion Gap 11 (12-20); Aspartate Amino Transferase 16 U/L (5-37); Bilirubin Total 0.4 mg/dL (0.0-1.0); Blood Urea Nitrogen 11 mg/dL (9-16); Calcium 9.7 mg/dL (8.4-10.2); Carbon Dioxide 26 mmol/L (22-29); Chloride 108 mmol/L (96-108); Estimated Glomerular Filt Rate > 60; Glucose Fasting 114 mg/dL (60-99); Potassium 4.7 mmol/L (3.3-5.1); Sodium 140 mmol/L (135-145); Total Protein 6.5 g/dL (6.5-8.0)
[2021-06-16 13:36] LABS: Thyroid Stimulating Hormone 0.56 uIU/mL (0.32-4.0)
[2021-06-16 16:17] LABS: Appearance Urine CLEAR; Color Urine YELLOW; Glucose Urine UA NEG (NEG); Leukocyte Esterase Urine NEG (NEG); Nitrite Urine NEG (NEG); Specific Gravity - Urine <= 1.005 (1.005-1.025); Urine Blood NEG (NEG); Urine Ketones NEG (NEG); Urine Protein NEG (NEG-TRACE)
== END ==
LOC: HO.CARD 10:56
PROVIDERS: PCP Internal Medicine; Referring Provider Internal Medicine; Visit Provider Surgery
DX: Z01.818 Encounter for other preprocedural examination (principal); R06.02 Shortness of breath; F17.210 Nicotine dependence, cigarettes, uncomplicated; Z93.3 Colostomy status; Z79.899 Other long term (current) drug therapy; Z86.73 Personal history of transient ischemic attack (TIA), and cerebral infarction without residual deficits
CPT/HCPCS: 36415; 80053; 80061; 80076; 81003; 82248; 84443; 85025; 85610; 85730; 93005; 99212

== ENCOUNTER 2021-06-17 10:00 | Outpatient (RCR) | payer OTHER, SELFPAY ==
--- NOTE | 2021-05-09 18:23 | MHC.PT.EP ---
[facility] [place] [facility] [place] [facility] [place] [facility] [address] [facility] [address] [phone] F: [phone] F: [phone] F: [phone] F: [phone] Physical Therapy Plan of Care Date of Evaluation: Date of Surgery: 02/23/21Hartmann's procedure/ sigmoid colectomy with colostomy creation Diagnosis: GENERALIZED WEAKNESS H/O CVA Assessment: Pt IS 61 YO M WHO HAD NC JUN 2020 WITH BLOOD CLOT AND CVA (WHICH MOSTLY AFFECTED HIS VISION AND ST MEMORY). Pt HAD OT, AND SPEECH FOR COGNITIVE WORK ALSO GOING TO CARDIAC REHAB. Pt THEN UNDERWENT SURGERY FOR COLON WITH COLOSTOMY ON 02/23/21 THEN WENT TO [facility] FOR ASSIST WITH COLOSTOMY AND HAD HOME PT UNTIL 2 WEEKS AGO. NOW REFERRED TO PT FOR STRENGTHENING AND BALANCE WORK. Pt WOULD BENEFIT FROM RETURN TO CARDIAC REHAB ALSO. Pt WOULD LIKE TO GET STRONGER BEFORE COLOSTOMY REVERSAL SURGERY AT THE END OF Frequency and Duration: The patient will be seen 2X/WK X 6 WKS Short Term Goals: 1. I HEP WITH DC EX PLAN 2. Pt TO REPORT IMPROVED INCREASED ACTIVITY LEVEL/GT DISTANCE WITH LESS FATIGUE Snf Goals: 1. Pt ABLE TO PERF TANDEM STANCE R AND L X 10 SEC EA 2. IMPROVED LEFI Treatment Plan: Modalities to reduce pain, spasms and effusion. Manual therapy to restore motion and function. Therapeutic exercise to improve strength and flexibility. Neuromuscular re-education for posture and balance. Therapeutic activities to return to functional activities of daily living. Electronically signed by: JENN ROJAS PT Please sign and return to therapist. Thank you for your referral.
--- NOTE | 2021-08-12 11:45 | MHC.PT.DC ---
[facility] [place] Office [place] Office [place] Office [address] Shira Koehler [address] [phone] F: [phone] F: [phone] F: [phone] F: [phone] Physical Therapy Discharge Report Diagnosis: GENERALIZED WEAKNESS H/O CVA Date of Surgery: 02/23/21Hartmann's procedure/ sigmoid colectomy with colostomy creation Date of Evaluation: 05/09/21 Date of Discharge: 06/17/21 Treatments to Date: 11 Cancellations to Date: No Shows to Date: Discharge Status: Achieved Goals Improved Function Independent with HEP Discharge Summary: Pt LAST SEEN ON 06/17/21. PER ASSESSMENT AT THAT VISIT:DC PT WITH HOME PROGRAM. HAS MET GOALS. TO HAVE SURGERY NEXT , REHB/HOME PT, THEN OUTPt PT IN 6-8 WEEKS [ End ] Electronically signed by: JENN ROJAS PT Please sign and return to therapist. Thank you for your referral.
== END 2021-08-12 11:47 | disposition home or self-care (01) ==
LOC: HO.PT 10:00
PROVIDERS: PCP Internal Medicine; Visit Provider Internal Medicine
DX: M53.1 Cervicobrachial syndrome (principal)
CPT/HCPCS: 97110; 97162; 97530

== ENCOUNTER 2021-06-21 06:19 | Day surgery (SDC) | payer OTHER, SELFPAY ==
[2021-06-17 10:44] VITALS: BMI 30.5
--- NOTE | 2021-06-20 10:09 | HO.ANESPROP2 ---
HPI - Anesthesia Eval Consult details Narrative: 61yo M for Colonoscopy via stoma s/p Deshler 02/2021 for bowel obstruction (no malignancy) with GETA (intraop anesthesia record unavail) Coumadin for h/o CVA, to bridge with Lovenox Med clearance appointment 06/20/21 pending [facility] Active Problems Active Problems: All Active Problems (Updated 04/18/21 @ 08:17 by Sanjay Cline MD) Status post Jenna's procedure (Acute) CVA (cerebral vascular accident) (Acute) Colostomy in place (Acute) Tremors of nervous system (Acute) Tobacco use disorder (Acute) Legal blindness (Acute) Hospital discharge follow-up (Acute) Current use of anticoagulant therapy (Acute) Knee pain, bilateral (Acute) Past Medical History Medical History Anxiety Colostomy in place Coronary artery disease Depression High cholesterol History of acute inferior wall CT HTN (hypertension) Knee pain, bilateral Legal blindness ST elevation myocardial infarction (STEMI) of inferior wall (~07/2020) Stroke (~07/2020) Tobacco use disorder Tremors of nervous system Family History Family History Father Stroke Heart attack Mother Heart attack Sister Diverticulitis Heart attack Brother No problems noted. Sister No problems noted. Brother No problems noted. Surgical History Surgical History H/O resection of large bowel Status post Jenna's procedure Social History Social History Household Members: Spouse Housing: House Do you presently have visiting nurse or other home services: No Alcohol intake: former Patient Tobacco Use Status: Current everyday Tobacco user Tobacco use type: Cigarette Cigarette Packs Per Day: 0.5 Cigarettes Per Day: 10.0 Years Smoked: 30 Second Hand Smoke Exposure: No Use of substances other than those prescribed or required for medical reasons: No Are you DNR?: No Advance Directives: No Advance Directives Information Provided: Yes Advance Directives on File: No service: No Current occupational status: disabled Meds Allergies Allergy/AdvReac Type Severity Reaction Status Date / Time No Known Allergies Allergy Verified 06/20/21 14:37 Exam Exam Date and Time: June 20, 2021 1009 Height,Weight and Vital Signs: Height 5 ft 9 in Weight 93.894 kg Pertinent Lab Results Pertinent Lab Results: Laboratory Tests 06/16/21 06/16/21 12:28 12:28 WBC 7.6 Hgb 13.5 L D Hct 40.5 L D Sodium 140 Potassium 4.7 Chloride 108 Carbon Dioxide 26 BUN 11 Creatinine 0.75 Laboratory Tests 06/16/21 12:28 Plt Count 248 D Narrative Narrative: EKG 06/2021 Vent. Rate : 062 BPM ? ? Atrial Rate : 062 BPM ?? P-R Int : 140 ms? QRS Dur : 114 ms ? ? QT Int : 440 ms ? ? ? P-R-T Axes : 043 035 -32 degrees ?? QTc Int : 446 ms ? Normal sinus rhythm Inferior infarct (cited on or before 05-JUL-2020) Abnormal ECG When compared with ECG of 17-FEB-2021 11:10, Borderline criteria for Lateral infarct are no longer Present T wave inversion now evident in Inferior leads Nonspecific T wave abnormality no longer evident in Anterolateral leads NM naa perf SPECT rest & str 08/2020 Impression: ? 1.? Myocardial perfusion imaging study shows evidence of old inferior wall myocardial infarction. No clear evidence of any ischemia. 2.? Gated LVEF is 55% during stress and 56% during rest. 3. Transient ischemic dilatation not present. ? EKG without any arrhythmias,?non-diagnostic for ischemia. ECHO 08/2020 Conclusions: - 1. Low normal LV systolic function with inferior wall motion ? abnormality with no change compared to prior study ? ? ? Assessment and Plan Assessment Anesthesia Assessment: Chart Reviewed
[2021-06-21 06:57] VITALS: BP 120/75; PULSE 68; RESP 18; TEMP 36.4; O2SAT 98
[2021-06-21] MEDS: Lactated Ringers 1,000 ML 100 ML IVCONT (07:09)
[2021-06-21 07:14] LABS: INTERNATIONAL NORM RATIO 1.1 (0.9-1.1); Prothrombin Time 12.8 SEC (9.9-13.0)
--- NOTE | 2021-06-21 07:37 | HO.ANESPROP2 ---
PENDING SALE TO [facility] Active Problems Active Problems: All Active Problems (Updated 04/18/21 @ 08:17 by Sanjay Cline MD) Status post Jenna's procedure (Acute) CVA (cerebral vascular accident) (Acute) Colostomy in place (Acute) Tremors of nervous system (Acute) Tobacco use disorder (Acute) Legal blindness (Acute) Hospital discharge follow-up (Acute) Current use of anticoagulant therapy (Acute) Knee pain, bilateral (Acute) Past Medical History Medical History Anxiety Colostomy in place Coronary artery disease Depression High cholesterol History of acute inferior wall [place] HTN (hypertension) Knee pain, bilateral Legal blindness ST elevation myocardial infarction (STEMI) of inferior wall (~07/2020) Stroke (~07/2020) Tobacco use disorder Tremors of nervous system Functional capacity: independent ambulation Family History Family History Father Stroke Heart attack Mother Heart attack Sister Diverticulitis Heart attack Brother No problems noted. Sister No problems noted. Brother No problems noted. Surgical History Surgical History H/O resection of large bowel Status post Jenna's procedure History of Problems with Anesthesia: No Social History Social History Household Members: Spouse Housing: House Do you presently have visiting nurse or other home services: No Alcohol intake: former Patient Tobacco Use Status: Current everyday Tobacco user Tobacco use type: Cigarette Cigarette Packs Per Day: 0.5 Cigarettes Per Day: 10.0 Years Smoked: 30 Second Hand Smoke Exposure: No Use of substances other than those prescribed or required for medical reasons: No Are you DNR?: No Advance Directives: No Advance Directives Information Provided: Yes Advance Directives on File: No service: No Current occupational status: disabled Meds Allergies Allergy/AdvReac Type Severity Reaction Status Date / Time No Known Allergies Allergy Verified 06/20/21 14:37 Active Medications: Current Medications Generic Name Dose Route Start Last Admin Trade Name Freq PRN Reason Stop Dose Admin Albuterol Sulfate 2.5 mg 06/21/21 06:37 Albuterol Sulfate (0.083%) 2.5 Mg/3 Ml Vial.Neb INHALE ONCE PRN Shortness of Breath/Wheezing Lactated Ringer's 1,000 mls @ 100 mls/hr 06/21/21 06:45 06/21/21 07:09 Lr IVCONT 100 mls/hr .Q10H JULIO Administration Exam Exam Date and Time: June 21, 2021 0737 Height,Weight and Vital Signs: Height 5 ft 9 in Weight 93.894 kg Last Vital Signs Temp 97.6 F 06/21/21 06:57 Pulse 68 06/21/21 06:57 Resp 18 06/21/21 06:57 BP 120/75 06/21/21 06:57 Pulse Ox 98 06/21/21 06:57 Pertinent Lab Results Pertinent Lab Results: Laboratory Tests 06/21/21 07:01 PT 12.8 D INR 1.1 Airway TM Dist: >3cm Neck ROM: Full Heart: RRR Lungs: CTA Assessment and Plan Final Anesthetic Review History of Problems with Anesthesia: No
[2021-06-21 08:17] VITALS: BP 101/61; PULSE 58; RESP 18; TEMP 36.2; O2SAT 98
[2021-06-21 08:32] VITALS: BP 130/79; PULSE 53; RESP 17; TEMP 36.2; O2SAT 98
--- NOTE | 2021-06-21 08:32 | P.BOP_ITS ---
Brief Operative Note Date of Service: 06/21/21 Pre-op diagnosis: Screening Post-op diagnosis: other (Internal hemorrhoids, Colon polyp, small AVM of cecum) Procedure: Colonoscopy via stoma to cecum and TI with bx/removal of polyp, and Colonoscopy via rectum to 20cm. Surgeon: Jr German Anesthesia: MAC Was an Rn Gastroenterology used for this Procedure?: No Estimated blood loss (mL): 2.0 Pathology: other (A. Polyp at 20cm from stoma) Condition: stable Disposition: PACU
--- NOTE | 2021-06-21 09:39 | OP_ITS ---
SURGEON: Jr German MD INDICATIONS: The patient presents for evaluation of colorectal cancer screening prior to reversal of colostomy. Full consent has been obtained from him for this, including risks of bleeding and perforation. PREOPERATIVE DIAGNOSIS: Colorectal cancer screening. POSTOPERATIVE DIAGNOSIS: PROCEDURE PERFORMED: Colonoscopy via rectum to 20 cm, and colonoscopy through the stoma to the cecum and terminal ileum with biopsy and removal of polyp. ESTIMATED BLOOD LOSS: COMPLICATIONS: ANESTHESIA: Monitored anesthesia care. ASSISTANTS: SPECIMENS: POSTOPERATIVE DIAGNOSES: Colorectal cancer screening, small colon polyp, cecal angiodysplasia, internal hemorrhoids. DESCRIPTION OF PROCEDURE: The patient was placed in the left lateral decubitus position. The digital rectal exam revealed no abnormalities. The Olympus video pediatric colonoscope was entered into the rectum and advanced to 20 cm. At this point, I felt I was at the end of the closed loop of sigmoid colon. There was some solid stool in this area as well. The scope was slowly withdrawn assessing all mucosal surfaces carefully. I did not visualize any sign of polyps, colitis, nor angiodysplasia. In the rectum, I was able to retroflex visualizing internal hemorrhoids, but no other pathology. The scope was straightened and withdrawn from the patient. The patient's bed was turned around and he was placed in the supine position. The stoma was examined and appeared normal. The Olympus video pediatric colonoscope was easily entered into the stoma and then advanced into the cecum. Once in the cecum, I did identify normal-appearing cecal pouch other than what appeared to be a 5 mm nonbleeding angiodysplasia in the cecum. The remainder of cecum appeared normal. The terminal ileum was cannulated and appeared normal. The scope was withdrawn back in the colon. The entire cecum including the appendiceal orifice otherwise appeared normal aside from the nonbleeding small angiodysplasia. The scope was slowly withdrawn assessing all mucosal surfaces carefully. Preparation was excellent. At 20 cm, was a flat approximately 4 or 5 mm polyp, which was biopsied and completely removed with a cold biopsy forceps. I did not visualize any other polyps, colitis, nor other angiodysplasias. The scope was withdrawn from the patient. He tolerated the procedure well and was returned to the recovery area in stable condition. IMPRESSION: 1. Small colon polyp, status post biopsy and removal. 2. Internal hemorrhoids. 3. Nonbleeding angiodysplasia of cecum PLAN: The results of the biopsy will be checked. If this is a tubular adenoma, I would recommend a followup colonoscopy in 5 years. If it is only hyperplastic, I would recommend a followup colonoscopy in 10 years. He was advised to resume his Lovenox this evening and will then have the planned colostomy reversal tomorrow. He will stay on clear liquids until midnight and then n.p.o. This has been discussed with his significant other. He will otherwise see me on a p.r.n. basis. MD WILNER Viveros/DUGLAS / [id number] [email or web address]
--- NOTE | 2021-06-21 09:58 | P.CONAN_ITS ---
FORMERLY [facility] Active Problems Active Problems: All Active Problems (Updated 04/18/21 @ 08:17 by Sanjay reyez MD) Status post Jenna's procedure (Acute) CVA (cerebral vascular accident) (Acute) Colostomy in place (Acute) Tremors of nervous system (Acute) Tobacco use disorder (Acute) Legal blindness (Acute) Hospital discharge follow-up (Acute) Current use of anticoagulant therapy (Acute) Knee pain, bilateral (Acute) Past Medical History Medical History Anxiety Colostomy in place Coronary artery disease Depression High cholesterol History of acute inferior wall [place] HTN (hypertension) Knee pain, bilateral Legal blindness ST elevation myocardial infarction (STEMI) of inferior wall (~07/2020) Stroke (~07/2020) Tobacco use disorder Tremors of nervous system Functional capacity: independent ambulation Family History Family History Father Stroke Heart attack Mother Heart attack Sister Diverticulitis Heart attack Brother No problems noted. Sister No problems noted. Brother No problems noted. Surgical History Surgical History H/O resection of large bowel Status post Jenna's procedure History of Problems with Anesthesia: No Social History Social History Household Members: Spouse Housing: House Do you presently have visiting nurse or other home services: No Alcohol intake: former Patient Tobacco Use Status: Current everyday Tobacco user Tobacco use type: Cigarette Cigarette Packs Per Day: 0.5 Cigarettes Per Day: 10.0 Years Smoked: 30 Second Hand Smoke Exposure: No Use of substances other than those prescribed or required for medical reasons: No Are you DNR?: No Advance Directives: No Advance Directives Information Provided: Yes Advance Directives on File: No service: No Current occupational status: disabled Meds Allergies Allergy/AdvReac Type Severity Reaction Status Date / Time No Known Allergies Allergy Verified 06/20/21 14:37 Exam Exam Date and Time: June 21, 2021 0958 Height,Weight and Vital Signs: Height 5 ft 9 in Weight 93.894 kg Last Vital Signs Temp 97.1 F 06/21/21 08:32 Pulse 53 06/21/21 08:32 Resp 17 06/21/21 08:32 BP 130/79 06/21/21 08:32 Pulse Ox 98 06/21/21 08:32 Pertinent Lab Results Pertinent Lab Results: Laboratory Tests 06/21/21 07:01 PT 12.8 D INR 1.1 Laboratory Tests 06/16/21 06/16/21 12:28 12:28 WBC 7.6 Hgb 13.5 L D Hct 40.5 L D Plt Count 248 D Sodium 140 Potassium 4.7 Chloride 108 Carbon Dioxide 26 BUN 11 Creatinine 0.75 Narrative Narrative: EKG 06/2021 Vent. Rate : 062 BPM ? ? Atrial Rate : 062 BPM ?? P-R Int : 140 ms? QRS Dur : 114 ms ? ? QT Int : 440 ms ? ? ? P-R-T Axes : 043 035 -32 degrees ?? QTc Int : 446 ms ? Normal sinus rhythm Inferior infarct (cited on or before 05-JUL-2020) Abnormal ECG When compared with ECG of 17-FEB-2021 11:10, Borderline criteria for Lateral infarct are no longer Present T wave inversion now evident in Inferior leads Nonspecific T wave abnormality no longer evident in Anterolateral leads NM naa perf SPECT rest & str 08/2020 Impression: ? 1.? Myocardial perfusion imaging study shows evidence of old inferior wall myocardial infarction. No clear evidence of any ischemia. 2.? Gated LVEF is 55% during stress and 56% during rest. 3. Transient ischemic dilatation not present. ? EKG without any arrhythmias,?non-diagnostic for ischemia. ECHO 08/2020 Conclusions: - 1. Low normal LV systolic function with inferior wall motion ? abnormality with no change compared to prior study ? ? Assessment and Plan Assessment Anesthesia Assessment: Chart Reviewed Final Anesthetic Review History of Problems with Anesthesia: No
--- NOTE | 2021-06-21 17:08 | HO.POSTANES ---
Post Anesthesia Evaluation Post Anesthesia Evaluation Vital Signs: Vital Signs Temp Pulse Resp BP Pulse Ox 06/21/21 08:32 97.1 F 53 17 130/79 98 06/21/21 08:17 97.1 F 58 18 101/61 98 06/21/21 06:57 97.6 F 68 18 120/75 98 Anesthesia: Monitored Mental Status: Awake Pain Control: Satisfactory Nausea/Vomiting: None Hydration: Adequate Anesthesia-Related Issues: No Anes. Related Issues
== END 2021-06-21 09:04 | disposition home or self-care (01) ==
PROVIDERS: Nurse Practitioner; Visit Provider Internal Medicine
PROC: 0DJD8ZZ Inspection of Lower Intestinal Tract, Via Natural or Artificial Opening Endoscopic (ICD-10-PCS; CPT 45378; principal; 2021-06-21 07:30)
DX: Z12.11 Encounter for screening for malignant neoplasm of colon (principal); K63.5 Polyp of colon; K64.8 Other hemorrhoids; K56.2 Volvulus; I10 Essential (primary) hypertension; Z93.3 Colostomy status; Z86.73 Personal history of transient ischemic attack (TIA), and cerebral infarction without residual deficits; I25.2 Old myocardial infarction; Z79.01 Long term (current) use of anticoagulants; Z01.810 Encounter for preprocedural cardiovascular examination; I25.10 Atherosclerotic heart disease of native coronary artery without angina pectoris; F17.210 Nicotine dependence, cigarettes, uncomplicated
CPT/HCPCS: 44389; 45330; 36415; 85610; 88305; 99212; J2370

== ENCOUNTER 2021-06-22 06:00 | Inpatient (IN) | payer OTHER, SELFPAY ==
[2021-06-17 10:47] VITALS: BMI 30.5
--- NOTE | 2021-06-21 10:03 | P.CONAN_ITS ---
Documented by User: Sandra Rodriguez NP 06/21/21 20:00 HPI - Anesthesia Eval Consult details Narrative: 61yo M for Colostomy Reversal s/p Colonoscopy via stoma 06/21/21 with MAC s/p Mario 02/2021 for bowel obstruction (no malignancy) with GETA (intraop anesthesia record unavail) Coumadin for h/o CVA, to bridge with Lovenox Medically cleared Per T/C with Dr Montanez, cardiac cleared (note from 06/21/21 visit pending) - Cardiac cleared at low to intermed [facility] Active Problems Active Problems: All Active Problems (Updated 04/18/21 @ 08:17 by Sanjay Cline MD) Status post Jenna's procedure (Acute) CVA (cerebral vascular accident) (Acute) Colostomy in place (Acute) Tremors of nervous system (Acute) Tobacco use disorder (Acute) Legal blindness (Acute) Hospital discharge follow-up (Acute) Current use of anticoagulant therapy (Acute) Knee pain, bilateral (Acute) Past Medical History Medical History Anxiety Colostomy in place Coronary artery disease Depression High cholesterol History of acute inferior wall [place] HTN (hypertension) Knee pain, bilateral Legal blindness ST elevation myocardial infarction (STEMI) of inferior wall (~07/2020) Stroke (~07/2020) Tobacco use disorder Tremors of nervous system Family History Family History Father Stroke Heart attack Mother Heart attack Sister Diverticulitis Heart attack Brother No problems noted. Sister No problems noted. Brother No problems noted. Surgical History Surgical History H/O resection of large bowel Status post Jenna's procedure History of Problems with Anesthesia: No Social History Social History Household Members: Spouse Housing: House Do you presently have visiting nurse or other home services: No Alcohol intake: former Patient Tobacco Use Status: Current everyday Tobacco user Tobacco use type: Cigarette Cigarette Packs Per Day: 0.5 Cigarettes Per Day: 10.0 Years Smoked: 30 Second Hand Smoke Exposure: No Use of substances other than those prescribed or required for medical reasons: No Have you been hit, kicked, punched, or otherwise hurt by someone within the past year? If so, by whom?: No Are you DNR?: No Advance Directives: No Advance Directives Information Provided: No Nutrition Risks: No Nutritional Risk service: No Current occupational status: disabled Meds Allergies Allergy/AdvReac Type Severity Reaction Status Date / Time No Known Allergies Allergy Verified 06/21/21 13:28 Home Medications Medication Instructions Recorded Confirmed Last Taken Type warfarin 4 mg tablet 8 mg PO DAILY 06/21/21 06/21/21 06/17/21 History gabapentin 300 mg capsule 300 mg PO Q8H 06/22/21 Unknown History omeprazole 20 mg capsule,delayed 1 cap PO QAM 06/22/21 Unknown History release Exam Exam Date and Time: June 21, 2021 1003 Height,Weight and Vital Signs: Height 5 ft 9 in Weight 93.894 kg Pertinent Lab Results Pertinent Lab Results: Laboratory Tests 06/16/21 12:28 Blood Type A Positive Antibody Screen NEGATIVE Laboratory Tests 06/16/21 06/16/21 06/16/21 12:28 12:28 12:28 WBC 7.6 Hgb 13.5 L D Hct 40.5 L D Plt Count 248 D Sodium 140 Potassium 4.7 Chloride 108 Carbon Dioxide 26 BUN 11 Creatinine 0.75 Blood Type A Positive Antibody Screen NEGATIVE Narrative Narrative: EKG 06/2021 Vent. Rate : 062 BPM ? ? Atrial Rate : 062 BPM ?? P-R Int : 140 ms? QRS Dur : 114 ms ? ? QT Int : 440 ms ? ? ? P-R-T Axes : 043 035 -32 degrees ?? QTc Int : 446 ms ? Normal sinus rhythm Inferior infarct (cited on or before 05-JUL-2020) Abnormal ECG When compared with ECG of 17-FEB-2021 11:10, Borderline criteria for Lateral infarct are no longer Present T wave inversion now evident in Inferior leads Nonspecific T wave abnormality no longer evident in Anterolateral leads NM naa perf SPECT rest & str 08/2020 Impression: ? 1.? Myocardial perfusion imaging study shows evidence of old inferior wall myocardial infarction. No clear evidence of any ischemia. 2.? Gated LVEF is 55% during stress and 56% during rest. 3. Transient ischemic dilatation not present. ? EKG without any arrhythmias,?non-diagnostic for ischemia. ECHO 08/2020 Conclusions: - 1. Low normal LV systolic function with inferior wall motion ? abnormality with no change compared to prior study ? ? Assessment and Plan Assessment Anesthesia Assessment: Chart Reviewed Final Anesthetic Review History of Problems with Anesthesia: No Documented by User: Leona Bains MD 06/22/21 09:11 HPI - Anesthesia Eval Consult details Narrative: 61yo M for Colostomy Reversal s/p Colonoscopy via stoma 06/21/21 with MAC s/p Mario 02/2021 for bowel obstruction (no malignancy) with GETA (intraop anesthesia record unavail) Coumadin for h/o CVA, to bridge with Lovenox. Last dose yesterday evening. Dr Romano aware Medically cleared Per T/C with Dr Montanez, cardiac cleared (note from 06/21/21 visit pending) - Cardiac cleared at low to intermed [facility] Active Problems Active Problems: All Active Problems (Updated 04/18/21 @ 08:17 by Sanjay Cline MD) Status post Jenna's procedure (Acute) CVA (cerebral vascular accident) (Acute) Colostomy in place (Acute) Tremors of nervous system (Acute) Tobacco use disorder (Acute) Legal blindness (Acute) post CVA Hospital discharge follow-up (Acute) Current use of anticoagulant therapy (Acute) Knee pain, bilateral (Acute) [place] within a few days post CVA. Denies recent chest pain Past Medical History Medical History Anxiety Colostomy in place Coronary artery disease Depression High cholesterol History of acute inferior wall [place] HTN (hypertension) Knee pain, bilateral Legal blindness ST elevation myocardial infarction (STEMI) of inferior wall (~07/2020) Stroke (~07/2020) Tobacco use disorder Tremors of nervous system Family History Family History Father Stroke Heart attack Mother Heart attack Sister Diverticulitis Heart attack Brother No problems noted. Sister No problems noted. Brother No problems noted. Family history of problems with anesthesia: No Surgical History Surgical History H/O resection of large bowel Status post Jenna's procedure Social History Social History Household Members: Spouse Housing: House Do you presently have visiting nurse or other home services: No Alcohol intake: former Patient Tobacco Use Status: Current everyday Tobacco user Tobacco use type: Cigarette Cigarette Packs Per Day: 0.5 Cigarettes Per Day: 10.0 Years Smoked: 30 Second Hand Smoke Exposure: No Use of substances other than those prescribed or required for medical reasons: No Have you been hit, kicked, punched, or otherwise hurt by someone within the past year? If so, by whom?: No Are you DNR?: No Advance Directives: No Advance Directives Information Provided: No Nutrition Risks: No Nutritional Risk service: No Current occupational status: disabled Meds Allergies Allergy/AdvReac Type Severity Reaction Status Date / Time No Known Allergies Allergy Verified 06/21/21 13:28 Home Medications Medication Instructions Recorded Confirmed Last Taken Type warfarin 4 mg tablet 8 mg PO DAILY 06/21/21 06/21/21 06/17/21 History gabapentin 300 mg capsule 300 mg PO Q8H 06/22/21 Unknown History omeprazole 20 mg capsule,delayed 1 cap PO QAM 06/22/21 Unknown History release Exam Height,Weight and Vital Signs: Height 5 ft 9 in Weight 93.894 kg Vital Signs Temp Pulse Resp BP Pulse Ox 06/22/21 06:37 97 F 78 18 115/73 96 Pertinent Lab Results Pertinent Lab Results: Laboratory Tests 06/16/21 12:28 Blood Type A Positive Antibody Screen NEGATIVE Laboratory Tests 06/16/21 06/16/21 06/16/21 12:28 12:28 12:28 WBC 7.6 Hgb 13.5 L D Hct 40.5 L D Plt Count 248 D Sodium 140 Potassium 4.7 Chloride 108 Carbon Dioxide 26 BUN 11 Creatinine 0.75 Blood Type A Positive Antibody Screen NEGATIVE 06/21/21: Coags PT 12.8 INR 1.1 Lab Results 06/16/21 06/22/21 Range/Units 12:28 06:34 COVID-19 (ISAAC) Negative (Negative) COVID-19 Clin Com See Note Blood Type A Positive Antibody Screen NEGATIVE Airway Mallampati Class: III TM Dist: >3cm Neck ROM: Full Loose/Missing/Broken Teeth: No Heart: RRR Lungs: CTAB Assessment and Plan Assessment Anesthesia Assessment: Anesthesia Plan Discussed Final Anesthetic Review Family History of Problems with Anesthesia: No NPO: Yes ASA Class: III Final Preanesthetic Review: No Changes in Pt Med Stat, Meds/Allgs Chart Reviewed, Consent Obtained/Reviewed and Anes Risks/Benef Reviewed Patient Risk: Intermediate Procedure Risk: Intermediate Assessment/Block/Sedation in SS: Assess/Block/Sedation-SS Anesthetic Plan Anesthetic Plan: GA Disposition: Standard PACU
--- NOTE | 2021-06-21 16:05 | MHC.SHP ---
Pre-Procedural Eval Section A Date of Service: 06/21/21 Section B Chief Complaint: Colostomy status Allergies: Allergies Allergy/AdvReac Type Severity Reaction Status Date / Time No Known Allergies Allergy Verified 06/21/21 13:28 Plan I have reviewed the history and physical and performed a pertinent physical examination on my patient. No changes have occurred unless specified.
[2021-06-22] VITALS (11 sets, daily range): BP systolic 115–144; BP diastolic 56–82; PULSE 78–93; RESP 14–18; TEMP 36.1–37.3; O2SAT 92–100
--- NOTE | ~2021-06-22 | XR_ITS ---
EXAMINATION: XR CHEST CLINICAL INFORMATION: Status post colostomy reversal leukocytosis, cough COMPARISON: None TECHNIQUE: 2 views of the chest were obtained. FINDINGS: Bilateral low lung volumes. Free air noted beneath both diaphragms, postsurgical in nature. No pneumothorax. Trachea is midline. Cardiomediastinal silhouette is not enlarged. Osseous structures are intact. Soft tissues are unremarkable. XR/XR chest 2V IMPRESSION: 1. Bilateral low lung volumes. 2. Free air noted beneath both diaphragms, postsurgical in nature. This critical result was discussed with Ashley HUMPHREYS by telephone on 06/24/2021 3:50 PM and it was ascertained that the content and urgency of the report was understood at the time of direct communication.
[2021-06-22] MEDS: Lactated Ringers 1,000 ML 100 ML IVCONT (07:01)
[2021-06-22 07:13] LABS: COVID-19 Test Negative (Negative); IDNOW Serial# 9DD0AD1C
--- NOTE | 2021-06-22 11:08 | P.BOP_ITS ---
Brief Operative Note Date of Service: 06/22/21 <Susy Leal PA-C - Last Filed: 06/22/21 11:10> Pre-op diagnosis: colostomy in place <Susy Leal PA-C - Last Filed: 06/22/21 11:10> Post-op diagnosis: same <Susy Leal PA-C - Last Filed: 06/22/21 11:10> Procedure: colostomy closure; lysis of adhesions <Susy Leal PA-C - Last Filed: 06/22/21 11:10> colostomy reversal; Splenic flexure mobilization, lysis of adhesions for 45 minutes, partial colectomy <Tawny Eli MD - Last Filed: 06/22/21 11:29> Surgeon: TAWNY ELI <Susy Leal PA-C - Last Filed: 06/22/21 11:10> Anesthesia: GETA <Susy Leal PA-C - Last Filed: 06/22/21 11:10> Was an Television Cable Installer used for this Procedure?: Yes <Susy Leal PA-C - Last Filed: 06/22/21 11:10> No <Tawny Eli MD - Last Filed: 06/22/21 11:29> Television Cable Installer: Susy Leal <Susy Leal PA-C - Last Filed: 06/22/21 11:10> Estimated blood loss (mL): 50 <Susy Leal PA-C - Last Filed: 06/22/21 11:10> 30 <Tawny Eli MD - Last Filed: 06/22/21 11:29> Pathology: other (COLOSTOMY; EEA RINGS) <Susy Leal PA-C - Last Filed: 06/22/21 11:10> Condition: stable <Susy Leal PA-C - Last Filed: 06/22/21 11:10> Disposition: PACU <Susy Leal PA-C - Last Filed: 06/22/21 11:10>
--- NOTE | 2021-06-22 11:50 | OP_ITS ---
SURGEON: Maude Romano MD PREOPERATIVE DIAGNOSIS: POSTOPERATIVE DIAGNOSIS: PROCEDURE PERFORMED: ESTIMATED BLOOD LOSS: About 30 mL. COMPLICATIONS: None. ANESTHESIA: ASSISTANTS: SPECIMENS: Partial colectomy and the anastomotic rings from the circular stapler. PROCEDURES PERFORMED: 1. Colostomy reversal. 2. Splenic flexure mobilization. 3. Partial colectomy. 4. extensive lysis of adhesions for 45 mins CONDITION: Postprocedure, good. DESCRIPTION OF PROCEDURE: The patient was brought into the operating room and placed on the operating table in the supine position. Normal DVT prophylaxis was instituted. The patient received Entereg prior to surgery as well as IV Tylenol and 2 g of IV cefotetan preoperatively. General anesthesia was induced. The colostomy bag was removed. I sutured the colostomy site, closed using a 2-0 silk suture in a running fashion. We then shaved the abdomen with electric clippers, and then, prepped and draped the abdomen using ChloraPrep. We prepped and draped the penis, mons pubis, bilateral buttocks, and perineum using Betadine scrub and paint. Next, a safety time-out was performed. next, a mixture of 1% lidocaine with epinephrine and 0.25% Marcaine plain was used to anesthetize the planned incision site surrounding the old colostomy site. We used a #10 scalpel to take an ellipse of skin encompassing the old colostomy site in a transverse fashion in the left lateral abdomen. We dissected the subcutaneous tissues down to the level of fascia. We dissected the colostomy from the surrounding tissues and away from the fascial edge and the rectus muscles. Once this was free, we dunked the old colostomy and the descending colon into the abdomen. We then used an additional amount of local anesthetic into the previous midline surgical incision. We then used a #10 scalpel to open the old midline surgical incision and dissected the subcutaneous tissue down to the level of the fascia. We then opened the fascia using a knife. We then opened the fascial incision to the length of the skin incision. We then took down the adhesions of the omentum from the undersurface of the abdominal wall circumferentially. There were adhesions of the small bowel to itself that were very light and filmy and we also took down these adhesions. We performed about 45 minutes of lysis of adhesions. We then were able to find the descending colon. We also dissected the adhesions in the pelvis of the small intestine and we were able to find the rectal stump. There were Prolene stitches on the staple line, that we could see without difficulty. There was not enough length on the descending colon in order to reach the rectal stump. We then created a small window in the descending colon mesentery at the old colostomy site, and resected the old colostomy site after placing a bowel clamp proximal on the descending colon and cutting just distal to this using the curved Pascual scissors. We passed this old colostomy off the field for Pathology. We then used sizers to determine, which size circular stapler would be used to create the anastomosis. We chose a 28 mm EEA stapler as that was the correct size using the sizers. We used a #1 Prolene pursestring suture on the edge of the open bowel and then placed the anvil within the open bowel and tied the Prolene suture down to the anvil, so that was securely positioned around the anvil. We then performed a splenic flexure takedown and mobilized the transverse colon over to the mid-transverse colon, so that we had plenty of length on the descending colon. There was no evidence of any tension that would be on the anastomosis. Once we mobilized the distal portion of the transverse colon and the splenic flexure, there was significant length of the descending colon and the anvil was lying comfortably in the pelvis adjacent to the rectal stump. I then had my advertising assistant placed the sizer into the rectum and I could easily see the rectal stump, and then, he placed the 28 mm circular stapler into the rectum and then opened up the stapler with the spike rising anterior to the previous staple line on the rectal stump. I then placed the anvil onto the spike on the EEA stapler, and we closed the EEA stapler. There was no evidence of any tension on the anastomosis. The entire bowel was healthy and pink. We held the stapler close for 1-minute prior to firing the stapler. Once we fired the stapler, we held it close an additional 30 seconds and then slowly opened the stapler and removed it without difficulty. The rings from the stapling process were completely intact and thick. We sent these for Pathology as well. We then performed an on-table leak study. I clamped the descending colon proximal to the newly created anastomosis. I placed saline into the pelvis and then my advertising assistant performed an air study by instilling air into the rectum using the bulb syringe. The anastomosis inflated nicely without any evidence of bubbles seen in the abdomen around the newly created anastomosis. We performed this leak study about 6 times, and again, there was no evidence of any leak. The bowel was healthy and pink. Again, there was no tension on the bowel and the bowel was in the correct alignment without any torsion of the bowel. We evaluated the abdomen, it was hemostatic. We placed the omentum over the small bowel. We then closed the previous colostomy site by reapproximating the rectus muscles using a 2-0 Vicryl suture longitudinally. We then closed the overlying fascia over the rectus muscles using a #1 Prolene running stitch transversely. We closed the deep dermal tissues using a running 3-0 Vicryl suture. We then closed the midline surgical fascia using a looped 0 PDS suture, 1 from the inferior portion incision and 1 from the superior portion incision. We tied the sutures in the midline. Prior to tying the sutures down, we palpated the undersurface of the fascia, there was no viscera or other intraabdominal contents attached to the suture. We tied the suture down and there was no fascial defect. We then reapproximated the midline surgical skin incision using trevor. We reapproximated the previous colostomy site in the left abdomen using interrupted trevor. We packed in-between trevor using the quarter-inch plain packing. We placed 4 x 4 dressings and ABD dressings on the midline surgical incision and tape, and performed the same dressing on the left abdominal incision. All counts were correct at the end of the case. There were no complications. The patient was awakened in stable condition prior to extubation, and transferred to recovery room. PROCESS ENGINEERING TECHNICIAN: JACE Stallings MD [facility] / [id number] MTDAnkit
[2021-06-22] MEDS: oxyCODONE HCl Immed Release 5 MG TABLET PO (12:50)
[2021-06-22] MEDS: oxyCODONE HCl Immed Release 5 MG TABLET 10 MG PO (13:55)
[2021-06-22] MEDS: 0.9 % Sodium Chloride 1,000 ML 80 ML IVCONT (13:56)
[2021-06-22] MEDS: Gabapentin 300 MG CAPSULE PO ×2 (13:56→22:12)
[2021-06-22] MEDS: Metoprolol Tartrate 25 MG TABLET PO (13:56)
[2021-06-22 14:08] LABS: INTERNATIONAL NORM RATIO 1.2 (0.9-1.1); Prothrombin Time 13.4 SEC (9.9-13.0)
[2021-06-22] MEDS: Morphine Sulfate 4 MG/ML CARTRIDGE IVPUSH (16:06)
[2021-06-22] MEDS: 0.9 % Sodium Chloride Flush 3 ML SYRINGE IVFLUSH ×2 (16:06→22:12)
[2021-06-23] MEDS: 0.9 % Sodium Chloride 1,000 ML 80 ML IVCONT ×2 (03:21→15:33)
[2021-06-23 04:00] VITALS: BP 120/69; PULSE 91; RESP 18; TEMP 36.9; O2SAT 93
[2021-06-23 05:52] LABS: Basophils Percent Auto 0.1 % (0-2); Hemoglobin 13.5 g/dl (14.0-18.0); Imm Gran Abs Auto 0.08 X10*3/uL (0.00-0.03); Imm Gran Pct Auto 0.5 % (0.0-0.4); Lymphocytes Absolute Auto 1.5 X10*3/uL (1.2-4.9); Lymphocytes Percent Auto 8.8 % (20-40); MANUAL DIFF FLAG SCAN; Mean Corpuscular HGB Conc 34.6 g/dl (31.0-36.0); Mean Corpuscular Hemoglobin 31.5 pg (27.0-33.0); Mean Corpuscular Volume 91.1 fL (80-98); Mean Platelet Volume 10.9 fL (9.4-12.4); Monocytes Percent Auto 11.8 % (2-11); Neutrophils Absolute Auto 13.2 X10*3/uL (2.0-8.3); Neutrophils Percent Auto 78.8 % (45-73); Platelet Count 226 X10*3/uL (160-400); Red Blood Count 4.28 X10*6/uL (4.60-5.80); Red Cell Distribution Width 13.2 % (11.0-16.0); SCAN SMEAR FLAG 1; White Blood Count 16.8 X10*3/uL (4.8-10.8)
[2021-06-23 06:03] LABS: Anion Gap 12 (12-20); Blood Urea Nitrogen 10 mg/dL (9-16); Carbon Dioxide 24 mmol/L (22-29); Chloride 105 mmol/L (96-108); Creatinine Clr Calc Pharmacy 138.4; Estimated Glomerular Filt Rate > 60; Glucose Random 130 mg/dL (60-115); Potassium 3.8 mmol/L (3.3-5.1); Sodium 137 mmol/L (135-145)
[2021-06-23] MEDS: Omeprazole 20 MG CAPSULE.DR PO (06:19)
[2021-06-23 06:21] LABS: SLIDE REVIEW VERIFIED
--- NOTE | 2021-06-23 07:27 | HO.POSTANES ---
Post Anesthesia Evaluation Post Anesthesia Evaluation Vital Signs: Vital Signs Temp Pulse Resp BP Pulse Ox 06/23/21 04:00 98.4 F 91 18 120/69 93 06/22/21 23:51 99.1 F 93 18 134/66 92 06/22/21 19:33 98.4 F 93 18 140/75 H 93 Anesthesia: General Mental Status: Awake Pain Control: Satisfactory Nausea/Vomiting: None Hydration: Adequate Anesthesia-Related Issues: No Anes. Related Issues
[2021-06-23] MEDS: Morphine Sulfate 4 MG/ML CARTRIDGE IVPUSH (07:43)
[2021-06-23] MEDS: Enoxaparin Sodium 40 MG/0.4 ML SYRINGE SUBCUT ×2 (07:46→21:08)
[2021-06-23] MEDS: ondansetron HCL 4 MG/2 ML VIAL IVPUSH (07:52)
[2021-06-23 08:00] VITALS: BP 124/70; PULSE 89; RESP 18; TEMP 37.1; O2SAT 91
--- NOTE | 2021-06-23 08:42 | P.PNGS_ITS ---
Subjective Subjective Date of Service: 06/23/21 Interval history: C/o significant pain this morning. Just relieved dose of morphine. Was not given any analgesics since yesterday afternoon. C/o nausea and vomited twice this morning. Denies flatus or BM. Has not been OOB. Does not feel as if he can use urinal to void yet. Physical Exam Vital Signs: Vital Signs: Last Vital Signs Temp 98.8 F 06/23/21 08:00 Pulse 89 06/23/21 08:00 Resp 18 06/23/21 08:00 BP 124/70 06/23/21 08:00 Pulse Ox 91 L 06/23/21 08:00 Body Mass Index 30.5 Const: General: no acute distress, alert and other (in pain) Orientation/consciousness: patient oriented x3 Resp: Effort & Inspection: normal respiratory effort Cardio: Rate: regular rate GI: Inspection: No distended and Yes incision (dressing c/d/i; wound silvia in place) Palpation (GI): Soft to palpation, Tenderness to palpation present (GI) (incisional), no guarding and not rigid Percussion: Yes normal to percussion Auscultation: Hypoactive bowel sounds present Skin: General skin exam: no rashes or lesions noted Neuro: General: patient oriented x3 Extrem: General: Yes no clubbing, cyanosis or edema Procedures Date of Service Date of Service: 06/23/21 Progress Note: A&P Assessment and plan (1) Coronary artery disease: Status: Acute (2) Status post Jenna's procedure: Status: Acute (3) CVA (cerebral vascular accident): Status: Acute (4) Colostomy in place: Status: Acute (5) Current use of anticoagulant therapy: Status: Acute Assessment and Plan: 61 year old male with colostomy in place now POD #1 s/p colostomy reversal. He is having difficulty with pain control. WIll d/c morphine and add IV dilaudid 0.5mg and 0.25mg PRN. Has vomited, may be secondary to pain but will make NPO for now. Cont zofran as needed, phenergan added. Strongly encouraged OOB and ambulation of halls today, IS use. Await return of GI function- continue entereg. Leukocytosis on AM labs, likely reactive. Repeat CBC tomorrow. Hx of CVA on coumadin therapy- continue lovenox 40mg BID. Resume home coumadin tomorrow if labs remain stable. Fall Risk Details Current Medications: Current Medications Generic Name Dose Route Start Last Admin Trade Name Freq PRN Reason Stop Dose Admin Alvimopan 12 mg 06/23/21 09:00 Alvimopan 12 Mg Capsule PO 06/30/21 09:01 BID [facility] Atorvastatin Calcium 80 mg 06/23/21 09:00 Atorvastatin Calcium 80 Mg Tablet PO DAILY [facility] Enoxaparin Sodium 40 mg 06/23/21 08:15 06/23/21 07:46 Enoxaparin Sodium 40 Mg/0.4 Ml Syringe SUBCUT 40 mg Q12H JULIO Administration Gabapentin 300 mg 06/22/21 15:00 06/22/21 22:12 Gabapentin 300 Mg Capsule PO 300 mg TID JULIO Administration Hydromorphone HCl 0.5 mg 06/23/21 08:27 Hydromorphone Hcl 0.5 Mg/0.5 Ml Syringe IVPUSH Q3H PRN Pain, Severe (Pain Scale 7-10) Protocol Hydromorphone HCl 0.25 mg 06/23/21 08:27 Hydromorphone Hcl 0.5 Mg/0.5 Ml Syringe IVPUSH Q3H PRN Pain, Moderate (Pain Scale 4-6 Protocol Sodium Chloride 1,000 mls @ 80 mls/hr 06/22/21 12:17 06/23/21 03:21 Ns IVCONT 80 mls/hr .[id number] JULIO Administration Acetaminophen 1,000 mg in 100 mls @ 400 mls/hr 06/22/21 12:17 Ofirmev IV Q6H PRN Pain, Severe (Pain Scale 7-10) Promethazine HCl 12.5 mg/ 50.5 mls @ 202 mls/hr 06/23/21 08:27 Sodium Chloride IV Q6H PRN Nausea and Vomiting Omeprazole 20 mg 06/23/21 06:30 06/23/21 06:19 Omeprazole 20 Mg Capsule.Dr PO 20 mg DAILY@0630 JULIO Administration Ondansetron HCl 4 mg 06/22/21 12:17 06/23/21 07:52 Ondansetron Hcl 4 Mg/2 Ml Vial IVPUSH 4 mg Q8H PRN Administration Nausea and Vomiting Sertraline HCl 100 mg 06/23/21 09:00 Sertraline Hcl 100 Mg Tablet PO DAILY JULIO Sodium Chloride 3 ml 06/22/21 16:00 06/23/21 07:06 0.9 % Sodium Chloride Flush 3 Ml Syringe IVFLUSH Not Given QSHIFT JULIO Zolpidem Tartrate 5 mg 06/22/21 12:17 Zolpidem Tartrate 5 Mg Tablet PO BEDTIME PRN Insomnia Time Spent With Patient Time: Total time spent is greater than 50% in coordination of care (as documented) at patient's floor/unit and/or counseling patient: Time with patient: 15 - 24 minutes Quality Stroke Does the patient have a stroke diagnosis?: No VTE Prior VTE?: Yes VTE Risk Level:: Surgical - high VTE Device Contraindication: N/A - Device Ordered VTE Drug Contraindication: N/A - Med Ordered
[2021-06-23] MEDS: HYDROmorphone HCl 0.5 MG/0.5 ML SYRINGE 0.25 MG IVPUSH (09:37)
[2021-06-23 11:27] VITALS: BP 103/58; PULSE 90; RESP 18; TEMP 37.3; O2SAT 91
[2021-06-23] MEDS: HYDROmorphone HCl 0.5 MG/0.5 ML SYRINGE IVPUSH ×3 (12:23→19:13)
[2021-06-23 14:08] LABS: Glucose, Whole Blood 125 mg/dL (60-115)
[2021-06-23 15:31] VITALS: BP 134/72; PULSE 98; RESP 18; TEMP 37.2; O2SAT 92
[2021-06-23 19:12] VITALS: BP 129/69; PULSE 104; RESP 18; TEMP 37.7; O2SAT 90
[2021-06-23] MEDS: 0.9 % Sodium Chloride Flush 3 ML SYRINGE IVFLUSH (21:08)
[2021-06-23] MEDS: Zolpidem Tartrate 5 MG TABLET PO (21:08)
[2021-06-23] MEDS: Gabapentin 300 MG CAPSULE PO (21:08)
[2021-06-24] VITALS (7 sets, daily range): BP systolic 121–160; BP diastolic 70–78; PULSE 89–98; RESP 16–20; TEMP 35.7–37.1; O2SAT 91–99
[2021-06-24] MEDS: HYDROmorphone HCl 0.5 MG/0.5 ML SYRINGE IVPUSH ×7 (02:53→23:33)
[2021-06-24] MEDS: Omeprazole 20 MG CAPSULE.DR PO (05:44)
[2021-06-24] MEDS: 0.9 % Sodium Chloride 1,000 ML 80 ML IVCONT ×2 (05:48→15:00)
[2021-06-24 06:30] LABS: Basophils Percent Auto 0.2 % (0-2); Eosinophils Percent Auto 0.1 % (0-4); Hematocrit 37.9 % (42-52); Hemoglobin 12.7 g/dl (14.0-18.0); Imm Gran Pct Auto 0.6 % (0.0-0.4); Lymphocytes Absolute Auto 2.1 X10*3/uL (1.2-4.9); Lymphocytes Percent Auto 13.3 % (20-40); MANUAL DIFF FLAG SCAN; Mean Corpuscular HGB Conc 33.5 g/dl (31.0-36.0); Mean Corpuscular Hemoglobin 31.2 pg (27.0-33.0); Mean Corpuscular Volume 93.1 fL (80-98); Mean Platelet Volume 11.4 fL (9.4-12.4); Monocytes Absolute Auto 1.8 X10*3/uL (0.1-1.2); Monocytes Percent Auto 11.2 % (2-11); Neutrophils Absolute Auto 11.9 X10*3/uL (2.0-8.3); Neutrophils Percent Auto 74.6 % (45-73); Platelet Count 212 X10*3/uL (160-400); Red Blood Count 4.07 X10*6/uL (4.60-5.80); Red Cell Distribution Width 13.7 % (11.0-16.0); SCAN SMEAR FLAG 1
[2021-06-24 06:31] LABS: SLIDE REVIEW VERIFIED
[2021-06-24] MEDS: Enoxaparin Sodium 40 MG/0.4 ML SYRINGE SUBCUT ×2 (07:45→20:51)
[2021-06-24] MEDS: Gabapentin 300 MG CAPSULE PO ×3 (08:47→20:51)
[2021-06-24] MEDS: Atorvastatin Calcium 80 MG TABLET PO (08:47)
[2021-06-24] MEDS: Sertraline HCL 100 MG TABLET PO (08:47)
--- NOTE | 2021-06-24 09:26 | PM.PNGS ---
Subjective Subjective Date of Service: 06/24/21 <Susy Leal PA-C - Last Filed: 06/24/21 09:33> 06/24/21 <Maude Romano MD - Last Filed: 06/24/21 12:37> Interval history: Pain a little better this morning. Denies nausea or further vomiting since yesterday. Wants coffee. Was not OOB yesterday. C/o cough with clear sputum- began yesterday. Having difficulty coughing clearing secretions given incisional pain. <Susy Leal PA-C - Last Filed: 06/24/21 09:33> Pain a little better this morning. Denies nausea or further vomiting since yesterday. Wants coffee. Was not OOB yesterday. C/o cough with clear sputum- began yesterday. Having difficulty coughing clearing secretions given incisional pain. Patient seen and examined and I agree with the assessment and plan and physical exam of the physician assignment desk assistant. Patient is having some abdominal spasm at the incision sites. Incisions are clean dry intact with trevor in place. Packing was left in place in the left abdominal incision and new dressing was applied. Patient has not been out of bed since surgery. Patient will plan to be out of bed to ambulate. I will order a physical therapy consult on the patient will ambulate with assistance. I will remove the Gruber and patient will use the urinal to measure urine output. Given the patient's white blood cell count is still elevated and he has decreased air movement in the lungs at the bases we will order DuoNebs and also order chest x-ray. Repeat CBC ordered for tomorrow. Will advance diet back to clear liquids. <Maude Romano MD - Last Filed: 06/24/21 12:37> Physical Exam Vital Signs: Vital Signs: Last Vital Signs Temp 96.5 F L 06/24/21 07:35 Pulse 92 06/24/21 07:35 Resp 20 06/24/21 07:35 BP 160/77 H 06/24/21 07:35 Pulse Ox 94 06/24/21 07:35 Body Mass Index 30.5 <JACE Stallings Last Filed: 06/24/21 09:33> Const: General: comfortable, no acute distress and alert <PETR Stallings-Bel De La Cruz Last Filed: 06/24/21 09:33> Orientation/consciousness: patient oriented x3 <FLEX StallingsBel De La Cruz Last Filed: 06/24/21 09:33> Resp: Effort & Inspection: normal respiratory effort and other (audible rhonchi) <FLEX StallingsBel De La Cruz Last Filed: 06/24/21 09:33> Auscultation: rales (b/l ) and rhonchi (b/l) <FLEX StallingsBel De La Cruz Last Filed: 06/24/21 09:33> Cardio: Rate: regular rate <FLEX StallingsBel De La Cruz Last Filed: 06/24/21 09:33> GI: Inspection: No distended and Yes incision (clean, wound silvia advanced at old colostomy site) <FLEX StallingsBel De La Cruz Last Filed: 06/24/21 09:33> Palpation (GI): Soft to palpation, Tenderness to palpation present (GI) (incisional), no guarding and not rigid <FLEX StallingsBel De La Cruz Last Filed: 06/24/21 09:33> Percussion: Yes normal to percussion <FLEX StallingsBel De La Cruz Last Filed: 06/24/21 09:33> Skin: General skin exam: no rashes or lesions noted <FLEX StallingsBel De La Cruz Last Filed: 06/24/21 09:33> Neuro: General: patient oriented x3 <Susy Leal PA-C Jono Last Filed: 06/24/21 09:33> Extrem: General: Yes no clubbing, cyanosis or edema <Susy Leal PA-C Jono Last Filed: 06/24/21 09:33> Procedures Date of Service Date of Service: 06/24/21 <Susy Leal PA-C Jono Last Filed: 06/24/21 09:33> Progress Note: A&P Assessment and plan (1) Colostomy in place: Status: Acute <Susy Leal PA-C Jono Last Filed: 06/24/21 09:33> (2) Current use of anticoagulant therapy: Status: Acute <Susy Leal PA-C - Last Filed: 06/24/21 09:33> Assessment and Plan: 61 year old male with colostomy in place now POD #2 s/p colostomy reversal. He is doing fairly well post op with better pain control today. He has had no further nausea or emesis and will therefore advance back to clear liquids. He has developed a productive cough and is having difficulty clearing secretions. Given his persistent leukocytosis, will order CXR to r/o PNA. Add duonebs PRN, mucinex to help clear secretions. Strongly encouraged OOB and ambulation of halls today, IS use. Await return of GI function- continue entereg. Repeat CBC tomorrow. Continue pain control. Abd is benign with clean incision- wound silvia advanced at old colostomy site which can be removed over the weekend. Hx of CVA on coumadin therapy- continue lovenox 40mg BID. Resume home coumadin today. <Susy Leal PA-C - Last Filed: 06/24/21 09:33> Fall Risk Details Current Medications: Current Medications Generic Name Dose Route Start Last Admin Trade Name Freq PRN Reason Stop Dose Admin Albuterol/Ipratropium 3 ml 06/24/21 09:03 Albuterol/Iprat 2.5/0.5mg 3 Ml Ampul.Neb INHALE RQ4H PRN Wheezing Alvimopan 12 mg 06/23/21 09:00 06/24/21 08:47 Alvimopan 12 Mg Capsule PO 06/30/21 09:01 12 mg BID JULIO Administration Atorvastatin Calcium 80 mg 06/23/21 09:00 06/24/21 08:47 Atorvastatin Calcium 80 Mg Tablet PO 80 mg DAILY JULIO Administration Enoxaparin Sodium 40 mg 06/23/21 08:15 06/24/21 07:45 Enoxaparin Sodium 40 Mg/0.4 Ml Syringe SUBCUT 40 mg Q12H JULIO Administration Gabapentin 300 mg 06/22/21 15:00 06/24/21 08:47 Gabapentin 300 Mg Capsule PO 300 mg TID JULIO Administration Hydromorphone HCl 0.5 mg 06/23/21 08:27 06/24/21 08:48 Hydromorphone Hcl 0.5 Mg/0.5 Ml Syringe IVPUSH 0.5 mg Q3H PRN Administration Pain, Severe (Pain Scale 7-10) Protocol Hydromorphone HCl 0.25 mg 06/23/21 08:27 06/23/21 09:37 Hydromorphone Hcl 0.5 Mg/0.5 Ml Syringe IVPUSH 0.25 mg Q3H PRN Administration Pain, Moderate (Pain Scale 4-6 Protocol Sodium Chloride 1,000 mls @ 80 mls/hr 06/22/21 12:17 06/24/21 05:48 Ns IVCONT 80 mls/hr .[id number] JULIO Administration Acetaminophen 1,000 mg in 100 mls @ 400 mls/hr 06/22/21 12:17 Ofirmev IV Q6H PRN Pain, Severe (Pain Scale 7-10) Promethazine HCl 12.5 mg/ 50.5 mls @ 202 mls/hr 06/23/21 08:27 Sodium Chloride IV Q6H PRN Nausea and Vomiting Omeprazole 20 mg 06/23/21 06:30 06/24/21 05:44 Omeprazole 20 Mg Capsule.Dr PO 20 mg DAILY@0630 JULIO Administration Ondansetron HCl 4 mg 06/22/21 12:17 06/23/21 07:52 Ondansetron Hcl 4 Mg/2 Ml Vial IVPUSH 4 mg Q8H PRN Administration Nausea and Vomiting Sertraline HCl 100 mg 06/23/21 09:00 06/24/21 08:47 Sertraline Hcl 100 Mg Tablet PO 100 mg DAILY JULIO Administration Sodium Chloride 3 ml 06/22/21 16:00 06/24/21 07:49 0.9 % Sodium Chloride Flush 3 Ml Syringe IVFLUSH Not Given QSHIFT JULIO Zolpidem Tartrate 5 mg 06/22/21 12:17 06/23/21 21:08 Zolpidem Tartrate 5 Mg Tablet PO 5 mg BEDTIME PRN Administration Insomnia <Susy Leal PA-C - Last Filed: 06/24/21 09:33> Time Spent With Patient Time: Total time spent is greater than 50% in coordination of care (as documented) at patient's floor/unit and/or counseling patient: <Susy Leal PA-C - Last Filed: 06/24/21 09:33> Time with patient: 15 - 24 minutes <Susy Leal PA-C - Last Filed: 06/24/21 09:33> Quality Stroke Does the patient have a stroke diagnosis?: No <Susy Leal PA-C - Last Filed: 06/24/21 09:33> VTE Prior VTE?: Yes <Susy Leal PA-C - Last Filed: 06/24/21 09:33> VTE Risk Level:: Surgical - high <Susy Leal PA-C - Last Filed: 06/24/21 09:33> VTE Device Contraindication: N/A - Device Ordered <Susy Leal PA-C - Last Filed: 06/24/21 09:33> VTE Drug Contraindication: N/A - Med Ordered <Susy Leal PA-C - Last Filed: 06/24/21 09:33>
--- NOTE | 2021-06-24 13:20 | MHC.CM.PN ---
PATIENT LIVES WITH HIS GIRLFRIEND, MIGEL, AND AGREES THAT SHE IS HIS HCP AGENT. HE ALSO AGREES TO COMPLETION OF DOCUMENTATION FOR MEDICAL RECORD. PATIENT RELIES ON A CANE AND SOMETIMES A WALKER HIS PCP IS REPORTEDLY AT [facility]. CASE MANAGEMENT FOLLOWING. PATIENT BELIEVES THAT HE WILL BE HERE OVER THE WEEKEND ACCORDING TO CONVERSATION WITH HIS SURGEON. CASE MANAGEMENT FOLLOWING
--- NOTE | 2021-06-24 17:42 | PC.NURSE ---
PT ASSISTED OOB TO RECLINER WITH 1 ASSIST AND WALKER. TOLERATED FOR 4 HOURS. CHAN DCD THIS MORNING AND PT HAS VOIDED ONCE IN BR. DTV#[id number]. MEDICATED FOR PAIN WITH IV DIALUDID WITH GOOD EFFECT. ENCOURAGED AND INSTRUCTED USE OF I.S. WHILE AWAKE. TOLERATING CLEAR LIQUID DIET IN SMALL AMOUNTS
[2021-06-24] MEDS: guaiFENesin DM 600/30 1 TAB TAB.ER.12H 2 TAB PO (18:18)
[2021-06-24] MEDS: Zolpidem Tartrate 5 MG TABLET PO (20:51)
[2021-06-25] MEDS: 0.9 % Sodium Chloride 1,000 ML 80 ML IVCONT ×2 (02:40→15:28)
[2021-06-25 03:05] VITALS: BP 129/80; PULSE 88; RESP 16; TEMP 36.9; O2SAT 94
[2021-06-25 05:41] LABS: MANUAL DIFF FLAG NO
[2021-06-25] MEDS: Omeprazole 20 MG CAPSULE.DR PO (05:44)
[2021-06-25 05:47] LABS: Basophils Percent Auto 0.3 % (0-2); Eosinophils Absolute Auto 0.1 X10*3/uL (0.0-0.4); Hematocrit 36.1 % (42-52); Hemoglobin 11.9 g/dl (14.0-18.0); Imm Gran Abs Auto 0.08 X10*3/uL (0.00-0.03); Imm Gran Pct Auto 0.7 % (0.0-0.4); Lymphocytes Absolute Auto 2.2 X10*3/uL (1.2-4.9); Mean Corpuscular Hemoglobin 31.2 pg (27.0-33.0); Mean Corpuscular Volume 94.5 fL (80-98); Mean Platelet Volume 10.7 fL (9.4-12.4); Monocytes Absolute Auto 1.1 X10*3/uL (0.1-1.2); Neutrophils Absolute Auto 8.5 X10*3/uL (2.0-8.3); Platelet Count 206 X10*3/uL (160-400); Red Blood Count 3.82 X10*6/uL (4.60-5.80); Red Cell Distribution Width 13.7 % (11.0-16.0)
[2021-06-25 05:54] LABS: INTERNATIONAL NORM RATIO 1.3 (0.9-1.1); Prothrombin Time 14.9 SEC (9.9-13.0)
[2021-06-25 07:50] VITALS: BP 150/89; PULSE 92; RESP 20; TEMP 37.4; O2SAT 90
[2021-06-25] MEDS: Enoxaparin Sodium 40 MG/0.4 ML SYRINGE SUBCUT ×2 (09:44→20:31)
[2021-06-25] MEDS: Atorvastatin Calcium 80 MG TABLET PO (09:45)
[2021-06-25] MEDS: Gabapentin 300 MG CAPSULE PO ×3 (09:45→20:30)
[2021-06-25] MEDS: Sertraline HCL 100 MG TABLET PO (09:45)
--- NOTE | 2021-06-25 10:36 | P.PNGS_ITS ---
Subjective Subjective Date of Service: 06/25/21 Interval history: Says he feels better States he has passed flatus this morning Pain well controlled Tolerating clears Physical Exam Vital Signs: Vital Signs: Last Vital Signs Temp 99.3 F 06/25/21 07:50 Pulse 92 06/25/21 07:50 Resp 20 06/25/21 07:50 BP 150/89 H 06/25/21 07:50 Pulse Ox 90 L 06/25/21 07:50 Body Mass Index 30.5 Chemistry 06/23/21 05:16 Sodium 137 Potassium 3.8 Carbon Dioxide 24 BUN 10 Creatinine 0.65 Calcium 9.0 D Hematology 06/23/21 06/24/21 06/25/21 05:16 06:02 05:24 WBC 16.8 H 16.0 H 12.0 H Hgb 13.5 L 12.7 L 11.9 L Plt Count 226 212 206 Const: General: comfortable and no acute distress Resp: Effort & Inspection: normal respiratory effort Cardio: Rate: regular rate GI: Other: Incisions clean, packings removed from the old colostomy site Palpation (GI): Soft to palpation and no guarding Procedures Date of Service Date of Service: 06/25/21 Progress Note: A&P Assessment and plan (1) Status post Jenna's procedure: Status: Acute Assessment and Plan: Status post reversal of colostomy Looks well Has passed flatus Plan to advance diet later on Out of bed Doing well Fall Risk Details Current Medications: Current Medications Albuterol/Ipratropium (Albuterol/Iprat 2.5/0.5mg 3 Ml Ampul.Neb) 3 ml INHALE RQ4H PRN PRN Reason: Wheezing Alvimopan (Alvimopan 12 Mg Capsule) 12 mg PO BID [facility] Stop: 06/30/21 09:01 Last Admin: 06/25/21 09:45 Dose: 12 mg Documented by: Atorvastatin Calcium (Atorvastatin Calcium 80 Mg Tablet) 80 mg PO DAILY [facility] Last Admin: 06/25/21 09:45 Dose: 80 mg Documented by: Enoxaparin Sodium (Enoxaparin Sodium 40 Mg/0.4 Ml Syringe) 40 mg SUBCUT Q12H [facility] Last Admin: 06/25/21 09:44 Dose: 40 mg Documented by: Gabapentin (Gabapentin 300 Mg Capsule) 300 mg PO TID [facility] Last Admin: 06/25/21 09:45 Dose: 300 mg Documented by: Guaifenesin/Dextromethorphan (Guaifenesin Dm 600/30 1 Tab Tab.Er.12h) 2 tab PO BID PRN PRN Reason: Cough Last Admin: 06/24/21 18:18 Dose: 2 tab Documented by: Hydromorphone HCl (Hydromorphone Hcl 0.5 Mg/0.5 Ml Syringe) 0.5 mg IVPUSH Q3H PRN; Protocol PRN Reason: Pain, Severe (Pain Scale 7-10) Last Admin: 06/24/21 23:33 Dose: 0.5 mg Documented by: Hydromorphone HCl (Hydromorphone Hcl 0.5 Mg/0.5 Ml Syringe) 0.25 mg IVPUSH Q3H PRN; Protocol PRN Reason: Pain, Moderate (Pain Scale 4-6 Last Admin: 06/23/21 09:37 Dose: 0.25 mg Documented by: Sodium Chloride (Ns) 1,000 mls @ 80 mls/hr IVCONT .[id number] [facility] Last Admin: 06/25/21 02:40 Dose: 80 mls/hr Documented by: Acetaminophen (Ofirmev) 1,000 mg in 100 mls @ 400 mls/hr IV Q6H PRN PRN Reason: Pain, Severe (Pain Scale 7-10) Promethazine HCl 12.5 mg/ (Sodium Chloride) 50.5 mls @ 202 mls/hr IV Q6H PRN PRN Reason: Nausea and Vomiting Omeprazole (Omeprazole 20 Mg Capsule.Dr) 20 mg PO DAILY@0630 [facility] Last Admin: 06/25/21 05:44 Dose: 20 mg Documented by: Ondansetron HCl (Ondansetron Hcl 4 Mg/2 Ml Vial) 4 mg IVPUSH Q8H PRN PRN Reason: Nausea and Vomiting Last Admin: 06/23/21 07:52 Dose: 4 mg Documented by: Sertraline HCl (Sertraline Hcl 100 Mg Tablet) 100 mg PO DAILY [facility] Last Admin: 06/25/21 09:45 Dose: 100 mg Documented by: Sodium Chloride (0.9 % Sodium Chloride Flush 3 Ml Syringe) 3 ml IVFLUSH QSHIFT [facility] Last Admin: 06/25/21 09:45 Dose: Not Given Documented by: Warfarin Sodium (Warfarin Sodium 4 Mg Tablet) 8 mg PO DAILY@1800 JULIO Zolpidem Tartrate (Zolpidem Tartrate 5 Mg Tablet) 5 mg PO BEDTIME PRN PRN Reason: Insomnia Last Admin: 06/24/21 20:51 Dose: 5 mg Documented by: Time Spent With Patient Time: Total time spent is greater than 50% in coordination of care (as documented) at patient's floor/unit and/or counseling patient: Time with patient: 15 - 24 minutes Quality Stroke Does the patient have a stroke diagnosis?: No VTE Prior VTE?: Yes VTE Risk Level:: Surgical - high VTE Device Contraindication: N/A - Device Ordered VTE Drug Contraindication: N/A - Med Ordered
[2021-06-25 11:40] VITALS: BP 159/87; PULSE 97; RESP 18; TEMP 37.3; O2SAT 93
[2021-06-25 15:10] VITALS: BP 140/81; PULSE 91; RESP 15; TEMP 37.5; O2SAT 95
[2021-06-25] MEDS: Warfarin Sodium 4 MG TABLET 8 MG PO (18:00)
[2021-06-25] MEDS: HYDROmorphone HCl 0.5 MG/0.5 ML SYRINGE IVPUSH (18:01)
[2021-06-25 19:48] VITALS: BP 107/72; PULSE 90; RESP 15; TEMP 37.3; O2SAT 96
[2021-06-25] MEDS: Zolpidem Tartrate 5 MG TABLET PO (21:04)
[2021-06-26] VITALS (7 sets, daily range): BP systolic 124–148; BP diastolic 62–83; PULSE 64–96; RESP 16–20; TEMP 36.6–37.7; O2SAT 90–98
[2021-06-26] MEDS: 0.9 % Sodium Chloride 1,000 ML 80 ML IVCONT ×2 (03:56→17:23)
[2021-06-26] MEDS: Omeprazole 20 MG CAPSULE.DR PO (05:45)
[2021-06-26 07:45] LABS: INTERNATIONAL NORM RATIO 1.4 (0.9-1.1); Prothrombin Time 15.5 SEC (9.9-13.0)
[2021-06-26] MEDS: HYDROmorphone HCl 0.5 MG/0.5 ML SYRINGE IVPUSH ×3 (09:25→19:47)
[2021-06-26] MEDS: Sertraline HCL 100 MG TABLET PO (09:26)
[2021-06-26] MEDS: Gabapentin 300 MG CAPSULE PO ×3 (09:26→19:44)
[2021-06-26] MEDS: Atorvastatin Calcium 80 MG TABLET PO (09:26)
[2021-06-26] MEDS: Enoxaparin Sodium 40 MG/0.4 ML SYRINGE SUBCUT ×2 (09:28→19:44)
--- NOTE | 2021-06-26 10:24 | P.PNGS_ITS ---
Subjective Subjective Date of Service: 06/26/21 Interval history: feels well passing flatus tolerating full liquids asking for regular food appropriate incisional pain Physical Exam Vital Signs: Vital Signs: Last Vital Signs Temp 98 F 06/26/21 07:52 Pulse 82 06/26/21 07:52 Resp 20 06/26/21 07:52 BP 146/79 H 06/26/21 07:52 Pulse Ox 96 06/26/21 07:52 Body Mass Index 30.5 Const: Other: Hematology 06/24/21 06/25/21 06:02 05:24 WBC 16.0 H 12.0 H Hgb 12.7 L 11.9 L Plt Count 212 206 General: comfortable Resp: Effort & Inspection: normal respiratory effort Cardio: Rate: regular rate GI: Other: soft, incisions clean, trevor intact Procedures Date of Service Date of Service: 06/26/21 Progress Note: A&P Assessment and plan (1) Colostomy in place: Status: Acute Assessment and Plan: S/P reversal of colostomy doing well diet as tolerated later today ambulate dressings on old stoma site changed abd soft and benign Fall Risk Details Current Medications: Current Medications Albuterol/Ipratropium (Albuterol/Iprat 2.5/0.5mg 3 Ml Ampul.Neb) 3 ml INHALE RQ4H PRN PRN Reason: Wheezing Alvimopan (Alvimopan 12 Mg Capsule) 12 mg PO BID [facility] Stop: 06/30/21 09:01 Last Admin: 06/26/21 09:26 Dose: 12 mg Documented by: Atorvastatin Calcium (Atorvastatin Calcium 80 Mg Tablet) 80 mg PO DAILY [facility] Last Admin: 06/26/21 09:26 Dose: 80 mg Documented by: Enoxaparin Sodium (Enoxaparin Sodium 40 Mg/0.4 Ml Syringe) 40 mg SUBCUT Q12H [facility] Last Admin: 06/26/21 09:28 Dose: 40 mg Documented by: Gabapentin (Gabapentin 300 Mg Capsule) 300 mg PO TID [facility] Last Admin: 06/26/21 09:26 Dose: 300 mg Documented by: Guaifenesin/Dextromethorphan (Guaifenesin Dm 600/30 1 Tab Tab.Er.12h) 2 tab PO BID PRN PRN Reason: Cough Last Admin: 06/24/21 18:18 Dose: 2 tab Documented by: Hydromorphone HCl (Hydromorphone Hcl 0.5 Mg/0.5 Ml Syringe) 0.5 mg IVPUSH Q3H PRN; Protocol PRN Reason: Pain, Severe (Pain Scale 7-10) Last Admin: 06/26/21 09:25 Dose: 0.5 mg Documented by: Hydromorphone HCl (Hydromorphone Hcl 0.5 Mg/0.5 Ml Syringe) 0.25 mg IVPUSH Q3H PRN; Protocol PRN Reason: Pain, Moderate (Pain Scale 4-6 Last Admin: 06/23/21 09:37 Dose: 0.25 mg Documented by: Promethazine HCl 12.5 mg/ (Sodium Chloride) 50.5 mls @ 202 mls/hr IV Q6H PRN PRN Reason: Nausea and Vomiting Sodium Chloride (Ns) 1,000 mls @ 80 mls/hr IVCONT .[id number] [facility] Last Admin: 06/26/21 03:56 Dose: 80 mls/hr Documented by: Omeprazole (Omeprazole 20 Mg Capsule.Dr) 20 mg PO DAILY@0630 [facility] Last Admin: 06/26/21 05:45 Dose: 20 mg Documented by: Ondansetron HCl (Ondansetron Hcl 4 Mg/2 Ml Vial) 4 mg IVPUSH Q8H PRN PRN Reason: Nausea and Vomiting Last Admin: 06/23/21 07:52 Dose: 4 mg Documented by: Sertraline HCl (Sertraline Hcl 100 Mg Tablet) 100 mg PO DAILY [facility] Last Admin: 06/26/21 09:26 Dose: 100 mg Documented by: Sodium Chloride (0.9 % Sodium Chloride Flush 3 Ml Syringe) 3 ml IVFLUSH QSHIFT [facility] Last Admin: 06/26/21 09:27 Dose: Not Given Documented by: Warfarin Sodium (Warfarin Sodium 4 Mg Tablet) 8 mg PO DAILY@1800 [facility] Last Admin: 06/25/21 18:00 Dose: 8 mg Documented by: Zolpidem Tartrate (Zolpidem Tartrate 5 Mg Tablet) 5 mg PO BEDTIME PRN PRN Reason: Insomnia Last Admin: 06/25/21 21:04 Dose: 5 mg Documented by: Time Spent With Patient Time: Total time spent is greater than 50% in coordination of care (as documented) at patient's floor/unit and/or counseling patient: Time with patient: 15 - 24 minutes Quality Stroke Does the patient have a stroke diagnosis?: No VTE Prior VTE?: Yes VTE Risk Level:: Surgical - high VTE Device Contraindication: N/A - Device Ordered VTE Drug Contraindication: N/A - Med Ordered
[2021-06-26] MEDS: Warfarin Sodium 4 MG TABLET 8 MG PO (17:21)
[2021-06-26] MEDS: 0.9 % Sodium Chloride Flush 3 ML SYRINGE IVFLUSH (19:45)
[2021-06-27] MEDS: HYDROmorphone HCl 0.5 MG/0.5 ML SYRINGE 0.25 MG IVPUSH (00:26)
[2021-06-27] MEDS: Zolpidem Tartrate 5 MG TABLET PO (00:27)
[2021-06-27 04:00] VITALS: BP 134/72; PULSE 92; RESP 17; TEMP 36.5; O2SAT 92
[2021-06-27 05:19] LABS: INTERNATIONAL NORM RATIO 1.5 (0.9-1.1); Prothrombin Time 17.7 SEC (9.9-13.0)
[2021-06-27] MEDS: 0.9 % Sodium Chloride 1,000 ML 80 ML IVCONT (05:21)
[2021-06-27] MEDS: Omeprazole 20 MG CAPSULE.DR PO (05:21)
--- NOTE | 2021-06-27 05:46 | PC.NURSE ---
7p-7a shift note: pt had scd compression boots on through shift, at 0545: wants a break from them, removed at that time, continue to monitor
[2021-06-27 07:49] VITALS: BP 125/67; PULSE 84; RESP 18; TEMP 37.1; O2SAT 90
--- NOTE | 2021-06-27 08:33 | P.PNGS_ITS ---
Subjective Subjective Date of Service: 06/27/21 <Susy Leal PA-C - Last Filed: 06/27/21 08:39> 06/27/21 <Maude Romano MD - Last Filed: 06/27/21 09:19> Interval history: Uneventful weekend. Reports he had two bowel movements over the weekend- the second was large, nonbloody. Pain is still present but a little better. Just ate solid food, about 25% of meal. No nausea, vomiting, worsening abd pain. <Susy Leal PA-C - Last Filed: 06/27/21 08:39> Uneventful weekend. Reports he had two bowel movements over the weekend- the second was large, nonbloody. Pain is still present but a little better. Just ate solid food, about 25% of meal. No nausea, vomiting, worsening abd pain. No significant overnight events. Vital signs have been within normal limits. Last white blood cell count was at the end of last week was 12. Patient still having low oxygen saturations although he is doing better with the incentive spirometer and has tidal volumes of 1500 as of this morning. Patient reports incisional tenderness. There is some erythema surrounding both incisions that has developed over the weekend but there is no drainage. Patient is tolerating regular diet although only a small amount. He has had 2 bowel movements over the weekend. INR is now 1.5. Patient continues on Lovenox 40 mg subcutaneously b.i.d. patient has been out of bed to ambulate only in his room occasionally with the help of a walker. Patient is urinating spontaneously and has no urinary symptoms. On physical exam abdomen is soft mildly distended obese. There is patchy erythema surrounding both the midline surgical incision and the left lateral abdominal incision. There is no drainage. Extremities are warm well-perfused throughout. I agree with the assessment and plan physical exam and subjective history of the physician oceanographer assistant. The plan will be to get a physical therapy consultation for safety for home discharge likely tomorrow. We will add Augmentin 875 mg b.i.d.. Patient was to continue on Coumadin and Lovenox until therapeutic on Coumadin dose. If patient is doing well tomorrow we will likely discharge home. We will remove a couple trevor and probed the incision to ensure that there is no wound infection or seroma. <Maude Romano MD - Last Filed: 06/27/21 09:19> Physical Exam Vital Signs: Vital Signs: Last Vital Signs Temp 98.7 F 06/27/21 07:49 Pulse 84 06/27/21 07:49 Resp 18 06/27/21 07:49 BP 125/67 06/27/21 07:49 Pulse Ox 90 L 06/27/21 07:49 Body Mass Index 30.5 <Susy Leal PA-C - Last Filed: 06/27/21 08:39> Const: General: comfortable, no acute distress and alert <Susy Leal PA-C - Last Filed: 06/27/21 08:39> Orientation/consciousness: patient oriented x3 <Susy Leal PA-C - Last Filed: 06/27/21 08:39> Resp: Effort & Inspection: normal respiratory effort <Susy Leal PA-C - Last Filed: 06/27/21 08:39> Auscultation: rhonchi (clear with cough) <Susy Leal PA-C - Last Filed: 06/27/21 08:39> Cardio: Rate: regular rate <Susy Leal PA-C - Last Filed: 06/27/21 08:39> GI: Inspection: No distended and Yes incision (midline incision with erythema centrally, no drainage noted) <Susy Leal PA-C - Last Filed: 06/27/21 08:39> Palpation (GI): Soft to palpation, Tenderness to palpation present (GI) (incisional ), no guarding and not rigid <Susy Leal PA-C - Last Filed: 06/27/21 08:39> Percussion: Yes normal to percussion <Susy Leal PA-C - Last Filed: 06/27/21 08:39> Skin: General skin exam: no rashes or lesions noted <Susy Leal PA-C - Last Filed: 06/27/21 08:39> Neuro: General: patient oriented x3 <Susy Leal PA-C - Last Filed: 06/27/21 08:39> Extrem: General: Yes no clubbing, cyanosis or edema <Susy Leal PA-C - Last Filed: 06/27/21 08:39> Procedures Date of Service Date of Service: 06/27/21 <Susy Leal PA-C - Last Filed: 06/27/21 08:39> Progress Note: A&P Assessment and plan (1) Coronary artery disease: Status: Acute <Susy Leal PA-C - Last Filed: 06/27/21 08:39> (2) Status post Jenna's procedure: Status: Acute <JACE Stallings Last Filed: 06/27/21 08:39> (3) Colostomy in place: Status: Acute <JACE Stallings Last Filed: 06/27/21 08:39> (4) CVA (cerebral vascular accident): Status: Acute <JACE Stallings Last Filed: 06/27/21 08:39> (5) Current use of anticoagulant therapy: Status: Acute <Susy Leal PA-C - Last Filed: 06/27/21 08:39> Assessment and Plan: 61 year old male with colostomy in place now POD #5 s/p colostomy reversal. He is doing fairly well post op, now with return of GI function and tolerating solid diet. VSS- O2 sat marginal. WBC has downtrended. Strongly encouraged OOB and ambulation of halls today, IS use 10x per hour to increase oxygen saturations. Entereg discontinued. Continue pain control. D/c IVF. Will return later today to remove some trevor/gently probe incision for ?seroma given incisional erythema. Dispo planning- will need VNA services. Hx of CVA on coumadin therapy- continue lovenox 40mg BID. Home coumadin dose resumed- morning INR reviewed. <JACE Stallings Last Filed: 06/27/21 08:39> Fall Risk Details Current Medications: Current Medications Albuterol/Ipratropium (Albuterol/Iprat 2.5/0.5mg 3 Ml Ampul.Neb) 3 ml INHALE RQ4H PRN PRN Reason: Wheezing Alvimopan (Alvimopan 12 Mg Capsule) 12 mg PO BID [facility] Stop: 06/30/21 09:01 Last Admin: 06/26/21 19:44 Dose: 12 mg Documented by: Atorvastatin Calcium (Atorvastatin Calcium 80 Mg Tablet) 80 mg PO DAILY [facility] Last Admin: 06/26/21 09:26 Dose: 80 mg Documented by: Enoxaparin Sodium (Enoxaparin Sodium 40 Mg/0.4 Ml Syringe) 40 mg SUBCUT Q12H [facility] Last Admin: 06/26/21 19:44 Dose: 40 mg Documented by: Gabapentin (Gabapentin 300 Mg Capsule) 300 mg PO TID [facility] Last Admin: 06/26/21 19:44 Dose: 300 mg Documented by: Guaifenesin/Dextromethorphan (Guaifenesin Dm 600/30 1 Tab Tab.Er.12h) 2 tab PO BID PRN PRN Reason: Cough Last Admin: 06/24/21 18:18 Dose: 2 tab Documented by: Hydromorphone HCl (Hydromorphone Hcl 0.5 Mg/0.5 Ml Syringe) 0.5 mg IVPUSH Q3H PRN; Protocol PRN Reason: Pain, Severe (Pain Scale 7-10) Last Admin: 06/26/21 19:47 Dose: 0.5 mg Documented by: Hydromorphone HCl (Hydromorphone Hcl 0.5 Mg/0.5 Ml Syringe) 0.25 mg IVPUSH Q3H PRN; Protocol PRN Reason: Pain, Moderate (Pain Scale 4-6 Last Admin: 06/27/21 00:26 Dose: 0.25 mg Documented by: Promethazine HCl 12.5 mg/ (Sodium Chloride) 50.5 mls @ 202 mls/hr IV Q6H PRN PRN Reason: Nausea and Vomiting Sodium Chloride (Ns) 1,000 mls @ 80 mls/hr IVCONT .[id number] [facility] Last Admin: 06/27/21 05:21 Dose: 80 mls/hr Documented by: Omeprazole (Omeprazole 20 Mg Capsule.Dr) 20 mg PO DAILY@0630 [facility] Last Admin: 06/27/21 05:21 Dose: 20 mg Documented by: Ondansetron HCl (Ondansetron Hcl 4 Mg/2 Ml Vial) 4 mg IVPUSH Q8H PRN PRN Reason: Nausea and Vomiting Last Admin: 06/23/21 07:52 Dose: 4 mg Documented by: Sertraline HCl (Sertraline Hcl 100 Mg Tablet) 100 mg PO DAILY [facility] Last Admin: 06/26/21 09:26 Dose: 100 mg Documented by: Sodium Chloride (0.9 % Sodium Chloride Flush 3 Ml Syringe) 3 ml IVFLUSH QSHIFT [facility] Last Admin: 06/26/21 19:45 Dose: 3 ml Documented by: Warfarin Sodium (Warfarin Sodium 4 Mg Tablet) 8 mg PO DAILY@1800 [facility] Last Admin: 06/26/21 17:21 Dose: 8 mg Documented by: Zolpidem Tartrate (Zolpidem Tartrate 5 Mg Tablet) 5 mg PO BEDTIME PRN PRN Reason: Insomnia Last Admin: 06/27/21 00:27 Dose: 5 mg Documented by: <Susy Leal PA-C - Last Filed: 06/27/21 08:39> Time Spent With Patient Time: Total time spent is greater than 50% in coordination of care (as documented) at patient's floor/unit and/or counseling patient: <Susy Leal PA-C - Last Filed: 06/27/21 08:39> Time with patient: 15 - 24 minutes <Susy Leal PA-C - Last Filed: 06/27/21 08:39> Quality Stroke Does the patient have a stroke diagnosis?: No <Susy Leal PA-C - Last Filed: 06/27/21 08:39> VTE Prior VTE?: Yes <JACE Stallings Last Filed: 06/27/21 08:39> VTE Risk Level:: Surgical - high <JACE Stallings Last Filed: 06/27/21 08:39> VTE Device Contraindication: N/A - Device Ordered <JACE Stallings Last Filed: 06/27/21 08:39> VTE Drug Contraindication: N/A - Med Ordered <JACE Stallings Last Filed: 06/27/21 08:39>
[2021-06-27] MEDS: Gabapentin 300 MG CAPSULE PO ×3 (09:03→21:23)
[2021-06-27] MEDS: Sertraline HCL 100 MG TABLET PO (09:03)
[2021-06-27] MEDS: Enoxaparin Sodium 40 MG/0.4 ML SYRINGE SUBCUT ×2 (09:03→21:23)
[2021-06-27] MEDS: Atorvastatin Calcium 80 MG TABLET PO (09:03)
[2021-06-27] MEDS: 0.9 % Sodium Chloride Flush 3 ML SYRINGE IVFLUSH ×3 (09:06→21:23)
[2021-06-27] MEDS: oxyCODONE HCl Immed Release 5 MG TABLET 10 MG PO ×3 (09:39→20:01)
[2021-06-27] MEDS: Amoxicillin/Potassium Clav 875 MG TABLET PO ×2 (09:39→21:23)
[2021-06-27 10:14] VITALS: BP 125/67; PULSE 84; O2SAT 90
[2021-06-27 11:27] VITALS: BP 133/70; PULSE 89; RESP 18; TEMP 37.2; O2SAT 90
--- NOTE | 2021-06-27 12:20 | MHC.CM.PN ---
PER REVIEW OF PROGRESS NOTES, PATIENT MAY BE ABLE TO DISCHARGE HOME TOMORROW CASE MANAGEMENT REACHING OUT TO SURGICAL P.A. TO INQUIRE ABOUT POSSIBLE DC NEEDS. PATIENT FEELS HE NEEDS HELP IN THE HOME, ESPECIALLY GETTING UP THE STAIRS TO ENTER. HE IS AWARE THAT CASE MANAGEMENT IS FOLLOWING FOR PLANS AND ILL UPDATE HIM.
--- NOTE | 2021-06-27 12:30 | MHC.CM.PN ---
PER CONVERSATION WITH SURGICAL P.A[facility] PATIENT COULD BENEFIT FROM [facility] REFERRAL FOR RN SKILLS AND HOME P.T. PATIENT AGREEABLE TO THIS PLAN AND CHOOSES [facility]. REFERRAL PLACED. CASE MANAGEMENT CONTINUING TO FOLLOW.
[2021-06-27 16:00] VITALS: BP 137/66; PULSE 95; RESP 16; TEMP 38.1; O2SAT 91
[2021-06-27] MEDS: Warfarin Sodium 4 MG TABLET 8 MG PO (16:57)
[2021-06-27] MEDS: ondansetron HCL 4 MG/2 ML VIAL IVPUSH (17:29)
[2021-06-27] MEDS: HYDROmorphone HCl 0.5 MG/0.5 ML SYRINGE IVPUSH (17:29)
[2021-06-27 19:50] VITALS: BP 118/64; PULSE 94; RESP 20; TEMP 36.4; O2SAT 92
[2021-06-28] VITALS: BP 124/67; PULSE 95; RESP 20; TEMP 36.4; O2SAT 95
[2021-06-28 04:00] VITALS: BP 126/70; PULSE 85; RESP 20; TEMP 36.3; O2SAT 94
[2021-06-28] MEDS: Omeprazole 20 MG CAPSULE.DR PO (05:34)
[2021-06-28 05:42] LABS: INTERNATIONAL NORM RATIO 1.5 (0.9-1.1); Prothrombin Time 17.5 SEC (9.9-13.0)
[2021-06-28 07:28] VITALS: BP 137/73; PULSE 84; RESP 18; TEMP 36.5; O2SAT 97
[2021-06-28] MEDS: Enoxaparin Sodium 40 MG/0.4 ML SYRINGE SUBCUT (07:57)
[2021-06-28] MEDS: Atorvastatin Calcium 80 MG TABLET PO (07:58)
[2021-06-28] MEDS: 0.9 % Sodium Chloride Flush 3 ML SYRINGE IVFLUSH (07:58)
[2021-06-28] MEDS: Amoxicillin/Potassium Clav 875 MG TABLET PO (07:58)
[2021-06-28] MEDS: Gabapentin 300 MG CAPSULE PO (07:58)
[2021-06-28] MEDS: Sertraline HCL 100 MG TABLET PO (07:58)
[2021-06-28] MEDS: oxyCODONE HCl Immed Release 5 MG TABLET 10 MG PO (08:01)
[2021-06-28 09:07] VITALS: O2SAT 95
--- NOTE | 2021-06-28 09:07 | PM.PNGS ---
Subjective Subjective Date of Service: 06/28/21 <Susy Leal PA-C - Last Filed: 06/28/21 09:13> 06/28/21 <Maude Romano MD - Last Filed: 06/28/21 10:00> Interval history: Reports he is tired this morning- he has not been sleeping well. His pain is better but increases with coughing, getting OOB. Otherwise comfortable. He tolerated his solid diet yesterday without N/V but did not have much of an appetite. He continues to pass flatus. He wants to go home. <Susy Leal PA-C - Last Filed: 06/28/21 09:13> Reports he is tired this morning- he has not been sleeping well. His pain is better but increases with coughing, getting OOB. Otherwise comfortable. He tolerated his solid diet yesterday without N/V but did not have much of an appetite. He continues to pass flatus. He wants to go home. Patient seen and agree with the physician help desk assistant regarding subjective, physical exam, and assessment and plan. Patient reports feeling well has mild incisional soreness. Multiple trevor removed from the incision without any significant drainage. Erythema is improved. Patient denies nausea vomiting. He has been using incentive spirometer. He is tolerating some of his regular diet. Patient is interested in going home. Continues to pass gas and reports he had a bowel movement last evening. Patient has been up and ambulating with some assistance. Physical therapy consultation yesterday recommended home with services. On exam: Abdomen is soft mildly distended appropriate incisional tenderness. Erythema surrounding both incisions is decreased. There is no significant drainage from the incisions. Most of the trevor are still in place in both incisions. Extremities are warm well-perfused throughout without tenderness or edema. Patient's INR is still 1.5 he continues on Lovenox 40 mg subcutaneous b.i.d. as well as his home dose of Lovenox. Assessment and plan: This is a 61-year-old gentleman on postoperative day 6. Status post reversal of colostomy slowly improving. Patient is tolerating diet and has return of bowel function. I believe he will be able to be discharged home with visiting nurses services later today as long as the patient is able to ambulate without oxygen. <Maude Romano MD - Last Filed: 06/28/21 10:00> Physical Exam Vital Signs: Vital Signs: Last Vital Signs Temp 97.7 F 06/28/21 07:28 Pulse 84 06/28/21 07:28 Resp 18 06/28/21 07:28 BP 137/73 06/28/21 07:28 Pulse Ox 97 06/28/21 07:28 Body Mass Index 30.5 <Susy Leal PA-C - Last Filed: 06/28/21 09:13> Const: General: comfortable, no acute distress and alert <Susy Leal PA-C - Last Filed: 06/28/21 09:13> Orientation/consciousness: patient oriented x3 <Susy Leal PA-C - Last Filed: 06/28/21 09:13> Resp: Effort & Inspection: normal respiratory effort <Susy Leal PA-C - Last Filed: 06/28/21 09:13> Cardio: Rate: regular rate <Susy Leal PA-C - Last Filed: 06/28/21 09:13> GI: Other: some serous appearing drainage from inferior aspect of midline incision <Susy Leal PA-C - Last Filed: 06/28/21 09:13> Inspection: No distended and Yes incision (erythema slightly improved this morning) <Susy Leal PA-C - Last Filed: 06/28/21 09:13> Palpation (GI): Soft to palpation, Tenderness to palpation present (GI) (incisional), no guarding and not rigid <Susy Leal PA-C - Last Filed: 06/28/21 09:13> Percussion: Yes normal to percussion <Susy Leal PA-C - Last Filed: 06/28/21 09:13> Skin: General skin exam: no rashes or lesions noted <Susy Leal PA-C - Last Filed: 06/28/21 09:13> Neuro: General: patient oriented x3 <JACE Stallings Last Filed: 06/28/21 09:13> Procedures Date of Service Date of Service: 06/28/21 <Susy Leal PA-C - Last Filed: 06/28/21 09:13> Progress Note: A&P Assessment and plan (1) Coronary artery disease: Status: Acute <Susy Leal PA-C - Last Filed: 06/28/21 09:13> (2) Status post Jenna's procedure: Status: Acute <Susy Leal PA-C - Last Filed: 06/28/21 09:13> (3) CVA (cerebral vascular accident): Status: Acute <Susy Leal PA-C - Last Filed: 06/28/21 09:13> (4) Colostomy in place: Status: Acute <JACE Stallings Last Filed: 06/28/21 09:13> (5) Current use of anticoagulant therapy: Status: Acute <Susy Leal PA-C - Last Filed: 06/28/21 09:13> Assessment and Plan: 61 year old male with colostomy in place now POD #6 s/p colostomy reversal. He continues to do fairly well post op and slowly improving. VSS- O2 sat remains marginal and placed back on supplemental O2 overnight via NC. Incisional erythema slightly improved- skin edges well approximated and healing- unable to probe incision but inferior aspect appears to have some serous drainage following some staple removal. Started on Augmentin yesterday for incision. Wean O2, strongly encouraged OOB/ ambulation of halls today, IS use 10x per hour to increase saturations. Dispo planning- home with VNA. Hopefully today if able to be weaned off supplemental 02. Patient comfortable with pain. Hx of CVA on coumadin therapy- Home coumadin dose resumed- morning INR reviewed, remains subtherapeutic. Continue lovenox 40mg BID until INR at therapeutic level. <Susy Leal PA-C - Last Filed: 06/28/21 09:13> Fall Risk Details Current Medications: Current Medications Acetaminophen (Acetaminophen 325 Mg Tablet) 650 mg PO Q6H PRN PRN Reason: fever, pain Albuterol/Ipratropium (Albuterol/Iprat 2.5/0.5mg 3 Ml Ampul.Neb) 3 ml INHALE RQ4H PRN PRN Reason: Wheezing Amoxicillin/Clavulanate Potassium (Amoxicillin/Potassium Clav 875 Mg Tablet) 875 mg PO Q12H [facility] Last Admin: 06/28/21 07:58 Dose: 875 mg Documented by: Atorvastatin Calcium (Atorvastatin Calcium 80 Mg Tablet) 80 mg PO DAILY [facility] Last Admin: 06/28/21 07:58 Dose: 80 mg Documented by: Enoxaparin Sodium (Enoxaparin Sodium 40 Mg/0.4 Ml Syringe) 40 mg SUBCUT Q12H [facility] Last Admin: 06/28/21 07:57 Dose: 40 mg Documented by: Gabapentin (Gabapentin 300 Mg Capsule) 300 mg PO TID [facility] Last Admin: 06/28/21 07:58 Dose: 300 mg Documented by: Guaifenesin/Dextromethorphan (Guaifenesin Dm 600/30 1 Tab Tab.Er.12h) 2 tab PO BID PRN PRN Reason: Cough Last Admin: 06/24/21 18:18 Dose: 2 tab Documented by: Hydromorphone HCl (Hydromorphone Hcl 0.5 Mg/0.5 Ml Syringe) 0.5 mg IVPUSH Q3H PRN; Protocol PRN Reason: Pain, Severe (Pain Scale 7-10) Last Admin: 06/27/21 17:29 Dose: 0.5 mg Documented by: Promethazine HCl 12.5 mg/ (Sodium Chloride) 50.5 mls @ 202 mls/hr IV Q6H PRN PRN Reason: Nausea and Vomiting Omeprazole (Omeprazole 20 Mg Capsule.Dr) 20 mg PO DAILY@0630 [facility] Last Admin: 06/28/21 05:34 Dose: 20 mg Documented by: Ondansetron HCl (Ondansetron Hcl 4 Mg/2 Ml Vial) 4 mg IVPUSH Q8H PRN PRN Reason: Nausea and Vomiting Last Admin: 06/27/21 17:29 Dose: 4 mg Documented by: Oxycodone HCl (Oxycodone Hcl Immed Release 5 Mg Tablet) 10 mg PO Q4H PRN PRN Reason: Pain, Severe (Pain Scale 7-10) Last Admin: 06/28/21 08:01 Dose: 10 mg Documented by: Oxycodone HCl (Oxycodone Hcl Immed Release 5 Mg Tablet) 5 mg PO Q4H PRN PRN Reason: Pain, Moderate (Pain Scale 4-6 Sertraline HCl (Sertraline Hcl 100 Mg Tablet) 100 mg PO DAILY [facility] Last Admin: 06/28/21 07:58 Dose: 100 mg Documented by: Sodium Chloride (0.9 % Sodium Chloride Flush 3 Ml Syringe) 3 ml IVFLUSH QSHIFT [facility] Last Admin: 06/28/21 07:58 Dose: 3 ml Documented by: Warfarin Sodium (Warfarin Sodium 4 Mg Tablet) 8 mg PO DAILY@1800 [facility] Last Admin: 06/27/21 16:57 Dose: 8 mg Documented by: Zolpidem Tartrate (Zolpidem Tartrate 5 Mg Tablet) 5 mg PO BEDTIME PRN PRN Reason: Insomnia <Susy Leal PA-C - Last Filed: 06/28/21 09:13> Time Spent With Patient Time: Total time spent is greater than 50% in coordination of care (as documented) at patient's floor/unit and/or counseling patient: <Susy Leal PA-C - Last Filed: 06/28/21 09:13> Time with patient: 15 - 24 minutes <Susy Leal PA-C - Last Filed: 06/28/21 09:13> Quality Stroke Does the patient have a stroke diagnosis?: No <Susy Leal PA-C - Last Filed: 06/28/21 09:13> VTE Prior VTE?: Yes <Susy Leal PA-C - Last Filed: 06/28/21 09:13> VTE Risk Level:: Surgical - high <JACE Stallings Last Filed: 06/28/21 09:13> VTE Device Contraindication: N/A - Device Ordered <JACE Stallings Last Filed: 06/28/21 09:13> VTE Drug Contraindication: N/A - Med Ordered <Susy Leal PA-C - Last Filed: 06/28/21 09:13>
--- NOTE | 2021-06-28 09:55 | P.F2F_ITS ---
Service Date Service Date: 06/28/21 Encounter Date of encounter: 06/28/21 Reasons for Services Signs and symptoms assessed: Abdominal pain/tenderness, incision appearance; INR Reason for assisted: wound care, postoperative assessment and/or care and monitoring of PT/INR Homebound: Leaving the home is medically contraindicated at this time without the asist of a device and/or another person due th the listed conditions above and below. Reason homebound: weakness related to hospital stay, unable to drive and legally blind Homebound supporting statement: Mr. Guzman is a 61 year old male with hx of CAD, CVA on coumadin who is s/p colostomy closure. He has difficulty with peripheral vision and is legally blind. He is weak due to the surgery and hospital stay and will need assistance at home. His INR remains subtherapeutic and will need lovenox subq until it becomes therapeutic. Certification: Based on the above findings, I certify that this patient is confined to the home and needs intermittent assisted care, physical therapy and/or speech therapy, or continues to need occupational therapy. The patient is under my care, and I have initiated the establishment of the plan of care. The patient will be followed by a physician who will periodically review the plan of care.
--- NOTE | 2021-06-28 13:56 | P.DS_ITS ---
DS: Providers Provider Date of Service: 06/28/21 Date of admission: 06/22/21 06:00 Primary care physician: Unknown Physician Attending physician on admission: Maude Romano DS: Diagnosis Discharge Diagnosis (1) Coronary artery disease: Status: Acute (2) Status post Jenna's procedure: Status: Acute (3) CVA (cerebral vascular accident): Status: Acute (4) Colostomy in place: Status: Acute (5) Current use of anticoagulant therapy: Status: Acute DS: Summary Hospital Course Hospital Course: BRIEF HPI: Mau Guzman is a 61 yo man with PMH including CAD, CVA on coumadin who is s/p sigmoid colectomy with colostomy creation for obstructing sigmoid colitis with wall abscess on 02/23/2021. He had been doing well since his surgery and wanted his colostomy reversed. He had a colonoscopy via rectum and ostomy with biopsy of a polyp of the TI and was also noted to have a cecal AVM; otherwise normal exam. He now presents for colostomy closure. HOSPITAL COURSE: On 06/22/21, colostomy reversal, mobilization of splenic flexure, partial colectomy and extensive lysis of adhesions was performed by Dr. Romano without complication. The patient tolerated the procedure well, underwent routine recovery in PACU and was admitted to the medical/surgical floor for observation. He had an uncomplicated but slow recovery course. He had difficulty with pain control and subsequent nausea initially. Once his pain was better controlled with more frequent analgesics administration, his pain became controlled and he had no further nausea. He had a leukocytosis immediately post operatively which was thought to be reactive and downtrended during the stay. His uriarte was remove d. He was tolerating clear liquids. He began to pass flatus and was advanced to a solid diet which he was tolerating without nausea or vomiting. He then began to move his bowels and had two large bowel movements during the stay. He did develop a cough with a marginal O2 sat occasionally requiring supplemental O2 during the stay. A CXR was ordered which showed low long volumes. He was strongly encouraged to get OOB and ambulate multiple times a day and use the incentive spirometer with improvement. He had some incisional erythema from the midline incision and some trevor were removed and he subsequently developed a small amount of serous drainage from the inferior aspect. He was started on Augmentin 875mg PO BID empirically for the erythema with improvement. He was restarted on his coumadin on POD #3. His INR was trended and was not therapeutic upon discharge and his lovenox 40mg subq BID was continued. PT was consulted and they felt he was safe for discharge to home with VNA services. On the day of discharge, he had good pain control, was tolerating a solid diet, OOB without difficulty and was moving his bowels. He was discharged to home on 06/28/21 with VNA services on a 7 day course of PO Augmentin and continued on his subq lovenox therapy until his INR was therapeutic. Status at Discharge Functional status at discharge: independent ambulation Overall status at discharge: patient is progressing back to baseline Time Spent with Patient Time attestation: Total time spent providing and/or coordinating discharge services: Discharge coordination time: Greater than 30 minutes Quality: Stroke Does the patient have a stroke diagnosis?: No Physical Exam Vital Signs: Vital Signs: Last Vital Signs Temp 97.7 F 06/28/21 07:28 Pulse 84 06/28/21 07:28 Resp 18 06/28/21 07:28 BP 137/73 06/28/21 07:28 Pulse Ox 95 06/28/21 09:07 Body Mass Index 30.5 DS: Data Data Completed and Pending Completed studies during hospitalization [Text1]: 06/22/21 09:36 Surgical [PTH] Routine A.? Colostomy, excision:? Inflamed enterocutaneous, fibrovascular and adipose tissue consistent with colostomy. B.? Anastomotic ring:? Colonic tissue within normal limits. Procedures Bypass Descending Colon to Cutaneous, Open Approach (02/17/21) Excision of Sigmoid Colon, Open Approach (02/17/21) Insertion of Infusion Device into Superior Vena Cava, Percutaneous Approach ( 02/17/21) Inspection of Lower Intestinal Tract, Via Natural or Artificial Opening Endoscopic (02/17/21) Labs on day of discharge: Laboratory Results - last 24 hr 06/28/21 05:17 PT 17.5 H INR 1.5 H Discharge Plan Discharge Patient Disposition: Home Health Service Discharge Diagnosis: s/p colostomy closure Referrals: Lina BARTLETTA [Outside] - 1 Week Maude Romano MD [Physician] - 07/08/21 Physician,Unknown [Primary Care Provider] - 1 Week Discharge Medications: New amoxicillin-pot clavulanate [Augmentin] 875-125 mg tablet 1 tab PO BID Qty: 14 RF: 0 oxycodone 5 mg tablet 5 mg PO Q4H PRN (Reason: pain (scale score 7-10)) Qty: 30 RF: 0 Continued melatonin 5 mg tablet 5 mg PO DAILY PRN (Reason: insomnia) Qty: 90 RF: 0 atorvastatin 80 mg tablet 80 mg PO DAILY Qty: 90 RF: 1 metoprolol tartrate 25 mg tablet 25 mg PO DAILY Qty: 90 RF: 1 lorazepam 0.5 mg tablet 0.5 mg PO BEDTIME Qty: 30 RF: 0 enoxaparin [Lovenox] 40 mg/0.4 mL syringe 40 mg subcut Q12H 7 Days Qty: 5.6 RF: 0 omeprazole 20 mg capsule,delayed release(DR/EC) 1 cap PO QAM RF: 0 gabapentin 300 mg capsule 300 mg PO Q8H RF: 0 sertraline 100 mg tablet 100 mg PO DAILY Qty: 90 RF: 1 warfarin 4 mg tablet 8 mg PO DAILY RF: 0 Discharge Orders: Discharge Order (Routine); Ordered 06/28/21 Ordered By: Susy Leal Diet: other Activity on Discharge: No heavy lifting Stand Alone Forms: Patient Portal Discharge page Activity Restrictions/Additional Instructions: If the incision area is tender, you may apply an ice pack for short intervals (No more than 20 minutes on, followed by at least 20 minutes off). Do not apply heat. Do not use creams, lotions, or topical antibiotics unless instructed to do so by your surgeon. These can cause infection or allergic reaction. Ok to shower. You have trevor closing your incision and these will be removed approximately 10-14 days after surgery. NO HEAVY LIFTING (>10lbs). Continue lovenox 40mg subq BID until INR between 2-3. Call Your Doctor If: -Your temperature exceeds 101.5? F -You experience excessive pain or swelling -You have an unexpected reaction to medication -You have excessive bleeding -You experience continued vomiting/nausea -Your incision begins to separate -Your incision shows signs of infection such as increased redness, swelling, excessive pain, drainage (light blood or clear fluid is normal) or heat Care Plan Goals: Return to baseline health and gradual return to activity following recovery period. Health Concerns: Hx of CAD, CVA on coumadin; s/p colostomy closure Plan of Treatment: Discharge to home with VNA services, PO course of Augmentin, Lovenox BID until INR therapeutic, f/u in office with Dr. Romano Assessment: Doing well post op, stable for discharge. Discharge Date/Time: 06/28/21 11:26
== END 2021-06-28 11:26 | disposition home health service (06) | DRG 231 ==
LOC: HO.SSSA 06:24 → HO.S3 12:10
PROVIDERS: Physician Assistant Surgical; Admitting Provider Surgery; Visit Provider Surgery
PROC: 0DBM0ZZ Excision of Descending Colon, Open Approach (ICD-10-PCS; CPT 44620; principal; 2021-06-22 07:30)
DX: Z43.3 Encounter for attention to colostomy (principal); F17.210 Nicotine dependence, cigarettes, uncomplicated; I25.10 Atherosclerotic heart disease of native coronary artery without angina pectoris; K66.0 Peritoneal adhesions (postprocedural) (postinfection); Z20.822 Contact with and (suspected) exposure to COVID-19; Z71.6 Tobacco abuse counseling; Z86.73 Personal history of transient ischemic attack (TIA), and cerebral infarction without residual deficits; Z79.01 Long term (current) use of anticoagulants; Z79.899 Other long term (current) drug therapy
CPT/HCPCS: 36415; 71046; 80048; 82947; 85025; 85610; 86850; 86900; 86901; 87635; 88304; 88305; 97161; 99024; C1758; J0131; J1100; J1170; J1650; J2250; J2270; J2370; J2405; J3010

== ENCOUNTER → 2021-06-29 14:58 | Outpatient (BNVA) | payer OTHER, SELFPAY | PROVIDERS: PCP Internal Medicine; Visit Provider Internal Medicine | DX: Z86.73 Personal history of transient ischemic attack (TIA), and cerebral infarction without residual deficits (principal); Z51.81 Encounter for therapeutic drug level monitoring; Z79.01 Long term (current) use of anticoagulants | CPT/HCPCS: Q3014 ==

== ENCOUNTER → 2021-07-01 14:17 | Outpatient (BNVA) | payer OTHER, SELFPAY | PROVIDERS: Visit Provider Internal Medicine | DX: Z86.73 Personal history of transient ischemic attack (TIA), and cerebral infarction without residual deficits (principal); Z51.81 Encounter for therapeutic drug level monitoring; Z79.01 Long term (current) use of anticoagulants | CPT/HCPCS: Q3014 ==

== ENCOUNTER → 2021-07-04 15:13 | Outpatient (BNVA) | payer OTHER, SELFPAY | PROVIDERS: PCP Internal Medicine; Visit Provider Internal Medicine | DX: Z86.73 Personal history of transient ischemic attack (TIA), and cerebral infarction without residual deficits (principal); Z51.81 Encounter for therapeutic drug level monitoring; Z79.01 Long term (current) use of anticoagulants | CPT/HCPCS: Q3014 ==

== ENCOUNTER → 2021-07-07 14:05 | Outpatient (BNVA) | payer OTHER, SELFPAY | PROVIDERS: PCP Internal Medicine; Visit Provider Internal Medicine ==

== ENCOUNTER → 2021-07-08 11:03 | Outpatient (BNVA) | payer OTHER, SELFPAY | PROVIDERS: PCP Internal Medicine; Visit Provider Surgery | DX: Z98.890 Other specified postprocedural states (principal) | CPT/HCPCS: 99212 ==

== ENCOUNTER → 2021-07-14 11:06 | Outpatient (BNVA) | payer OTHER, SELFPAY | PROVIDERS: PCP Internal Medicine; Visit Provider Internal Medicine | DX: I69.30 Unspecified sequelae of cerebral infarction (principal); Z51.81 Encounter for therapeutic drug level monitoring; Z79.01 Long term (current) use of anticoagulants | CPT/HCPCS: Q3014 ==

== ENCOUNTER → 2021-07-15 10:44 | Outpatient (BNVA) | payer OTHER, SELFPAY | PROVIDERS: PCP Internal Medicine; Referring Provider Internal Medicine; Visit Provider Surgery | DX: Z98.890 Other specified postprocedural states (principal) | CPT/HCPCS: 99212 ==

== ENCOUNTER → 2021-07-21 15:58 | Outpatient (BNVA) | payer OTHER, SELFPAY | PROVIDERS: PCP Internal Medicine; Visit Provider Internal Medicine ==

== ENCOUNTER → 2021-07-28 10:49 | Outpatient (BNVA) | payer OTHER, SELFPAY | PROVIDERS: PCP Internal Medicine; Visit Provider Internal Medicine ==

== ENCOUNTER → 2021-07-29 10:51 | Outpatient (BNVA) | payer OTHER, SELFPAY | PROVIDERS: PCP Internal Medicine; Visit Provider Surgery | DX: K94.03 Colostomy malfunction (principal); Z79.899 Other long term (current) drug therapy | CPT/HCPCS: 99211 ==

== ENCOUNTER → 2021-08-04 16:03 | Outpatient (BNVA) | payer OTHER, SELFPAY | PROVIDERS: PCP Internal Medicine; Visit Provider Internal Medicine | DX: I69.30 Unspecified sequelae of cerebral infarction (principal); Z51.81 Encounter for therapeutic drug level monitoring; Z79.01 Long term (current) use of anticoagulants | CPT/HCPCS: Q3014 ==

== ENCOUNTER → 2021-08-11 15:38 | Outpatient (BNVA) | payer OTHER, SELFPAY | PROVIDERS: PCP Internal Medicine; Visit Provider Internal Medicine | DX: I69.30 Unspecified sequelae of cerebral infarction (principal); Z51.81 Encounter for therapeutic drug level monitoring; Z79.01 Long term (current) use of anticoagulants | CPT/HCPCS: Q3014 ==

== ENCOUNTER → 2021-08-12 11:00 | Outpatient (BNVA) | payer OTHER, SELFPAY | PROVIDERS: PCP Internal Medicine; Referring Provider Internal Medicine; Visit Provider Surgery ==

== ENCOUNTER → 2021-08-17 14:03 | Outpatient (BNVA) | payer OTHER, SELFPAY | PROVIDERS: PCP Internal Medicine; Visit Provider Internal Medicine | DX: I69.30 Unspecified sequelae of cerebral infarction (principal); Z51.81 Encounter for therapeutic drug level monitoring; Z79.01 Long term (current) use of anticoagulants | CPT/HCPCS: Q3014 ==

== ENCOUNTER → 2021-08-25 11:43 | Outpatient (BNVA) | payer OTHER, SELFPAY | PROVIDERS: PCP Internal Medicine; Visit Provider Internal Medicine | DX: I69.30 Unspecified sequelae of cerebral infarction (principal) | CPT/HCPCS: Q3014 ==

== ENCOUNTER → 2021-08-30 15:44 | Outpatient (BNVA) | payer OTHER, SELFPAY | PROVIDERS: PCP Internal Medicine; Visit Provider Internal Medicine | DX: I69.30 Unspecified sequelae of cerebral infarction (principal); Z51.81 Encounter for therapeutic drug level monitoring; Z79.01 Long term (current) use of anticoagulants | CPT/HCPCS: Q3014 ==

== ENCOUNTER → 2021-09-08 11:37 | Outpatient (BNVA) | payer OTHER, SELFPAY | PROVIDERS: PCP Internal Medicine; Visit Provider Internal Medicine ==

== ENCOUNTER → 2021-09-16 10:08 | Outpatient (BNVA) | payer OTHER, SELFPAY | PROVIDERS: PCP Internal Medicine; Visit Provider Internal Medicine | DX: I69.30 Unspecified sequelae of cerebral infarction (principal); Z51.81 Encounter for therapeutic drug level monitoring; Z79.01 Long term (current) use of anticoagulants | CPT/HCPCS: 85610; 99211 ==

== ENCOUNTER → 2021-09-26 09:55 | Outpatient (BNVA) | payer OTHER, SELFPAY | PROVIDERS: PCP Internal Medicine; Visit Provider Internal Medicine | DX: I69.30 Unspecified sequelae of cerebral infarction (principal); Z51.81 Encounter for therapeutic drug level monitoring; Z79.01 Long term (current) use of anticoagulants | CPT/HCPCS: 85610; 99211 ==

== ENCOUNTER → 2021-10-03 09:50 | Outpatient (BNVA) | payer OTHER, SELFPAY | PROVIDERS: PCP Internal Medicine; Visit Provider Internal Medicine | DX: I69.30 Unspecified sequelae of cerebral infarction (principal); Z51.81 Encounter for therapeutic drug level monitoring; Z79.01 Long term (current) use of anticoagulants | CPT/HCPCS: 85610; 99211 ==

== ENCOUNTER 2021-10-03 15:00 | Outpatient (RCR) | payer OTHER, SELFPAY ==
--- NOTE | 2021-06-07 12:54 | MHC.SLORD ---
This NETWORK APPLICATIONS SPECIALIST received an e-mail from Mau's significant other, Bianca, who requested that the resumption of his speech therapy not begin until July instead of today, as scheduled. She reported that Mau will be having surgery next month and will need some time to recover.
== END 2022-02-06 16:08 | disposition home or self-care (01) ==
LOC: HO.SH 15:00
PROVIDERS: Visit Provider Internal Medicine
DX: I63.9 Cerebral infarction, unspecified (principal)
CPT/HCPCS: 92507

== ENCOUNTER → 2021-10-21 09:28 | Outpatient (BNVA) | payer OTHER, SELFPAY | PROVIDERS: PCP Internal Medicine; Visit Provider Internal Medicine | DX: I69.30 Unspecified sequelae of cerebral infarction (principal); Z51.81 Encounter for therapeutic drug level monitoring; Z79.01 Long term (current) use of anticoagulants | CPT/HCPCS: 85610; 99211 ==

== ENCOUNTER → 2021-10-24 09:37 | Outpatient (BNVA) | payer OTHER, SELFPAY | PROVIDERS: PCP Internal Medicine; Visit Provider Internal Medicine | DX: I69.30 Unspecified sequelae of cerebral infarction (principal); Z51.81 Encounter for therapeutic drug level monitoring; Z79.01 Long term (current) use of anticoagulants | CPT/HCPCS: 85610; 99211 ==

== ENCOUNTER → 2021-10-31 09:35 | Outpatient (BNVA) | payer OTHER, SELFPAY | PROVIDERS: PCP Internal Medicine; Visit Provider Internal Medicine | DX: I69.30 Unspecified sequelae of cerebral infarction (principal); Z51.81 Encounter for therapeutic drug level monitoring; Z79.01 Long term (current) use of anticoagulants | CPT/HCPCS: 85610; 99211 ==

== ENCOUNTER → 2021-11-11 09:46 | Outpatient (BNVA) | payer OTHER, SELFPAY | PROVIDERS: PCP Internal Medicine; Visit Provider Internal Medicine | DX: I69.30 Unspecified sequelae of cerebral infarction (principal); Z51.81 Encounter for therapeutic drug level monitoring; Z79.01 Long term (current) use of anticoagulants | CPT/HCPCS: 85610; 99211 ==

== ENCOUNTER 2021-11-11 10:00 | Outpatient (RCR) | payer OTHER, SELFPAY ==
--- NOTE | 2021-09-09 14:50 | MHC.PT.EP ---
[facility] [place] Office [place] Office [place] Office [address] [place] [address] Dr Shira Koehler [address] [phone] F: [phone] F: [phone] F: [phone] F: [phone] Physical Therapy Plan of Care Date of Evaluation: Date of Surgery: 06/22/21 REVERSAL COLOSTOMY Diagnosis: GENERAL WEAKNESS. H/O CVA Assessment: Pt IS 61 YO M REFERRED TO PT FROM DR GUERRERO WITH GENERALIZED WEAKNESS S/P CVA. Pt IS S/P OR, SP COLOSTOMY, S/P COLOSTOMY REVERSAL (06/22/21). Pt WAS SEEM IN PT BEFORE THE COLOSTOMY REVERSAL AND HE DID WELL WITH STRENGTHENING/BAL WORK WITH SOME LIMITATIONS BECAUSE OF COLOSTOMY BAG, AND POOR VISION. Pt ALSO HAS SHLDER/KNEE PAIN (HX OF ARTHRITIS) WHICH CAN BE LIMITING ALSO. PRESENTS TO EVAL WITH MMT TESTING OUT 55 FOR QUADS/HS AND ANKLE DF/PF WITH SOME WEAKNESS IN HIP FLEXORS AND ABDOMINAL MMS, TIGHT HAMSTRINGS, DECREASED BALANCE. Pt REPORTS DECREASED ENDURANCE NOTED ESPECIALLY WHEN DOING YARD WORK. Pt HAS NOT BEEN COMPLIANT WITH HOME PROGRAM IN THE PAST, SO WILL FOCUS MAINLY ON EXS/ENDURANCE WORK, BAL TRNG TO BE DONE AT APPOINTMENTS (HAS BEEN GIVEN A HEP WITH RECOMMENDATION TO TRY TO INCORPORATE INTO ADLS TO HELP SPEED PROGRESS). Pt WOULD LIKE TO BE ABLE TO RIDE MOTORCYCLES AGAIN. Pt'S GIRLFRIEND REPORTS SHE CONTINUES TO PURSUE ST FOR READING/WRITING/MEMORY WORK AND WOULD LIKE TO RESTART/COMPLETE CARDIAC REHAB Frequency and Duration: The patient will be seen 2X/WK X 6 WKS Short Term Goals: 1. I HEP WITH DC EX PLAN . [employer] Goals: 1. IMPROVED HS FLEX 5 DEGREES B 2. ABLE TO SLS R AND L AT LEAST 10 SEC EA 3. HIP FLEX STRENGTH 5/5 B 4. IMPROVED LEFI (37/80 SOC) 5. Pt TO REPORT IMPROVED ENDURANCE WITH ADLS/ACTIVITIES Treatment Plan: Modalities to reduce pain, spasms and effusion. Manual therapy to restore motion and function. Therapeutic exercise to improve strength and flexibility. Neuromuscular re-education for posture and balance. Therapeutic activities to return to functional activities of daily living. Electronically signed by: JENN ROJAS PT Please sign and return to therapist. Thank you for your referral.
--- NOTE | 2021-11-11 13:49 | MHC.PT.DC ---
[facility] [place] Office [place] Office [place] Office [address] Shira Koehler [address] [phone] F: [phone] F: [phone] F: [phone] F: [phone] Physical Therapy Discharge Report Diagnosis: GENERAL WEAKNESS. H/O CVA Date of Surgery: 06/22/21 REVERSAL COLOSTOMY Date of Evaluation: 09/09/21 Date of Discharge: Treatments to Date: 12 Cancellations to Date: No Shows to Date: Discharge Status: Improved Function Discharge Summary: Pt WITH SOME PLATEAU IN PT. TO TRANSITION BACK TO CARDIAC REHAB. CONTINUED TIGHT HS (R=136, L=133), HAS HOME PROG (WHICH HE ADMITTEDLY DOES NOT DO), CONTINUES WITH LIMITED BAL (BUT SOME IMPROVEMENT SLS FROM SOC). Electronically signed by: JENN ROJAS PT Please sign and return to therapist. Thank you for your referral.
== END 2021-11-11 13:53 | disposition home or self-care (01) ==
LOC: HO.PT 10:00
PROVIDERS: PCP Internal Medicine; Visit Provider Internal Medicine
DX: R53.1 Weakness (principal)
CPT/HCPCS: 97110; 97162; 97530; 97535

== ENCOUNTER → 2021-11-25 09:33 | Outpatient (BNVA) | payer OTHER, SELFPAY | PROVIDERS: PCP Internal Medicine; Visit Provider Internal Medicine | DX: I69.30 Unspecified sequelae of cerebral infarction (principal); Z51.81 Encounter for therapeutic drug level monitoring; Z79.01 Long term (current) use of anticoagulants | CPT/HCPCS: 85610; 99211 ==

== ENCOUNTER → 2021-12-16 11:03 | Outpatient (BNVA) | payer OTHER, SELFPAY ==
[2021-11-30 13:16] VITALS: BP 118/60; BP 124/66
== END ==
PROVIDERS: PCP Internal Medicine; Visit Provider Internal Medicine
DX: I69.30 Unspecified sequelae of cerebral infarction (principal); Z51.81 Encounter for therapeutic drug level monitoring; Z79.01 Long term (current) use of anticoagulants
CPT/HCPCS: 85610; 99211

== ENCOUNTER → 2021-12-23 11:08 | Outpatient (BNVA) | payer OTHER, SELFPAY ==
[2021-11-30 13:16] VITALS: BP 118/60; BP 124/66
== END ==
PROVIDERS: PCP Internal Medicine; Visit Provider Internal Medicine
DX: I69.30 Unspecified sequelae of cerebral infarction (principal); Z79.01 Long term (current) use of anticoagulants; Z51.81 Encounter for therapeutic drug level monitoring
CPT/HCPCS: 85610; 99212

== ENCOUNTER → 2021-12-26 10:31 | Outpatient (BNVA) | payer OTHER, SELFPAY ==
[2021-11-30 13:16] VITALS: BP 118/60; BP 124/66
== END ==
PROVIDERS: PCP Internal Medicine; Visit Provider Internal Medicine
DX: I69.30 Unspecified sequelae of cerebral infarction (principal); Z79.01 Long term (current) use of anticoagulants; Z51.81 Encounter for therapeutic drug level monitoring
CPT/HCPCS: 85610; 99211

== ENCOUNTER → 2021-12-27 12:29 | Outpatient (BNVA) | payer OTHER, SELFPAY ==
[2021-11-30 13:16] VITALS: BP 118/60; BP 124/66
== END ==
PROVIDERS: PCP Internal Medicine; Referring Provider Internal Medicine; Visit Provider Internal Medicine Cardiovascular Disease
DX: I25.10 Atherosclerotic heart disease of native coronary artery without angina pectoris (principal)
CPT/HCPCS: 99212

== ENCOUNTER → 2022-01-06 10:52 | Outpatient (BNVA) | payer OTHER, SELFPAY ==
[2021-11-30 13:16] VITALS: BP 118/60; BP 124/66
[2022-01-04 11:53] VITALS: BP 106/56; BMI 28.5
== END ==
PROVIDERS: PCP Internal Medicine; Visit Provider Internal Medicine
DX: I69.30 Unspecified sequelae of cerebral infarction (principal); Z51.81 Encounter for therapeutic drug level monitoring; Z79.01 Long term (current) use of anticoagulants
CPT/HCPCS: 85610; 99211

== ENCOUNTER → 2022-01-20 10:49 | Outpatient (BNVA) | payer OTHER, SELFPAY ==
[2021-11-30 13:16] VITALS: BP 118/60; BP 124/66
[2022-01-04 11:53] VITALS: BP 106/56; BMI 28.5
== END ==
PROVIDERS: PCP Internal Medicine; Visit Provider Internal Medicine
DX: I69.30 Unspecified sequelae of cerebral infarction (principal); Z79.01 Long term (current) use of anticoagulants; Z51.81 Encounter for therapeutic drug level monitoring
CPT/HCPCS: 85610; 99211

== ENCOUNTER → 2022-01-27 10:42 | Outpatient (BNVA) | payer OTHER, SELFPAY ==
[2021-11-30 13:16] VITALS: BP 118/60; BP 124/66
[2022-01-27 10:42] VITALS: BP 110/58; BMI 33.2
== END ==
PROVIDERS: PCP Internal Medicine; Visit Provider Internal Medicine
DX: I69.30 Unspecified sequelae of cerebral infarction (principal); Z79.01 Long term (current) use of anticoagulants; Z51.81 Encounter for therapeutic drug level monitoring
CPT/HCPCS: 85610; 99211

== ENCOUNTER → 2022-02-03 11:07 | Outpatient (BNVA) | payer OTHER, SELFPAY ==
[2021-11-30 13:16] VITALS: BP 118/60; BP 124/66
[2022-01-27 10:42] VITALS: BP 110/58; BMI 33.2
== END ==
PROVIDERS: PCP Internal Medicine; Visit Provider Internal Medicine
DX: I69.30 Unspecified sequelae of cerebral infarction (principal); Z79.01 Long term (current) use of anticoagulants; Z51.81 Encounter for therapeutic drug level monitoring
CPT/HCPCS: 85610; 99211

== ENCOUNTER → 2022-02-10 10:39 | Outpatient (BNVA) | payer OTHER, SELFPAY ==
[2021-11-30 13:16] VITALS: BP 118/60; BP 124/66
[2022-01-27 10:42] VITALS: BP 110/58; BMI 33.2
== END ==
PROVIDERS: PCP Internal Medicine; Visit Provider Internal Medicine
DX: I69.30 Unspecified sequelae of cerebral infarction (principal); Z79.01 Long term (current) use of anticoagulants; Z51.81 Encounter for therapeutic drug level monitoring
CPT/HCPCS: 85610; 99211

== ENCOUNTER → 2022-02-24 11:05 | Outpatient (BNVA) | payer OTHER, SELFPAY ==
[2021-11-30 13:16] VITALS: BP 118/60; BP 124/66
[2022-01-27 10:42] VITALS: BP 110/58
[2022-02-24 11:06] VITALS: BMI 33.9
== END ==
PROVIDERS: PCP Internal Medicine; Visit Provider Internal Medicine
DX: I69.30 Unspecified sequelae of cerebral infarction (principal); Z79.01 Long term (current) use of anticoagulants; Z51.81 Encounter for therapeutic drug level monitoring
CPT/HCPCS: 85610; 99211

== ENCOUNTER → 2022-03-17 11:00 | Outpatient (BNVA) | payer OTHER, SELFPAY ==
[2022-01-27 10:42] VITALS: BP 110/58
[2022-02-24 11:06] VITALS: BMI 33.9
[2022-03-17 11:16] VITALS: BP 100/60; BP 128/56
== END ==
PROVIDERS: PCP Internal Medicine; Visit Provider Internal Medicine
DX: I69.30 Unspecified sequelae of cerebral infarction (principal); Z79.01 Long term (current) use of anticoagulants; Z51.81 Encounter for therapeutic drug level monitoring
CPT/HCPCS: 85610; 99211

== ENCOUNTER → 2022-04-07 10:20 | Outpatient (BNVA) | payer OTHER, SELFPAY ==
[2022-01-27 10:42] VITALS: BP 110/58
[2022-02-24 11:06] VITALS: BMI 33.9
[2022-03-17 11:16] VITALS: BP 100/60; BP 128/56
== END ==
PROVIDERS: PCP Internal Medicine; Visit Provider Internal Medicine
DX: I69.30 Unspecified sequelae of cerebral infarction (principal); Z51.81 Encounter for therapeutic drug level monitoring; Z79.01 Long term (current) use of anticoagulants
CPT/HCPCS: 85610; 99211

== ENCOUNTER 2022-04-27 16:30 | Outpatient (REF) | payer OTHER, SELFPAY ==
[2022-01-27 10:42] VITALS: BP 110/58
[2022-02-24 11:06] VITALS: BMI 33.9
[2022-03-17 11:16] VITALS: BP 100/60; BP 128/56
[2022-04-27 16:58] LABS: Hemoglobin 13.5 g/dl (14.0-18.0); Mean Corpuscular HGB Conc 33.8 g/dl (31.0-36.0); Mean Corpuscular Hemoglobin 31.8 pg (27.0-33.0); Mean Corpuscular Volume 94.1 fL (80.0-98.0); Mean Platelet Volume 10.2 fL (9.4-12.4); Platelet Count 218 X10*3/uL (160-400); Red Blood Count 4.25 X10*6/uL (4.60-5.80); Red Cell Distribution Width 13.5 % (11.0-16.0); White Blood Count 7.8 X10*3/uL (4.8-10.8)
[2022-04-27 17:39] LABS: Alanine Aminotransferase 25 U/L (0-40); Albumin Level 4.2 g/dL (3.5-5.0); Alkaline Phosphatase 68 U/L (39-117); Anion Gap 11 (12-20); Aspartate Amino Transferase 21 U/L (5-37); Bilirubin Direct 0.3 mg/dL (0.0-0.5); Bilirubin Total 0.7 mg/dL (0.0-1.0); Blood Urea Nitrogen 18 mg/dL (9-16); Calcium 9.3 mg/dL (8.4-10.2); Carbon Dioxide 25 mmol/L (22-29); Chloride 108 mmol/L (96-108); Cholesterol 142 mg/dL; Estimated Glomerular Filt Rate > 60; Glucose Random 100 mg/dL (60-115); HDL Cholesterol 33 mg/dL; LDL Cholesterol Calculated 85 mg/dl; Potassium 4.7 mmol/L (3.3-5.1); Sodium 139 mmol/L (135-145); Triglycerides 121 mg/dL
[2022-04-27 18:02] LABS: Thyroid Stimulating Hormone 0.35 uIU/mL (0.32-4.0)
[2022-04-27 18:09] LABS: Appearance Urine CLEAR; Color Urine YELLOW; Glucose Urine UA NEG (NEG); Leukocyte Esterase Urine NEG (NEG); Nitrite Urine NEG (NEG); PH 5.5 (5.0-8.0); Specific Gravity - Urine >= 1.030 (1.005-1.025); Urine Blood NEG (NEG); Urine Ketones NEG (NEG); Urine Protein NEG (NEG-TRACE)
== END 2022-04-27 16:31 | disposition home or self-care (01) ==
LOC: HO.LAB 16:30
PROVIDERS: PCP Internal Medicine; Visit Provider Internal Medicine
DX: I25.10 Atherosclerotic heart disease of native coronary artery without angina pectoris (principal); I63.9 Cerebral infarction, unspecified
CPT/HCPCS: 36415; 80048; 80061; 80076; 81003; 84443; 85027

== ENCOUNTER → 2022-05-05 10:15 | Outpatient (BNVA) | payer OTHER, SELFPAY ==
[2022-01-27 10:42] VITALS: BP 110/58
[2022-02-24 11:06] VITALS: BMI 33.9
[2022-03-17 11:16] VITALS: BP 100/60; BP 128/56
== END ==
PROVIDERS: PCP Internal Medicine; Visit Provider Internal Medicine
DX: I69.30 Unspecified sequelae of cerebral infarction (principal); Z79.01 Long term (current) use of anticoagulants; Z51.81 Encounter for therapeutic drug level monitoring
CPT/HCPCS: 85610; 99211

== ENCOUNTER → 2022-06-02 10:20 | Outpatient (BNVA) | payer OTHER, SELFPAY ==
[2022-01-27 10:42] VITALS: BP 110/58
[2022-02-24 11:06] VITALS: BMI 33.9
[2022-03-17 11:16] VITALS: BP 100/60; BP 128/56
== END ==
PROVIDERS: PCP Internal Medicine; Visit Provider Internal Medicine
DX: I69.30 Unspecified sequelae of cerebral infarction (principal); Z79.01 Long term (current) use of anticoagulants; Z51.81 Encounter for therapeutic drug level monitoring
CPT/HCPCS: 85610; 99211

== ENCOUNTER → 2022-06-30 10:18 | Outpatient (BNVA) | payer OTHER, SELFPAY ==
[2022-01-27 10:42] VITALS: BP 110/58
[2022-02-24 11:06] VITALS: BMI 33.9
[2022-03-17 11:16] VITALS: BP 100/60; BP 128/56
== END ==
PROVIDERS: PCP Internal Medicine; Visit Provider Internal Medicine
DX: I69.30 Unspecified sequelae of cerebral infarction (principal); Z79.01 Long term (current) use of anticoagulants; Z51.81 Encounter for therapeutic drug level monitoring
CPT/HCPCS: 85610; 99211

== ENCOUNTER → 2022-07-14 10:15 | Outpatient (BNVA) | payer OTHER, SELFPAY ==
[2022-01-27 10:42] VITALS: BP 110/58
[2022-02-24 11:06] VITALS: BMI 33.9
[2022-03-17 11:16] VITALS: BP 100/60; BP 128/56
== END ==
PROVIDERS: PCP Internal Medicine; Visit Provider Internal Medicine
DX: I69.30 Unspecified sequelae of cerebral infarction (principal); Z79.01 Long term (current) use of anticoagulants; Z51.81 Encounter for therapeutic drug level monitoring
CPT/HCPCS: 85610; 99211

== ENCOUNTER → 2022-07-28 10:28 | Outpatient (BNVA) | payer OTHER, SELFPAY ==
[2022-01-27 10:42] VITALS: BP 110/58
[2022-02-24 11:06] VITALS: BMI 33.9
[2022-03-17 11:16] VITALS: BP 100/60; BP 128/56
== END ==
PROVIDERS: PCP Internal Medicine; Visit Provider Internal Medicine
DX: I69.30 Unspecified sequelae of cerebral infarction (principal); Z79.01 Long term (current) use of anticoagulants; Z51.81 Encounter for therapeutic drug level monitoring
CPT/HCPCS: 85610; 99211

== ENCOUNTER → 2022-08-18 10:24 | Outpatient (BNVA) | payer OTHER, SELFPAY ==
[2022-01-27 10:42] VITALS: BP 110/58
[2022-02-24 11:06] VITALS: BMI 33.9
[2022-03-17 11:16] VITALS: BP 100/60; BP 128/56
== END ==
PROVIDERS: PCP Internal Medicine; Visit Provider Internal Medicine
DX: I69.30 Unspecified sequelae of cerebral infarction (principal); Z79.01 Long term (current) use of anticoagulants; Z51.81 Encounter for therapeutic drug level monitoring
CPT/HCPCS: 85610; 99211

== ENCOUNTER → 2022-09-08 10:29 | Outpatient (BNVA) | payer OTHER, SELFPAY ==
[2022-01-27 10:42] VITALS: BP 110/58
[2022-02-24 11:06] VITALS: BMI 33.9
[2022-03-17 11:16] VITALS: BP 100/60; BP 128/56
== END ==
PROVIDERS: PCP Internal Medicine; Visit Provider Internal Medicine
DX: I69.30 Unspecified sequelae of cerebral infarction (principal); Z79.01 Long term (current) use of anticoagulants; Z51.81 Encounter for therapeutic drug level monitoring
CPT/HCPCS: 85610; 99211

== ENCOUNTER → 2022-10-06 10:25 | Outpatient (BNVA) | payer OTHER, SELFPAY ==
[2022-01-27 10:42] VITALS: BP 110/58
[2022-02-24 11:06] VITALS: BMI 33.9
[2022-03-17 11:16] VITALS: BP 100/60; BP 128/56
== END ==
PROVIDERS: PCP Internal Medicine; Visit Provider Internal Medicine
DX: I69.30 Unspecified sequelae of cerebral infarction (principal); Z79.01 Long term (current) use of anticoagulants; Z51.81 Encounter for therapeutic drug level monitoring
CPT/HCPCS: 85610; 99211

== ENCOUNTER → 2022-10-20 10:18 | Outpatient (BNVA) | payer OTHER, SELFPAY ==
[2022-01-27 10:42] VITALS: BP 110/58
[2022-02-24 11:06] VITALS: BMI 33.9
[2022-03-17 11:16] VITALS: BP 100/60; BP 128/56
== END ==
PROVIDERS: PCP Internal Medicine; Visit Provider Internal Medicine
DX: I69.30 Unspecified sequelae of cerebral infarction (principal); Z79.01 Long term (current) use of anticoagulants; Z51.81 Encounter for therapeutic drug level monitoring
CPT/HCPCS: 85610; 99211

== ENCOUNTER 2022-10-24 16:12 | Outpatient (REF) | payer OTHER, SELFPAY ==
[2022-01-27 10:42] VITALS: BP 110/58
[2022-02-24 11:06] VITALS: BMI 33.9
[2022-03-17 11:16] VITALS: BP 100/60; BP 128/56
[2022-10-24 16:36] LABS: Hemoglobin 14.3 g/dl (14.0-18.0); Mean Corpuscular Hemoglobin 31.6 pg (27.0-33.0); Mean Corpuscular Volume 92.9 fL (80.0-98.0); Mean Platelet Volume 10.5 fL (9.4-12.4); Platelet Count 231 X10*3/uL (160-400); Red Blood Count 4.52 X10*6/uL (4.60-5.80); Red Cell Distribution Width 13.3 % (11.0-16.0); White Blood Count 7.8 X10*3/uL (4.8-10.8)
[2022-10-24 17:13] LABS: Alanine Aminotransferase 25 U/L (0-40); Albumin Level 4.2 g/dL (3.5-5.0); Alkaline Phosphatase 88 U/L (39-117); Anion Gap 10 (12-20); Aspartate Amino Transferase 18 U/L (5-37); Bilirubin Direct 0.2 mg/dL (0.0-0.5); Bilirubin Total 0.6 mg/dL (0.0-1.0); Blood Urea Nitrogen 10 mg/dL (9-16); Calcium 9.2 mg/dL (8.4-10.2); Carbon Dioxide 25 mmol/L (22-29); Chloride 108 mmol/L (96-108); Cholesterol 161 mg/dL; Estimated Glomerular Filt Rate > 60; Glucose Random 89 mg/dL (60-115); HDL Cholesterol 36 mg/dL; LDL Cholesterol Calculated 104 mg/dl; Potassium 4.2 mmol/L (3.3-5.1); Sodium 139 mmol/L (135-145); Triglycerides 108 mg/dL
[2022-10-24 17:28] LABS: Thyroid Stimulating Hormone 0.43 uIU/mL (0.32-4.0)
== END 2022-10-24 16:13 | disposition home or self-care (01) ==
LOC: HO.LAB 16:12
PROVIDERS: PCP Internal Medicine; Visit Provider Internal Medicine
DX: I25.10 Atherosclerotic heart disease of native coronary artery without angina pectoris (principal); F17.200 Nicotine dependence, unspecified, uncomplicated; Z79.01 Long term (current) use of anticoagulants
CPT/HCPCS: 36415; 80048; 80061; 80076; 84443; 85027

== ENCOUNTER → 2022-11-10 10:22 | Outpatient (BNVA) | payer MEDICARE, MEDICAID, SELFPAY ==
[2022-01-27 10:42] VITALS: BP 110/58
[2022-02-24 11:06] VITALS: BMI 33.9
[2022-03-17 11:16] VITALS: BP 100/60; BP 128/56
== END ==
PROVIDERS: PCP Internal Medicine; Visit Provider Internal Medicine
DX: I69.30 Unspecified sequelae of cerebral infarction (principal); Z79.01 Long term (current) use of anticoagulants; Z51.81 Encounter for therapeutic drug level monitoring
CPT/HCPCS: 85610; 99211

== ENCOUNTER → 2022-11-28 15:45 | Outpatient (REF) | payer MEDICARE, MEDICAID, SELFPAY ==
[2022-01-27 10:42] VITALS: BP 110/58
[2022-02-24 11:06] VITALS: BMI 33.9
[2022-03-17 11:16] VITALS: BP 100/60; BP 128/56
--- NOTE | 2022-11-28 15:47 | CA_ITS ---
Transthoracic Echocardiogram Patient (Last, First, Middle): Mau Guzman H Gender: Male Date of : 1960 Age: 62 Procedure Date: 11/28/2022 Procedure Type: Transthoracic Echocardiogram Location: OP Height: 175.26 cm Weight: 107.5 kg BSA: 2.22 m2 Heart Rate: bpm BP: 126 / 78 mmHg Insurance Actuary: KATE Referring MD: Tyrone Montanez MD Symptoms: I25.10 - Atherosclerotic heart disease of [place] coronary... Study Quality: Fair, contrast ECG Rhythm: Sinus Conclusions: - The left ventricular systolic function is normal. The visually estimated ejection fraction is between 55-60%. - The basal inferolateral segment is hypokinetic. - The basal inferior segment is akinetic. - No obvious valvular pathology seen on this study. Findings Procedure Information Contrast agent, definity, is being given per protocol without apparent complications. Left Ventricle Normal left ventricular cavity size. There is mildly increased left ventricular wall thickness. The left ventricular systolic function is normal. The visually estimated ejection fraction is between 55-60%. There is evidence of regional wall motion abnormalities. Diastolic function is normal for age. There is moderate septal asymmetric hypertrophy. (even with contrast, difficult to assess wall motion). Wall Motion Rest Echo Findings The basal inferolateral segment is hypokinetic. The basal inferior segment is akinetic. Atria The left atrium is mildly dilated. The right atrium is likely dilated. Aortic Valve The aortic valve was not well visualized. The aortic valve structure and function is likely normal. There is no aortic valve stenosis. There is no aortic valve regurgitation. Mitral Valve The mitral valve appears normal. There is no mitral valve regurgitation. There is no mitral valve stenosis. Pulmonic Valve The pulmonic valve is likely normal. Tricuspid Valve There is no tricuspid valve regurgitation. Tricuspid regurgitation envelope is inadequate for calculation of right ventricular systolic pressure. Great Vessels The asc aorta is normal in size. Venous The inferior vena cava is normal in size and collapses greater than 50% with inspiration. Pericardium/Pleural Prominent epicardial adipose tissue noted. There is no evidence of pericardial effusion. Prior Study Comparison No significant change compared to prior study dated: 08/17/2020. Recommendations, Care & Conclusions No obvious valvular pathology seen on this study. Measurements 2D Linear Measurements IVSd: 1.47 0.6-0.9/0.6-1.0 cm LVIDd: 5.20 3.9-5.3/4.2-5.9 cm LVIDd Index: 2.34 2.4-3.2/2.2-3.1 cm/m2 LVIDs: 3.53 2.0-3.6 cm LVPWd: 1.26 0.7-1.1 cm LA Diam: 4.20 2.7-3.8/3.0-4.0 cm LAIDs Index: 1.89 1.5-2.3 cm/m2 LV Mass: 372.39 67-162/88-224 g LV Mass Index: 167.74 43-95/49-115 g/m2 LVOT Diam: 2.10 3.0+(-)1.3 cm 2D Systolic Function EF 4C: 63.60 >55% EF 2C: 66.70 >55% EF BiP: 65.50 >55% Mitral Valve MV Pk E: 0.71 MV PK A: 1.02 MV Decel Time: 370.00 E/A: 0.70 E'Lateral: 10.20 E'Medial: 7.40 E/E' Med: 9.50 E/E' Lat: 6.90 PHT: 108.00 MVA PHT: 2.04 Decel [place]: 1.91 Aortic Valve AoV Pk Lance: 1.61 AoV Mn Lance: 1.11 AoV VTI: 0.37 AoV Pk Grad: 10.00 Aov Mn Grad: 6.00 JINA Cont.VTI: 3.09 LVOT LVOT Pk Lance: 1.45 LVOT Mn Lance: 0.96 LVOT VTI: 0.33 LVOT Pk Grad: 8.00 LVOT Mn Grad: 4.00 LVOT Diam: 2.10 LVOT Area: 3.46 Diastolic Function MV Pk E: 0.71 MV Pk A: 1.02 E/A: 0.70 E'Medial: 7.40 E/E' Med: 9.50 E' Laterial: 10.20 E/E' Lat: 6.90 Right Ventricle TAPSE (mm): 25.90 TVS' Lance: 13.70 Tricuspid Valve RA Press: 3.00 Great Vessels Aorta Sinus of Valsalva: 4.07 2.0-3.[address] [place]: 3.34 1.7-3.4 cm Ao Asc: 3.50 2.1-3.4 cm Updated in Other Vendor System with Status of Final Tim Ashley MD electronically signed on 11/29/2022 11:21:12 AM with status of Final
== END ==
LOC: HO.CARD 15:45
PROVIDERS: Visit Provider Internal Medicine Cardiovascular Disease
DX: I25.10 Atherosclerotic heart disease of native coronary artery without angina pectoris (principal)
CPT/HCPCS: 93306; Q9957

== ENCOUNTER → 2022-12-01 10:24 | Outpatient (BNVA) | payer MEDICARE, MEDICAID, SELFPAY ==
[2022-01-27 10:42] VITALS: BP 110/58
[2022-02-24 11:06] VITALS: BMI 33.9
[2022-03-17 11:16] VITALS: BP 100/60; BP 128/56
== END ==
PROVIDERS: PCP Internal Medicine; Visit Provider Internal Medicine
DX: I69.30 Unspecified sequelae of cerebral infarction (principal); Z79.01 Long term (current) use of anticoagulants; Z51.81 Encounter for therapeutic drug level monitoring
CPT/HCPCS: 85610; 99211

== ENCOUNTER → 2022-12-22 10:15 | Outpatient (BNVA) | payer MEDICARE, MEDICAID, SELFPAY ==
[2022-01-27 10:42] VITALS: BP 110/58
[2022-02-24 11:06] VITALS: BMI 33.9
[2022-03-17 11:16] VITALS: BP 100/60; BP 128/56
== END ==
PROVIDERS: PCP Internal Medicine; Visit Provider Internal Medicine
DX: I69.30 Unspecified sequelae of cerebral infarction (principal); Z79.01 Long term (current) use of anticoagulants; Z51.81 Encounter for therapeutic drug level monitoring
CPT/HCPCS: 85610; 99211

== ENCOUNTER → 2022-12-28 14:58 | Outpatient (BNVA) | payer OTHER, SELFPAY ==
[2022-01-27 10:42] VITALS: BP 110/58
[2022-02-24 11:06] VITALS: BMI 33.9
[2022-03-17 11:16] VITALS: BP 100/60; BP 128/56
== END ==
PROVIDERS: PCP Internal Medicine; Referring Provider Internal Medicine; Visit Provider Internal Medicine Cardiovascular Disease
DX: I25.10 Atherosclerotic heart disease of native coronary artery without angina pectoris (principal)
CPT/HCPCS: 93005

== ENCOUNTER → 2023-01-19 10:33 | Outpatient (BNVA) | payer OTHER, SELFPAY ==
[2022-01-27 10:42] VITALS: BP 110/58
[2022-02-24 11:06] VITALS: BMI 33.9
[2022-03-17 11:16] VITALS: BP 100/60; BP 128/56
== END ==
PROVIDERS: PCP Internal Medicine; Visit Provider Internal Medicine
DX: I69.30 Unspecified sequelae of cerebral infarction (principal); Z51.81 Encounter for therapeutic drug level monitoring; Z79.01 Long term (current) use of anticoagulants
CPT/HCPCS: 85610; 99211

== ENCOUNTER → 2023-02-02 11:03 | Outpatient (BNVA) | payer OTHER, SELFPAY ==
[2022-01-27 10:42] VITALS: BP 110/58
[2022-02-24 11:06] VITALS: BMI 33.9
[2022-03-17 11:16] VITALS: BP 100/60; BP 128/56
== END ==
PROVIDERS: PCP Internal Medicine; Visit Provider Internal Medicine
DX: I69.30 Unspecified sequelae of cerebral infarction (principal); Z51.81 Encounter for therapeutic drug level monitoring; Z79.01 Long term (current) use of anticoagulants
CPT/HCPCS: 85610; 99211

== ENCOUNTER → 2023-02-23 10:28 | Outpatient (BNVA) | payer OTHER, SELFPAY ==
[2022-01-27 10:42] VITALS: BP 110/58
[2022-02-24 11:06] VITALS: BMI 33.9
[2022-03-17 11:16] VITALS: BP 100/60; BP 128/56
== END ==
PROVIDERS: PCP Internal Medicine; Visit Provider Internal Medicine
DX: Z51.81 Encounter for therapeutic drug level monitoring (principal); Z79.01 Long term (current) use of anticoagulants; Z86.73 Personal history of transient ischemic attack (TIA), and cerebral infarction without residual deficits
CPT/HCPCS: 85610; 99211

== ENCOUNTER → 2023-03-09 10:40 | Outpatient (BNVA) | payer OTHER, SELFPAY ==
[2022-01-27 10:42] VITALS: BP 110/58
[2022-02-24 11:06] VITALS: BMI 33.9
[2022-03-17 11:16] VITALS: BP 100/60; BP 128/56
== END ==
PROVIDERS: PCP Internal Medicine; Visit Provider Internal Medicine
DX: Z51.81 Encounter for therapeutic drug level monitoring (principal); I69.30 Unspecified sequelae of cerebral infarction; Z79.01 Long term (current) use of anticoagulants
CPT/HCPCS: 85610; 99211

== ENCOUNTER → 2023-03-30 10:15 | Outpatient (BNVA) | payer OTHER, SELFPAY ==
[2022-01-27 10:42] VITALS: BP 110/58
[2022-02-24 11:06] VITALS: BMI 33.9
[2022-03-17 11:16] VITALS: BP 100/60; BP 128/56
== END ==
PROVIDERS: PCP Internal Medicine; Visit Provider Internal Medicine
DX: I69.30 Unspecified sequelae of cerebral infarction (principal); Z51.81 Encounter for therapeutic drug level monitoring; Z79.01 Long term (current) use of anticoagulants
CPT/HCPCS: 85610; 99211

== ENCOUNTER 2023-04-24 09:06 | Outpatient (REF) | payer OTHER, SELFPAY ==
[2022-01-27 10:42] VITALS: BP 110/58
[2022-02-24 11:06] VITALS: BMI 33.9
[2022-03-17 11:16] VITALS: BP 100/60; BP 128/56
[2023-04-24 09:58] LABS: Appearance Urine Clear; Color Urine Dark Yellow; Glucose Urine UA Negative (Negative); Leukocyte Esterase Urine Negative (Negative); Nitrite Urine Negative (Negative); PH 5.5 (5.0-9.0); Specific Gravity - Urine 1.025 (1.005-1.025); Urine Blood Negative (Negative); Urine Ketones Trace mg/dL (Negative); Urine Protein Negative (Neg-Trace)
[2023-04-24 09:58] LABS: Hematocrit 42.1 % (42.0-52.0); Hemoglobin 13.9 g/dl (14.0-18.0); Mean Corpuscular Hemoglobin 32.2 pg (27.0-33.0); Mean Corpuscular Volume 97.5 fL (80.0-98.0); Mean Platelet Volume 11.4 fL (9.4-12.4); Platelet Count 230 X10*3/uL (160-400); Red Blood Count 4.32 X10*6/uL (4.60-5.80); Red Cell Distribution Width 13.5 % (11.0-16.0); White Blood Count 9.2 X10*3/uL (4.8-10.8)
[2023-04-24 10:40] LABS: Cholesterol 91 mg/dL; HDL Cholesterol 28 mg/dL; LDL Cholesterol Calculated 50 mg/dl; Triglycerides 66 mg/dL
[2023-04-24 10:51] LABS: Alanine Aminotransferase 22 U/L (0-40); Albumin Level 3.8 g/dL (3.5-5.0); Alkaline Phosphatase 74 U/L (39-117); Anion Gap 11 (12-20); Aspartate Amino Transferase 19 U/L (5-37); Bilirubin Direct 0.2 mg/dL (0.0-0.5); Bilirubin Total 0.4 mg/dL (0.0-1.0); Blood Urea Nitrogen 12 mg/dL (9-16); Calcium 9.2 mg/dL (8.4-10.2); Carbon Dioxide 27 mmol/L (22-29); Chloride 108 mmol/L (96-108); Cholesterol 92 mg/dL; Estimated Glomerular Filt Rate > 60; Glucose Random 92 mg/dL (60-115); HDL Cholesterol 28 mg/dL; LDL Cholesterol Calculated 51 mg/dl; Potassium 4.7 mmol/L (3.3-5.1); Sodium 141 mmol/L (135-145); Total Protein 6.8 g/dL (6.5-8.0); Triglycerides 66 mg/dL
[2023-04-24 10:58] LABS: Thyroid Stimulating Hormone 0.53 uIU/mL (0.32-4.0)
== END 2023-04-24 09:07 | disposition home or self-care (01) ==
LOC: HO.LAB 09:06
PROVIDERS: Internal Medicine Cardiovascular Disease; PCP Internal Medicine; Visit Provider Internal Medicine
DX: I25.10 Atherosclerotic heart disease of native coronary artery without angina pectoris (principal); I63.9 Cerebral infarction, unspecified; E03.9 Hypothyroidism, unspecified
CPT/HCPCS: 36415; 80048; 80061; 80076; 81003; 84443; 85027

== ENCOUNTER 2023-04-27 10:25 | Outpatient (AMB) | payer SELFPAY ==
[2022-01-27 10:42] VITALS: BP 110/58
[2022-02-24 11:06] VITALS: BMI 33.9
[2022-03-17 11:16] VITALS: BP 100/60; BP 128/56
[2023-04-27 10:30] LABS: Prothrombin Time Whole Bld POC 39.4 sec (11.1-13.5); ~PT, ~INR - Anti Coag Clinic 3.3 (0.9-1.1)
--- NOTE | 2023-04-27 10:41 | MHC.OFFVISCO ---
Intake Intake Visit Reasons: Anticoagulation Allergies No Known Allergies Allergy (Verified 04/27/23 10:26) Medication List - Last Reconciled 04/27/23 by Michelle Clemons, RN acetaminophen (Tylenol) 650 mg (2 x 325 mg) PO Q6H PRN atorvastatin 80 mg PO DAILY ezetimibe (Zetia) 10 mg PO DAILY [floor to tub rail As directed] gabapentin 300 mg PO Q8H melatonin 5 mg PO DAILY PRN melatonin 1 mg PO BEDTIME PRN metoprolol succinate ER (Toprol XL) 25 mg PO DAILY sertraline 100 mg PO DAILY warfarin See Protocol 8mg orally once a day for four days. 10 mg orally daily for three days; Nursing Note Amb to ACS accomp by friend feeling well, sts he has lost over 20 pounds, eating well, still having some diff with sleep, taking melatonin nightly (raiser) has switched to decaf coffee after first coffee of day Medications and supplements reviewed No other changes in health, diet, medications, or supplements Denies any unusual signs and symptoms of bruising, bleeding Denies any new Chest pain, SOB, or clotting INR: 3.3 above therapeutic range, has been trending up Nutritional guidance given: balance greens and reds in diet, has meals on wheels sts that has helped to balance Dose: decrease dose today to 6mg and will decrease weekly to 10mg x 2 days (vs 3 days) and 8mg x 5 days (vs 4 days) F/U INR: 2 weeks Patient and friend verbalizes understanding of instructions given with accurate read back/ teach back of dosing TC to friend Kathi who manages hi warfarin for dosing changes Anti-Coag Initial Assessment Social Hx Patient Tobacco Use Status: Current someday Tobacco user Tobacco use type: Cigarette Smoking packs per day: 1 alcohol intake: current Alcohol intake frequency: holidays/special occasions only Coding Level of Care Code Est Patient Level 1 Diagnoses Current use of anticoagulant therapy Z79.01 Time Spent (min) 15 Assessment & Plan Assessment & Plan (1) Current use of anticoagulant therapy: Code(s): Z79.01 - skilled nursing (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
== END 2023-04-27 10:51 | disposition home or self-care (01) ==
LOC: HO.ACS 10:25
PROVIDERS: PCP Internal Medicine; Visit Provider Internal Medicine
DX: Z79.01 Long term (current) use of anticoagulants (principal)

== ENCOUNTER → 2023-04-27 10:25 | Outpatient (BNVA) | payer MEDICARE, MEDICAID, SELFPAY ==
[2022-01-27 10:42] VITALS: BP 110/58
[2022-02-24 11:06] VITALS: BMI 33.9
[2022-03-17 11:16] VITALS: BP 100/60; BP 128/56
== END ==
PROVIDERS: PCP Internal Medicine; Visit Provider Internal Medicine
DX: Z51.81 Encounter for therapeutic drug level monitoring (principal); Z79.01 Long term (current) use of anticoagulants; I69.30 Unspecified sequelae of cerebral infarction
CPT/HCPCS: 85610; 99211

== ENCOUNTER 2023-05-02 08:28 | Outpatient (AMB) | payer MEDICARE, SELFPAY ==
[2022-01-27 10:42] VITALS: BP 110/58
[2022-02-24 11:06] VITALS: BMI 33.9
[2022-03-17 11:16] VITALS: BP 100/60; BP 128/56
--- NOTE | 2023-05-02 08:36 | MHC.PC.OV ---
Vital Signs 05/02/23 08:37 Height 5 ft 9 in Weight 226 lb 6 oz BMI 33.4 BP 130/72 Blood Pressure Location Lt brachial Position Sitting Pulse 71 Pulse Source Pulse Oximeter Pulse Oximetry (%) 95 Oxygen Delivery Method Room Air Intake Visit Reasons: Annual Exam Intake Note: Patient is here today for a physical. Supervisor Heading Required: No [facility] Assistant: Present Accompanied by: ion implant machine operator Allergies No Known Allergies Allergy (Verified 05/02/23 09:44) Medication List - Last Reconciled 05/02/23 by Sanjay Cline MD acetaminophen (Tylenol) 650 mg (2 x 325 mg) PO Q6H PRN atorvastatin 80 mg PO DAILY ezetimibe (Zetia) 10 mg PO DAILY [floor to tub rail As directed] gabapentin 300 mg PO Q8H melatonin 5 mg PO DAILY PRN metoprolol succinate ER (Toprol XL) 25 mg PO DAILY sertraline 100 mg PO DAILY warfarin See Protocol 8mg orally once a day for four days. 10 mg orally daily for three days; Tobacco use date assessed: 05/02/23 Dental Screening Dental Screen Date: 05/02/23 Did you have a dental visit in the last 12 months?: No Did you have a dental problem in the last 6 months where you did not have access to dental care?: No Was dental information given to patient?: No HPI Annual Exam HPI Details 63-year-old male presents to the office requesting an annual physical. [facility] Medical History Anxiety Colostomy in place Coronary artery disease Depression High cholesterol History of acute inferior wall AL HTN (hypertension) Knee pain, bilateral Legal blindness ST elevation myocardial infarction (STEMI) of inferior wall (~07/2020) Stroke (~07/2020) Tobacco use disorder Tremors of nervous system Surgical History (Updated 05/02/23 @ 09:50 by Sanjay Cline MD) H/O resection of large bowel History of colostomy reversal Status post Jenna's procedure Family History Father Stroke Heart attack Mother Heart attack Sister Diverticulitis Heart attack Brother No problems noted. Sister No problems noted. Brother No problems noted. Social History Household Members: Spouse Housing: House Do you presently have visiting nurse or other home services: No Alcohol intake: current Alcohol intake frequency: holidays/special occasions only Patient Tobacco Use Status: Current everyday Tobacco user Tobacco use type: Cigarette Cigarette Packs Per Day: 1 Cigarettes Per Day: 20 Years Smoked: 40 e-Cigarette/Vaping Use: Never Used Second Hand Smoke Exposure: Yes service: No Current occupational status: disabled Cognitive needs: No Hearing needs: No Vision needs: Yes Questionnaire PHQ-9 Over the last 2 weeks, how often have you been bothered by any of the following problems? 1. Little interest or pleasure in doing things: not at all 2. Feeling down, depressed, or hopeless: nearly every day 3. Trouble falling or staying asleep, or sleeping too much: nearly every day 4. Feeling tired or having little energy: several days 5. Poor appetite or overeating: not at all 6. Feeling bad about yourself - or that you are a failure or have let yourself or your family down: not at all 7. Trouble concentrating on things, such as reading the newspaper or watching television: several days 8. Moving or speaking so slowly that other people could have noticed. Or the opposite - being so fidgety or restless that you have been moving around a lot more than usual: not at all 9. Thoughts that you would be better off or of hurting yourself in some way: not at all Total score: 8 Depression Screening Interpretation: Positive Depression Screening Follow-up: Existing condition and In treatment Source: Developed by Drs. Jr Wong, Nelly Zamarripa, Nick Nieves and colleagues, with an educational jean from [employer]. Thrive Questionnaire Date Thrive assessed: 10/24/22 DONN-7 AMB Questionnaire DONN-7 Date DONN - 7 assessed: 05/02/23 Feeling nervous, anxious, or on edge: 3 = Nearly every day Not being able to stop or control worryin = More than half the days Worrying too much about different things: 2 = More than half the days Trouble relaxin = Not at all Being so restless that it is hard to sit still: 1 = Several days Becoming easily annoyed or irritable: 3 = Nearly every day Feeling afraid as if something awful might happen: 0 = Not at all Total DONN-7 score (0-4 normal; 5-9 mild; 10-14 moderate; 15-21 severe): 11 Source: Developed by Drs. Jr Wong, Nelly Zamarripa, Nick Nieves and colleagues, with an educational jean from [employer]. Physical exam (Primary Care) Vital Signs: Last Vital Signs Pulse 71 05/02/23 08:37 BP 130/72 05/02/23 08:37 Pulse Ox 95 05/02/23 08:37 Oxygen Delivery Method Room Air 05/02/23 08:37 Care Plan Goal for BP management: Blood pressure is in range. Continue current medications. BMI result Body Mass Index 33.4 BMI Assessment/Plan discussion: High (1 lb per week weight loss suggested.) BMI High, discussed plan: lifestyle, weight reduction and dietary Tobacco/Smoking Status: Tobacco use Status Tobacco use date assessed 05/02/23 05/02/23 08:48 Patient Tobacco Use Status Current everyday Tobacco 05/02/23 08:48 Tobacco use type Cigarette 05/02/23 08:48 e-Cigarette/Vaping Use Never Used 05/02/23 08:48 PHQ-9: PHQ-9 Score PHQ-9: Total score 8 05/02/23 08:48 Depression Screening Interpretation: Positive Depression Screening Follow-up: Existing condition and In treatment Thrive Assessment: Date of Thrive Assessment Date Thrive assessed 10/24/22 05/02/23 08:48 Date of discussion: 05/02/23 Forms completed: Health Care Proxy and MOLST Time spent: 1-15 minutes, on File Const General: cooperative, healthy appearing and comfortable HENMT Head: Yes normal to inspection and Yes atraumatic Eyes General: appearance normal, both eyes and all related structures Neck Neck: Yes normal visual inspection and Yes full ROM Chest Chest palpation & inspection: normal inspection of the chest Resp Effort & Inspection: normal respiratory effort Auscultation: clear to auscultation bilaterally Cardio Jugular venous distension: no JVD Palpation: normal PMI Rate: regular rate Heart sounds: S1 normal heart sound present and S2 normal heart sound present GI Palpation (GI): Soft to palpation and No hepatosplenomegaly present Extrem General: Yes normal to inspection and Yes full ROM Assessment and Plan Assessment & Plan (1) CVA (cerebral vascular accident): Code(s): I63.9 - Cerebral infarction, unspecified Plan: Condition is stable. Continue anticoagulation. (2) Coronary artery disease: Code(s): I25.10 - Atherosclerotic heart disease of [place] coronary artery without angina pectoris Plan: Condition is stable. Blood work reviewed. LDL is in range. Continue statin at current dosage. (3) Legal blindness: Code(s): H54.8 - Legal blindness, as defined in [place] Plan: Patient has janae blindness in each eye. He does not have peripheral vision. He is not able to read due to his stroke. He is able to watch TV. Cannot ambulate independently outside the house. Does not like to use a cane.. (4) Current use of anticoagulant therapy: Code(s): Z79.01 - nursing home (current) use of anticoagulants (5) Anxiety: Code(s): F41.9 - Anxiety disorder, unspecified Plan: His depression continues to be stable. He is under treatment. Coding Level of Care Code Est Pt Level 4 (24052) Diagnoses CVA (cerebral vascular accident) I63.9 Coronary artery disease I25.10 Legal blindness H54.8 Current use of anticoagulant therapy Z79.01 Anxiety F41.9 Additional Codes Vital Signs *Quality* - Time spent: 1-15 minutes, on File ([id number])
[2023-05-02 08:37] VITALS: BP 130/72; PULSE 71; O2SAT 95; BMI 33.4
== END 2023-05-02 09:42 | disposition home or self-care (01) ==
PROVIDERS: PCP Internal Medicine; Visit Provider Internal Medicine
DX: F41.9 Anxiety disorder, unspecified (principal); Z86.73 Personal history of transient ischemic attack (TIA), and cerebral infarction without residual deficits; Z79.01 Long term (current) use of anticoagulants; Z00.00 Encounter for general adult medical examination without abnormal findings; H54.8 Legal blindness, as defined in USA; I25.10 Atherosclerotic heart disease of native coronary artery without angina pectoris
CPT/HCPCS: 1123F; 99214

== ENCOUNTER 2023-05-11 10:28 | Outpatient (AMB) | payer MEDICARE, SELFPAY ==
[2022-01-27 10:42] VITALS: BP 110/58
[2022-02-24 11:06] VITALS: BMI 33.9
[2022-03-17 11:16] VITALS: BP 100/60; BP 128/56
--- NOTE | 2023-05-11 10:33 | MHC.OFFVISCO ---
Intake Intake Visit Reasons: Anticoagulation Allergies No Known Allergies Allergy (Verified 05/11/23 10:29) Medication List - Last Reconciled 05/11/23 by Kitty Guerrero RN acetaminophen (Tylenol) 650 mg (2 x 325 mg) PO Q6H PRN atorvastatin 80 mg PO DAILY ezetimibe (Zetia) 10 mg PO DAILY [floor to tub rail As directed] gabapentin 300 mg PO Q8H melatonin 5 mg PO DAILY PRN metoprolol succinate ER (Toprol XL) 25 mg PO DAILY sertraline 100 mg PO DAILY warfarin See Protocol 8mg orally once a day for four days. 10 mg orally daily for three days; Nursing Note INR: 2.7 in therapeutic range Medications and supplements reviewed No changes in health, diet, medications, or supplements, Denies any signs and symptoms of bleeding or bruising or clotting. 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
[2023-05-11 10:34] LABS: Prothrombin Time Whole Bld POC 32.8 sec (11.1-13.5); ~PT, ~INR - Anti Coag Clinic 2.7 (0.9-1.1)
== END 2023-05-11 10:46 | disposition home or self-care (01) ==
LOC: HO.ACS 10:28
PROVIDERS: PCP Internal Medicine; Visit Provider Internal Medicine
DX: Z79.01 Long term (current) use of anticoagulants (principal)

== ENCOUNTER → 2023-05-11 10:28 | Outpatient (BNVA) | payer MEDICARE, SELFPAY ==
[2022-01-27 10:42] VITALS: BP 110/58
[2022-02-24 11:06] VITALS: BMI 33.9
[2022-03-17 11:16] VITALS: BP 100/60; BP 128/56
== END ==
PROVIDERS: PCP Internal Medicine; Visit Provider Internal Medicine
DX: I69.30 Unspecified sequelae of cerebral infarction (principal); Z79.01 Long term (current) use of anticoagulants; Z51.81 Encounter for therapeutic drug level monitoring
CPT/HCPCS: 85610; 99211

== ENCOUNTER 2023-05-25 10:21 | Outpatient (AMB) | payer MEDICARE, SELFPAY ==
[2022-01-27 10:42] VITALS: BP 110/58
[2022-02-24 11:06] VITALS: BMI 33.9
[2022-03-17 11:16] VITALS: BP 100/60; BP 128/56
[2023-05-25 10:33] LABS: Prothrombin Time Whole Bld POC 26.1 sec (11.1-13.5); ~PT, ~INR - Anti Coag Clinic 2.2 (0.9-1.1)
--- NOTE | 2023-05-25 10:45 | MHC.OFFVISCO ---
Intake Intake Visit Reasons: Anticoagulation Allergies No Known Allergies Allergy (Verified 05/25/23 10:26) Medication List - Last Reconciled 05/25/23 by Kitty Guerrero RN acetaminophen (Tylenol) 650 mg (2 x 325 mg) PO Q6H PRN atorvastatin 80 mg PO DAILY ezetimibe (Zetia) 10 mg PO DAILY [floor to tub rail As directed] gabapentin 300 mg PO Q8H melatonin 5 mg PO DAILY PRN metoprolol succinate ER (Toprol XL) 25 mg PO DAILY sertraline 100 mg PO DAILY warfarin See Protocol 8mg orally once a day for four days. 10 mg orally daily for three days; Nursing Note INR: 2.2 in therapeutic range trying to loose weight, has meals on wheels, really doesnt eat very many fruits and vegetables Medications and supplements reviewed No changes in health, diet, medications, or supplements, Denies any signs and symptoms of bleeding or bruising or clotting. Bleeding, bruising, clotting discussed Nutritional guidance given Dose: 10mg x 2 days 7.5mg x 5 days F/U INR: 2 weeks Patient verbalizes understanding of instructions given Anti-Coag Initial Assessment Social Hx Patient Tobacco Use Status: Current everyday Tobacco user Tobacco use type: Cigarette Smoking packs per day: 1 alcohol intake: current Alcohol intake frequency: holidays/special occasions only Coding Level of Care Code Est Patient Level 1 Diagnoses Current use of anticoagulant therapy Z79.01 Assessment & Plan Assessment & Plan (1) Current use of anticoagulant therapy: Code(s): Z79.01 - 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
== END 2023-05-25 10:50 | disposition home or self-care (01) ==
LOC: HO.ACS 10:21
PROVIDERS: PCP Internal Medicine; Visit Provider Internal Medicine
DX: Z79.01 Long term (current) use of anticoagulants (principal)

== ENCOUNTER → 2023-05-25 10:21 | Outpatient (BNVA) | payer MEDICARE, SELFPAY ==
[2022-01-27 10:42] VITALS: BP 110/58
[2022-02-24 11:06] VITALS: BMI 33.9
[2022-03-17 11:16] VITALS: BP 100/60; BP 128/56
== END ==
PROVIDERS: PCP Internal Medicine; Visit Provider Internal Medicine
DX: I69.30 Unspecified sequelae of cerebral infarction (principal); Z79.01 Long term (current) use of anticoagulants; Z51.81 Encounter for therapeutic drug level monitoring
CPT/HCPCS: 85610; 99211

== ENCOUNTER 2023-06-08 10:37 | Outpatient (AMB) | payer MEDICARE, SELFPAY ==
[2022-01-27 10:42] VITALS: BP 110/58
[2022-02-24 11:06] VITALS: BMI 33.9
[2022-03-17 11:16] VITALS: BP 100/60; BP 128/56
[2023-06-08 10:44] LABS: ~PT, ~INR - Anti Coag Clinic 2.4 (0.9-1.1)
--- NOTE | 2023-06-08 10:50 | MHC.OFFVISCO ---
Intake Intake Visit Reasons: Anticoagulation Allergies No Known Allergies Allergy (Verified 06/08/23 10:38) Medication List - Last Reconciled 06/08/23 by Daniela Chandler RN acetaminophen (Tylenol) 650 mg (2 x 325 mg) PO Q6H PRN atorvastatin 80 mg PO DAILY ezetimibe (Zetia) 10 mg PO DAILY [floor to tub rail As directed] gabapentin 300 mg PO Q8H melatonin 5 mg PO DAILY PRN metoprolol succinate ER (Toprol XL) 25 mg PO DAILY sertraline 100 mg PO DAILY warfarin See Protocol 8mg orally once a day for four days. 10 mg orally daily for three days; Nursing Note NO CP,SOB,DIET/MED CHANGES,FALLS OR SXZ OF BLEEDING. CONTINUE PRESENT DOSE AND FOLLOW-UP IN 3 WEEKS. GOOD UNDERSTANDING OF DOSING INSTR. 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
== END 2023-06-08 10:51 | disposition home or self-care (01) ==
LOC: HO.ACS 10:37
PROVIDERS: PCP Internal Medicine; Visit Provider Internal Medicine
DX: Z79.01 Long term (current) use of anticoagulants (principal)

== ENCOUNTER → 2023-06-08 10:37 | Outpatient (BNVA) | payer MEDICARE, SELFPAY ==
[2022-01-27 10:42] VITALS: BP 110/58
[2022-02-24 11:06] VITALS: BMI 33.9
[2022-03-17 11:16] VITALS: BP 100/60; BP 128/56
== END ==
PROVIDERS: PCP Internal Medicine; Visit Provider Internal Medicine
DX: I69.30 Unspecified sequelae of cerebral infarction (principal); Z79.01 Long term (current) use of anticoagulants; Z51.81 Encounter for therapeutic drug level monitoring
CPT/HCPCS: 85610; 99211

== ENCOUNTER 2023-06-29 10:21 | Outpatient (AMB) | payer MEDICARE, SELFPAY ==
[2022-01-27 10:42] VITALS: BP 110/58
[2022-02-24 11:06] VITALS: BMI 33.9
[2022-03-17 11:16] VITALS: BP 100/60; BP 128/56
[2023-06-29 10:29] LABS: Prothrombin Time Whole Bld POC 38.3 sec (11.1-13.5); ~PT, ~INR - Anti Coag Clinic 3.2 (0.9-1.1)
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
== END 2023-06-29 10:45 | disposition home or self-care (01) ==
LOC: HO.ACS 10:21
PROVIDERS: PCP Internal Medicine; Visit Provider Internal Medicine
DX: Z79.01 Long term (current) use of anticoagulants (principal)

== ENCOUNTER → 2023-06-29 10:21 | Outpatient (BNVA) | payer MEDICARE, SELFPAY ==
[2022-01-27 10:42] VITALS: BP 110/58
[2022-02-24 11:06] VITALS: BMI 33.9
[2022-03-17 11:16] VITALS: BP 100/60; BP 128/56
== END ==
PROVIDERS: PCP Internal Medicine; Visit Provider Internal Medicine
DX: I69.30 Unspecified sequelae of cerebral infarction (principal); Z79.01 Long term (current) use of anticoagulants; Z51.81 Encounter for therapeutic drug level monitoring
CPT/HCPCS: 85610; 99211

== ENCOUNTER 2023-07-13 10:08 | Outpatient (AMB) | payer MEDICARE, SELFPAY ==
[2022-01-27 10:42] VITALS: BP 110/58
[2022-02-24 11:06] VITALS: BMI 33.9
[2022-03-17 11:16] VITALS: BP 100/60; BP 128/56
--- NOTE | 2023-07-13 10:45 | MHC.OFFVISCO ---
Intake Intake Visit Reasons: Anticoagulation Allergies No Known Allergies Allergy (Verified 07/13/23 10:29) Medication List - Last Reconciled 07/13/23 by Michelle Clemons RN acetaminophen (Tylenol) 650 mg (2 x 325 mg) PO Q6H PRN atorvastatin 80 mg PO DAILY ezetimibe (Zetia) 10 mg PO DAILY [floor to tub rail As directed] gabapentin 300 mg PO Q8H melatonin 5 mg PO DAILY PRN metoprolol succinate ER (Toprol XL) 25 mg PO DAILY sertraline 100 mg PO DAILY warfarin See Protocol 8mg orally once a day for four days. 10 mg orally daily for three days; Nursing Note Amb to [facility] accomp by friend,feeling ok, sts he notices that he is feeling more angry, sts thats how he was before the stroke, sts he does speak to a therapist Medications and supplements reviewed No other changes in health, diet, medications, or supplements Denies any unusual signs and symptoms of bruising, bleeding Denies any new Chest pain, SOB, or clotting INR: 3.5 above therapeutic range, has been trending up discussion with pt and TC with Amna who manages his medications, pt is on melatonin and sts it really doesn't work for him, sts he wants to stop that (it is an INR raiser, has been on almost a year) Nutritional guidance given: greens today then balance greens and reds in diet Dose: decrease dose today to 4mg (vs 8mg) then resume usual dosing; 10mg x 2 days and 8mg x 5 days, pt is going to stop melatonin, will make any other dosing adjustments if needed after stopping melatonin F/U INR: 2 weeks Patient, Friend and amna verbalizes understanding of instructions given with accurate read back/ teach back of dosing Anti-Coag Initial Assessment Social Hx Patient Tobacco Use Status: Current everyday Tobacco user Tobacco use type: Cigarette Smoking packs per day: 1 alcohol intake: current Alcohol intake frequency: holidays/special occasions only Questionnaires HAS-BLED Does the patient had uncontrolled Hypertension?: No Does the patient have renal disease?: No Does the patient have liver disease?: No Does the patient have a history of stroke?: Yes Has the patient had major bleeding or predisposition to bleeding?: No Does the patient have labile INRs?: Yes Is the patient over 65 years of age?: No Is the patient on medications that gives them a predisposition to bleeding?: Yes Does the patient use alcohol?: No HAS-BLED Score: 3 CHADSVASC Age: <65 Gender: Male Does the patient have a history of CHF?: No Does the patient have a history of Hypertension?: Yes Does the patient have a history of Stroke/TIA/Thromboembolism?: Yes Does the patient have a history of Vascular Disease (prior MO, PAD or aortic plaque)?: No Does the patient have a history of Diabetes?: No CHADS VACS Score: 3 Juan Jose Prediction Score Rsk VTE Active Cancer: No Previous VTE, excluding superficial vein thrombosis: No Reduced mobility: No Already known Thrombophilic Condition: Yes With-in last month Trauma and/or Surgery: No Elderly 70 year or older: No Heart and/or Respiratory Failure: No Acute Myocardial infarction and/or Ischemic Stroke: No Acute Infection and/or Rheumatologic Disorder: No Obesity (BMI 30 or greater): Yes Ongoing Hormonal Treatment: No Score: 4 Juan Jose Score less than 4; Low Risk of VTE Juan Jose Score 4 or greater; High Risk of VTE Coding Level of Care Code Est Patient Level 1 Diagnoses Current use of anticoagulant therapy Z79.01 Time Spent (min) 15 Assessment & Plan Assessment & Plan (1) Current use of anticoagulant therapy: Code(s): Z79.01 - assisted (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
== END 2023-07-13 11:17 | disposition home or self-care (01) ==
LOC: HO.ACS 10:08
PROVIDERS: PCP Internal Medicine; Visit Provider Internal Medicine
DX: Z79.01 Long term (current) use of anticoagulants (principal)

== ENCOUNTER → 2023-07-13 10:08 | Outpatient (BNVA) | payer MEDICARE, SELFPAY ==
[2022-01-27 10:42] VITALS: BP 110/58
[2022-02-24 11:06] VITALS: BMI 33.9
[2022-03-17 11:16] VITALS: BP 100/60; BP 128/56
== END ==
PROVIDERS: PCP Internal Medicine; Visit Provider Internal Medicine
DX: I69.30 Unspecified sequelae of cerebral infarction (principal); Z79.01 Long term (current) use of anticoagulants; Z51.81 Encounter for therapeutic drug level monitoring
CPT/HCPCS: 85610; 99211

== ENCOUNTER 2023-07-27 10:18 | Outpatient (AMB) | payer MEDICARE, SELFPAY ==
[2022-01-27 10:42] VITALS: BP 110/58
[2022-02-24 11:06] VITALS: BMI 33.9
[2022-03-17 11:16] VITALS: BP 100/60; BP 128/56
[2023-07-27 10:52] LABS: Prothrombin Time Whole Bld POC 29.3 sec (11.1-13.5); ~PT, ~INR - Anti Coag Clinic 2.4 (0.9-1.1)
--- NOTE | 2023-07-27 10:58 | MHC.OFFVISCO ---
Intake Intake Visit Reasons: Anticoagulation Allergies No Known Allergies Allergy (Verified 07/27/23 10:45) Medication List - Last Reconciled 07/27/23 by Kitty Guerrero RN acetaminophen (Tylenol) 650 mg (2 x 325 mg) PO Q6H PRN atorvastatin 80 mg PO DAILY ezetimibe (Zetia) 10 mg PO DAILY [floor to tub rail As directed] gabapentin 300 mg PO Q8H metoprolol succinate ER (Toprol XL) 25 mg PO DAILY sertraline 100 mg PO DAILY warfarin See Protocol 8mg orally once a day for four days. 10 mg orally daily for three days; Nursing Note INR: 2.4 in therapeutic range Medications and supplements reviewed No changes in health, diet, medications, or supplements, Denies any signs and symptoms of bleeding or bruising or clotting. Bleeding, bruising, clotting discussed Nutritional guidance given Dose: 10MG X 2 DAYS/ 8MG X 5 DAYS F/U INR: 2 WEEKS IF THERAPUETIC GO 3 WEEKS Patient verbalizes understanding of instructions given Anti-Coag Initial Assessment Social Hx Patient Tobacco Use Status: Current everyday Tobacco user Tobacco use type: Cigarette Smoking packs per day: 1 alcohol intake: current Alcohol intake frequency: holidays/special occasions only Coding Level of Care Code Est Patient Level 1 Diagnoses Current use of anticoagulant therapy Z79.01 Assessment & Plan Assessment & Plan (1) Current use of anticoagulant therapy: Code(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
== END 2023-07-27 11:00 | disposition home or self-care (01) ==
LOC: HO.ACS 10:18
PROVIDERS: PCP Internal Medicine; Visit Provider Internal Medicine
DX: Z79.01 Long term (current) use of anticoagulants (principal)

== ENCOUNTER → 2023-07-27 10:18 | Outpatient (BNVA) | payer MEDICARE, SELFPAY ==
[2022-01-27 10:42] VITALS: BP 110/58
[2022-02-24 11:06] VITALS: BMI 33.9
[2022-03-17 11:16] VITALS: BP 100/60; BP 128/56
== END ==
PROVIDERS: PCP Internal Medicine; Visit Provider Internal Medicine
DX: I69.90 Unspecified sequelae of unspecified cerebrovascular disease (principal); Z51.81 Encounter for therapeutic drug level monitoring; Z79.01 Long term (current) use of anticoagulants
CPT/HCPCS: 85610; 99211

== ENCOUNTER 2023-08-10 10:16 | Outpatient (AMB) | payer MEDICARE, SELFPAY ==
[2022-01-27 10:42] VITALS: BP 110/58
[2022-02-24 11:06] VITALS: BMI 33.9
[2022-03-17 11:16] VITALS: BP 100/60; BP 128/56
--- NOTE | 2023-08-10 10:32 | MHC.OFFVISCO ---
Intake Intake Visit Reasons: Anticoagulation Allergies No Known Allergies Allergy (Verified 08/10/23 10:29) Medication List - Last Reconciled 08/10/23 by Emma Juárez RN acetaminophen (Tylenol) 650 mg (2 x 325 mg) PO Q6H PRN atorvastatin 80 mg PO DAILY ezetimibe (Zetia) 10 mg PO DAILY [floor to tub rail As directed] gabapentin 300 mg PO Q8H metoprolol succinate ER (Toprol XL) 25 mg PO DAILY sertraline 100 mg PO DAILY warfarin See Protocol 8mg orally once a day for four days. 10 mg orally daily for three days; Nursing Note INR: 2.7- in therapeutic range of 2-3 Medications and supplements reviewed- no longer taking melatonin No changes in health, diet, medications, or supplements, Denies any signs and symptoms of bleeding or bruising or clotting. Bleeding, bruising, clotting discussed - pt states laceration right elbow- had some bleeding, bandaids intact enc to monitor Nutritional guidance given Dose: 10mg x 2, 8mg x 5 F/U INR: 3 weeks Patient verbalizes understanding of instructions given amna called with inr/dosing and f/u appt. she will monitor elbow Anti-Coag Initial Assessment Social Hx Patient Tobacco Use Status: Current everyday Tobacco user Tobacco use type: Cigarette Smoking packs per day: 1 alcohol intake: current Alcohol intake frequency: holidays/special occasions only Coding Level of Care Code Est Patient Level 1 Diagnoses Current use of anticoagulant therapy Z79.01 Assessment & Plan Assessment & Plan (1) Current use of anticoagulant therapy: Code(s): Z79.01 - custodial (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
[2023-08-10 10:34] LABS: ~PT, ~INR - Anti Coag Clinic 2.7 (0.9-1.1)
== END 2023-08-10 10:38 | disposition home or self-care (01) ==
LOC: HO.ACS 10:16
PROVIDERS: PCP Internal Medicine; Visit Provider Internal Medicine
DX: Z79.01 Long term (current) use of anticoagulants (principal)

== ENCOUNTER → 2023-08-10 10:16 | Outpatient (BNVA) | payer MEDICARE, SELFPAY ==
[2022-01-27 10:42] VITALS: BP 110/58
[2022-02-24 11:06] VITALS: BMI 33.9
[2022-03-17 11:16] VITALS: BP 100/60; BP 128/56
== END ==
PROVIDERS: PCP Internal Medicine; Visit Provider Internal Medicine
DX: I69.30 Unspecified sequelae of cerebral infarction (principal); Z79.01 Long term (current) use of anticoagulants; Z51.81 Encounter for therapeutic drug level monitoring
CPT/HCPCS: 85610; 99211

== ENCOUNTER 2023-08-29 10:18 | Outpatient (AMB) | payer MEDICARE, SELFPAY ==
[2022-01-27 10:42] VITALS: BP 110/58
[2022-02-24 11:06] VITALS: BMI 33.9
[2022-03-17 11:16] VITALS: BP 100/60; BP 128/56
--- NOTE | 2023-08-29 10:24 | MHC.OFFVISCO ---
Intake Intake Visit Reasons: Anticoagulation Allergies No Known Allergies Allergy (Verified 08/10/23 10:29) Medication List - Last Reconciled 08/29/23 by Emma Juárez RN acetaminophen (Tylenol) 650 mg (2 x 325 mg) PO Q6H PRN atorvastatin 80 mg PO DAILY ezetimibe (Zetia) 10 mg PO DAILY [floor to tub rail As directed] gabapentin 300 mg PO Q8H metoprolol succinate ER (Toprol XL) 25 mg PO DAILY sertraline 100 mg PO DAILY warfarin See Protocol 8mg orally once a day for four days. 10 mg orally daily for three days; Nursing Note INR: 2.7- in therapeutic range Medications and supplements reviewed No changes in health, diet, medications, or supplements, Denies any signs and symptoms of bleeding or bruising or clotting. Bleeding, bruising, clotting discussed Nutritional guidance given Dose: 10mg x 2, 8mg x 5 F/U INR: 3 weeks Patient verbalizes understanding of instructions given pt states laceration to lower extrem, enc to report to pcpamna to monitor Anti-Coag Initial Assessment Social Hx Patient Tobacco Use Status: Current everyday Tobacco user Tobacco use type: Cigarette Smoking packs per day: 1 alcohol intake: current Alcohol intake frequency: holidays/special occasions only Coding Level of Care Code Est Patient Level 1
[2023-08-29 10:25] LABS: ~PT, ~INR - Anti Coag Clinic 2.7 (0.9-1.1)
== END 2023-08-29 10:34 | disposition home or self-care (01) ==
LOC: HO.ACS 10:18
PROVIDERS: PCP Internal Medicine; Visit Provider Internal Medicine
DX: Z79.01 Long term (current) use of anticoagulants (principal)

== ENCOUNTER → 2023-08-29 10:18 | Outpatient (BNVA) | payer MEDICARE, SELFPAY ==
[2022-01-27 10:42] VITALS: BP 110/58
[2022-02-24 11:06] VITALS: BMI 33.9
[2022-03-17 11:16] VITALS: BP 100/60; BP 128/56
== END ==
PROVIDERS: PCP Internal Medicine; Visit Provider Internal Medicine
DX: I69.30 Unspecified sequelae of cerebral infarction (principal); Z79.01 Long term (current) use of anticoagulants; Z51.81 Encounter for therapeutic drug level monitoring
CPT/HCPCS: 85610; 99211

== ENCOUNTER 2023-09-21 10:32 | Outpatient (AMB) | payer MEDICARE, SELFPAY ==
[2022-01-27 10:42] VITALS: BP 110/58
[2022-02-24 11:06] VITALS: BMI 33.9
[2022-03-17 11:16] VITALS: BP 100/60; BP 128/56
[2023-09-21 10:42] LABS: Prothrombin Time Whole Bld POC 30.5 sec (11.1-13.5); ~PT, ~INR - Anti Coag Clinic 2.5 (0.9-1.1)
--- NOTE | 2023-09-21 10:48 | MHC.OFFVISCO ---
Intake Intake Visit Reasons: Anticoagulation Allergies No Known Allergies Allergy (Verified 09/21/23 10:33) Medication List - Last Reconciled 09/21/23 by Kitty Guerrero RN acetaminophen (Tylenol) 650 mg (2 x 325 mg) PO Q6H PRN atorvastatin 80 mg PO DAILY ezetimibe (Zetia) 10 mg PO DAILY [floor to tub rail As directed] gabapentin 300 mg PO Q8H metoprolol succinate ER (Toprol XL) 25 mg PO DAILY sertraline 100 mg PO DAILY warfarin See Protocol 8mg orally once a day for four days. 10 mg orally daily for three days; Nursing Note Pt accompanied by friend, INR: 2.5 in therapeutic range Medications and supplements reviewed No changes in health, diet, medications, or supplements, Denies any signs and symptoms of bleeding or bruising or clotting. Bleeding, bruising, clotting discussed Nutritional guidance given Dose: 10MG X 2 DAYS/ 8MG X 5 DAYS F/U INR: 1 MONTH Patient verbalizes understanding of instructions given t/c with friend Kathi who sets up his meds, with dosing and next appt date Anti-Coag Initial Assessment Social Hx Patient Tobacco Use Status: Current everyday Tobacco user Tobacco use type: Cigarette Smoking packs per day: 1 alcohol intake: current Alcohol intake frequency: holidays/special occasions only Coding Level of Care Code Est Patient Level 1 Diagnoses Current use of anticoagulant therapy Z79.01 Results AMB INR Fingerstick AMB INR Fingerstick 2.5 Last Edit by Kitty Guerrero RN on 09/21/23 10:42 MANUAL ENTRY Assessment & Plan Assessment & Plan (1) Current use of anticoagulant therapy: Code(s): Z79.01 - prison (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
== END 2023-09-21 10:51 | disposition home or self-care (01) ==
LOC: HO.ACS 10:32
PROVIDERS: PCP Internal Medicine; Visit Provider Internal Medicine
DX: Z79.01 Long term (current) use of anticoagulants (principal)

== ENCOUNTER → 2023-09-21 10:32 | Outpatient (BNVA) | payer MEDICARE, SELFPAY ==
[2022-01-27 10:42] VITALS: BP 110/58
[2022-02-24 11:06] VITALS: BMI 33.9
[2022-03-17 11:16] VITALS: BP 100/60; BP 128/56
== END ==
PROVIDERS: PCP Internal Medicine; Visit Provider Internal Medicine
DX: I69.30 Unspecified sequelae of cerebral infarction (principal); Z79.01 Long term (current) use of anticoagulants; Z51.81 Encounter for therapeutic drug level monitoring
CPT/HCPCS: 85610; 99211

== ENCOUNTER 2023-10-19 10:13 | Outpatient (AMB) | payer MEDICARE, SELFPAY ==
[2022-01-27 10:42] VITALS: BP 110/58
[2022-02-24 11:06] VITALS: BMI 33.9
[2022-03-17 11:16] VITALS: BP 100/60; BP 128/56
[2023-10-19 10:32] LABS: Prothrombin Time Whole Bld POC 31.2 sec (11.1-13.5); ~PT, ~INR - Anti Coag Clinic 2.6 (0.9-1.1)
--- NOTE | 2023-10-19 10:42 | MHC.OFFVISCO ---
Intake Intake Visit Reasons: Anticoagulation Allergies No Known Allergies Allergy (Verified 10/19/23 10:27) Medication List - Last Reconciled 10/19/23 by Michelle Clemons, RN acetaminophen (Tylenol) 650 mg (2 x 325 mg) PO Q6H PRN atorvastatin 80 mg PO DAILY ezetimibe (Zetia) 10 mg PO DAILY [floor to tub rail As directed] gabapentin 300 mg PO Q8H metoprolol succinate ER (Toprol XL) 25 mg PO DAILY sertraline 100 mg PO DAILY warfarin See Protocol 8mg orally once a day for four days. 10 mg orally daily for three days; Nursing Note Amb to ACS feeling well, accomp by friend pt asking aout weight reduction diet discussion regarding food choices, portion control and moving Medications and supplements reviewed No changes in health, diet, medications, or supplements Denies any unusual signs and symptoms of bruising, bleeding Denies any new Chest pain, SOB, or clotting INR: 2.6 in therapeutic range Nutritional guidance given: balance greens and reds in diet Dose: continue usual dosing; 10mg x 2 days and 8mg x 5 days F/U INR: 4 weeks Patient verbalizes understanding of instructions given with accurate read back/ teach back of dosing Anti-Coag Initial Assessment Social Hx Patient Tobacco Use Status: Current everyday Tobacco user Tobacco use type: Cigarette Smoking packs per day: 1 alcohol intake: current Alcohol intake frequency: holidays/special occasions only Coding Level of Care Code Est Patient Level 1 Diagnoses Current use of anticoagulant therapy Z79.01 Time Spent (min) 15 Assessment & Plan Assessment & Plan (1) Current use of anticoagulant therapy: Code(s): 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
== END 2023-10-19 10:46 | disposition home or self-care (01) ==
LOC: HO.ACS 10:13
PROVIDERS: PCP Internal Medicine; Visit Provider Internal Medicine
DX: Z79.01 Long term (current) use of anticoagulants (principal)

== ENCOUNTER → 2023-10-19 10:13 | Outpatient (BNVA) | payer MEDICARE, SELFPAY ==
[2022-01-27 10:42] VITALS: BP 110/58
[2022-02-24 11:06] VITALS: BMI 33.9
[2022-03-17 11:16] VITALS: BP 100/60; BP 128/56
== END ==
PROVIDERS: PCP Internal Medicine; Visit Provider Internal Medicine
DX: I69.30 Unspecified sequelae of cerebral infarction (principal); Z79.01 Long term (current) use of anticoagulants; Z51.81 Encounter for therapeutic drug level monitoring
CPT/HCPCS: 85610; 99211

== ENCOUNTER 2023-11-07 10:02 | Outpatient (AMB) | payer MEDICARE, SELFPAY ==
[2022-01-27 10:42] VITALS: BP 110/58
[2022-02-24 11:06] VITALS: BMI 33.9
[2022-03-17 11:16] VITALS: BP 100/60; BP 128/56
--- NOTE | 2023-11-07 10:35 | A.OFFPC_ITS ---
Vital Signs 11/07/23 10:42 Height 5 ft 9 in Weight 231 lb 6 oz BMI 34.2 BP 120/76 Blood Pressure Location Lt brachial Position Sitting Pulse 75 Pulse Source Pulse Oximeter Pulse Oximetry (%) 97 Oxygen Delivery Method Room Air Intake Visit Reasons: f/u Intake Note: Patient is here to follow up on CVA, CAD, Chronic pain. Hair Stylist Required: No Roller Printing Supervisor: Present Accompanied by: Friend Allergies No Known Allergies Allergy (Verified 11/09/23 08:33) Medication List - Last Reconciled 11/09/23 by Sanjay Cline MD acetaminophen (Tylenol) 650 mg (2 x 325 mg) PO Q6H PRN atorvastatin 80 mg PO DAILY ezetimibe (Zetia) 10 mg PO DAILY [floor to tub rail As directed] gabapentin 300 mg PO Q8H metoprolol succinate ER (Toprol XL) 25 mg PO DAILY sertraline 100 mg PO DAILY warfarin See Protocol 8mg orally once a day for four days. 10 mg orally daily for three days; Tobacco use date assessed: 11/07/23 Dental Screening Dental Screen Date: 11/07/23 Did you have a dental visit in the last 12 months?: Yes Did you have a dental problem in the last 6 months where you did not have access to dental care?: No Was dental information given to patient?: Patient has dentist HPI f/u HPI Details 63 yr old male presents to the office to discuss his chronic medical conditions. He is accompanied by his friend. Patient reports feeling depressed. He blames it on the cold weather. He likes to be outside and since its cold he spends his time indoors causing him to feel depressed and low. Is seeing a therapist. Patient is legally blind with limitied vision. Gets wheels on meals delivered home. Able to function and do all ADL at home [facility] Medical History Tremors of nervous system Tobacco use disorder Legal blindness Colostomy in place Coronary artery disease History of acute inferior wall [place] Anxiety Depression High cholesterol HTN (hypertension) ST elevation myocardial infarction (STEMI) of inferior wall (~07/2020) Knee pain, bilateral Stroke (~07/2020) Surgical History History of colostomy reversal Status post Jenna's procedure H/O resection of large bowel Family History Father Stroke Heart attack Mother Heart attack Sister Diverticulitis Heart attack Brother No problems noted. Sister No problems noted. Brother No problems noted. Social History Household Members: Spouse Housing: House Do you presently have visiting nurse or other home services: No Alcohol intake: current Alcohol intake frequency: holidays/special occasions only Comment: pt ambulates to bathroom with supervision Patient Tobacco Use Status: Current everyday Tobacco user Tobacco use type: Cigarette Cigarette Packs Per Day: 1 Cigarettes Per Day: 20 Years Smoked: 40 e-Cigarette/Vaping Use: Never Used Second Hand Smoke Exposure: Yes service: No Current occupational status: disabled Cognitive needs: No Hearing needs: No Vision needs: Yes Questionnaire PHQ-9 Over the last 2 weeks, how often have you been bothered by any of the following problems? 1. Little interest or pleasure in doing things: more than half the days 2. Feeling down, depressed, or hopeless: nearly every day 3. Trouble falling or staying asleep, or sleeping too much: nearly every day 4. Feeling tired or having little energy: several days 5. Poor appetite or overeating: not at all 6. Feeling bad about yourself - or that you are a failure or have let yourself or your family down: not at all 7. Trouble concentrating on things, such as reading the newspaper or watching television: several days 8. Moving or speaking so slowly that other people could have noticed. Or the opposite - being so fidgety or restless that you have been moving around a lot more than usual: several days 9. Thoughts that you would be better off or of hurting yourself in some way: not at all Total score: 11 Source: Developed by Drs. Jr Wong, Nelly Zamarripa, Nick Nieves and colleagues, with an educational jean from [employer]. Thrive Questionnaire Date Thrive assessed: 11/07/23 I am a: Patient What is your living situation today?: I have a steady place to live Within the past 12 months, did the food you bought not last and you didn't have the money to get more?: Never true Within the past 12 months, did you worry whether your food would run out before you got money to buy more?: Never true Do you have trouble paying for medicines?: No Do you have trouble getting transportation to medical appointments?: No Do you have trouble paying your heating and electricity bill?: No Do you have trouble taking care of your child, family member or friend?: No Do you have trouble with day-to-day activities such as bathing, preparing meals, shopping, managing finances, etc.?: No Are you currently unemployed and looking for a job?: No Are you interested in more education?: No Currently or been in a relationship where the following occur: no concerns reported THRIVE Score: 0 AUDIT C Alcohol Use Questionnaire (AUDIT-C) 1. How often do you have a drink containing alcohol?: Monthly or less 2. How many drinks containing alcohol do you have on a typical day when you are drinking?: 1 or 2 Total Score: 1 DONN-7 AMB Questionnaire DONN-7 Date DONN - 7 assessed: 11/07/23 Feeling nervous, anxious, or on edge: 3 = Nearly every day Not being able to stop or control worryin = Nearly every day Worrying too much about different things: 3 = Nearly every day Trouble relaxin = Nearly every day Being so restless that it is hard to sit still: 3 = Nearly every day Becoming easily annoyed or irritable: 3 = Nearly every day Feeling afraid as if something awful might happen: 1 = Several days Total DONN-7 score (0-4 normal; 5-9 mild; 10-14 moderate; 15-21 severe): 19 Source: Developed by Drs. Jr Wong, Nelly Zamarripa, Nick Nieves and colleagues, with an educational jean from [employer]. Physical exam (Primary Care) Vital Signs: Last Vital Signs Pulse 75 11/07/23 10:42 BP 120/76 11/07/23 10:42 Pulse Ox 97 11/07/23 10:42 Oxygen Delivery Method Room Air 11/07/23 10:42 BMI result Body Mass Index 34.2 Tobacco/Smoking Status: Tobacco use Status Tobacco use date assessed 11/07/23 11/07/23 10:40 Patient Tobacco Use Status Current everyday Tobacco 11/07/23 10:40 Tobacco use type Cigarette 11/07/23 10:40 e-Cigarette/Vaping Use Never Used 11/07/23 10:40 PHQ-9: PHQ-9 Score PHQ-9: Total score 11 11/07/23 10:51 Thrive Assessment: Date of Thrive Assessment Date Thrive assessed 11/07/23 11/07/23 10:40 Currently or been in a relationship where the following occur: no concerns reported Advance Care Planning discussion: On file, no changes Date of discussion: 11/09/23 Who was present: friend Forms completed: Health Care Proxy Const General: cooperative and healthy appearing Nutritional Appearance: well nourished Orientation/consciousness: patient oriented x3 Limitations: no limitations HENMT Head: Yes normal to inspection Eyes General: appearance normal, both eyes and all related structures Neck Neck: Yes normal visual inspection Chest Chest palpation & inspection: normal palpation of entire chest wall Resp Effort & Inspection: normal respiratory effort Neuro General: patient oriented x3 Assessment and Plan Assessment & Plan (1) CVA (cerebral vascular accident): Code(s): I63.9 - Cerebral infarction, unspecified (2) Legal blindness: Code(s): H54.8 - Legal blindness, as defined in [place] Plan: This note was dictated after a phone conversation with his cellophane casting machine repairer on 11/09/2023 Pt purchased an electric scooter. Despite his visual impairment he is insisting to drive on the road/pavement. The cellophane casting machine repairer was counselled on methods of discussion to discourage patient from continuing this. (3) Anxiety: Code(s): F41.9 - Anxiety disorder, unspecified Plan: Pt reluctant to add any more medications or increase in dosage. Encouraged him to keep the appts with the therapist. Coding Level of Care Code Est Pt Level 4 (63072) Diagnoses CVA (cerebral vascular accident) I63.9 Legal blindness H54.8 Anxiety F41.9 Additional Codes Vital Signs *Quality* - Advance Care Planning discussion: On file, no changes ([id number])
[2023-11-07 10:42] VITALS: BP 120/76; PULSE 75; O2SAT 97; BMI 34.2
== END 2023-11-07 11:24 | disposition home or self-care (01) ==
PROVIDERS: PCP Internal Medicine; Visit Provider Internal Medicine
DX: H54.8 Legal blindness, as defined in USA (principal); Z86.73 Personal history of transient ischemic attack (TIA), and cerebral infarction without residual deficits; F41.9 Anxiety disorder, unspecified; F17.210 Nicotine dependence, cigarettes, uncomplicated
CPT/HCPCS: 1123F; 99214

== ENCOUNTER 2023-11-16 10:18 | Outpatient (AMB) | payer MEDICARE, SELFPAY ==
[2022-01-27 10:42] VITALS: BP 110/58
[2022-02-24 11:06] VITALS: BMI 33.9
[2022-03-17 11:16] VITALS: BP 100/60; BP 128/56
[2023-11-16 10:25] LABS: Prothrombin Time Whole Bld POC 30.6 sec (11.1-13.5); ~PT, ~INR - Anti Coag Clinic 2.6 (0.9-1.1)
--- NOTE | 2023-11-16 10:27 | MHC.OFFVISCO ---
Intake Intake Visit Reasons: Anticoagulation Allergies No Known Allergies Allergy (Verified 11/16/23 10:19) Medication List - Last Reconciled 11/16/23 by Michelle Clemons RN acetaminophen (Tylenol) 650 mg (2 x 325 mg) PO Q6H PRN atorvastatin 80 mg PO DAILY ezetimibe (Zetia) 10 mg PO DAILY [floor to tub rail As directed] gabapentin 300 mg PO Q8H metoprolol succinate ER (Toprol XL) 25 mg PO DAILY sertraline 100 mg PO DAILY warfarin See Protocol 8mg orally once a day for four days. 10 mg orally daily for three days; Nursing Note Amb to ACS feeling well, accomp by friend Medications and supplements reviewed No changes in health, diet, medications, or supplements Denies any unusual signs and symptoms of bruising, bleeding Denies any new Chest pain, SOB, or clotting INR: 2.6 in therapeutic range Nutritional guidance given: balance greens and reds in diet Dose: continue usual dosing;10mg x 2 days 8mg x 5 days F/U INR: 4 weeks Patient and friend verbalizes understanding of instructions given with accurate read back/ teach back of dosing Anti-Coag Initial Assessment Social Hx Patient Tobacco Use Status: Current everyday Tobacco user Tobacco use type: Cigarette Smoking packs per day: 1 alcohol intake: current Alcohol intake frequency: holidays/special occasions only Coding Level of Care Code Est Patient Level 1 Diagnoses Current use of anticoagulant therapy Z79.01 Time Spent (min) 15 Assessment & Plan Assessment & Plan (1) Current use of anticoagulant therapy: Code(s): Z79.01 - termite control servicer (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
== END 2023-11-16 10:32 | disposition home or self-care (01) ==
LOC: HO.ACS 10:18
PROVIDERS: PCP Internal Medicine; Visit Provider Internal Medicine
DX: Z79.01 Long term (current) use of anticoagulants (principal)

== ENCOUNTER → 2023-11-16 10:18 | Outpatient (BNVA) | payer MEDICARE, SELFPAY ==
[2022-01-27 10:42] VITALS: BP 110/58
[2022-02-24 11:06] VITALS: BMI 33.9
[2022-03-17 11:16] VITALS: BP 100/60; BP 128/56
== END ==
PROVIDERS: PCP Internal Medicine; Visit Provider Internal Medicine
DX: I69.30 Unspecified sequelae of cerebral infarction (principal); Z79.01 Long term (current) use of anticoagulants; Z51.81 Encounter for therapeutic drug level monitoring
CPT/HCPCS: 85610; 99211

== ENCOUNTER 2023-12-14 10:09 | Outpatient (AMB) | payer MEDICARE, SELFPAY ==
[2022-01-27 10:42] VITALS: BP 110/58
[2022-02-24 11:06] VITALS: BMI 33.9
[2022-03-17 11:16] VITALS: BP 100/60; BP 128/56
--- NOTE | 2023-12-14 10:21 | MHC.OFFVISCO ---
Intake Intake Visit Reasons: Anticoagulation Allergies No Known Allergies Allergy (Verified 12/14/23 10:10) Medication List - Last Reconciled 12/14/23 by Michelle Clemons RN acetaminophen (Tylenol) 650 mg (2 x 325 mg) PO Q6H PRN atorvastatin 80 mg PO DAILY ezetimibe (Zetia) 10 mg PO DAILY [floor to tub rail As directed] gabapentin 300 mg PO Q8H metoprolol succinate ER (Toprol XL) 25 mg PO DAILY sertraline 100 mg PO DAILY warfarin See Protocol 8mg orally once a day for four days. 10 mg orally daily for three days; Nursing Note Amb to ACS feeling well, accomp by friend Medications and supplements reviewed No changes in health, diet, medications, or supplements Denies any unusual signs and symptoms of bruising, bleeding Denies any new Chest pain, SOB, or clotting INR: 2.6 in therapeutic range Nutritional guidance given: balance greens and reds in diet Dose: continue usual dosing; 10mg x 2 days and 8mg x 5 days F/U INR: 4 weeks Patient verbalizes understanding of instructions given with accurate read back/ teach back of dosing Anti-Coag Initial Assessment Social Hx Patient Tobacco Use Status: Current everyday Tobacco user Tobacco use type: Cigarette Smoking packs per day: 1 alcohol intake: current Alcohol intake frequency: holidays/special occasions only Coding Level of Care Code Est Patient Level 1 Diagnoses Current use of anticoagulant therapy Z79.01 Time Spent (min) 15 Results AMB INR Fingerstick AMB INR Fingerstick 2.6 Last Edit by Michelle Clemons RN on 12/14/23 10:20 interface failure Assessment & Plan Assessment & Plan (1) Current use of anticoagulant therapy: Code(s): Z79.01 - correction (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
[2023-12-14 10:25] LABS: Prothrombin Time Whole Bld POC 31.3 sec (11.1-13.5); ~PT, ~INR - Anti Coag Clinic 2.6 (0.9-1.1)
== END 2023-12-14 10:24 | disposition home or self-care (01) ==
LOC: HO.ACS 10:09
PROVIDERS: PCP Internal Medicine; Visit Provider Internal Medicine
DX: Z79.01 Long term (current) use of anticoagulants (principal)

== ENCOUNTER → 2023-12-14 10:09 | Outpatient (BNVA) | payer MEDICARE, SELFPAY ==
[2022-01-27 10:42] VITALS: BP 110/58
[2022-02-24 11:06] VITALS: BMI 33.9
[2022-03-17 11:16] VITALS: BP 100/60; BP 128/56
== END ==
PROVIDERS: PCP Internal Medicine; Visit Provider Internal Medicine
DX: I69.30 Unspecified sequelae of cerebral infarction (principal); Z79.01 Long term (current) use of anticoagulants; Z51.81 Encounter for therapeutic drug level monitoring
CPT/HCPCS: 85610; 99211

== ENCOUNTER 2023-12-17 14:59 | Outpatient (AMB) | payer MEDICARE, SELFPAY ==
[2022-01-27 10:42] VITALS: BP 110/58
[2022-02-24 11:06] VITALS: BMI 33.9
[2022-03-17 11:16] VITALS: BP 100/60; BP 128/56
--- NOTE | 2023-12-17 15:02 | A.OFFVIS_ITS ---
Intake Vital Signs 12/17/23 15:03 Height 5 ft 9 in Weight 231 lb 7.766 oz BMI 34.2 BP 132/70 Blood Pressure Location Lt brachial Position Sitting Pulse 78 Pulse Source Monitor Intake Visit Reasons: 1 year follow up Intake Note: 1 year follow up with EKG Allergies No Known Allergies Allergy (Verified 12/14/23 10:10) Medication List - Last Reconciled 12/17/23 by Tyrone Montanez MD acetaminophen (Tylenol) 650 mg (2 x 325 mg) PO Q6H PRN atorvastatin 80 mg PO DAILY ezetimibe (Zetia) 10 mg PO DAILY [floor to tub rail As directed] gabapentin 300 mg PO Q8H metoprolol succinate ER (Toprol XL) 25 mg PO DAILY sertraline 100 mg PO DAILY warfarin See Protocol 8mg orally once a day for four days. 10 mg orally daily for three days; HPI HPI Comments History of Present Illness Details Mau comes for annual follow-up. He is accompanied by his long-time friend. Patient has no new cardiovascular symptoms to report. Unfortunately he said very frustrated about vision loss. He said he can not walk outside because he can not see on the peripheral vision. He denies any exertional chest pain or shortness of breath. He unfortunately continues to smoke. He is taking his statin and ezetimibe therapy with well optimized LDL. Denies exertional chest pain or shortness of breath. His warfarin levels have been well optimized and being followed by [facility]. Denies any heart failure symptoms. [facility] Medical History Tremors of nervous system Tobacco use disorder Legal blindness Colostomy in place Coronary artery disease History of acute inferior wall [place] Anxiety Depression High cholesterol HTN (hypertension) ST elevation myocardial infarction (STEMI) of inferior wall (~07/2020) Knee pain, bilateral Stroke (~07/2020) Surgical History History of colostomy reversal Status post Jenna's procedure H/O resection of large bowel Family History Father Stroke Heart attack Mother Heart attack Sister Diverticulitis Heart attack Brother No problems noted. Sister No problems noted. Brother No problems noted. Social History Household Members: Spouse Housing: House Do you presently have visiting nurse or other home services: No Alcohol intake: current Alcohol intake frequency: holidays/special occasions only Comment: pt ambulates to bathroom with supervision Patient Tobacco Use Status: Current everyday Tobacco user Tobacco use type: Cigarette Cigarette Packs Per Day: 1 Cigarettes Per Day: 20 Years Smoked: 40 e-Cigarette/Vaping Use: Never Used Second Hand Smoke Exposure: Yes service: No Current occupational status: disabled Cognitive needs: No Hearing needs: No Vision needs: Yes Review of Systems Const Denies weakness ENT Denies dizziness Card Denies chest pain, Denies chest pain with activity, Denies syncope, Denies rapid heart rate, Denies pedal edema, Denies edema, Denies leg edema, Denies lighthea dedness, Denies palpitations, Denies dyspnea, Denies dyspnea on exertion and Denies orthopnea Resp Denies cough, Denies dyspnea and Denies dyspnea on exertion GI Denies hematochezia and Denies change in stool character Musc Denies abnormal gait, Denies muscle cramps, Denies muscle weakness, Denies numbness, Denies radiating pain into limb and Denies tingling Neuro Denies Abnormal speech present, Denies abnormal gait, Denies dizziness, Denies syncope, Denies numbness, Denies tingling and Denies weakness Endo Denies palpitations Physical Exam Vital Signs: Last Vital Signs Pulse 78 12/17/23 15:03 BP 132/70 12/17/23 15:03 BMI result Body Mass Index 34.2 Const General: cooperative, comfortable, no acute distress, alert, awake and poor hygiene Nutritional Appearance: obese Orientation/consciousness: patient oriented x3 Limitations: no limitations Neck Neck: Yes trachea midline, Yes supple and Yes no JVD Resp Effort & Inspection: normal respiratory effort Auscultation: clear to auscultation bilaterally and diminished lung sounds Cardio Jugular venous distension: no JVD Palpation: normal PMI Rate: regular rate Rhythm: regular rhythm Heart sounds: S1 normal heart sound present, S2 normal heart sound present, no click, no gallops, no murmurs and no rubs GI Auscultation: normal bowel sounds Neuro General: patient oriented x3 and no focal motor deficits Speech: No Abnormal speech present Extrem General: Yes no clubbing, cyanosis or edema Office Procedures EKG Details: EKG shows normal sinus rhythm with inferior infarct with nonspecific ST changes [id number], Complete Assessment & Plan Assessment & Plan (1) Coronary artery disease: Code(s): I25.10 - Atherosclerotic heart disease of havasupai coronary artery without angina pectoris Plan: CAD with prior inferior TN as well as occipital embolic event. No obvious other source has been identified. Patient has done well on therapy with warfarin. Continue the same. Target INR between 2 and 3. Will avoid concomitant aspirin use to reduce bleeding risk. Continue high-intensity statin therapy with ezetimibe with very well optimized LDL. Blood pressure is currently well optimized encouraged to continue to abstain from smoking. He said he is not going to try that. He will continue maintain activity, he said he likes till ride his bicycle on the road. Continue participate in weight loss program. Follow up in the clinic 1 year's time, sooner p.r.n.. Thank you for allowing me to partake in his care Medications: Changed From ezetimibe (Zetia) 10 mg PO DAILY 30 tabs 3RF To ezetimibe (Zetia) 10 mg PO DAILY Coding Level of Care Code Est Pt Level 4 (80550) Diagnoses Coronary artery disease I25.10 CPT Codes EKG - CPT: [id number], Complete ([id number])
[2023-12-17 15:03] VITALS: BP 132/70; PULSE 78; BMI 34.2
== END 2023-12-17 15:34 | disposition home or self-care (01) ==
PROVIDERS: PCP Internal Medicine; Visit Provider Internal Medicine Cardiovascular Disease
DX: I25.10 Atherosclerotic heart disease of native coronary artery without angina pectoris (principal)
CPT/HCPCS: 93010; 99214

== ENCOUNTER → 2023-12-17 14:59 | Outpatient (BNVA) | payer MEDICARE, SELFPAY ==
[2022-01-27 10:42] VITALS: BP 110/58
[2022-02-24 11:06] VITALS: BMI 33.9
[2022-03-17 11:16] VITALS: BP 100/60; BP 128/56
== END ==
PROVIDERS: PCP Internal Medicine; Visit Provider Internal Medicine Cardiovascular Disease
DX: I69.30 Unspecified sequelae of cerebral infarction (principal); Z79.01 Long term (current) use of anticoagulants; Z51.81 Encounter for therapeutic drug level monitoring
CPT/HCPCS: 93005; 99212

== ENCOUNTER 2024-01-11 10:11 | Outpatient (AMB) | payer MEDICARE, SELFPAY ==
[2022-01-27 10:42] VITALS: BP 110/58
[2022-02-24 11:06] VITALS: BMI 33.9
[2022-03-17 11:16] VITALS: BP 100/60; BP 128/56
--- NOTE | 2024-01-11 10:36 | MHC.OFFVISCO ---
Intake Intake Visit Reasons: Anticoagulation Allergies No Known Allergies Allergy (Verified 01/11/24 10:33) Medication List - Last Reconciled 01/11/24 by Emma Juárez RN acetaminophen (Tylenol) 650 mg (2 x 325 mg) PO Q6H PRN atorvastatin 80 mg PO DAILY ezetimibe (Zetia) 10 mg PO DAILY [floor to tub rail As directed] gabapentin 300 mg PO Q8H metoprolol succinate ER (Toprol XL) 25 mg PO DAILY sertraline 100 mg PO DAILY warfarin See Protocol 8mg orally once a day for four days. 10 mg orally daily for three days; Nursing Note INR: 2.1- in therapeutic range of 2-3 Medications and supplements reviewed- no changes No changes in health, diet, medications, or supplements, Denies any signs and symptoms of bleeding or bruising or clotting. Bleeding, bruising, clotting discussed Nutritional guidance given Dose: 10mg x 2, 8mg x 5 F/U INR: 4 weeks Patient verbalizes understanding of instructions given Anti-Coag Initial Assessment Social Hx Patient Tobacco Use Status: Current everyday Tobacco user Tobacco use type: Cigarette Smoking packs per day: 1 alcohol intake: current Alcohol intake frequency: holidays/special occasions only Coding Level of Care Code Est Patient Level 1 Diagnoses Current use of anticoagulant therapy Z79.01 Results AMB INR Fingerstick AMB INR Fingerstick 2.1 Last Edit by Emma Juárez RN on 01/11/24 10:38 Assessment & Plan Assessment & Plan (1) Current use of anticoagulant therapy: Code(s): Z79.01 - terminal computer operator (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
[2024-01-11 10:37] LABS: Prothrombin Time Whole Bld POC 25.5 sec (11.1-13.5); ~PT, ~INR - Anti Coag Clinic 2.1 (0.9-1.1)
== END 2024-01-11 10:45 | disposition home or self-care (01) ==
LOC: HO.ACS 10:11
PROVIDERS: PCP Internal Medicine; Visit Provider Internal Medicine
DX: Z79.01 Long term (current) use of anticoagulants (principal)

== ENCOUNTER → 2024-01-11 10:11 | Outpatient (BNVA) | payer MEDICARE, SELFPAY ==
[2022-01-27 10:42] VITALS: BP 110/58
[2022-02-24 11:06] VITALS: BMI 33.9
[2022-03-17 11:16] VITALS: BP 100/60; BP 128/56
== END ==
PROVIDERS: PCP Internal Medicine; Visit Provider Internal Medicine
DX: I69.90 Unspecified sequelae of unspecified cerebrovascular disease (principal); Z79.01 Long term (current) use of anticoagulants; Z51.81 Encounter for therapeutic drug level monitoring
CPT/HCPCS: 85610; 99211

== ENCOUNTER 2024-02-07 09:30 | Outpatient (AMB) | payer MEDICARE, SELFPAY ==
[2022-01-27 10:42] VITALS: BP 110/58
[2022-02-24 11:06] VITALS: BMI 33.9
[2022-03-17 11:16] VITALS: BP 100/60; BP 128/56
--- NOTE | 2024-02-07 09:32 | A.OFFPC_ITS ---
Vital Signs 02/07/24 09:33 Height 5 ft 9 in Weight 234 lb 2 oz BMI 34.6 BP 124/72 Blood Pressure Location Lt brachial Position Sitting Pulse 65 Pulse Source Pulse Oximeter Pulse Oximetry (%) 94 Oxygen Delivery Method Room Air Intake Visit Reasons: 3 MONTH Intake Note: Patient is here to follow up on CVA, CAD, Low back pain. Pulley Worker Required: No Patients Transporter: Present Accompanied by: staff Allergies No Known Allergies Allergy (Verified 02/19/24 05:24) Medication List - Last Reconciled 02/19/24 by Sanjay Cline MD acetaminophen (Tylenol) 650 mg (2 x 325 mg) PO Q6H PRN atorvastatin 80 mg PO DAILY ezetimibe (Zetia) 10 mg PO DAILY [floor to tub rail As directed] gabapentin 300 mg PO Q8H metoprolol succinate ER (Toprol XL) 25 mg PO DAILY sertraline 100 mg PO DAILY warfarin See Protocol 8mg orally once a day for four days. 10 mg orally daily for three days; Tobacco use date assessed: 02/07/24 Dental Screening Dental Screen Date: 11/07/23 HPI 3 MONTH HPI Details 64 yr old male presents to the office to discuss his medical issues. He comes to the office with a friend. Despite his visual impairment, Patient continues to be independent. Compliant with medications. He is having difficulty getting one of the medications filled. Continues to have low back pain and pains in his joints. Continues to smoke. Not following any particular diet or exercise [facility] Medical History (Updated 02/19/24 @ 05:30 by Sanjay Cline MD) Obesity (BMI 30.0-34.9) Tremors of nervous system Tobacco use disorder Legal blindness Coronary artery disease History of acute inferior wall [place] Anxiety Depression High cholesterol HTN (hypertension) ST elevation myocardial infarction (STEMI) of inferior wall (~07/2020) Knee pain, bilateral Stroke (~07/2020) Surgical History History of colostomy reversal Status post Jenna's procedure H/O resection of large bowel Family History Father Stroke Heart attack Mother Heart attack Sister Diverticulitis Heart attack Brother No problems noted. Sister No problems noted. Brother No problems noted. Social History Household Members: Spouse Housing: House Do you presently have visiting nurse or other home services: No Alcohol intake: current Alcohol intake frequency: holidays/special occasions only Comment: pt ambulates to bathroom with supervision Patient Tobacco Use Status: Current everyday Tobacco user Tobacco use type: Cigarette Cigarette Packs Per Day: 1 Cigarettes Per Day: 20 Years Smoked: 40 e-Cigarette/Vaping Use: Never Used Second Hand Smoke Exposure: Yes service: No Current occupational status: disabled Cognitive needs: No Hearing needs: No Vision needs: Yes Questionnaire Thrive Questionnaire Date Thrive assessed: 11/07/23 Currently or been in a relationship where the following occur: no concerns reported THRIVE Score: 0 DONN-7 AMB Questionnaire DONN-7 Date DONN - 7 assessed: 11/07/23 Source: Developed by Drs. Jr Wong, Nelly Zamarripa, Nick Nieves and colleagues, with an educational jean from [employer]. Physical exam (Primary Care) Vital Signs: Last Vital Signs Pulse 65 02/07/24 09:33 BP 124/72 02/07/24 09:33 Pulse Ox 94 02/07/24 09:33 Oxygen Delivery Method Room Air 02/07/24 09:33 BMI result Body Mass Index 34.6 BMI Assessment/Plan discussion: High (One pound per week, weight loss suggested) BMI High, discussed plan: lifestyle, weight reduction and dietary Tobacco/Smoking Status: Tobacco use Status Tobacco use date assessed 02/07/24 02/07/24 09:40 Patient Tobacco Use Status Current everyday Tobacco 02/07/24 09:40 Tobacco use type Cigarette 02/07/24 09:40 e-Cigarette/Vaping Use Never Used 02/07/24 09:40 Are you ready to quit: No Tobacco cessation counseling provided: Yes Number of minutes spent counselin Thrive Assessment: Date of Thrive Assessment Date Thrive assessed 11/07/23 02/07/24 09:40 Currently or been in a relationship where the following occur: no concerns reported Const General: cooperative and healthy appearing Nutritional Appearance: well nourished Orientation/consciousness: patient oriented x3 Limitations: no limitations HENMT Head: Yes normal to inspection Neck Neck: Yes normal visual inspection Chest Chest palpation & inspection: normal palpation of entire chest wall Resp Effort & Inspection: normal respiratory effort Neuro General: patient oriented x3 Assessment and Plan Assessment & Plan (1) CVA (cerebral vascular accident): Code(s): I63.9 - Cerebral infarction, unspecified Plan: Condition is stable. (2) Tobacco use disorder: Code(s): F17.200 - Nicotine dependence, unspecified, uncomplicated Plan: 15 minutes spent counselling the patient. Patient does not want to quit tobacco. Understands the risks. (3) Obesity (BMI 30.0-34.9): Code(s): E66.9 - Obesity, unspecified Plan: Counselling on importance of diet and exercise done. Orders: Orders Basic Metabolic Panel 02/07/24 M54.50 - Low back pain, unspecified, I25.10 - Atherosclerotic heart disease of [place] coronary artery without angina pectoris, I63.9 - Cerebral infarction, unspecified Lipid Panel 02/07/24 M54.50 - Low back pain, unspecified, I25.10 - Atherosclerotic heart disease of [place] coronary artery without angina pectoris, I63.9 - Cerebral infarction, unspecified Thyroid Stimulating Hormone 02/07/24 M54.50 - Low back pain, unspecified, I25.10 - Atherosclerotic heart disease of [place] coronary artery without angina pectoris, I63.9 - Cerebral infarction, unspecified Complete Blood Count no Diff 02/07/24 M54.50 - Low back pain, unspecified, I25.10 - Atherosclerotic heart disease of [place] coronary artery without angina pectoris, I63.9 - Cerebral infarction, unspecified Liver Panel 02/07/24 M54.50 - Low back pain, unspecified, I25.10 - Atherosclerotic heart disease of [place] coronary artery without angina pectoris, I63.9 - Cerebral infarction, unspecified UA and rflx microscopic 02/07/24 M54.50 - Low back pain, unspecified, I25.10 - Atherosclerotic heart disease of [place] coronary artery without angina pectoris, I63.9 - Cerebral infarction, unspecified Medications: Refilled gabapentin 300 mg PO Q8H 90 caps 1RF Coding Level of Care Code Est Pt Level 4 (87342) Diagnoses CVA (cerebral vascular accident) I63.9 Tobacco use disorder F17.200 Obesity (BMI 30.0-34.9) E66.9
[2024-02-07 09:33] VITALS: BP 124/72; PULSE 65; O2SAT 94; BMI 34.6
== END 2024-02-07 10:09 | disposition home or self-care (01) ==
PROVIDERS: PCP Internal Medicine; Visit Provider Internal Medicine
DX: E66.9 Obesity, unspecified (principal); Z86.73 Personal history of transient ischemic attack (TIA), and cerebral infarction without residual deficits; F17.200 Nicotine dependence, unspecified, uncomplicated; Z68.34 Body mass index [BMI] 34.0-34.9, adult
CPT/HCPCS: 99214

== ENCOUNTER 2024-02-07 10:15 | Outpatient (REF) | payer MEDICARE, SELFPAY ==
[2022-01-27 10:42] VITALS: BP 110/58
[2022-02-24 11:06] VITALS: BMI 33.9
[2022-03-17 11:16] VITALS: BP 100/60; BP 128/56
[2024-02-07 11:11] LABS: Hematocrit 40.7 % (42.0-52.0); Hemoglobin 14.1 g/dl (14.0-18.0); Mean Corpuscular HGB Conc 34.6 g/dl (31.0-36.0); Mean Corpuscular Hemoglobin 33.2 pg (27.0-33.0); Mean Corpuscular Volume 95.8 fL (80.0-98.0); Mean Platelet Volume 10.5 fL (9.4-12.4); Platelet Count 236 X10*3/uL (160-400); Red Blood Count 4.25 X10*6/uL (4.60-5.80); Red Cell Distribution Width 13.7 % (11.0-16.0); White Blood Count 6.6 X10*3/uL (4.8-10.8)
[2024-02-07 12:04] LABS: Thyroid Stimulating Hormone 0.45 uIU/mL (0.32-4.0)
[2024-02-07 12:11] LABS: Anion Gap 11 (12-20)
[2024-02-07 12:16] LABS: Alanine Aminotransferase 20 U/L (0-40); Albumin Level 3.9 g/dL (3.5-5.0); Alkaline Phosphatase 68 U/L (39-117); Aspartate Amino Transferase 18 U/L (5-37); Bilirubin Direct 0.2 mg/dL (0.0-0.5); Bilirubin Total 0.4 mg/dL (0.0-1.0); Blood Urea Nitrogen 8 mg/dL (9-16); Calcium 9.2 mg/dL (8.4-10.2); Carbon Dioxide 23 mmol/L (22-29); Chloride 109 mmol/L (96-108); Cholesterol 97 mg/dL (<200); Estimated Glomerular Filt Rate > 60; Glucose Random 88 mg/dL (60-115); HDL Cholesterol 32 mg/dL (>40); LDL Cholesterol Calculated 49 mg/dL (<100); Potassium 4.4 mmol/L (3.3-5.1); Sodium 139 mmol/L (135-145); Total Protein 6.8 g/dL (6.5-8.0); Triglycerides 81 mg/dL (<150)
[2024-02-07 14:03] LABS: Appearance Urine Clear; Color Urine Dark Yellow; Glucose Urine UA Negative (Negative); Leukocyte Esterase Urine Negative (Negative); Nitrite Urine Negative (Negative); Urine Blood Negative (Negative); Urine Ketones Negative (Negative); Urine Protein Negative (Neg-Trace)
== END 2024-02-07 10:16 | disposition home or self-care (01) ==
LOC: HO.LAB 10:15
PROVIDERS: Absent Provider Internal Medicine; PCP Internal Medicine; Visit Provider Internal Medicine
DX: I69.30 Unspecified sequelae of cerebral infarction (principal); Z51.81 Encounter for therapeutic drug level monitoring; Z79.01 Long term (current) use of anticoagulants; I25.10 Atherosclerotic heart disease of native coronary artery without angina pectoris; M54.50 Low back pain, unspecified
CPT/HCPCS: 36415; 80048; 80061; 80076; 81003; 84443; 85027; 85610; 99211

== ENCOUNTER 2024-02-07 10:15 | Outpatient (AMB) | payer MEDICARE, SELFPAY ==
[2022-01-27 10:42] VITALS: BP 110/58
[2022-02-24 11:06] VITALS: BMI 33.9
[2022-03-17 11:16] VITALS: BP 100/60; BP 128/56
[2024-02-07 10:54] LABS: Prothrombin Time Whole Bld POC 38.7 sec (11.1-13.5); ~PT, ~INR - Anti Coag Clinic 3.2 (0.9-1.1)
--- NOTE | 2024-02-07 10:55 | MHC.OFFVISCO ---
Intake Intake Visit Reasons: Anticoagulation Allergies No Known Allergies Allergy (Verified 02/07/24 10:48) Medication List - Last Reconciled 02/07/24 by Michelle Soares, RN acetaminophen (Tylenol) 650 mg (2 x 325 mg) PO Q6H PRN atorvastatin 80 mg PO DAILY ezetimibe (Zetia) 10 mg PO DAILY [floor to tub rail As directed] gabapentin 300 mg PO Q8H metoprolol succinate ER (Toprol XL) 25 mg PO DAILY sertraline 100 mg PO DAILY warfarin See Protocol 8mg orally once a day for four days. 10 mg orally daily for three days; Nursing Note INR 3.2?out of therapeutic range of 2-3 Medications and supplements reviewed Patient status: feels well Medications or supplements: no changes Diet: no changes Denies any signs and symptoms of bleeding or clotting or unusual bruising Bleeding, bruising, clotting discussed Nutritional guidance given: to have greens today Dose: usual dose of 10mg X 2 days and 8mg X 5 days F/U INR Date : 1 month?? Patient verbalizing understanding of instructions given. Anti-Coag Initial Assessment Social Hx Patient Tobacco Use Status: Current everyday Tobacco user Tobacco use type: Cigarette Smoking packs per day: 1 alcohol intake: current Alcohol intake frequency: holidays/special occasions only Coding Level of Care Code Est Patient Level 1 Diagnoses Current use of anticoagulant therapy Z79.01 Assessment & Plan Assessment & Plan (1) Current use of anticoagulant therapy: Code(s): Z79.01 - extermination inspector (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
== END 2024-02-07 11:02 | disposition home or self-care (01) ==
LOC: HO.ACS 10:15
PROVIDERS: PCP Internal Medicine; Visit Provider Internal Medicine
DX: Z79.01 Long term (current) use of anticoagulants (principal)

== ENCOUNTER 2024-03-07 10:09 | Outpatient (AMB) | payer MEDICARE, SELFPAY ==
[2022-01-27 10:42] VITALS: BP 110/58
[2022-02-24 11:06] VITALS: BMI 33.9
[2022-03-17 11:16] VITALS: BP 100/60; BP 128/56
[2024-03-07 10:36] LABS: Prothrombin Time Whole Bld POC 30.1 sec (11.1-13.5); ~PT, ~INR - Anti Coag Clinic 2.5 (0.9-1.1)
--- NOTE | 2024-03-07 10:43 | MHC.OFFVISCO ---
Intake Intake Visit Reasons: Anticoagulation Allergies No Known Allergies Allergy (Verified 03/07/24 10:30) Medication List - Last Reconciled 03/07/24 by Michelle Soares, RN acetaminophen (Tylenol) 650 mg (2 x 325 mg) PO Q6H PRN atorvastatin 80 mg PO DAILY ezetimibe (Zetia) 10 mg PO DAILY [floor to tub rail As directed] gabapentin 300 mg PO Q8H metoprolol succinate ER (Toprol XL) 25 mg PO DAILY sertraline 100 mg PO DAILY warfarin See Protocol 8mg orally once a day for four days. 10 mg orally daily for three days; Nursing Note Pt to [facility] accompanied by his friend INR: 2.5 in therapeutic range of 2-3 Medications and supplements reviewed: no changes No changes in health, diet, medications, or supplements, Denies any signs and symptoms of bleeding or bruising or clotting. Bleeding, bruising, clotting discussed Nutritional guidance given to continue to balance fruits and vegetables Dose: 10mg X 2 days and 8mg X5 days F/U INR: 1 month Patient verbalizes understanding of instructions given T/C to friend Kathi who manages pt's meds and appointments. Informed her of INR result and reviewed dosage plan with her. Next appt made with her. Anti-Coag Initial Assessment Social Hx Patient Tobacco Use Status: Current everyday Tobacco user Tobacco use type: Cigarette Smoking packs per day: 1 alcohol intake: current Alcohol intake frequency: holidays/special occasions only Coding Level of Care Code Est Patient Level 1 Diagnoses Current use of anticoagulant therapy Z79.01 Assessment & Plan Assessment & Plan (1) Current use of anticoagulant therapy: Code(s): Z79.01 - terminal worker (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
== END 2024-03-07 10:48 | disposition home or self-care (01) ==
LOC: HO.ACS 10:09
PROVIDERS: PCP Internal Medicine; Visit Provider Internal Medicine
DX: Z79.01 Long term (current) use of anticoagulants (principal)

== ENCOUNTER → 2024-03-07 10:09 | Outpatient (BNVA) | payer MEDICARE, SELFPAY ==
[2022-01-27 10:42] VITALS: BP 110/58
[2022-02-24 11:06] VITALS: BMI 33.9
[2022-03-17 11:16] VITALS: BP 100/60; BP 128/56
== END ==
PROVIDERS: PCP Internal Medicine; Visit Provider Internal Medicine
DX: I69.30 Unspecified sequelae of cerebral infarction (principal); Z79.01 Long term (current) use of anticoagulants; Z51.81 Encounter for therapeutic drug level monitoring
CPT/HCPCS: 85610; 99211

== ENCOUNTER → 2024-04-04 10:21 | Outpatient (BNVA) | payer MEDICARE, SELFPAY ==
[2022-01-27 10:42] VITALS: BP 110/58
[2022-02-24 11:06] VITALS: BMI 33.9
[2022-03-17 11:16] VITALS: BP 100/60; BP 128/56
== END ==
PROVIDERS: PCP Internal Medicine; Visit Provider Internal Medicine
DX: Z86.73 Personal history of transient ischemic attack (TIA), and cerebral infarction without residual deficits (principal); Z79.01 Long term (current) use of anticoagulants; Z51.81 Encounter for therapeutic drug level monitoring
CPT/HCPCS: 85610; 99211

== ENCOUNTER 2024-05-02 10:17 | Outpatient (AMB) | payer MEDICARE, SELFPAY ==
[2022-01-27 10:42] VITALS: BP 110/58
[2022-02-24 11:06] VITALS: BMI 33.9
[2022-03-17 11:16] VITALS: BP 100/60; BP 128/56
--- NOTE | 2024-05-02 10:27 | MHC.OFFVISCO ---
Intake Intake Visit Reasons: Anticoagulation Allergies No Known Allergies Allergy (Verified 05/02/24 10:23) Medication List - Last Reconciled 05/02/24 by Emma Juárez RN acetaminophen (Tylenol) 650 mg (2 x 325 mg) PO Q6H PRN atorvastatin 80 mg PO DAILY ezetimibe (Zetia) 10 mg PO DAILY [floor to tub rail As directed] gabapentin 300 mg PO Q8H metoprolol succinate ER (Toprol XL) 25 mg PO DAILY sertraline 100 mg PO DAILY warfarin See Protocol 8mg orally once a day for four days. 10 mg orally daily for three days; Nursing Note INR: 2.2- in therapeutic range of 2-3 Medications and supplements reviewed- no changes No changes in health, diet, medications, or supplements, Denies any signs and symptoms of bleeding or bruising or clotting. Bleeding, bruising, clotting discussed Nutritional guidance given Dose: 10mg x 2, 8mg x 5 F/U INR: 4 weeks Patient verbalizes understanding of instructions given Anti-Coag Initial Assessment Social Hx Patient Tobacco Use Status: Current everyday Tobacco user Tobacco use type: Cigarette Smoking packs per day: 1 alcohol intake: current Alcohol intake frequency: holidays/special occasions only Coding Level of Care Code Est Patient Level 1 Diagnoses Current use of anticoagulant therapy Z79.01 Assessment & Plan Assessment & Plan (1) Current use of anticoagulant therapy: Code(s): Z79.01 - gore seamer (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
[2024-05-02 10:28] LABS: Prothrombin Time Whole Bld POC 25.9 sec (11.1-13.5); ~PT, ~INR - Anti Coag Clinic 2.2 (0.9-1.1)
== END 2024-05-02 10:35 | disposition home or self-care (01) ==
LOC: HO.ACS 10:17
PROVIDERS: PCP Internal Medicine; Visit Provider Internal Medicine
DX: Z79.01 Long term (current) use of anticoagulants (principal)

== ENCOUNTER → 2024-05-02 10:17 | Outpatient (BNVA) | payer MEDICARE, SELFPAY ==
[2022-01-27 10:42] VITALS: BP 110/58
[2022-02-24 11:06] VITALS: BMI 33.9
[2022-03-17 11:16] VITALS: BP 100/60; BP 128/56
== END ==
PROVIDERS: PCP Internal Medicine; Visit Provider Internal Medicine
DX: I69.30 Unspecified sequelae of cerebral infarction (principal); Z79.01 Long term (current) use of anticoagulants; Z51.81 Encounter for therapeutic drug level monitoring
CPT/HCPCS: 85610; 99211

== ENCOUNTER 2024-05-15 09:00 | Outpatient (AMB) | payer MEDICARE, SELFPAY ==
[2022-01-27 10:42] VITALS: BP 110/58
[2022-02-24 11:06] VITALS: BMI 33.9
[2022-03-17 11:16] VITALS: BP 100/60; BP 128/56
--- NOTE | 2024-05-15 09:07 | A.OFFPC_ITS ---
Vital Signs 05/15/24 09:08 Height 5 ft 9 in Weight 230 lb 0.5 oz BMI 34.0 BP 130/78 Blood Pressure Location Lt brachial Position Sitting Pulse 68 Pulse Source Pulse Oximeter Pulse Oximetry (%) 92 Oxygen Delivery Method Room Air Intake Visit Reasons: 3mth f/u - see comments Intake Note: Patient is here to follow up Seasonal Sales Associate Required: No Allergies No Known Allergies Allergy (Verified 05/15/24 09:08) Tobacco use date assessed: 02/07/24 Dental Screening Dental Screen Date: 11/07/23 HPI 3mth f/u - see comments HPI Details 64-year-old male presents to the office to discuss his chronic medical conditions. Patient is at baseline state of health. Both his eyes continue to deteriorate. He is having increasing tearing from the right eye. Patient has minimal vision in the right eye and diminished vision in the left. He is legally blind after the stroke. Compliant with other medications. Spends a lot of time outside and does not use sun protection. [facility] Medical History Obesity (BMI 30.0-34.9) Tremors of nervous system Tobacco use disorder Legal blindness Coronary artery disease History of acute inferior wall [place] Anxiety Depression High cholesterol HTN (hypertension) ST elevation myocardial infarction (STEMI) of inferior wall (~07/2020) Knee pain, bilateral Stroke (~07/2020) Surgical History History of colostomy reversal Status post Jenna's procedure H/O resection of large bowel Family History Father Stroke Heart attack Mother Heart attack Sister Diverticulitis Heart attack Brother No problems noted. Sister No problems noted. Brother No problems noted. Social History Household Members: Spouse Housing: House Do you presently have visiting nurse or other home services: No Alcohol intake: current Alcohol intake frequency: holidays/special occasions only Comment: pt ambulates to bathroom with supervision Patient Tobacco Use Status: Current everyday Tobacco user Tobacco use type: Cigarette Cigarette Packs Per Day: 1 Cigarettes Per Day: 20 Years Smoked: 40 e-Cigarette/Vaping Use: Never Used Second Hand Smoke Exposure: Yes service: No Current occupational status: disabled Cognitive needs: No Hearing needs: No Vision needs: Yes Questionnaire Thrive Questionnaire Date Thrive assessed: 11/07/23 Currently or been in a relationship where the following occur: No concerns reported THRIVE Score: 0 AUDIT C Alcohol Use Questionnaire (AUDIT-C) 1. How often do you have a drink containing alcohol?: Monthly or less 2. How many drinks containing alcohol do you have on a typical day when you are drinking?: 1 or 2 Total Score: 1 DONN-7 AMB Questionnaire DONN-7 Date DONN - 7 assessed: 11/07/23 Source: Developed by Drs. Jr Wong, Nelly Zamarripa, Nick Nieves and colleagues, with an educational jean from [employer]. Physical exam (Primary Care) Vital Signs: Last Vital Signs Pulse 68 05/15/24 09:08 BP 130/78 05/15/24 09:08 Pulse Ox 92 05/15/24 09:08 Oxygen Delivery Method Room Air 05/15/24 09:08 Care Plan Goal for BP management: Blood pressure is in range. BMI result Body Mass Index 34.0 Tobacco/Smoking Status: Tobacco use Status Tobacco use date assessed 02/07/24 05/15/24 09:13 Patient Tobacco Use Status Current everyday Tobacco 05/15/24 09:13 Tobacco use type Cigarette 05/15/24 09:13 e-Cigarette/Vaping Use Never Used 05/15/24 09:13 Are you ready to quit: No Thrive Assessment: Date of Thrive Assessment Date Thrive assessed 11/07/23 05/15/24 09:13 Currently or been in a relationship where the following occur: No concerns reported Const General: cooperative and healthy appearing Nutritional Appearance: well nourished Orientation/consciousness: patient oriented x3 Limitations: no limitations HENMT Head: Yes normal to inspection Eyes General: appearance normal, both eyes and all related structures Neck Neck: Yes normal visual inspection Chest Chest palpation & inspection: normal palpation of entire chest wall Resp Effort & Inspection: normal respiratory effort Neuro General: patient oriented x3 Assessment and Plan Assessment & Plan (1) Legal blindness: Code(s): H54.8 - Legal blindness, as defined in [place] Plan: Condition is stable. (2) CVA (cerebral vascular accident): Code(s): I63.9 - Cerebral infarction, unspecified Plan: Condition is stable. (3) Coronary artery disease: Code(s): I25.10 - Atherosclerotic heart disease of [place] coronary artery without angina pectoris Plan: Condition is stable. Continue medications at same dosage. (4) Allergies: Code(s): T78.40XA - Allergy, unspecified, initial encounter Plan: Olopatadine called in. Coding Level of Care Code Est Pt Level 4 (55685) Complex EM visit Add On G2211 Diagnoses Legal blindness H54.8 CVA (cerebral vascular accident) I63.9 Coronary artery disease I25.10 Allergies T78.40XA
[2024-05-15 09:08] VITALS: BP 130/78; PULSE 68; O2SAT 92; BMI 34.0
== END 2024-05-15 09:25 | disposition home or self-care (01) ==
PROVIDERS: PCP Internal Medicine; Visit Provider Internal Medicine
DX: H54.8 Legal blindness, as defined in USA (principal); Z86.73 Personal history of transient ischemic attack (TIA), and cerebral infarction without residual deficits; I25.10 Atherosclerotic heart disease of native coronary artery without angina pectoris
CPT/HCPCS: 99214; G2211

== ENCOUNTER 2024-05-30 09:29 | Outpatient (AMB) | payer MEDICARE, SELFPAY ==
[2022-01-27 10:42] VITALS: BP 110/58
[2022-02-24 11:06] VITALS: BMI 33.9
[2022-03-17 11:16] VITALS: BP 100/60; BP 128/56
[2024-05-30 09:43] LABS: Prothrombin Time Whole Bld POC 43.3 sec (11.1-13.5); ~PT, ~INR - Anti Coag Clinic 3.6 (0.9-1.1)
--- NOTE | 2024-05-30 09:57 | MHC.OFFVISCO ---
Intake Intake Visit Reasons: Anticoagulation Allergies No Known Allergies Allergy (Verified 05/30/24 09:36) Medication List - Last Reconciled 05/30/24 by Kitty Guerrero RN acetaminophen (Tylenol) 650 mg (2 x 325 mg) PO Q6H PRN atorvastatin 80 mg PO DAILY ezetimibe (Zetia) 10 mg PO DAILY [floor to tub rail As directed] gabapentin 300 mg PO Q8H metoprolol succinate ER (Toprol XL) 25 mg PO DAILY olopatadine 0.1% 1 drp ophthalmic (eye) BID sertraline 100 mg PO DAILY warfarin See Protocol 8mg orally once a day for four days. 10 mg orally daily for three days; Nursing Note INR 3.6 out of therapeutic range- Has been eating more nuts and raisins lately , eating less and healthier to loose weight, friend who use to bring him moved out of state, and other friend has to take care of his mother- so patient is trying to be more independent, has meals on wheels, ordering more foods on line, using [facility] transportation for appts, able to do his own yard and house work Medications and supplements reviewed Patient status: willing to try to be independent , friend Kathi still setting up his meds for him, states he is more forgetful Medications or supplements: no changes Diet: good Denies any signs and symptoms of bleeding or clotting or unusual bruising Bleeding, bruising, clotting discussed Nutritional guidance given: Greens lower the INR and reds and orange raise the INR, enc weekly greens Dose: decrease today's dose to 4mg then resume usual dose 10mg x 2 days/ 8mg x 5 days - if still elelvated in 2 weeks then decrase weekly dose F/U INR Date: 2 weeks?? Patient verbalizing understanding of instructions given. Call to friend Kathi with warfarin and next appt . Brought to front line supervisor for transportation Anti-Coag Initial Assessment Social Hx Patient Tobacco Use Status: Current everyday Tobacco user Tobacco use type: Cigarette Smoking packs per day: 1 alcohol intake: current Alcohol intake frequency: holidays/special occasions only Coding Level of Care Code Est Patient Level 1 Diagnoses Current use of anticoagulant therapy Z79.01 Results AMB INR Fingerstick AMB INR Fingerstick 3.6 Last Edit by Kitty Guerrero RN on 05/30/24 09:43 manual entry Assessment & Plan Assessment & Plan (1) Current use of anticoagulant therapy: Code(s): Z79.01 - senior care (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
== END 2024-05-30 10:08 | disposition home or self-care (01) ==
LOC: HO.ACS 09:29
PROVIDERS: PCP Internal Medicine; Visit Provider Internal Medicine
DX: Z79.01 Long term (current) use of anticoagulants (principal)

== ENCOUNTER → 2024-05-30 09:29 | Outpatient (BNVA) | payer MEDICARE, SELFPAY ==
[2022-01-27 10:42] VITALS: BP 110/58
[2022-02-24 11:06] VITALS: BMI 33.9
[2022-03-17 11:16] VITALS: BP 100/60; BP 128/56
== END ==
PROVIDERS: PCP Internal Medicine; Visit Provider Internal Medicine
DX: I69.30 Unspecified sequelae of cerebral infarction (principal); Z79.01 Long term (current) use of anticoagulants; Z51.81 Encounter for therapeutic drug level monitoring
CPT/HCPCS: 85610; 99211

== ENCOUNTER 2024-06-13 08:28 | Outpatient (AMB) | payer MEDICARE, SELFPAY ==
[2022-01-27 10:42] VITALS: BP 110/58
[2022-02-24 11:06] VITALS: BMI 33.9
[2022-03-17 11:16] VITALS: BP 100/60; BP 128/56
[2024-06-13 08:36] LABS: Prothrombin Time Whole Bld POC 36.9 sec (11.1-13.5); ~PT, ~INR - Anti Coag Clinic 3.1 (0.9-1.1)
--- NOTE | 2024-06-13 08:39 | MHC.OFFVISCO ---
Intake Intake Visit Reasons: Anticoagulation Allergies No Known Allergies Allergy (Verified 06/13/24 08:31) Medication List - Last Reconciled 06/13/24 by Daniela Chandler RN acetaminophen (Tylenol) 650 mg (2 x 325 mg) PO Q6H PRN atorvastatin 80 mg PO DAILY ezetimibe (Zetia) 10 mg PO DAILY [floor to tub rail As directed] gabapentin 300 mg PO Q8H metoprolol succinate ER (Toprol XL) 25 mg PO DAILY olopatadine 0.1% 1 drp ophthalmic (eye) BID sertraline 100 mg PO DAILY warfarin See Protocol 8mg orally once a day for four days. 10 mg orally daily for three days; Nursing Note NO CP,SOB,DIET/MED CHANGES,FALLS OR SX OF BLEEDING. CONTINUE SAME DOSE AND FOLLOW-UP IN 3 WEEKS. WILL BE SURE TO HAVE GREENS TODAY AND 2-3X WEEKLY GOOD UNDERSTANDING OF DOSING INSTR. 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
== END 2024-06-13 08:47 | disposition home or self-care (01) ==
LOC: HO.ACS 08:28
PROVIDERS: PCP Internal Medicine; Visit Provider Internal Medicine
DX: Z79.01 Long term (current) use of anticoagulants (principal)

== ENCOUNTER → 2024-06-13 08:28 | Outpatient (BNVA) | payer MEDICARE, SELFPAY ==
[2022-01-27 10:42] VITALS: BP 110/58
[2022-02-24 11:06] VITALS: BMI 33.9
[2022-03-17 11:16] VITALS: BP 100/60; BP 128/56
== END ==
PROVIDERS: PCP Internal Medicine; Visit Provider Internal Medicine
DX: I69.30 Unspecified sequelae of cerebral infarction (principal); Z79.01 Long term (current) use of anticoagulants; Z51.81 Encounter for therapeutic drug level monitoring
CPT/HCPCS: 85610; 99211

== ENCOUNTER 2024-07-04 10:21 | Outpatient (AMB) | payer MEDICARE, SELFPAY ==
[2022-01-27 10:42] VITALS: BP 110/58
[2022-02-24 11:06] VITALS: BMI 33.9
[2022-03-17 11:16] VITALS: BP 100/60; BP 128/56
[2024-07-04 10:56] LABS: ~PT, ~INR - Anti Coag Clinic 2.7 (0.9-1.1)
--- NOTE | 2024-07-04 10:57 | MHC.OFFVISCO ---
Intake Intake Visit Reasons: Anticoagulation Allergies No Known Allergies Allergy (Verified 07/04/24 10:49) Medication List - Last Reconciled 07/04/24 by Kitty Guerrero RN acetaminophen (Tylenol) 650 mg (2 x 325 mg) PO Q6H PRN atorvastatin 80 mg PO DAILY ezetimibe (Zetia) 10 mg PO DAILY [floor to tub rail As directed] gabapentin 300 mg PO Q8H metoprolol succinate ER (Toprol XL) 25 mg PO DAILY olopatadine 0.1% 1 drp ophthalmic (eye) BID sertraline 100 mg PO DAILY warfarin See Protocol 8mg orally once a day for four days. 10 mg orally daily for three days; Nursing Note INR: 2.7 in therapeutic range Medications and supplements reviewed No changes in health, diet, medications, or supplements, Denies any signs and symptoms of bleeding or bruising or clotting. Bleeding, bruising, clotting discussed Nutritional guidance given Dose: 10mg x 2 days/ 8mg x 5 days F/U INR: 4 weeks Patient verbalizes understanding of instructions given Anti-Coag Initial Assessment Social Hx Patient Tobacco Use Status: Current everyday Tobacco user Tobacco use type: Cigarette Smoking packs per day: 1 alcohol intake: current Alcohol intake frequency: holidays/special occasions only Coding Level of Care Code Est Patient Level 1 Diagnoses Current use of anticoagulant therapy Z79.01 Results AMB INR Fingerstick AMB INR Fingerstick 2.7 Last Edit by Kitty Guerrero RN on 07/04/24 10:57 manual entry Assessment & Plan Assessment & Plan (1) Current use of anticoagulant therapy: Code(s): Z79.01 - snf (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
== END 2024-07-04 11:04 | disposition home or self-care (01) ==
LOC: HO.ACS 10:21
PROVIDERS: PCP Internal Medicine; Visit Provider Internal Medicine
DX: Z79.01 Long term (current) use of anticoagulants (principal)

== ENCOUNTER → 2024-07-04 10:21 | Outpatient (BNVA) | payer MEDICARE, SELFPAY ==
[2022-01-27 10:42] VITALS: BP 110/58
[2022-02-24 11:06] VITALS: BMI 33.9
[2022-03-17 11:16] VITALS: BP 100/60; BP 128/56
== END ==
PROVIDERS: PCP Internal Medicine; Visit Provider Internal Medicine
DX: I69.30 Unspecified sequelae of cerebral infarction (principal); Z79.01 Long term (current) use of anticoagulants; Z51.81 Encounter for therapeutic drug level monitoring
CPT/HCPCS: 85610; 99211

== ENCOUNTER 2024-08-01 09:55 | Outpatient (AMB) | payer MEDICARE, SELFPAY ==
[2022-01-27 10:42] VITALS: BP 110/58
[2022-02-24 11:06] VITALS: BMI 33.9
[2022-03-17 11:16] VITALS: BP 100/60; BP 128/56
[2024-08-01 10:22] LABS: Prothrombin Time Whole Bld POC 29.5 sec (11.1-13.5); ~PT, ~INR - Anti Coag Clinic 2.5 (0.9-1.1)
--- NOTE | 2024-08-01 10:25 | MHC.OFFVISCO ---
Intake Intake Visit Reasons: Anticoagulation Allergies No Known Allergies Allergy (Verified 08/01/24 10:06) Medication List - Last Reconciled 08/01/24 by Kitty Guerrero RN acetaminophen (Tylenol) 650 mg (2 x 325 mg) PO Q6H PRN atorvastatin 80 mg PO DAILY ezetimibe (Zetia) 10 mg PO DAILY [floor to tub rail As directed] gabapentin 300 mg PO Q8H metoprolol succinate ER (Toprol XL) 25 mg PO DAILY olopatadine 0.1% 1 drp ophthalmic (eye) BID sertraline 100 mg PO DAILY warfarin See Protocol 8mg orally once a day for four days. 10 mg orally daily for three days; Nursing Note INR: 2.5 in therapeutic range Medications and supplements reviewed No changes in health, diet, medications, or supplements, Denies any signs and symptoms of bleeding or bruising or clotting. Bleeding, bruising, clotting discussed Nutritional guidance given Dose: keep same dose 10mg x 2 days/ 8mg x 5 days F/U INR: 4 week Patient verbalizes understanding of instructions given msg sent to PCP regarding challenge with obtaining refill Anti-Coag Initial Assessment Social Hx Patient Tobacco Use Status: Current everyday Tobacco user Tobacco use type: Cigarette Smoking packs per day: 1 alcohol intake: current Alcohol intake frequency: holidays/special occasions only Coding Level of Care Code Est Patient Level 1 Diagnoses Current use of anticoagulant therapy Z79.01 Results AMB INR Fingerstick AMB INR Fingerstick 2.5 Last Edit by Kitty Guerrero RN on 08/01/24 10:19 MANUAL ENTRY Assessment & Plan Assessment & Plan (1) Current use of anticoagulant therapy: Code(s): Z79.01 - alf (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
== END 2024-08-01 10:26 | disposition home or self-care (01) ==
LOC: HO.ACS 09:55
PROVIDERS: PCP Internal Medicine; Visit Provider Internal Medicine
DX: Z79.01 Long term (current) use of anticoagulants (principal)

== ENCOUNTER → 2024-08-01 09:55 | Outpatient (BNVA) | payer MEDICARE, SELFPAY ==
[2022-01-27 10:42] VITALS: BP 110/58
[2022-02-24 11:06] VITALS: BMI 33.9
[2022-03-17 11:16] VITALS: BP 100/60; BP 128/56
== END ==
PROVIDERS: PCP Internal Medicine; Visit Provider Internal Medicine
DX: I69.30 Unspecified sequelae of cerebral infarction (principal); Z79.01 Long term (current) use of anticoagulants; Z51.81 Encounter for therapeutic drug level monitoring
CPT/HCPCS: 85610; 99211

== ENCOUNTER 2024-08-29 09:41 | Outpatient (AMB) | payer MEDICARE, SELFPAY ==
[2022-01-27 10:42] VITALS: BP 110/58
[2022-02-24 11:06] VITALS: BMI 33.9
[2022-03-17 11:16] VITALS: BP 100/60; BP 128/56
[2024-08-29 10:03] LABS: Prothrombin Time Whole Bld POC 43.9 sec (11.1-13.5); ~PT, ~INR - Anti Coag Clinic 3.7 (0.9-1.1)
--- NOTE | 2024-08-29 10:14 | MHC.OFFVISCO ---
Intake Intake Visit Reasons: Anticoagulation Allergies No Known Allergies Allergy (Verified 08/29/24 09:57) Medication List - Last Reconciled 08/29/24 by Daniela Chandler RN acetaminophen (Tylenol) 650 mg (2 x 325 mg) PO Q6H PRN atorvastatin 80 mg PO DAILY ezetimibe (Zetia) 10 mg PO DAILY [floor to tub rail As directed] gabapentin 300 mg PO Q8H metoprolol succinate ER (Toprol XL) 25 mg PO DAILY olopatadine 0.1% 1 drp ophthalmic (eye) BID sertraline 100 mg PO DAILY warfarin See Protocol 8mg orally once a day for four days. 10 mg orally daily for three days; Nursing Note NO CP,SOB,DIET/MED CHANGES,FALLS OR SX OF BLEEDING. HOLD WARFARIN TODAY THEN RESUME USUAL DOSING AND FOLLOW-UP IN 2 WEEKS. GRENS TODAY GOOD UNDERSTANDING OF DOSING INSTR. Anti-Coag Initial Assessment Social Hx Patient Tobacco Use Status: Current everyday Tobacco user Tobacco use type: Cigarette Smoking packs per day: 1 alcohol intake: current Alcohol intake frequency: holidays/special occasions only Coding Level of Care Code Est Patient Level 1 Diagnoses Current use of anticoagulant therapy Z79.01 Assessment & Plan Assessment & Plan (1) Current use of anticoagulant therapy: Code(s): Z79.01 - terminal operations supervisor (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
== END 2024-08-29 10:16 | disposition home or self-care (01) ==
LOC: HO.ACS 09:41
PROVIDERS: PCP Internal Medicine; Visit Provider Internal Medicine
DX: Z79.01 Long term (current) use of anticoagulants (principal)

== ENCOUNTER → 2024-08-29 09:41 | Outpatient (BNVA) | payer MEDICARE, SELFPAY ==
[2022-01-27 10:42] VITALS: BP 110/58
[2022-02-24 11:06] VITALS: BMI 33.9
[2022-03-17 11:16] VITALS: BP 100/60; BP 128/56
== END ==
PROVIDERS: PCP Internal Medicine; Visit Provider Internal Medicine
DX: I69.30 Unspecified sequelae of cerebral infarction (principal); Z79.01 Long term (current) use of anticoagulants; Z51.81 Encounter for therapeutic drug level monitoring
CPT/HCPCS: 85610; 99211

== ENCOUNTER 2024-09-12 10:21 | Outpatient (AMB) | payer MEDICARE, SELFPAY ==
[2022-01-27 10:42] VITALS: BP 110/58
[2022-02-24 11:06] VITALS: BMI 33.9
[2022-03-17 11:16] VITALS: BP 100/60; BP 128/56
[2024-09-12 10:28] LABS: Prothrombin Time Whole Bld POC 47.2 sec (11.1-13.5); ~PT, ~INR - Anti Coag Clinic 3.9 (0.9-1.1)
--- NOTE | 2024-09-12 10:42 | MHC.OFFVISCO ---
Intake Intake Visit Reasons: Anticoagulation Allergies No Known Allergies Allergy (Verified 09/12/24 10:21) Medication List - Last Reconciled 09/12/24 by Kitty Guerrero RN acetaminophen (Tylenol) 650 mg (2 x 325 mg) PO Q6H PRN atorvastatin 80 mg PO DAILY ezetimibe (Zetia) 10 mg PO DAILY [floor to tub rail As directed] gabapentin 300 mg PO Q8H metoprolol succinate ER (Toprol XL) 25 mg PO DAILY olopatadine 0.1% 1 drp ophthalmic (eye) BID sertraline 100 mg PO DAILY warfarin See Protocol 8mg orally once a day for four days. 10 mg orally daily for three days; Nursing Note INR 3.9? out of therapeutic range Medications and supplements reviewed Patient status: STATES HE MAY HAVE LOST WEIGHT Medications or supplements: NO CHANGES Diet: GOOD Denies any signs and symptoms of bleeding or clotting or unusual bruising Bleeding, bruising, clotting discussed Nutritional guidance given: REVIEW FOOD LIST DURING THE HOLIDAYS Dose: HOLD TODAY AND DECREASE WEEKLY DOSE 10MG X 1 DAY/ 8MG X 6 DAYS F/U INR Date : 2 WEEKS ?? Patient verbalizing understanding of instructions given. Anti-Coag Initial Assessment Social Hx Patient Tobacco Use Status: Current everyday Tobacco user Tobacco use type: Cigarette Smoking packs per day: 1 alcohol intake: current Alcohol intake frequency: holidays/special occasions only Questionnaires HAS-BLED Does the patient had uncontrolled Hypertension?: No Does the patient have renal disease?: No Does the patient have liver disease?: No Does the patient have a history of stroke?: Yes Has the patient had major bleeding or predisposition to bleeding?: No Does the patient have labile INRs?: Yes Is the patient over 65 years of age?: No Is the patient on medications that gives them a predisposition to bleeding?: Yes Does the patient use alcohol?: No HAS-BLED Score: 3 CHADSVASC Age: <65 Gender: Male Does the patient have a history of CHF?: No Does the patient have a history of Hypertension?: Yes Does the patient have a history of Stroke/TIA/Thromboembolism?: Yes Does the patient have a history of Vascular Disease (prior IL, PAD or aortic plaque)?: Yes (CAD) Does the patient have a history of Diabetes?: No CHADS VACS Score: 4 Juan Jose Prediction Score Rsk VTE Active Cancer: No Previous VTE, excluding superficial vein thrombosis: No Reduced mobility: No Already known Thrombophilic Condition: No With-in last month Trauma and/or Surgery: No Elderly 70 year or older: No Heart and/or Respiratory Failure: No Acute Myocardial infarction and/or Ischemic Stroke: No Acute Infection and/or Rheumatologic Disorder: No Obesity (BMI 30 or greater): Yes Ongoing Hormonal Treatment: No Score: 1 Juan Jose Score less than 4; Low Risk of VTE Juan Jose Score 4 or greater; High Risk of VTE Coding Level of Care Code Est Patient Level 1 Diagnoses Current use of anticoagulant therapy Z79.01 Results AMB INR Fingerstick AMB INR Fingerstick 3.9 Last Edit by Kitty Guerrero RN on 09/12/24 10:40 MANUAL ENTRY Assessment & Plan Assessment & Plan (1) Current use of anticoagulant therapy: Code(s): Z79.01 - 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
== END 2024-09-12 10:46 | disposition home or self-care (01) ==
LOC: HO.ACS 10:21
PROVIDERS: PCP Internal Medicine; Visit Provider Internal Medicine
DX: Z79.01 Long term (current) use of anticoagulants (principal)

== ENCOUNTER → 2024-09-12 10:21 | Outpatient (BNVA) | payer MEDICARE, SELFPAY ==
[2022-01-27 10:42] VITALS: BP 110/58
[2022-02-24 11:06] VITALS: BMI 33.9
[2022-03-17 11:16] VITALS: BP 100/60; BP 128/56
== END ==
PROVIDERS: PCP Internal Medicine; Visit Provider Internal Medicine
DX: I69.30 Unspecified sequelae of cerebral infarction (principal); Z79.01 Long term (current) use of anticoagulants; Z51.81 Encounter for therapeutic drug level monitoring
CPT/HCPCS: 85610; 99211

== ENCOUNTER 2024-09-26 09:37 | Outpatient (AMB) | payer MEDICARE, SELFPAY ==
[2022-01-27 10:42] VITALS: BP 110/58
[2022-02-24 11:06] VITALS: BMI 33.9
[2022-03-17 11:16] VITALS: BP 100/60; BP 128/56
[2024-09-26 09:43] LABS: Prothrombin Time Whole Bld POC 31.9 sec (11.1-13.5); ~PT, ~INR - Anti Coag Clinic 2.7 (0.9-1.1)
--- NOTE | 2024-09-26 09:50 | MHC.OFFVISCO ---
Intake Intake Visit Reasons: Anticoagulation Allergies No Known Allergies Allergy (Verified 09/26/24 09:37) Medication List - Last Reconciled 09/26/24 by Daniela Chandler RN acetaminophen (Tylenol) 650 mg (2 x 325 mg) PO Q6H PRN atorvastatin 80 mg PO DAILY ezetimibe (Zetia) 10 mg PO DAILY [floor to tub rail As directed] gabapentin 300 mg PO Q8H metoprolol succinate ER (Toprol XL) 25 mg PO DAILY olopatadine 0.1% 1 drp ophthalmic (eye) BID sertraline 100 mg PO DAILY warfarin See Protocol 8mg orally once a day for four days. 10 mg orally daily for three days; Nursing Note NO CP,SOB,DIET/MED CHANGES,FALLS OR SX OF BLEEDING. CONTINUE PRESENT DOSE AND FOLLOW-UP IN 3 WEEKS. GOOD UNDERSTANDING OF DOSING INSTR. Anti-Coag Initial Assessment Social Hx Patient Tobacco Use Status: Current everyday Tobacco user Tobacco use type: Cigarette Smoking packs per day: 1 alcohol intake: current Alcohol intake frequency: holidays/special occasions only Coding Level of Care Code Est Patient Level 1 Diagnoses Current use of anticoagulant therapy Z79.01 Assessment & Plan Assessment & Plan (1) Current use of anticoagulant therapy: Code(s): Z79.01 - [facility] (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
== END 2024-09-26 09:52 | disposition home or self-care (01) ==
LOC: HO.ACS 09:37
PROVIDERS: PCP Internal Medicine; Visit Provider Internal Medicine
DX: Z79.01 Long term (current) use of anticoagulants (principal)

== ENCOUNTER → 2024-09-26 09:37 | Outpatient (BNVA) | payer MEDICARE, SELFPAY ==
[2022-01-27 10:42] VITALS: BP 110/58
[2022-02-24 11:06] VITALS: BMI 33.9
[2022-03-17 11:16] VITALS: BP 100/60; BP 128/56
== END ==
PROVIDERS: PCP Internal Medicine; Visit Provider Internal Medicine
DX: I69.30 Unspecified sequelae of cerebral infarction (principal); Z79.01 Long term (current) use of anticoagulants; Z51.81 Encounter for therapeutic drug level monitoring
CPT/HCPCS: 85610; 99211

== ENCOUNTER 2024-10-17 09:11 | Outpatient (AMB) | payer MEDICARE, SELFPAY ==
[2022-01-27 10:42] VITALS: BP 110/58
[2022-02-24 11:06] VITALS: BMI 33.9
[2022-03-17 11:16] VITALS: BP 100/60; BP 128/56
[2024-10-17 09:30] LABS: Prothrombin Time Whole Bld POC 29.4 sec (11.1-13.5); ~PT, ~INR - Anti Coag Clinic 2.4 (0.9-1.1)
--- NOTE | 2024-10-17 09:37 | MHC.OFFVISCO ---
Intake Intake Visit Reasons: Anticoagulation Allergies No Known Allergies Allergy (Verified 10/17/24 09:24) Medication List - Last Reconciled 10/17/24 by Michelle Soares RN acetaminophen (Tylenol) 650 mg (2 x 325 mg) PO Q6H PRN atorvastatin 80 mg PO DAILY ezetimibe (Zetia) 10 mg PO DAILY [floor to tub rail As directed] gabapentin 300 mg PO Q8H metoprolol succinate ER (Toprol XL) 25 mg PO DAILY olopatadine 0.1% 1 drp ophthalmic (eye) BID sertraline 100 mg PO DAILY warfarin See Protocol 8mg orally once a day for four days. 10 mg orally daily for three days; Nursing Note INR: 2.4 in therapeutic range of 2-3 Call to pt's friend Kathi who manages pt's meds and appointments Medications and supplements reviewed No changes in health, diet, medications, or supplements, Denies any signs and symptoms of bleeding or bruising or clotting. Bleeding, bruising, clotting discussed Nutritional guidance given Dose: 8mg X 6 days and 10mg X 1 day (Sun) F/U INR: 4 weeks Patient and Kathi verbalizes understanding of instructions given Anti-Coag Initial Assessment Social Hx Patient Tobacco Use Status: Current everyday Tobacco user Tobacco use type: Cigarette Smoking packs per day: 1 alcohol intake: current Alcohol intake frequency: holidays/special occasions only Coding Level of Care Code Est Patient Level 1 Diagnoses Current use of anticoagulant therapy Z79.01 Results AMB INR Fingerstick AMB INR Fingerstick 2.4 Last Edit by Michelle Soares RN on 10/17/24 09:29 interface delay Assessment & Plan Assessment & Plan (1) Current use of anticoagulant therapy: Code(s): 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
== END 2024-10-17 09:43 | disposition home or self-care (01) ==
LOC: HO.ACS 09:11
PROVIDERS: PCP Internal Medicine; Visit Provider Internal Medicine
DX: Z79.01 Long term (current) use of anticoagulants (principal)

== ENCOUNTER → 2024-10-17 09:11 | Outpatient (BNVA) | payer MEDICARE, SELFPAY ==
[2022-01-27 10:42] VITALS: BP 110/58
[2022-02-24 11:06] VITALS: BMI 33.9
[2022-03-17 11:16] VITALS: BP 100/60; BP 128/56
== END ==
PROVIDERS: PCP Internal Medicine; Visit Provider Internal Medicine
DX: I69.30 Unspecified sequelae of cerebral infarction (principal); Z79.01 Long term (current) use of anticoagulants; Z51.81 Encounter for therapeutic drug level monitoring
CPT/HCPCS: 85610; 99211

== ENCOUNTER → 2024-11-14 09:02 | Outpatient (BNVA) | payer MEDICARE, SELFPAY ==
[2022-01-27 10:42] VITALS: BP 110/58
[2022-02-24 11:06] VITALS: BMI 33.9
[2022-03-17 11:16] VITALS: BP 100/60; BP 128/56
== END ==
PROVIDERS: PCP Internal Medicine; Visit Provider Internal Medicine
DX: I69.30 Unspecified sequelae of cerebral infarction (principal); Z79.01 Long term (current) use of anticoagulants; Z51.81 Encounter for therapeutic drug level monitoring
CPT/HCPCS: 85610; 99211

== ENCOUNTER → 2024-11-14 09:02 | Outpatient (AMB) | payer MEDICARE, SELFPAY ==
[2022-01-27 10:42] VITALS: BP 110/58
[2022-02-24 11:06] VITALS: BMI 33.9
[2022-03-17 11:16] VITALS: BP 100/60; BP 128/56
[2024-11-14 09:35] LABS: Prothrombin Time Whole Bld POC 31.4 sec (11.1-13.5); ~PT, ~INR - Anti Coag Clinic 2.6 (0.9-1.1)
== END | disposition home or self-care (01) ==
PROVIDERS: PCP Internal Medicine; Visit Provider Internal Medicine

== ENCOUNTER 2024-11-20 14:40 | Outpatient (AMB) | payer MEDICARE, SELFPAY ==
[2022-01-27 10:42] VITALS: BP 110/58
[2022-02-24 11:06] VITALS: BMI 33.9
[2022-03-17 11:16] VITALS: BP 100/60; BP 128/56
--- OUTSIDE RECORDS SUMMARY | 2024-11-20 14:42 | XMS_ITS | Patient Health Record ---
Author Organization [facility] Address [address] [place] [id number] Care Team Providers Care Small Products Assembler Name Role Phone DELORES GUERRERO Primary Care Provider Jr Smith Unavailable [phone] ALLERGIES No Known Allergies REASON FOR REFERRAL No Information MEDICATIONS Medication SIG (Take, Route, Frequency, Duration) Notes Start Date End Date Status LORazepam 0.5 MG Oral for 30 A ctive Omeprazole 20 MG Oral for 90 A ctive Sertraline HCl 100 MG Oral for 90 Active Atorvastatin Calcium 80 MG Oral for 90 Active Warfarin Sodium 4 MG 2 tablets as direct ed as directed Active Melatonin Maximum Strength 5 MG Oral for 30 Active Metoprolol Tartrate 25 MG Oral for 90 Active Zolpidem Tartrate 5 MG Oral for 30 Active [facility] Acetaminophen 325 MG Oral for 4 Active Gabapentin 300 MG Oral for 30 Active IMMUNIZATIONS Vaccine Route Administration Date Status Comme nts Influenza Unknown 05/26/2021 Refused SOCIAL HISTORY Tobacco Use: Social History Observation Description Date Details (start date - stop date) Current Smoker NA - NA Sex Assigned At : Social History Observation Description Sex Assigned At Unknown Tobacco Use/Smoking Question Answer Notes Patient is a current smoker How often do you smoke cigarettes? every day How many cigarettes a day do you smoke? 11-20 Alcohol Screen Question Answer Notes Did you have a drink containing alcohol in the p ast year? No Points 0 Interpretation Negative PROBLEMS Problem Type ICD Code Onset Dates Problem Status W/U Status Risk SNOMED Code Notes Problem Encounter for screening for malignant neoplasm of colon (Z12.11) Active confirmed 578994989 Problem History of partial surgical removal of colon (Z90.49) Active confirmed 265833870 Problem History of colon surgery (Z98.890) Active confirmed 502908705 Problem Preprocedural examination (Z01.818) Active confirmed 322046873067866 Problem Diverticulitis of large intestine without bleeding, unspecified complication status (K57.32) Active confirmed 7512452 PLAN OF TREATMENT Future Test Test Name Order Date COLONOSCOPY 05/05/2021 COLONOSCOPY 05/26/2021 Insurance Providers Payer Name Payer Address Payer Phone Subscriber Number Group Number Insured Name Patient Relationship to Insured Coverage Start Date Coverage End Date [facility] [address] [address] [place], [place] [id number] DARLIN YOLY Self - patient is the insured MEDICAL (GENERAL) HISTORY Medical History History ICD Code Stroke 2019 with right eye blindness and balance issues [place] 2019 Arthritis Stress/anxiety/depression Hyperlipidemia HTN Denies DM,Lung disease,renal disease 02/2021--colonic obstruction due to diverticular disease with surgery as below--preop colonoscopy to the transverse colon was negative for mass and polyps Surgical History Surgery Date(Month/Year) 02/2021 Jenna's procedure with a Sigmoid resection and Colostomy formation for relief of colonic obstruction-path c/w diverticulitis/abscess/fistlous disease by Dr. Romano
--- NOTE | 2024-11-20 15:12 | A.OFFPC_ITS ---
Vital Signs 11/20/24 15:14 Height 5 ft 9 in Weight 236 lb 2 oz BMI 34.9 BP 130/72 Blood Pressure Location Lt brachial Position Sitting Pulse 59 Pulse Source Pulse Oximeter Temp 97.3 F Temp Source Temporal Artery Scan Pulse Oximetry (%) 96 Oxygen Delivery Method Room Air Intake Visit Reasons: 6mth f/u Intake Note: Patient is here to follow up on Lower back pain, CAD. Alarm Field Technician Required: No Senior Quality Engineer: Present Accompanied by: Friend Allergies No Known Allergies Allergy (Verified 11/21/24 07:58) Medication List - Last Reconciled 11/21/24 by Sanjay Cline MD atorvastatin 80 mg PO DAILY ezetimibe (Zetia) 10 mg PO DAILY [floor to tub rail As directed] gabapentin 300 mg PO Q8H metoprolol succinate ER 25 mg PO DAILY olopatadine 0.1% 1 drp ophthalmic (eye) BID sertraline 100 mg PO DAILY warfarin See Protocol 8mg orally once a day for four days. 10 mg orally daily for three days; Tobacco use date assessed: 11/20/24 Dental Screening Dental Screen Date: 11/20/24 Did you have a dental visit in the last 12 months?: No Did you have a dental problem in the last 6 months where you did not have access to dental care?: No Was dental information given to patient?: No HPI 6mth f/u HPI Details 64-year-old male presents to the office to discuss his chronic medical conditions. He is accompanied by his friend. Patient is at baseline state of health. Despite his poor vision, he tries to work outside and keeps himself busy. Compliant with all medications. Reporting no side effects. [facility] Medical History Obesity (BMI 30.0-34.9) Tremors of nervous system Tobacco use disorder Legal blindness Coronary artery disease History of acute inferior wall CT Anxiety Depression High cholesterol HTN (hypertension) ST elevation myocardial infarction (STEMI) of inferior wall (~07/2020) Knee pain, bilateral Stroke (~07/2020) Surgical History History of colostomy reversal Status post Jenna's procedure H/O resection of large bowel Family History Father Stroke Heart attack Mother Heart attack Sister Diverticulitis Heart attack Brother No problems noted. Sister No problems noted. Brother No problems noted. Social History Household Members: Spouse Housing: House Do you presently have visiting nurse or other home services: No Alcohol intake: current Alcohol intake frequency: holidays/special occasions only Comment: pt ambulates to bathroom with supervision Patient Tobacco Use Status: Current everyday Tobacco user Tobacco use type: Cigarette Cigarette Packs Per Day: 1 Cigarettes Per Day: 20 Years Smoked: 40 e-Cigarette/Vaping Use: Never Used Second Hand Smoke Exposure: Yes service: No Current occupational status: disabled Cognitive needs: No Hearing needs: No Vision needs: Yes Questionnaire PHQ-9 Over the last 2 weeks, how often have you been bothered by any of the following problems? Depression Screening Interpretation: Negative Depression Screening Done: Yes Source: Developed by Drs. Jr Wong, Nelly Zamarripa, Nick Nieves and colleagues, with an educational jean from [employer]. Thrive Questionnaire Date Thrive assessed: 11/07/23 DONN-7 AMB Questionnaire DONN-7 Date DONN - 7 assessed: 11/07/23 Source: Developed by Drs. Jr Wong, Nelly Zamarripa, Nick Nieves and colleagues, with an educational jean from [employer]. Physical exam (Primary Care) Vital Signs: Last Vital Signs Temp 97.3 F 11/20/24 15:14 Pulse 59 11/20/24 15:14 BP 130/72 11/20/24 15:14 Pulse Ox 96 11/20/24 15:14 Oxygen Delivery Method Room Air 11/20/24 15:14 Care Plan Goal for BP management: Blood pressure is in range. BMI result Body Mass Index 34.9 BMI Assessment/Plan discussion: High Tobacco/Smoking Status: Tobacco use Status Tobacco use date assessed 11/20/24 11/20/24 15:21 Patient Tobacco Use Status Current everyday Tobacco 11/20/24 15:21 Tobacco use type Cigarette 11/20/24 15:21 e-Cigarette/Vaping Use Never Used 02/13/25 15:21 Depression Screening Interpretation: Negative Thrive Assessment: Date of Thrive Assessment Date Thrive assessed 11/07/23 11/20/24 15:21 Const General: cooperative and healthy appearing Nutritional Appearance: well nourished Orientation/consciousness: patient oriented x3 Limitations: no limitations HENMT Head: Yes normal to inspection Eyes General: appearance normal, both eyes and all related structures Neck Neck: Yes normal visual inspection Chest Chest palpation & inspection: normal palpation of entire chest wall Resp Effort & Inspection: normal respiratory effort Neuro General: patient oriented x3 Coding Level of Care Code Est Pt Level 4 (11697) Complex EM visit Add On G2211 Diagnoses CVA (cerebral vascular accident) I63.9 Tobacco use disorder F17.200 Assessment & Plan Assessment & Plan (1) CVA (cerebral vascular accident): Code(s): I63.9 - Cerebral infarction, unspecified Category: Medical Plan: Condition is stable. Continue current medications. (2) Tobacco use disorder: Code(s): F17.200 - Nicotine dependence, unspecified, uncomplicated Category: Medical Plan: Counseling to quit smoking done.
[2024-11-20 15:14] VITALS: BP 130/72; PULSE 59; TEMP 36.3; O2SAT 96; BMI 34.9
== END 2024-11-20 16:29 | disposition home or self-care (01) ==
LOC: HO.HMCH 14:40
PROVIDERS: PCP Internal Medicine; Visit Provider Internal Medicine
DX: I63.9 Cerebral infarction, unspecified (principal); F17.200 Nicotine dependence, unspecified, uncomplicated

== ENCOUNTER → 2024-11-20 14:40 | Outpatient (BNVA) | payer MEDICARE, SELFPAY ==
[2022-01-27 10:42] VITALS: BP 110/58
[2022-02-24 11:06] VITALS: BMI 33.9
[2022-03-17 11:16] VITALS: BP 100/60; BP 128/56
== END ==
PROVIDERS: PCP Internal Medicine; Visit Provider Internal Medicine
DX: I63.9 Cerebral infarction, unspecified (principal); F17.200 Nicotine dependence, unspecified, uncomplicated; Z71.6 Tobacco abuse counseling
CPT/HCPCS: 99212

== ENCOUNTER 2024-12-12 08:57 | Outpatient (AMB) | payer MEDICARE, SELFPAY ==
[2022-01-27 10:42] VITALS: BP 110/58
[2022-02-24 11:06] VITALS: BMI 33.9
[2022-03-17 11:16] VITALS: BP 100/60; BP 128/56
[2024-12-12 09:08] LABS: Prothrombin Time Whole Bld POC 29.4 sec (11.1-13.5); ~PT, ~INR - Anti Coag Clinic 2.5 (0.9-1.1)
--- NOTE | 2024-12-12 09:15 | MHC.OFFVISCO ---
Intake Intake Visit Reasons: Anticoagulation Allergies No Known Allergies Allergy (Verified 11/21/24 07:58) Medication List - Last Reconciled 12/12/24 by Kitty Guerrero RN atorvastatin 80 mg PO DAILY ezetimibe (Zetia) 10 mg PO DAILY [floor to tub rail As directed] gabapentin 300 mg PO Q8H metoprolol succinate ER 25 mg PO DAILY olopatadine 0.1% 1 drp ophthalmic (eye) BID sertraline 100 mg PO DAILY warfarin See Protocol 8mg orally once a day for four days. 10 mg orally daily for three days; Nursing Note ambulatory with friend for transportation, well INR: 2.5 in therapeutic range 2.0-3.0 Medications and supplements reviewed No changes in health, diet, medications, or supplements, Denies any signs and symptoms of bleeding or bruising or clotting. Bleeding, bruising, clotting discussed Nutritional guidance given - cot to balance diet Dose: 10mg x 1 day/ 8mg x 6 days spoke with Mirna his friend who sets up his meds F/U INR: 1 month Patient verbalizes understanding of instructions given Anti-Coag Initial Assessment Social Hx Patient Tobacco Use Status: Current everyday Tobacco user Tobacco use type: Cigarette Smoking packs per day: 1 alcohol intake: current Alcohol intake frequency: holidays/special occasions only Coding Level of Care Code Est Patient Level 1 Diagnoses Current use of anticoagulant therapy Z79.01 Results AMB INR Fingerstick AMB INR Fingerstick 2.5 Last Edit by Kitty Guerrero RN on 12/12/24 09:09 manual entry Assessment & Plan Assessment & Plan (1) Current use of anticoagulant therapy: Code(s): Z79.01 - 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
--- OUTSIDE RECORDS SUMMARY | 2024-12-12 09:38 | XMS_ITS ---
Author [place] [facility] [place] Team Providers Care Pararescue Craftsman Name Role Phone Robert Ugarte Unavailable Unavailable Isaura Carbone Unavailable Unavailable Isaura Patel Unavailable Unavailable Allergies and adverse reactions No Known Allergies Care Team Name Role Address Phone Organization Dates Robert Ugarte PCP [address] [address], [place], [address], [facility] (Office): [place] [facility] [place] - 03/17/2021 Isaura Carbone Attending Physician [facility] 03/03/2021 - 03/17/2021 Isaura Patel Attending Physician [address], [address], [facility] (Office[place] [facility] [place]/03/[place] - 03/17/2021 Mental Status Section Date Assessment Total Score Description 03/17/2021 BIMS 15 cognitively int act CAM 0 No delirium ind icated PHQ-9 00 03/09/2021 BIMS 15 cognitively int act CAM 0 No delirium ind icated PHQ-9 00 Problems Problem # Description Date of onset Resolved Date Code CodeSystem Concern Status 1 ATHEROSCLEROTIC HEART DISEASE OF [place] CORONARY ARTERY WITHOUT ANGINA PECTORIS 03/03/[address] active 2 ENCOUNTER FOR ATTENTION TO COLOSTOMY 03/03/[address] active 3 ENCOUNTER FOR ATTENTION TO UNSPECIFIED ARTIFICIAL OPENING 03/03/20 21 03/03/[address] completed 4 ENCOUNTER FOR SURGICAL AFTERCARE FOLLOWING SURGERY ON THE DIGESTIVE SYSTEM 03/03/[address] active 5 INFLAMMATORY POLYPS OF COLON WITH INTESTINAL OBSTRUCTION 03/03/[address] active 6 MALIGNANT NEOPLASM OF COLON, UNSPECIFIED 03/03/[address] active 7 MUSCLE WASTING AND ATROPHY, NOT ELSEWHERE CLASSIFIED, LEFT LOWER LEG 03/03/[address] active 8 MUSCLE WASTING AND ATROPHY, NOT ELSEWHERE CLASSIFIED, RIGHT LOWER LEG 03/03/[address] active 9 OLD MYOCARDIAL INFARCTION 03/03/[address] active 10 OTHER ALLERGIC AND DIETETIC GASTROENTERITIS AND COLITIS 03/03/[address] active 11 OTHER LACK OF COORDINATION 03/03/[address] active 12 PERSONAL HISTORY OF OTHER DISEASES OF THE DIGESTIVE SYSTEM 03/03/[address] active 13 PERSONAL HISTORY OF TRANSIENT ISCHEMIC ATTACK (TIA), AND CEREBRAL INFARCTION WITHOUT RESIDUAL DEFICITS 03/03/[address] active Reason for Referral No Reasons for Referral Entered Social History Social History Observation Description Start Date End Date Code Code System Current Smoking Status Tobacco smoking consumption unknown 804209276 SNOMED CT Sex Assigned At Male 1960 89489-4 [facility] Vital Signs Code Code System Vitals Name Values and Units Timing Information 59322-0 LOINC Pain Level Value=0.0 03/17/2021 8462-4 LOINC Blood Pressure-Diastolic Value=66 Un its=mmHg 03/16/2021 8480-6 LOINC Blood Pressure-Systolic Lkepb=733 Un its=mmHg 03/16/2021 8867-4 LOINC Heart rate Value=80.0 Units=/min 06/2021 9279-1 LOINC Respiratory Rate Value=18.0 Units=/m in 03/16/2021 8310-5 LOINC Body Temperature Value=97.3 Units=?? F 03/16/2021 46918-7 LOINC O2 % BldC Oximetry Value=95.0 Units= % 03/16/2021 19922-4 LOINC Weight Ukjel=232.0 Units=Lbs 01/2021 8302-2 LOINC Height Value=70.0 Units=Inches 03/03/2021
--- OUTSIDE RECORDS SUMMARY | 2024-12-12 09:38 | XMS_ITS | Patient Health Record ---
Author Organization [facility] Address [address] [place] [address] Care Team Providers Care Marketing Instructor Name Role Phone DELORES GUERRERO Primary Care Provider Jr Smith Unavailable [phone] Allergies No Known Allergies Reason For Referral No Information Medications Medication SIG (Take, Route, Frequency, Duration) Notes [...] Gabapentin 300 MG Oral for 30 Active Immunizations Vaccine Route Administration Date Status Comme nts Influenza Unknown 05/26/2021 Refused Social History Tobacco Use: Social History Observation Description Date Details (start date - stop date) Current Smoker NA - NA Tobacco Use/Smoking Question Answer Notes Patient is a current smoker How often do you smoke cigarettes? every day How many cigarettes a day do you smoke? 11-20 Alcohol Screen Question Answer Notes Did you have a drink containing alcohol in the p ast year? No Points 0 Interpretation Negative Section Notes: Smokes 1/2 ppd; no alcohol s dany [place]/CVA Problems Problem Type SNOMED Code ICD Code Onset Dates Problem Status W/U Status Risk Notes Problem 193834996 Encounter for screening for malignant neoplasm of colon (Z12.11) Active confirmed Problem 861621500692737 Preprocedural examination (Z01.818) Active confirmed Problem 491546634 History of parti al surgical removal of colon (Z90.49) Active confirmed Problem 366678226 History of colon surgery (Z98.890) Active confirmed Problem 2304049 Diverticulitis o f large intestine without bleeding, unspecified complication status (K57.32) Active confirmed Plan Of Treatment Future Test Test Name Order Date COLONOSCOPY 05/05/2021 COLONOSCOPY 05/26/2021 Insurance Providers Payer Name Payer Address Payer Phone Subscriber Number Group Number Insured Name Patient Relationship to Insured Coverage Start Date Coverage End Date [facility] [address] [address] [place], [place] [id number] YOLY SAEED Self - patient is the insured Medical (General) History Medical History History ICD Code Stroke 2019 with right eye blindness and balance issues [place] 2019 Arthritis Stress/anxiety/depression Hyperlipidemia HTN Denies DM,Lung disease,renal disease 02/2021--colonic obstruction due to diverticular disease with surgery as below--preop colonoscopy to the transverse colon was negative for mass and polyps Surgical History Surgery Date(Month/Year) 02/2021 Jenna's procedure with a Sigmoid resection and Colostomy formation for relief of colonic obstruction-path c/w diverticulitis/abscess/fistlous disease by Dr. Romano
== END 2024-12-12 09:19 | disposition home or self-care (01) ==
LOC: HO.ACS 08:57
PROVIDERS: PCP Internal Medicine; Visit Provider Internal Medicine
DX: Z79.01 Long term (current) use of anticoagulants (principal)

== ENCOUNTER → 2024-12-12 08:57 | Outpatient (BNVA) | payer MEDICARE, SELFPAY ==
[2022-01-27 10:42] VITALS: BP 110/58
[2022-02-24 11:06] VITALS: BMI 33.9
[2022-03-17 11:16] VITALS: BP 100/60; BP 128/56
== END ==
PROVIDERS: PCP Internal Medicine; Visit Provider Internal Medicine
DX: I69.30 Unspecified sequelae of cerebral infarction (principal); Z79.01 Long term (current) use of anticoagulants; Z51.81 Encounter for therapeutic drug level monitoring
CPT/HCPCS: 85610; 99211

== ENCOUNTER 2024-12-16 14:59 | Outpatient (AMB) | payer MEDICARE, SELFPAY ==
[2022-01-27 10:42] VITALS: BP 110/58
[2022-02-24 11:06] VITALS: BMI 33.9
[2022-03-17 11:16] VITALS: BP 100/60; BP 128/56
[2024-12-16 15:18] VITALS: BP 120/84; PULSE 57; BMI 34.8
--- NOTE | 2024-12-16 15:18 | A.OFFVIS_ITS ---
Vital Signs 12/16/24 15:18 Height 5 ft 9 in Weight 235 lb 14.314 oz BMI 34.8 BP 120/84 Blood Pressure Location Lt brachial Position Sitting Pulse 57 Intake Visit Reasons: 6 mth f/up Intake Note: 6 month follow-up with ekg feeling good Promotions Executive Required: No Conference Services Director: Conference Services Director Present Accompanied by: Spouse Allergies No Known Allergies Allergy (Verified 11/21/24 07:58) Medication List - Last Reconciled 12/16/24 by Tyrone Montanez MD atorvastatin 80 mg PO DAILY ezetimibe (Zetia) 10 mg PO DAILY [floor to tub rail As directed] gabapentin 300 mg PO Q8H metoprolol succinate ER 25 mg PO DAILY olopatadine 0.1% 1 drp ophthalmic (eye) BID sertraline 100 mg PO DAILY warfarin See Protocol 8mg orally once a day for four days. 10 mg orally daily for three days; HPI Comments Details: Mau comes for follow-up. He continues to struggle with visual impairment. Denies any cardiac symptoms. Unfortunately continues to smoke. Takes all his medications. His INRs have been well stable. No bleeding issues or neurologic events. No exertional chest pain. No worsening shortness of breath, orthopnea, PND. Last LDL of 49 mg/dL done last year in February. [facility] Medical History Obesity (BMI 30.0-34.9) Tremors of nervous system Tobacco use disorder Legal blindness Coronary artery disease History of acute inferior wall [place] Anxiety Depression High cholesterol HTN (hypertension) ST elevation myocardial infarction (STEMI) of inferior wall (~07/2020) Knee pain, bilateral Stroke (~07/2020) Surgical History History of colostomy reversal Status post Jenna's procedure H/O resection of large bowel Family History Father Stroke Heart attack Mother Heart attack Sister Diverticulitis Heart attack Brother No problems noted. Sister No problems noted. Brother No problems noted. Social History Household Members: Spouse Housing: House Do you presently have visiting nurse or other home services: No Alcohol intake: current Alcohol intake frequency: holidays/special occasions only Comment: pt ambulates to bathroom with supervision Patient Tobacco Use Status: Current everyday Tobacco user Tobacco use type: Cigarette Cigarette Packs Per Day: 1 Cigarettes Per Day: 20 Years Smoked: 40 e-Cigarette/Vaping Use: Never Used Second Hand Smoke Exposure: Yes service: No Current occupational status: disabled Cognitive needs: No Hearing needs: No Vision needs: Yes Review of Systems Const Denies chills, Denies fatigue, Denies fever(s), Denies frequent falls, Denies weakness, Denies weight gain and Denies weight loss ENT Denies dizziness Card Denies chest pain, Denies leg edema, Denies lightheadedness, Denies palpitations, Denies dyspnea, Denies dyspnea on exertion, Denies orthopnea and Denies other (loss of consciousness) Resp Denies cough, Denies dyspnea and Denies dyspnea on exertion GI Denies hematochezia and Denies change in stool character Musc Denies abnormal gait, Denies muscle weakness, Denies numbness, Denies radiating pain into limb and Denies tingling Neuro Denies Abnormal speech present, Denies abnormal gait, Denies dizziness, Denies frequent falls, Denies numbness, Denies tingling and Denies weakness Endo Denies fatigue and Denies palpitations Physical Exam Vital Signs: Last Vital Signs Pulse 57 12/16/24 15:18 BP 120/84 12/16/24 15:18 BMI result Body Mass Index 34.8 Const General: cooperative, comfortable, no acute distress, alert, awake and poor hygiene Nutritional Appearance: obese Orientation/consciousness: patient oriented x3 Limitations: no limitations Neck Neck: Yes trachea midline, Yes supple and Yes no JVD Resp Effort & Inspection: normal respiratory effort Auscultation: clear to auscultation bilaterally and diminished lung sounds Cardio Jugular venous distension: no JVD Palpation: normal PMI Rate: regular rate Rhythm: regular rhythm Heart sounds: S1 normal heart sound present, S2 normal heart sound present, no click, no gallops, no murmurs and no rubs GI Auscultation: normal bowel sounds Neuro General: patient oriented x3 and no focal motor deficits Speech: No Abnormal speech present Extrem General: Yes no clubbing, cyanosis or edema Office Procedures EKG Details: EKG shows sinus bradycardia with inferior infarcted 57 beats per minute with nonspecific ST changes 36367-Xsybtdfateivxwcyh, Complete Assessment & Plan Assessment & Plan (1) Coronary artery disease: Code(s): I25.10 - Atherosclerotic heart disease of [place] coronary artery without angina pectoris Category: Medical Plan: CAD status post inferior STEMI and also history of occipital infarct. Patient currently doing well with no active cardiac symptoms. Currently on warfarin therapy due to dual territory infarct and has done well. Continue warfarin therapy with target INR between 2 and 3. There has been no clear thrombophilic component although he has done well on it. Avoid antiplatelet therapy. Continue aggressive blood pressure control which is currently well optimized. Continue aggressive lipid modification with well optimized LDL 49 mg/dL. Smoking cessation was discussed but he was not interested currently. Encouraged to continue to participate in lifestyle modification with weight loss. Continue maintain activity level as tolerated. Will follow up in the clinic in 1 year's time, sooner p.r.n.. Thank you for allowing me to partake in his care Coding Level of Care Code Est Pt Level 4 (87896) Complex EM visit Add On G2211 Diagnoses Coronary artery disease I25.10 CPT Codes EKG - CPT: 20412-Tuiguepzdxvslytqs, Complete ([id number])
--- OUTSIDE RECORDS SUMMARY | 2024-12-16 18:32 | XMS_ITS | Patient Health Record ---
Author Organization [facility] Address [address] [place] [address] Care Team Providers Care Clay Transporter Name Role Phone DELORES GUERRERO Primary Care Provider Jr Smith Unavailable [phone] Allergies No Known Allergies Reason For Referral [...] Smokes 1/2 ppd; no alcohol s dany [place]/CVA Problems Problem Type SNOMED Code ICD Code Onset Dates Problem Status W/U Status Risk Notes Problem 751251004 Encounter for screening for malignant neoplasm of colon (Z12.11) Active confirmed Problem 029590681349374 Preprocedural examination (Z01.818) Active confirmed Problem 941439904 History of parti al surgical removal of colon (Z90.49) Active confirmed Problem 481264255 History of colon surgery (Z98.890) Active confirmed Problem 4554603 Diverticulitis o f large intestine without bleeding, unspecified complication status (K57.32) Active confirmed Plan Of Treatment Future Test Test Name Order Date COLONOSCOPY 05/05/2021 COLONOSCOPY 05/26/2021 Insurance Providers Payer Name Payer Address Payer Phone Subscriber Number Group Number Insured Name Patient Relationship to Insured Coverage Start Date Coverage End Date [facility] [address] [address] [place], [place] [id number] YOLY SAEED Self - patient is the insured Medical (General) History Medical History History ICD Code Stroke 2019 with right eye blindness and balance issues [place] 2019 Arthritis Stress/anxiety/depression Hyperlipidemia HTN Denies DM,Lung disease,renal disease 02/2021--colonic obstruction due to diverticular disease with surgery as below--preop colonoscopy to the transverse colon was negative for mass and polyps Surgical History Surgery Date(Month/Year) 02/2021 Jenna's procedure with a Sigmoid resection and Colostomy formation for relief of colonic obstruction-path c/w diverticulitis/abscess/fistlous disease by Dr. Romano
--- OUTSIDE RECORDS SUMMARY | 2024-12-16 18:32 | XMS_ITS ---
Author Organization [facility] Care Team Providers Care Buckle Attacher Name Role Phone Robert Ugarte Unavailable Unavailable Isaura Carbone Unavailable Unavailable Isaura Patel Unavailable Unavailable Allergies and adverse reactions No Known Allergies Care Team Name Role Address Phone Organization Dates Robert Ugarte PCP [address] [address], [place], [address], [facility] (Office): : [facility] 03/03/2021 - 03/17/2021 Isaura Carbone Attending Physician [facility] 03/03/2021 - 03/17/2021 Isaura Patel Attending Physician [address], [address], [facility] (Office): [facility] 03/03/2021 - 03/17/2021 Mental Status Section Date Assessment Total Score Description 03/17/2021 BIMS 15 cognitively int act CAM 0 No delirium ind icated PHQ-9 00 03/09/2021 BIMS 15 cognitively int act CAM 0 No delirium ind icated PHQ-9 00 Problems Problem # Description Date of onset Resolved Date Code CodeSystem Concern Status 1 ATHEROSCLEROTIC HEART DISEASE OF [place] CORONARY ARTERY WITHOUT ANGINA PECTORIS 03/03/[address] active 2 ENCOUNTER FOR ATTENTION TO COLOSTOMY 03/03/[address] active 3 ENCOUNTER FOR ATTENTION TO UNSPECIFIED ARTIFICIAL OPENING 03/03/20 21 03/03/[address] completed 4 ENCOUNTER FOR SURGICAL AFTERCARE FOLLOWING SURGERY ON THE DIGESTIVE SYSTEM 03/03/[address] active 5 INFLAMMATORY POLYPS OF COLON WITH INTESTINAL OBSTRUCTION 03/03/[address] active 6 MALIGNANT NEOPLASM OF COLON, UNSPECIFIED 03/03/[address] active 7 MUSCLE WASTING AND ATROPHY, NOT ELSEWHERE CLASSIFIED, LEFT LOWER LEG 03/03/[address] active 8 MUSCLE WASTING AND ATROPHY, NOT ELSEWHERE CLASSIFIED, RIGHT LOWER LEG 03/03/[address] active 9 OLD MYOCARDIAL INFARCTION 03/03/[address] active 10 OTHER ALLERGIC AND DIETETIC GASTROENTERITIS AND COLITIS 03/03/[address] active 11 OTHER LACK OF COORDINATION 03/03/[address] active 12 PERSONAL HISTORY OF OTHER DISEASES OF THE DIGESTIVE SYSTEM 03/03/[address] active 13 PERSONAL HISTORY OF TRANSIENT ISCHEMIC ATTACK (TIA), AND CEREBRAL INFARCTION WITHOUT RESIDUAL DEFICITS 03/03/[address] active Reason for Referral No Reasons for Referral Entered Social History Social History Observation Description Start Date End Date Code Code System Current Smoking Status Tobacco smoking consumption unknown 078812378 SNOMED CT Sex Assigned At Male 1960 [address]41-8 [facility] Vital Signs Code Code System Vitals Name Values and Units Timing Information 06049-6 LOINC Pain Level Value=0.0 03/17/2021 8462-4 LOINC Blood Pressure-Diastolic Value=66 Un its=mmHg 03/16/2021 8480-6 LOINC Blood Pressure-Systolic Pxrfa=054 Un its=mmHg 03/16/2021 8867-4 LOINC Heart rate Value=80.0 Units=/min 06/2021 9279-1 LOINC Respiratory Rate Value=18.0 Units=/m in 03/16/2021 8310-5 LOINC Body Temperature Value=97.3 Units=?? F 03/16/2021 05711-9 LOINC O2 % BldC Oximetry Value=95.0 Units= % 03/16/2021 65354-2 LOINC Weight Dozji=907.0 Units=Lbs 01/2021 8302-2 LOINC Height Value=70.0 Units=Inches 03/03/2021
--- OUTSIDE RECORDS SUMMARY | 2024-12-16 18:39 | XMS_ITS ---
Author Organization [facility] Care Team Providers Care Wet Room Worker Name Role Phone Robert Ugarte Unavailable Unavailable Isaura Carbone Unavailable Unavailable Isaura Patel Unavailable Unavailable Allergies and adverse reactions No Known Allergies Care Team Name Role Address Phone Organization Dates Robert Ugarte PCP [address] [address], [place], [address], [facility] (Office): : [facility] 03/03/2021 - 03/17/2021 Isaura Carbone Attending Physician [facility] 03/03/2021 - 03/17/2021 Isaura Patel Attending Physician [address], [address], [facility] (Office): [facility] 03/03/2021 - 03/17/2021 Mental Status Section Date Assessment Total Score Description 03/17/2021 BIMS 15 cognitively int act CAM 0 No delirium ind icated PHQ-9 00 03/09/2021 BIMS 15 cognitively int act CAM 0 No delirium ind icated PHQ-9 00 Problems Problem # Description Date of onset Resolved Date Code CodeSystem Concern Status 1 ATHEROSCLEROTIC HEART DISEASE OF [place] CORONARY ARTERY WITHOUT ANGINA PECTORIS 03/03/[address] active 2 ENCOUNTER FOR ATTENTION TO COLOSTOMY 03/03/[address] active 3 ENCOUNTER FOR ATTENTION TO UNSPECIFIED ARTIFICIAL OPENING 03/03/20 21 03/03/[address] completed 4 ENCOUNTER FOR SURGICAL AFTERCARE FOLLOWING SURGERY ON THE DIGESTIVE SYSTEM 03/03/[address] active 5 INFLAMMATORY POLYPS OF COLON WITH INTESTINAL OBSTRUCTION 03/03/[address] active 6 MALIGNANT NEOPLASM OF COLON, UNSPECIFIED 03/03/[address] active 7 MUSCLE WASTING AND ATROPHY, NOT ELSEWHERE CLASSIFIED, LEFT LOWER LEG 03/03/[address] active 8 MUSCLE WASTING AND ATROPHY, NOT ELSEWHERE CLASSIFIED, RIGHT LOWER LEG 03/03/[address] active 9 OLD MYOCARDIAL INFARCTION 03/03/[address] active 10 OTHER ALLERGIC AND DIETETIC GASTROENTERITIS AND COLITIS 03/03/[address] active 11 OTHER LACK OF COORDINATION 03/03/[address] active 12 PERSONAL HISTORY OF OTHER DISEASES OF THE DIGESTIVE SYSTEM 03/03/[address] active 13 PERSONAL HISTORY OF TRANSIENT ISCHEMIC ATTACK (TIA), AND CEREBRAL INFARCTION WITHOUT RESIDUAL DEFICITS 03/03/[address] active Reason for Referral No Reasons for Referral Entered Social History Social History Observation Description Start Date End Date Code Code System Current Smoking Status Tobacco smoking consumption unknown 876658024 SNOMED CT Sex Assigned At Male 1960 [address]80-1 [facility] Vital Signs Code Code System Vitals Name Values and Units Timing Information 87354-0 LOINC Pain Level Value=0.0 03/17/2021 8462-4 LOINC Blood Pressure-Diastolic Value=66 Un its=mmHg 03/16/2021 8480-6 LOINC Blood Pressure-Systolic Raqtv=794 Un its=mmHg 03/16/2021 8867-4 LOINC Heart rate Value=80.0 Units=/min 06/2021 9279-1 LOINC Respiratory Rate Value=18.0 Units=/m in 03/16/2021 8310-5 LOINC Body Temperature Value=97.3 Units=?? F 03/16/2021 98690-6 LOINC O2 % BldC Oximetry Value=95.0 Units= % 03/16/2021 89625-1 LOINC Weight Vvbua=727.0 Units=Lbs 01/2021 8302-2 LOINC Height Value=70.0 Units=Inches 03/03/2021
== END 2024-12-16 15:43 | disposition home or self-care (01) ==
PROVIDERS: PCP Internal Medicine; Visit Provider Internal Medicine Cardiovascular Disease
DX: I25.10 Atherosclerotic heart disease of native coronary artery without angina pectoris (principal)
CPT/HCPCS: 93010; 99214; G2211

== ENCOUNTER → 2024-12-16 15:17 | Outpatient (BNVA) | payer MEDICARE, SELFPAY ==
[2022-01-27 10:42] VITALS: BP 110/58
[2022-02-24 11:06] VITALS: BMI 33.9
[2022-03-17 11:16] VITALS: BP 100/60; BP 128/56
== END ==
PROVIDERS: PCP Internal Medicine; Visit Provider Internal Medicine Cardiovascular Disease
DX: I25.10 Atherosclerotic heart disease of native coronary artery without angina pectoris (principal); I10 Essential (primary) hypertension
CPT/HCPCS: 93005; 99212

== ENCOUNTER 2025-01-09 08:09 | Outpatient (AMB) | payer MEDICARE, SELFPAY ==
[2022-01-27 10:42] VITALS: BP 110/58
[2022-02-24 11:06] VITALS: BMI 33.9
[2022-03-17 11:16] VITALS: BP 100/60; BP 128/56
--- OUTSIDE RECORDS SUMMARY | 2025-01-09 08:22 | XMS_ITS | Patient Health Record ---
Author Organization [facility] Address [address] [place] [address] Care Team Providers Care Basin Finish Operator Tig Welder Name Role Phone DELORES GUERRERO Primary Care Provider Jr Smith Unavailable [phone] Allergies No Known Allergies Reason For Referral [...] Smokes 1/2 ppd; no alcohol s dany [place]/CVA Problems Problem Type SNOMED Code ICD Code Onset Dates Problem Status W/U Status Risk Notes Problem 117680769 Encounter for screening for malignant neoplasm of colon (Z12.11) Active confirmed Problem 734059719372960 Preprocedural examination (Z01.818) Active confirmed Problem 741395589 History of parti al surgical removal of colon (Z90.49) Active confirmed Problem 697621749 History of colon surgery (Z98.890) Active confirmed Problem 6009725 Diverticulitis o f large intestine without bleeding, unspecified complication status (K57.32) Active confirmed Plan Of Treatment Future Test Test Name Order Date COLONOSCOPY 05/05/2021 COLONOSCOPY 05/26/2021 Insurance Providers Payer Name Payer Address Payer Phone Subscriber Number Group Number Insured Name Patient Relationship to Insured Coverage Start Date Coverage End Date [facility] [address] [address] [place], [place] [id number] YOLY SAEED Self - patient is the insured Medical (General) History Medical History History ICD Code Stroke 2019 with right eye blindness and balance issues [place] 2019 Arthritis Stress/anxiety/depression Hyperlipidemia HTN Denies DM,Lung disease,renal disease 02/2021--colonic obstruction due to diverticular disease with surgery as below--preop colonoscopy to the transverse colon was negative for mass and polyps Surgical History Surgery Date(Month/Year) 02/2021 Jenna's procedure with a Sigmoid resection and Colostomy formation for relief of colonic obstruction-path c/w diverticulitis/abscess/fistlous disease by Dr. Romano
[2025-01-09 08:30] LABS: Prothrombin Time Whole Bld POC 31.2 sec (11.1-13.5); ~PT, ~INR - Anti Coag Clinic 2.6 (0.9-1.1)
--- NOTE | 2025-01-09 08:34 | MHC.OFFVISCO ---
Intake Intake Visit Reasons: Anticoagulation Allergies No Known Allergies Allergy (Verified 01/09/25 08:24) Medication List - Last Reconciled 01/09/25 by Kitty Guerrero RN atorvastatin 80 mg PO DAILY ezetimibe (Zetia) 10 mg PO DAILY [floor to [facility] raut As directed] gabapentin 300 mg PO Q8H metoprolol succinate ER 25 mg PO DAILY olopatadine 0.1% 1 drp ophthalmic (eye) BID sertraline 100 mg PO DAILY warfarin See Protocol 8mg orally once a day for four days. 10 mg orally daily for three days; Nursing Note INR: 2.6 in therapeutic range Medications and supplements reviewed No changes in health, diet, medications, or supplements, Denies any signs and symptoms of bleeding or bruising or clotting. Bleeding, bruising, clotting discussed Nutritional guidance given - HAVE AN EXTRA GREEN WHEN YOU TAKE MORE TYLENOL THAN USUAL Dose: KEEP SAME 10MG X 1 DAY/ 8MG X 6 DAYS F/U INR: 1 MONTH Patient verbalizes understanding of instructions given Anti-Coag Initial Assessment Social Hx Patient Tobacco Use Status: Current everyday Tobacco user Tobacco use type: Cigarette Smoking packs per day: 1 alcohol intake: current Alcohol intake frequency: holidays/special occasions only Coding Level of Care Code Est Patient Level 1 Diagnoses Current use of anticoagulant therapy Z79.01 Assessment & Plan Assessment & Plan (1) Current use of anticoagulant therapy: Code(s): Z79.01 - care home (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
== END 2025-01-09 08:37 | disposition home or self-care (01) ==
LOC: HO.ACS 08:09
PROVIDERS: PCP Internal Medicine; Visit Provider Internal Medicine Medical Oncology
DX: Z79.01 Long term (current) use of anticoagulants (principal)

== ENCOUNTER → 2025-01-09 08:09 | Outpatient (BNVA) | payer MEDICARE, SELFPAY ==
[2022-01-27 10:42] VITALS: BP 110/58
[2022-02-24 11:06] VITALS: BMI 33.9
[2022-03-17 11:16] VITALS: BP 100/60; BP 128/56
== END ==
PROVIDERS: PCP Internal Medicine; Visit Provider Internal Medicine Medical Oncology
DX: I69.30 Unspecified sequelae of cerebral infarction (principal); Z79.01 Long term (current) use of anticoagulants; Z51.81 Encounter for therapeutic drug level monitoring
CPT/HCPCS: 85610; 99211

== ENCOUNTER 2025-02-06 09:22 | Outpatient (AMB) | payer MEDICARE, SELFPAY ==
[2022-01-27 10:42] VITALS: BP 110/58
[2022-02-24 11:06] VITALS: BMI 33.9
[2022-03-17 11:16] VITALS: BP 100/60; BP 128/56
[2025-02-06 09:33] LABS: Prothrombin Time Whole Bld POC 32.9 sec (11.1-13.5); ~PT, ~INR - Anti Coag Clinic 2.7 (0.9-1.1)
--- NOTE | 2025-02-06 09:35 | MHC.OFFVISCO ---
Intake Intake Visit Reasons: Anticoagulation Allergies No Known Allergies Allergy (Verified 02/06/25 09:28) Medication List - Last Reconciled 02/06/25 by Michelle Soares RN atorvastatin 80 mg PO DAILY ezetimibe (Zetia) 10 mg PO DAILY [floor to [facility] rafl As directed] gabapentin 300 mg PO Q8H metoprolol succinate ER 25 mg PO DAILY olopatadine 0.1% 1 drp ophthalmic (eye) BID sertraline 100 mg PO DAILY warfarin See Protocol 8mg orally once a day for four days. 10 mg orally daily for three days; Nursing Note INR: 2.7 in therapeutic range 2-3 Medications and supplements reviewed No changes in health, diet, medications, or supplements, Denies any signs and symptoms of bleeding or bruising or clotting. Bleeding, bruising, clotting discussed Nutritional guidance given Dose: 8mg X 6 days and 10mg X 1 day (Sun) F/U INR: 4 weeks Patient verbalizes understanding of instructions given Anti-Coag Initial Assessment Social Hx Patient Tobacco Use Status: Current everyday Tobacco user Tobacco use type: Cigarette Smoking packs per day: 1 alcohol intake: current Alcohol intake frequency: holidays/special occasions only Coding Level of Care Code Est Patient Level 1 Diagnoses Current use of anticoagulant therapy Z79.01 Assessment & Plan Assessment & Plan (1) Current use of anticoagulant therapy: Code(s): Z79.01 - intermediate accountant (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
== END 2025-02-06 09:38 | disposition home or self-care (01) ==
LOC: HO.ACS 09:22
PROVIDERS: PCP Internal Medicine; Visit Provider Internal Medicine Medical Oncology
DX: Z79.01 Long term (current) use of anticoagulants (principal)

== ENCOUNTER → 2025-02-06 09:22 | Outpatient (BNVA) | payer MEDICARE, SELFPAY ==
[2022-01-27 10:42] VITALS: BP 110/58
[2022-02-24 11:06] VITALS: BMI 33.9
[2022-03-17 11:16] VITALS: BP 100/60; BP 128/56
== END ==
PROVIDERS: PCP Internal Medicine; Visit Provider Internal Medicine Medical Oncology
DX: I69.30 Unspecified sequelae of cerebral infarction (principal); Z51.81 Encounter for therapeutic drug level monitoring; Z79.01 Long term (current) use of anticoagulants
CPT/HCPCS: 85610; 99211

== ENCOUNTER → 2025-02-09 10:21 | Outpatient (RCR) | payer OTHER, SELFPAY ==
--- NOTE | 2021-02-16 14:20 | MHC.SLORD ---
Mau logged into his scheduled teletherapy session and reported that he was sick. He requested to cancel his session this date. Next session 02/23 at 2:15pm.
--- NOTE | 2021-03-08 13:30 | MHC.SLORD ---
Mau's significant other, Little, e-mailed this [facility] again on 02/28 to notify her that Mau remains in the hospital. She further stated that Mau will be going to short term rehab following his hospitalization. Please see discharge note. [facility] services will resume following Mau's return home as appropriate.
== END | disposition home or self-care (01) ==
LOC: HO.SH 09-22 08:57
PROVIDERS: PCP Psychiatry & Neurology Neurology; Referring Provider Psychiatry & Neurology Neurology; Visit Provider Psychiatry & Neurology Neurology
DX: I69.320 Aphasia following cerebral infarction (principal); Z51.81 Encounter for therapeutic drug level monitoring; Z79.01 Long term (current) use of anticoagulants
CPT/HCPCS: 92507; 92523

== ENCOUNTER 2025-03-06 09:24 | Outpatient (AMB) | payer MEDICARE, SELFPAY ==
[2022-01-27 10:42] VITALS: BP 110/58
[2022-02-24 11:06] VITALS: BMI 33.9
[2022-03-17 11:16] VITALS: BP 100/60; BP 128/56
--- OUTSIDE RECORDS SUMMARY | 2025-03-06 09:39 | XMS_ITS | Patient Health Record ---
Author Organization [facility] Address [address] [place] [address] Care Team Providers Care Cake Froster Name Role Phone DELORES GUERRERO Primary Care Provider Jr Smith Unavailable [phone] Allergies No Known Allergies Reason For Referral [...] Smokes 1/2 ppd; no alcohol s dany [place]/CVA Problems Problem Type SNOMED Code ICD Code Onset Dates Problem Status W/U Status Risk Notes Problem 551167443 Encounter for screening for malignant neoplasm of colon (Z12.11) Active confirmed Problem 641278706569173 Preprocedural examination (Z01.818) Active confirmed Problem 475408267 History of parti al surgical removal of colon (Z90.49) Active confirmed Problem 102816226 History of colon surgery (Z98.890) Active confirmed Problem 8962991 Diverticulitis o f large intestine without bleeding, unspecified complication status (K57.32) Active confirmed Plan Of Treatment Future Test Test Name Order Date COLONOSCOPY 05/05/2021 COLONOSCOPY 05/26/2021 Insurance Providers Payer Name Payer Address Payer Phone Subscriber Number Group Number Insured Name Patient Relationship to Insured Coverage Start Date Coverage End Date [facility] [address] [address] [place], [place] [id number] YOLY SAEED Self - patient is the insured Medical (General) History Medical History History ICD Code Stroke 2019 with right eye blindness and balance issues [place] 2019 Arthritis Stress/anxiety/depression Hyperlipidemia HTN Denies DM,Lung disease,renal disease 02/2021--colonic obstruction due to diverticular disease with surgery as below--preop colonoscopy to the transverse colon was negative for mass and polyps Surgical History Surgery Date(Month/Year) 02/2021 Jenna's procedure with a Sigmoid resection and Colostomy formation for relief of colonic obstruction-path c/w diverticulitis/abscess/fistlous disease by Dr. Romano
[2025-03-06 09:47] LABS: Prothrombin Time Whole Bld POC 34.3 sec (11.1-13.5); ~PT, ~INR - Anti Coag Clinic 2.9 (0.9-1.1)
--- NOTE | 2025-03-06 09:54 | MHC.OFFVISCO ---
Intake Intake Visit Reasons: Anticoagulation Allergies No Known Allergies Allergy (Verified 03/06/25 09:46) Medication List - Last Reconciled 03/06/25 by Kitty Guerrero RN atorvastatin 80 mg PO DAILY ezetimibe (Zetia) 10 mg PO DAILY [floor to [facility] rail As directed] gabapentin 300 mg PO Q8H metoprolol succinate ER 25 mg PO DAILY olopatadine 0.1% 1 drp ophthalmic (eye) BID sertraline 100 mg PO DAILY warfarin See Protocol 8mg orally once a day for four days. 10 mg orally daily for three days; Nursing Note INR: 2.9 in therapeutic range Medications and supplements reviewed No changes in health, diet, medications, or supplements, Denies any signs and symptoms of bleeding or bruising or clotting. Bleeding, bruising, clotting discussed Nutritional guidance given- eat 1-2 greens weekly of some kind to prevent INR going over range Dose: 10mg wed/ 8mg x 6 days F/U INR: 1 month Patient verbalizes understanding of instructions given Friend Kathi called with dosing diet and next appt Anti-Coag Initial Assessment Social Hx Patient Tobacco Use Status: Current everyday Tobacco user Tobacco use type: Cigarette Smoking packs per day: 1 alcohol intake: current Alcohol intake frequency: holidays/special occasions only Coding Level of Care Code Est Patient Level 1 Diagnoses Current use of anticoagulant therapy Z79.01 Results AMB INR Fingerstick AMB INR Fingerstick 2.9 Last Edit by Kitty Guerrero RN on 03/06/25 09:51 manual entry Assessment & Plan Assessment & Plan (1) Current use of anticoagulant therapy: Code(s): 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
== END 2025-03-06 09:58 | disposition home or self-care (01) ==
LOC: HO.ACS 09:24
PROVIDERS: PCP Internal Medicine; Visit Provider Internal Medicine Medical Oncology
DX: Z79.01 Long term (current) use of anticoagulants (principal)

== ENCOUNTER → 2025-03-06 09:24 | Outpatient (BNVA) | payer MEDICARE, SELFPAY ==
[2022-01-27 10:42] VITALS: BP 110/58
[2022-02-24 11:06] VITALS: BMI 33.9
[2022-03-17 11:16] VITALS: BP 100/60; BP 128/56
== END ==
PROVIDERS: PCP Internal Medicine; Visit Provider Internal Medicine Medical Oncology
DX: I69.30 Unspecified sequelae of cerebral infarction (principal); Z79.01 Long term (current) use of anticoagulants; Z51.81 Encounter for therapeutic drug level monitoring
CPT/HCPCS: 85610; 99211

== ENCOUNTER 2025-04-03 09:45 | Outpatient (AMB) | payer MEDICARE, SELFPAY ==
[2022-01-27 10:42] VITALS: BP 110/58
[2022-02-24 11:06] VITALS: BMI 33.9
[2022-03-17 11:16] VITALS: BP 100/60; BP 128/56
--- OUTSIDE RECORDS SUMMARY | 2025-04-03 10:15 | XMS_ITS | Patient Health Record ---
Author Organization [facility] Address [address] [place] [id number] Care Team Providers Care Massage Operator Name Role Phone DELORES GUERRERO Primary Care Provider Jr Smith Unavailable [phone] Allergies No Known Allergies Reason For Referral [...] Smokes 1/2 ppd; no alcohol s dany [place]/CVA Problems Problem Type SNOMED Code ICD Code Onset Dates Problem Status W/U Status Risk Notes Problem 002672023 Encounter for screening for malignant neoplasm of colon (Z12.11) Active confirmed Problem 470584121634620 Preprocedural examination (Z01.818) Active confirmed Problem 016535299 History of parti al surgical removal of colon (Z90.49) Active confirmed Problem 974789231 History of colon surgery (Z98.890) Active confirmed Problem 3921925 Diverticulitis o f large intestine without bleeding, unspecified complication status (K57.32) Active confirmed Plan Of Treatment Future Test Test Name Order Date COLONOSCOPY 05/05/2021 COLONOSCOPY 05/26/2021 Insurance Providers Payer Name Payer Address Payer Phone Subscriber Number Group Number Insured Name Patient Relationship to Insured Coverage Start Date Coverage End Date [facility] [address] [address] [place], [place] [id number] YOLY SAEED Self - patient is the insured Medical (General) History Medical History History ICD Code Stroke 2019 with right eye blindness and balance issues [place] 2019 Arthritis Stress/anxiety/depression Hyperlipidemia HTN Denies DM,Lung disease,renal disease 02/2021--colonic obstruction due to diverticular disease with surgery as below--preop colonoscopy to the transverse colon was negative for mass and polyps Surgical History Surgery Date(Month/Year) 02/2021 Jenna's procedure with a Sigmoid resection and Colostomy formation for relief of colonic obstruction-path c/w diverticulitis/abscess/fistlous disease by Dr. Romano
[2025-04-03 10:19] LABS: Prothrombin Time Whole Bld POC 42.7 sec (11.1-13.5); ~PT, ~INR - Anti Coag Clinic 3.6 (0.9-1.1)
--- NOTE | 2025-04-03 10:33 | MHC.OFFVISCO ---
Intake Intake Visit Reasons: Anticoagulation Allergies No Known Allergies Allergy (Verified 04/03/25 10:13) Medication List - Last Reconciled 04/03/25 by Kitty Guerrero RN atorvastatin 80 mg PO DAILY ezetimibe (Zetia) 10 mg PO DAILY [floor to [facility] rail As directed] gabapentin 300 mg PO Q8H metoprolol succinate ER 25 mg PO DAILY olopatadine 0.1% 1 drp ophthalmic (eye) BID sertraline 100 mg PO DAILY warfarin See Protocol 8mg orally once a day for four days. 10 mg orally daily for three days; Nursing Note pt came with friend Kathi who sets up his meds INR 3.6 out of therapeutic range Medications and supplements reviewed Patient status: has been eating less during the heat wave - had pineapple juice yesterday Medications or supplements: no changes Diet: good Denies any signs and symptoms of bleeding or clotting or unusual bruising Bleeding, bruising, clotting discussed Nutritional guidance given: pt likes broccoli will have a serving / week - he will have greens today Dose: decrease today's dose to 4mg today then resume usual dose 10mg x 1 day/ 8mg x 6 days F/U INR Date: 2 weeks ?? Patient verbalizing understanding of instructions given. 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
== END 2025-04-03 10:36 | disposition home or self-care (01) ==
LOC: HO.ACS 09:45
PROVIDERS: PCP Internal Medicine; Visit Provider Internal Medicine Medical Oncology
DX: Z79.01 Long term (current) use of anticoagulants (principal)

== ENCOUNTER → 2025-04-03 09:45 | Outpatient (BNVA) | payer MEDICARE, SELFPAY ==
[2022-01-27 10:42] VITALS: BP 110/58
[2022-02-24 11:06] VITALS: BMI 33.9
[2022-03-17 11:16] VITALS: BP 100/60; BP 128/56
== END ==
PROVIDERS: PCP Internal Medicine; Visit Provider Internal Medicine Medical Oncology
DX: I69.30 Unspecified sequelae of cerebral infarction (principal); Z79.01 Long term (current) use of anticoagulants; Z51.81 Encounter for therapeutic drug level monitoring
CPT/HCPCS: 85610; 99211

== ENCOUNTER 2025-04-17 09:24 | Outpatient (AMB) | payer MEDICARE, SELFPAY ==
[2022-01-27 10:42] VITALS: BP 110/58
[2022-02-24 11:06] VITALS: BMI 33.9
[2022-03-17 11:16] VITALS: BP 100/60; BP 128/56
[2025-04-17 09:31] LABS: Prothrombin Time Whole Bld POC 32.0 sec (11.1-13.5); ~PT, ~INR - Anti Coag Clinic 2.7 (0.9-1.1)
--- NOTE | 2025-04-17 09:38 | MHC.OFFVISCO ---
Intake Intake Visit Reasons: Anticoagulation Allergies No Known Allergies Allergy (Verified 04/17/25 09:25) Medication List - Last Reconciled 04/17/25 by Kitty Guerrero RN atorvastatin 80 mg PO DAILY ezetimibe (Zetia) 10 mg PO DAILY [floor to [facility] As directed] gabapentin 300 mg PO Q8H metoprolol succinate ER 25 mg PO DAILY olopatadine 0.1% 1 drp ophthalmic (eye) BID sertraline 100 mg PO DAILY warfarin See Protocol 8mg orally once a day for four days. 10 mg orally daily for three days; Nursing Note INR: 2.7 in therapeutic range Medications and supplements reviewed No changes in health, diet, medications, or supplements, Denies any signs and symptoms of bleeding or bruising or clotting. Bleeding, bruising, clotting discussed Nutritional guidance given Dose: 10mg x 1 day/ 8mg x 6 days F/U INR: 1month Patient verbalizes understanding of instructions given Anti-Coag Initial Assessment Social Hx Patient Tobacco Use Status: Current everyday Tobacco user Tobacco use type: Cigarette Smoking packs per day: 1 alcohol intake: current Alcohol intake frequency: holidays/special occasions only Coding Level of Care Code Est Patient Level 1 Diagnoses Current use of anticoagulant therapy Z79.01 Results AMB INR Fingerstick AMB INR Fingerstick 2.7 Last Edit by Kitty Guerrero RN on 04/17/25 09:32 manual entry Assessment & Plan Assessment & Plan (1) Current use of anticoagulant therapy: Code(s): Z79.01 - 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
--- OUTSIDE RECORDS SUMMARY | 2025-04-17 09:41 | XMS_ITS | Patient Health Record ---
Author Organization [facility] Address [address] [place] [phone] Care Team Providers Care Community Organization Aide Name Role Phone DELORES GUERRERO Primary Care Provider Jr Smith Unavailable [phone] Allergies No Known Allergies Reason For Referral [...] Smokes 1/2 ppd; no alcohol s dany [place]/CVA Problems Problem Type SNOMED Code ICD Code Onset Dates Problem Status W/U Status Risk Notes Problem 119104341 Encounter for screening for malignant neoplasm of colon (Z12.11) Active confirmed Problem 889672133260774 Preprocedural examination (Z01.818) Active confirmed Problem 871177449 History of parti al surgical removal of colon (Z90.49) Active confirmed Problem 940435719 History of colon surgery (Z98.890) Active confirmed Problem 1067747 Diverticulitis o f large intestine without bleeding, unspecified complication status (K57.32) Active confirmed Plan Of Treatment Future Test Test Name Order Date COLONOSCOPY 05/05/2021 COLONOSCOPY 05/26/2021 Insurance Providers Payer Name Payer Address Payer Phone Subscriber Number Group Number Insured Name Patient Relationship to Insured Coverage Start Date Coverage End Date [facility] [address] [address] [place], [place] [id number] YOLY SAEED Self - patient is the insured Medical (General) History Medical History History ICD Code Stroke 2019 with right eye blindness and balance issues [place] 2019 Arthritis Stress/anxiety/depression Hyperlipidemia HTN Denies DM,Lung disease,renal disease 02/2021--colonic obstruction due to diverticular disease with surgery as below--preop colonoscopy to the transverse colon was negative for mass and polyps Surgical History Surgery Date(Month/Year) 02/2021 Jenna's procedure with a Sigmoid resection and Colostomy formation for relief of colonic obstruction-path c/w diverticulitis/abscess/fistlous disease by Dr. Romano
== END 2025-04-17 09:41 | disposition home or self-care (01) ==
LOC: HO.ACS 09:24
PROVIDERS: PCP Internal Medicine; Visit Provider Internal Medicine Medical Oncology
DX: Z79.01 Long term (current) use of anticoagulants (principal)

== ENCOUNTER → 2025-04-17 09:24 | Outpatient (BNVA) | payer MEDICARE, SELFPAY ==
[2022-01-27 10:42] VITALS: BP 110/58
[2022-02-24 11:06] VITALS: BMI 33.9
[2022-03-17 11:16] VITALS: BP 100/60; BP 128/56
== END ==
PROVIDERS: PCP Internal Medicine; Visit Provider Internal Medicine Medical Oncology
DX: I69.30 Unspecified sequelae of cerebral infarction (principal); Z79.01 Long term (current) use of anticoagulants; Z51.81 Encounter for therapeutic drug level monitoring
CPT/HCPCS: 85610; 99211

== ENCOUNTER 2025-05-15 08:40 | Outpatient (AMB) | payer MEDICARE, SELFPAY ==
[2022-01-27 10:42] VITALS: BP 110/58
[2022-02-24 11:06] VITALS: BMI 33.9
[2022-03-17 11:16] VITALS: BP 100/60; BP 128/56
[2025-05-15 08:47] LABS: Prothrombin Time Whole Bld POC 37.0 sec (11.1-13.5); ~PT, ~INR - Anti Coag Clinic 3.1 (0.9-1.1)
--- NOTE | 2025-05-15 08:50 | MHC.OFFVISCO ---
Intake Intake Visit Reasons: Anticoagulation Allergies No Known Allergies Allergy (Verified 05/15/25 08:42) Medication List - Last Reconciled 05/15/25 by Michelle Soares, MELIZA atorvastatin 80 mg PO DAILY ezetimibe (Zetia) 10 mg PO DAILY [floor to [facility] rail As directed] gabapentin 300 mg PO Q8H metoprolol succinate ER 25 mg PO DAILY olopatadine 0.1% 1 drp ophthalmic (eye) BID sertraline 100 mg PO DAILY warfarin See Protocol 8mg orally once a day for four days. 10 mg orally daily for three days; Nursing Note INR: 3.1 in therapeutic range 2-3 Medications and supplements reviewed No changes in health, diet, medications, or supplements, Denies any signs and symptoms of bleeding or bruising or clotting. Bleeding, bruising, clotting discussed Nutritional guidance given to have a serving of greens today Dose: 8mg X 6 days and 10mg X 1 day (Sun) F/U INR: 4 weeks Patient verbalizes understanding of instructions given T/C to friend Kathi. Informed her of INR, dosing plan and next retest date. Anti-Coag Initial Assessment Social Hx Patient Tobacco Use Status: Current everyday Tobacco user Tobacco use type: Cigarette Smoking packs per day: 1 alcohol intake: current Alcohol intake frequency: holidays/special occasions only Coding Level of Care Code Est Patient Level 1 Diagnoses Current use of anticoagulant therapy Z79.01 Assessment & Plan Assessment & Plan (1) Current use of anticoagulant therapy: Code(s): Z79.01 - 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
--- OUTSIDE RECORDS SUMMARY | 2025-05-15 08:53 | XMS_ITS | Patient Health Record ---
Author Organization [facility] Address [address] [place] [id number] Care Team Providers Care Detailer [employer] Name Role Phone DELORES GUERRERO Primary Care Provider Jr Smith Unavailable [phone] Allergies No Known Allergies Reason For Referral [...] Smokes 1/2 ppd; no alcohol s dany [place]/CVA Problems Problem Type SNOMED Code ICD Code Onset Dates Problem Status W/U Status Risk Notes Problem 412922398 Encounter for screening for malignant neoplasm of colon (Z12.11) Active confirmed Problem 364960911280158 Preprocedural examination (Z01.818) Active confirmed Problem 904323682 History of parti al surgical removal of colon (Z90.49) Active confirmed Problem 202549560 History of colon surgery (Z98.890) Active confirmed Problem 6855333 Diverticulitis o f large intestine without bleeding, unspecified complication status (K57.32) Active confirmed Plan Of Treatment Future Test Test Name Order Date COLONOSCOPY 05/05/2021 COLONOSCOPY 05/26/2021 Insurance Providers Payer Name Payer Address Payer Phone Subscriber Number Group Number Insured Name Patient Relationship to Insured Coverage Start Date Coverage End Date [facility] [address] [address] [place], [place] [id number] YOLY SAEED Self - patient is the insured Medical (General) History Medical History History ICD Code Stroke 2019 with right eye blindness and balance issues [place] 2019 Arthritis Stress/anxiety/depression Hyperlipidemia HTN Denies DM,Lung disease,renal disease 02/2021--colonic obstruction due to diverticular disease with surgery as below--preop colonoscopy to the transverse colon was negative for mass and polyps Surgical History Surgery Date(Month/Year) 02/2021 Jenna's procedure with a Sigmoid resection and Colostomy formation for relief of colonic obstruction-path c/w diverticulitis/abscess/fistlous disease by Dr. Romano
== END 2025-05-15 08:56 | disposition home or self-care (01) ==
LOC: HO.ACS 08:40
PROVIDERS: PCP Internal Medicine; Visit Provider Internal Medicine Medical Oncology
DX: Z79.01 Long term (current) use of anticoagulants (principal)

== ENCOUNTER → 2025-05-15 08:40 | Outpatient (BNVA) | payer MEDICARE, SELFPAY ==
[2022-01-27 10:42] VITALS: BP 110/58
[2022-02-24 11:06] VITALS: BMI 33.9
[2022-03-17 11:16] VITALS: BP 100/60; BP 128/56
== END ==
PROVIDERS: PCP Internal Medicine; Visit Provider Internal Medicine Medical Oncology
DX: Z51.81 Encounter for therapeutic drug level monitoring (principal); Z79.01 Long term (current) use of anticoagulants
CPT/HCPCS: 85610; 99211

== ENCOUNTER 2025-05-28 08:47 | Outpatient (AMB) | payer MEDICARE, SELFPAY ==
[2022-01-27 10:42] VITALS: BP 110/58
[2022-02-24 11:06] VITALS: BMI 33.9
[2022-03-17 11:16] VITALS: BP 100/60; BP 128/56
--- NOTE | 2025-05-28 08:54 | A.OFFPC_ITS ---
Vital Signs 05/28/25 08:56 Height 5 ft 9 in Weight 240 lb BMI 35.4 BP 152/86 H Blood Pressure Location Lt brachial Position Sitting Pulse 65 Pulse Source Pulse Oximeter Temp 97.3 F Temp Source Temporal Artery Scan Pulse Oximetry (%) 96 Oxygen Delivery Method Room Air Intake Visit Reasons: annual exam - see comments Accompanied by: Friend Allergies No Known Allergies Allergy (Verified 05/28/25 09:00) Tobacco use date assessed: 05/28/25 Dental Screening Dental Screen Date: 05/28/25 Did you have a dental visit in the last 12 months?: No Did you have a dental problem in the last 6 months where you did not have access to dental care?: No Was dental information given to patient?: Patient declined [facility] Medical History Obesity (BMI 30.0-34.9) Tremors of nervous system Tobacco use disorder Legal blindness Coronary artery disease History of acute inferior wall AL Anxiety Depression High cholesterol HTN (hypertension) ST elevation myocardial infarction (STEMI) of inferior wall (~07/2020) Knee pain, bilateral Stroke (~07/2020) Surgical History History of colonoscopy (~06/21/21) History of colostomy reversal Status post Jenna's procedure H/O resection of large bowel Family History Father Stroke Heart attack Mother Heart attack Sister Diverticulitis Heart attack Brother No problems noted. Sister No problems noted. Brother No problems noted. Social History Household Members: Spouse Housing: House Do you presently have visiting nurse or other home services: No Alcohol intake: current Alcohol intake frequency: holidays/special occasions only Comment: pt ambulates to bathroom with supervision Patient Tobacco Use Status: Current everyday Tobacco user Tobacco use type: Cigarette Cigarette Packs Per Day: 1 Cigarettes Per Day: 20 Years Smoked: 40 e-Cigarette/Vaping Use: Never Used Second Hand Smoke Exposure: Yes service: No Current occupational status: disabled Cognitive needs: No Hearing needs: No Vision needs: Yes Questionnaire PHQ-9 Over the last 2 weeks, how often have you been bothered by any of the following problems? 1. Little interest or pleasure in doing things: not at all 2. Feeling down, depressed, or hopeless: not at all 3. Trouble falling or staying asleep, or sleeping too much: several days 4. Feeling tired or having little energy: not at all 5. Poor appetite or overeating: not at all 6. Feeling bad about yourself - or that you are a failure or have let yourself or your family down: not at all 7. Trouble concentrating on things, such as reading the newspaper or watching television: not at all 8. Moving or speaking so slowly that other people could have noticed. Or the opposite - being so fidgety or restless that you have been moving around a lot more than usual: not at all 9. Thoughts that you would be better off or of hurting yourself in some way: not at all Total score: 1 Depression Screening Interpretation: Positive Depression Screening Done: Yes 17611 - PHQ-9 Billing: Yes Source: Developed by Drs. Jr Wong, Nelly Zamarripa, Nick Nieves and colleagues, with an educational jean from [employer]. Thrive Questionnaire Date Thrive assessed: 05/21/25 I am a: Patient What is your living situation today?: I have a steady place to live Within the past 12 months, did the food you bought not last and you didn't have the money to get more?: Never true Within the past 12 months, did you worry whether your food would run out before you got money to buy more?: Never true Do you have trouble paying for medicines?: I choose not to answer this question Do you have trouble getting transportation to medical appointments?: No Do you have trouble paying your heating and electricity bill?: I choose not to answer this question Do you have trouble taking care of your child, family member or friend?: No Do you have trouble with day-to-day activities such as bathing, preparing meals, shopping, managing finances, etc.?: I choose not to answer this question Are you currently unemployed and looking for a job?: No Are you interested in more education?: No Please select the resources that you would like help with: None Currently or been in a relationship where the following occur: No concerns reported THRIVE Score: 0 AUDIT C Alcohol Use Questionnaire (AUDIT-C) 1. How often do you have a drink containing alcohol?: Never 3. How often do you have six or more drinks on one occasion?: Never Total Score: 0 DONN-7 AMB Questionnaire DONN-7 Date DONN - 7 assessed: 05/28/25 Feeling nervous, anxious, or on edge: 1 = Several days Not being able to stop or control worryin = Several days Worrying too much about different things: 1 = Several days Trouble relaxin = Several days Being so restless that it is hard to sit still: 0 = Not at all Becoming easily annoyed or irritable: 1 = Several days Feeling afraid as if something awful might happen: 0 = Not at all Total DONN-7 score (0-4 normal; 5-9 mild; 10-14 moderate; 15-21 severe): 5 Source: Developed by Drs. Jr Wong, Nelly Zamarripa, Nick Nieves and colleagues, with an educational jean from [employer]. DONN-7 Assessment Billing DONN-7 Assessment Tool: DONN-7 Assessment 91433 Physical exam (Primary Care) Vital Signs: Last Vital Signs Temp 97.3 F 05/28/25 08:56 Pulse 65 05/28/25 08:56 BP 152/86 H 05/28/25 08:56 Pulse Ox 96 05/28/25 08:56 Oxygen Delivery Method Room Air 05/28/25 08:56 BMI result Body Mass Index 35.4 Tobacco/Smoking Status: Tobacco use Status Tobacco use date assessed 05/28/25 05/28/25 09:02 Patient Tobacco Use Status Current everyday Tobacco 05/28/25 08:54 Tobacco use type Cigarette 05/28/25 08:54 e-Cigarette/Vaping Use Never Used 05/28/25 08:54 PHQ-9: PHQ-9 Score PHQ-9: Total score 1 05/28/25 09:02 Depression Screening Interpretation: Positive Thrive Assessment: Date of Thrive Assessment Date Thrive assessed 05/21/25 05/28/25 08:54 Currently or been in a relationship where the following occur: No concerns reported Coding Level of Care Code Est Pt Level 4 (30129) Est Pt Prev Care 40-64y(45968) Diagnoses Anxiety F41.9 Coronary artery disease I25.10 Legal blindness H54.8 CVA (cerebral vascular accident) I63.9 Additional Codes DONN-7 Assessment Billing - DONN-7 Assessment Tool: DONN-7 Assessment 52567 ([id number]) PHQ-9 - 74614 - PHQ-9 Billing: Yes ([id number]) Assessment & Plan Assessment & Plan (1) Anxiety: Code(s): F41.9 - Anxiety disorder, unspecified Category: Medical Plan: I offered patient an appointment with a mental health provider. This could help determining if his symptoms are more due to anxiety or attention deficit. [place] is declining to see a therapist. He is also reluctant to start medications or increase his dosage of the antidepressant. He would like to take some more time to ponder over it. I agreed. (2) Coronary artery disease: Code(s): I25.10 - Atherosclerotic heart disease of [place] coronary artery without angina pectoris Category: Medical Plan: Condition is stable. Continue current medications. Patient was encouraged to quit smoking. (3) Legal blindness: Code(s): H54.8 - Legal blindness, as defined in [place] Category: Medical Plan: Condition is stable. (4) CVA (cerebral vascular accident): Code(s): I63.9 - Cerebral infarction, unspecified Category: Medical Plan: Condition is stable. Plan History of Present Illness - The patient is a 65-year-old male presenting with a physical examination and concerns related to ADHD and depression. - ADHD: The patient has a history of ADHD, previously managed by staying busy. Recently, symptoms have worsened, leading to increased distractibility and task completion issues. - Depression: The patient is on sertraline for depression, reporting ongoing agitation and frustration due to ADHD symptom control issues. - History of Myocardial Infarction and Cerebrovascular Accident: The patient has a history of a heart attack and stroke, which initially did not affect his ADHD symptoms. - Visual Impairment: The patient experiences significant visual impairment, limiting his ability to participate in activities like motorcycle riding. 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 - Functional Status: The patient reports difficulty engaging in projects at home due to ADHD symptoms and visual impairment. - Recreational Activities: The patient used to enjoy riding motorcycles but is now unable to do so due to visual impairment. Review of Systems - Neurological: Reports distractibility and inability to complete tasks due to ADHD. Denies any new neurological symptoms. - Psychiatric: Reports agitation and frustration related to ADHD and depression. Denies suicidal ideation. - Ophthalmologic: Reports significant visual impairment affecting daily activities. Physical Exam General: Cooperative and healthy appearing Nutritional Appearance: Well nourished Orientation/consciousness: Patient oriented x3 Limitations: No limitations Head: Normal to inspection General: Appearance normal, both eyes and all related structures Neck: Normal visual inspection Chest: Normal palpation of entire chest wall Respiratory: Normal respiratory effort Neurology: Patient oriented x3 Results Plan 1. Attention Deficit Hyperactivity Disorder (Adhd) - Consider referral to a specialist for evaluation and initiation of medication if appropriate. - Discussed the potential use of stimulant medications for ADHD management. 2. Depression - Continue current sertraline therapy, with consideration for dose adjustment if symptoms persist. - Monitor for any changes in mood or behavior, and consider psychiatric referral if needed. 3. Visual Impairment - Discussed adaptation strategies for visual impairment, including potential lifestyle modifications. Discussion Notes During the visit, we discussed the patient's ADHD and depression management. I suggested considering a referral to a specialist for ADHD evaluation and potential medication initiation. We also talked about the possibility of adjus ting the sertraline dose for depression if symptoms persist. Additionally, we explored adaptation strategies for the patient's visual impairment to improve daily functioning. Patient Instructions - Consider seeing a specialist for ADHD evaluation and possible medication. - Continue taking sertraline as prescribed and report any changes in mood or behavior. - Explore lifestyle modifications to adapt to visual impairment. Orders: Orders Liver Panel Today F41.9 - Anxiety disorder, unspecified, H54.8 - Legal blindness, as defined in [place], I25.10 - Atherosclerotic heart disease of [place] coronary artery without angina pectoris, I63.9 - Cerebral infarction, unspecified Thyroid Stimulating Hormone Today F41.9 - Anxiety disorder, unspecified, H54.8 - Legal blindness, as defined in [place], I25.10 - Atherosclerotic heart disease of [place] coronary artery without angina pectoris, I63.9 - Cerebral infarction, unspecified UA and rflx microscopic Today F41.9 - Anxiety disorder, unspecified, H54.8 - Legal blindness, as defined in [place], I25.10 - Atherosclerotic heart disease of [place] coronary artery without angina pectoris, I63.9 - Cerebral infarction, unspecified Basic Metabolic Panel Today F41.9 - Anxiety disorder, unspecified, H54.8 - Legal blindness, as defined in [place], I25.10 - Atherosclerotic heart disease of [place] coronary artery without angina pectoris, I63.9 - Cerebral infarction, unspecified Complete Blood Count no Diff Today F41.9 - Anxiety disorder, unspecified, H54.8 - Legal blindness, as defined in [place], I25.10 - Atherosclerotic heart disease of [place] coronary artery without angina pectoris, I63.9 - Cerebral infarction, unspecified Lipid Panel Today F41.9 - Anxiety disorder, unspecified, H54.8 - Legal blindness, as defined in [place], I25.10 - Atherosclerotic heart disease of [place] coronary artery without angina pectoris, I63.9 - Cerebral infarction, unspecified
[2025-05-28 08:56] VITALS: BP 152/86; PULSE 65; TEMP 36.3; O2SAT 96; BMI 35.4
--- OUTSIDE RECORDS SUMMARY | 2025-05-28 09:45 | XMS_ITS | Patient Health Record ---
Author Organization [facility] Address [address] [place] [id number] Care Team Providers Care Clinical Phlebotomist Name Role Phone DELORES GUERRERO Primary Care Provider Jr Smith Unavailable [phone] Allergies No Known Allergies Reason For Referral [...] Smokes 1/2 ppd; no alcohol s dany [place]/CV[place] Problems Problem Type SNOMED Code ICD Code Onset Dates Problem Status W/U Status Risk Notes Problem 340151209 Encounter for screening for malignant neoplasm of colon (Z12.11) Active confirmed Problem 740824121756575 Preprocedural examination (Z01.818) Active confirmed Problem 124672226 History of parti al surgical removal of colon (Z90.49) Active confirmed Problem 930767793 History of colon surgery (Z98.890) Active confirmed Problem 4254090 Diverticulitis o f large intestine without bleeding, unspecified complication status (K57.32) Active confirmed Plan Of Treatment Future Test Test Name Order Date COLONOSCOPY 05/05/2021 COLONOSCOPY 05/26/2021 Insurance Providers Payer Name Payer Address Payer Phone Subscriber Number Group Number Insured Name Patient Relationship to Insured Coverage Start Date Coverage End Date [facility] [address] [address] [place], [place] [id number] YOLY SAEED Self - patient is the insured Medical (General) History Medical History History ICD Code Stroke 2019 with right eye blindness and balance issues [place] 2019 Arthritis Stress/anxiety/depression Hyperlipidemia HTN Denies DM,Lung disease,renal disease 02/2021--colonic obstruction due to diverticular disease with surgery as below--preop colonoscopy to the transverse colon was negative for mass and polyps Surgical History Surgery Date(Month/Year) 02/2021 Jenna's procedure with a Sigmoid resection and Colostomy formation for relief of colonic obstruction-path c/w diverticulitis/abscess/fistlous disease by Dr. Romano
== END 2025-05-28 10:01 | disposition home or self-care (01) ==
LOC: HO.HMCH 08:48
PROVIDERS: PCP Internal Medicine; Visit Provider Internal Medicine
DX: Z00.00 Encounter for general adult medical examination without abnormal findings (principal); I63.9 Cerebral infarction, unspecified; F41.9 Anxiety disorder, unspecified; I25.10 Atherosclerotic heart disease of native coronary artery without angina pectoris; H54.8 Legal blindness, as defined in USA

== ENCOUNTER → 2025-05-28 08:47 | Outpatient (BNVA) | payer MEDICARE, SELFPAY ==
[2022-01-27 10:42] VITALS: BP 110/58
[2022-02-24 11:06] VITALS: BMI 33.9
[2022-03-17 11:16] VITALS: BP 100/60; BP 128/56
== END ==
PROVIDERS: PCP Internal Medicine; Visit Provider Internal Medicine
DX: Z00.01 Encounter for general adult medical examination with abnormal findings (principal); F41.9 Anxiety disorder, unspecified; I25.10 Atherosclerotic heart disease of native coronary artery without angina pectoris; H54.8 Legal blindness, as defined in USA; I63.9 Cerebral infarction, unspecified
CPT/HCPCS: 96127; 99212; 99396

== ENCOUNTER 2025-06-01 07:26 | Outpatient (REF) | payer MEDICARE, SELFPAY ==
[2022-01-27 10:42] VITALS: BP 110/58
[2022-02-24 11:06] VITALS: BMI 33.9
[2022-03-17 11:16] VITALS: BP 100/60; BP 128/56
--- OUTSIDE RECORDS SUMMARY | 2025-06-01 07:29 | XMS_ITS | Patient Health Record ---
Author Organization [facility] Address [address] [place] [address] Care Team Providers Care Director Pharmacovigilance Name Role Phone DELORES GUERRERO Primary Care Provider Jr Smith Unavailable [phone] Allergies No Known Allergies Reason For Referral [...] Smokes 1/2 ppd; no alcohol s dany [place]/CVA Problems Problem Type SNOMED Code ICD Code Onset Dates Problem Status W/U Status Risk Notes Problem [id number] Encounter for screening for malignant neoplasm of colon (Z12.11) Active confirmed Problem 686442437127180 Preprocedural examination (Z01.818) Active confirmed Problem 741859079 History of parti al surgical removal of colon (Z90.49) Active confirmed Problem 688042249 History of colon surgery (Z98.890) Active confirmed Problem 1189585 Diverticulitis o f large intestine without bleeding, unspecified complication status (K57.32) Active confirmed Plan Of Treatment Future Test Test Name Order Date COLONOSCOPY 05/05/2021 COLONOSCOPY 05/26/2021 Insurance Providers Payer Name Payer Address Payer Phone Subscriber Number Group Number Insured Name Patient Relationship to Insured Coverage Start Date Coverage End Date [facility] [address] [address] [place], [place] [id number] YOLY SAEED Self - patient is the insured Medical (General) History Medical History History ICD Code Stroke 2019 with right eye blindness and balance issues [place] 2019 Arthritis Stress/anxiety/depression Hyperlipidemia HTN Denies DM,Lung disease,renal disease 02/2021--colonic obstruction due to diverticular disease with surgery as below--preop colonoscopy to the transverse colon was negative for mass and polyps Surgical History Surgery Date(Month/Year) 02/2021 Jenna's procedure with a Sigmoid resection and Colostomy formation for relief of colonic obstruction-path c/w diverticulitis/abscess/fistlous disease by Dr. Romano
[2025-06-01 10:32] LABS: Hematocrit 39.4 % (42.0-52.0); Hemoglobin 13.3 g/dl (14.0-18.0); Mean Corpuscular HGB Conc 33.8 g/dl (31.0-36.0); Mean Corpuscular Hemoglobin 32.4 pg (27.0-33.0); Mean Corpuscular Volume 96.1 fL (80.0-98.0); NRBC Abs Auto 0.000 X10*3/uL (0.0-0.012); NRBC Pct Auto 0.0 /100WBC (0.0-0.2); Platelet Count 235 X10*3/uL (160-400); Red Blood Count 4.10 X10*6/uL (4.60-5.80); White Blood Count 7.1 X10*3/uL (4.8-10.8)
[2025-06-01 10:50] LABS: Alanine Aminotransferase 18 U/L (0-40); Albumin Level 3.9 g/dL (3.5-5.0); Alkaline Phosphatase 80 U/L (39-117); Anion Gap 12 (12-20); Aspartate Amino Transferase 27 U/L (5-37); Blood Urea Nitrogen 17 mg/dL (9-16); Calcium 9.0 mg/dL (8.4-10.2); Carbon Dioxide 24 mmol/L (22-29); Chloride 107 mmol/L (96-108); Cholesterol 108 mg/dL (<200); Estimated Glomerular Filt Rate > 60; HDL Cholesterol 29 mg/dL (>40); Potassium 4.1 mmol/L (3.3-5.1); Sodium 139 mmol/L (135-145); Total Protein 6.6 g/dL (6.5-8.0); Triglycerides 89 mg/dL (<150)
[2025-06-01 11:15] LABS: Thyroid Stimulating Hormone 0.92 uIU/mL (0.32-4.0)
== END 2025-06-01 07:27 | disposition home or self-care (01) ==
LOC: HO.HMGCLDS 07:26
PROVIDERS: PCP Internal Medicine; Visit Provider Internal Medicine
DX: I25.10 Atherosclerotic heart disease of native coronary artery without angina pectoris (principal); H54.8 Legal blindness, as defined in USA; F41.9 Anxiety disorder, unspecified; I63.9 Cerebral infarction, unspecified
CPT/HCPCS: 36415; 80048; 80061; 80076; 84443; 85027

== ENCOUNTER 2025-06-12 08:14 | Outpatient (AMB) | payer MEDICARE, SELFPAY ==
[2022-01-27 10:42] VITALS: BP 110/58
[2022-02-24 11:06] VITALS: BMI 33.9
[2022-03-17 11:16] VITALS: BP 100/60; BP 128/56
--- NOTE | 2025-06-12 08:19 | MHC.OFFVISCO ---
Intake Intake Visit Reasons: Anticoagulation Allergies No Known Allergies Allergy (Verified 06/12/25 08:15) Medication List - Last Reconciled 06/12/25 by Emma Juárez RN atorvastatin 80 mg PO DAILY ezetimibe (Zetia) 10 mg PO DAILY [floor to [facility] rail As directed] gabapentin 300 mg PO Q8H metoprolol succinate ER 25 mg PO DAILY sertraline 100 mg PO DAILY warfarin See Protocol 8mg orally once a day for four days. 10 mg orally daily for three days; Nursing Note INR: 2.4- in therapeutic range of 2-3 Medications and supplements reviewed- no changes No changes in health, diet, medications, or supplements, Denies any signs and symptoms of bleeding or bruising or clotting. Bleeding, bruising, clotting discussed Nutritional guidance given Dose: 10mg x 1. 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
[2025-06-12 08:20] LABS: Prothrombin Time Whole Bld POC 28.7 sec (11.1-13.5); ~PT, ~INR - Anti Coag Clinic 2.4 (0.9-1.1)
--- OUTSIDE RECORDS SUMMARY | 2025-06-12 08:34 | XMS_ITS | Patient Health Record ---
Author Organization [facility] Address [address] [place] [address] Care Team Providers Care Pole Shaver Name Role Phone DELORES GUERRERO Primary Care Provider Jr Smith Unavailable [phone] Allergies No Known Allergies Reason For Referral [...] Problem Status W/U Status Risk Notes Problem 406529105 Encounter for screening for malignant neoplasm of colon (Z12.11) Active confirmed Problem 524489424937470 Preprocedural examination (Z01.818) Active confirmed Problem 610368733 History of parti al surgical removal of colon (Z90.49) Active confirmed Problem 274989912 History of colon surgery (Z98.890) Active confirmed Problem 9931231 Diverticulitis o f large intestine without bleeding, unspecified complication status (K57.32) Active confirmed Plan Of Treatment Future Test Test Name Order Date COLONOSCOPY 05/05/2021 COLONOSCOPY 05/26/2021 Insurance Providers Payer Name Payer Address Payer Phone Subscriber Number Group Number Insured Name Patient Relationship to Insured Coverage Start Date Coverage End Date [facility] [address] [address] [place], [place] [id number] YOLY SAEED Self - patient is the [...]
== END 2025-06-12 08:26 | disposition home or self-care (01) ==
LOC: HO.ACS 08:14
PROVIDERS: PCP Internal Medicine; Visit Provider Internal Medicine Medical Oncology
DX: Z79.01 Long term (current) use of anticoagulants (principal)

== ENCOUNTER → 2025-06-12 08:14 | Outpatient (BNVA) | payer MEDICARE, SELFPAY ==
[2022-01-27 10:42] VITALS: BP 110/58
[2022-02-24 11:06] VITALS: BMI 33.9
[2022-03-17 11:16] VITALS: BP 100/60; BP 128/56
== END ==
PROVIDERS: PCP Internal Medicine; Visit Provider Internal Medicine Medical Oncology
DX: Z51.81 Encounter for therapeutic drug level monitoring (principal); Z79.01 Long term (current) use of anticoagulants
CPT/HCPCS: 85610; 99211

== ENCOUNTER 2025-07-10 08:46 | Outpatient (AMB) | payer MEDICARE, SELFPAY ==
[2022-01-27 10:42] VITALS: BP 110/58
[2022-02-24 11:06] VITALS: BMI 33.9
[2022-03-17 11:16] VITALS: BP 100/60; BP 128/56
[2025-07-10 08:53] LABS: Prothrombin Time Whole Bld POC 36.0 sec (11.1-13.5); ~PT, ~INR - Anti Coag Clinic 3.0 (0.9-1.1)
--- NOTE | 2025-07-10 09:00 | MHC.OFFVISCO ---
Intake Intake Visit Reasons: Anticoagulation Allergies No Known Allergies Allergy (Verified 07/10/25 08:48) Medication List - Last Reconciled 07/10/25 by Michelle Soares, MELIZA atorvastatin 80 mg PO DAILY ezetimibe (Zetia) 10 mg PO DAILY [floor to tub rail As directed] gabapentin 300 mg PO Q8H metoprolol succinate ER 25 mg PO DAILY sertraline 100 mg PO DAILY warfarin See Protocol 8mg orally once a day for four days. 10 mg orally daily for three days; Nursing Note INR: 3.0 in therapeutic range 2-3 Medications and supplements reviewed No changes in health, diet, medications, or supplements, Denies any signs and symptoms of bleeding or bruising or clotting. Bleeding, bruising, clotting discussed Nutritional guidance given to have a serving of greens today Dose: 8mg X 6 days and 10mg X 1 day (Sun) F/U INR: 4 weeks Patient verbalizes understanding of instructions given Anti-Coag Initial Assessment Social Hx Patient Tobacco Use Status: Current everyday Tobacco user Tobacco use type: Cigarette Smoking packs per day: 1 alcohol intake: current Alcohol intake frequency: holidays/special occasions only Coding Level of Care Code Est Patient Level 1 Diagnoses Current use of anticoagulant therapy Z79.01 Assessment & Plan Assessment & Plan (1) Current use of anticoagulant therapy: 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
--- OUTSIDE RECORDS SUMMARY | 2025-07-10 09:15 | XMS_ITS | Patient Health Record ---
Author Organization [facility] Address [address] [place] [address] Care Team Providers Care Tie Mill Operator Name Role Phone DELORES GUERRERO Primary Care Provider Jr Smith Unavailable [phone] Allergies No Known Allergies Reason For Referral [...] Smokes 1/2 ppd; no alcohol s dany [place]/CVA Problems Problem Type SNOMED Code ICD Code Onset Dates Problem Status W/U Status Risk Notes Problem 579199511 Encounter for screening for malignant neoplasm of colon (Z12.11) Active confirmed Problem 886235954810890 Preprocedural examination (Z01.818) Active confirmed Problem 090462225 History of parti al surgical removal of colon (Z90.49) Active confirmed Problem 656894404 History of colon surgery (Z98.890) Active confirmed Problem 6188523 Diverticulitis o f large intestine without bleeding, unspecified complication status (K57.32) Active confirmed Plan Of Treatment Future Test Test Name Order Date COLONOSCOPY 05/05/2021 COLONOSCOPY 05/26/2021 Insurance Providers Payer Name Payer Address Payer Phone Subscriber Number Group Number Insured Name Patient Relationship to Insured Coverage Start Date Coverage End Date [facility] [address] [address] [place], [place] [id number] YOLY SAEED Self - patient is the insured Medical (General) History Medical History History ICD Code Stroke 2019 with right eye blindness and balance issues [place] 2019 Arthritis Stress/anxiety/depression Hyperlipidemia HTN Denies DM,Lung disease,renal disease 02/2021--colonic obstruction due to diverticular disease with surgery as below--preop colonoscopy to the transverse colon was negative for mass and polyps Surgical History Surgery Date(Month/Year) 02/2021 Jenna's procedure with a Sigmoid resection and Colostomy formation for relief of colonic obstruction-path c/w diverticulitis/abscess/fistlous disease by Dr. Romano
== END 2025-07-10 09:03 | disposition home or self-care (01) ==
LOC: HO.ACS 08:46
PROVIDERS: PCP Internal Medicine; Visit Provider Internal Medicine Medical Oncology
DX: Z79.01 Long term (current) use of anticoagulants (principal)

== ENCOUNTER → 2025-07-10 08:46 | Outpatient (BNVA) | payer MEDICARE, SELFPAY ==
[2022-01-27 10:42] VITALS: BP 110/58
[2022-02-24 11:06] VITALS: BMI 33.9
[2022-03-17 11:16] VITALS: BP 100/60; BP 128/56
== END ==
PROVIDERS: PCP Internal Medicine; Visit Provider Internal Medicine Medical Oncology
DX: Z51.81 Encounter for therapeutic drug level monitoring (principal); Z79.01 Long term (current) use of anticoagulants
CPT/HCPCS: 85610; 99211

== ENCOUNTER 2025-08-07 08:46 | Outpatient (AMB) | payer MEDICARE, SELFPAY ==
[2022-01-27 10:42] VITALS: BP 110/58
[2022-02-24 11:06] VITALS: BMI 33.9
[2022-03-17 11:16] VITALS: BP 100/60; BP 128/56
[2025-08-07 08:59] LABS: Prothrombin Time Whole Bld POC 24.7 sec (11.1-13.5); ~PT, ~INR - Anti Coag Clinic 2.1 (0.9-1.1)
--- NOTE | 2025-08-07 09:03 | MHC.OFFVISCO ---
Intake Intake Visit Reasons: Anticoagulation Allergies No Known Allergies Allergy (Verified 08/07/25 08:55) Medication List - Last Reconciled 08/07/25 by Michelle Soares, MELIZA atorvastatin 80 mg PO DAILY ezetimibe (Zetia) 10 mg PO DAILY [floor to [facility] rail As directed] gabapentin 300 mg PO Q8H 90 days metoprolol succinate ER 25 mg PO DAILY sertraline 100 mg PO DAILY warfarin See Protocol 8mg orally once a day for four days. 10 mg orally daily for three days; Nursing Note INR: 2.1 in therapeutic range of 2-3 Medications and supplements reviewed No changes in health, diet, medications, or supplements, Denies any signs and symptoms of bleeding or bruising or clotting. Bleeding, bruising, clotting discussed Nutritional guidance given Dose: 8mg X 6 days and 10mg X 2 days (Wed & Sun) F/U INR: 5 weeks Patient verbalizes understanding of instructions given Anti-Coag Initial Assessment Social Hx Patient Tobacco Use Status: Current everyday Tobacco user Tobacco use type: Cigarette Smoking packs per day: 1 alcohol intake: current Alcohol intake frequency: holidays/special occasions only Coding Level of Care Code Est Patient Level 1 Diagnoses Current use of anticoagulant therapy Z79.01 Assessment & Plan Assessment & Plan (1) Current use of anticoagulant therapy: Code(s): 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
--- OUTSIDE RECORDS SUMMARY | 2025-08-07 09:06 | XMS_ITS | Patient Health Record ---
Author Organization [facility] Address [address] [place] [address] Care Team Providers Care Pre School Manager Name Role Phone DELORES GUERRERO Primary Care Provider Jr Smith Unavailable [phone] Allergies No Known Allergies Reason For Referral No Information Medications Medication SIG (Take, Route, Frequency, Duration) Notes Start Date End Date Status LORazepam 0.5 MG Oral; Duration: 30 Active Omeprazole 20 MG Oral; Duration: 90 Active Sertraline HCl 100 MG Oral; Duration: 90 Active Atorvastatin Calcium 80 MG Oral; Duration: 90 Active Warfarin Sodium 4 MG 2 tablets as direct ed as directed Active Melatonin Maximum Strength 5 MG Oral; Duration: 30 Active Metoprolol Tartrate 25 MG Oral; Duration: 90 Active Zolpidem Tartrate 5 MG Oral; Duration: 30 Active CVS Acetaminophen 325 MG Oral; Duration: 4 Active Gabapentin 300 MG Oral; Duration: 30 Active Immunizations Vaccine Route Administration Date [...] Smokes 1/2 ppd; no alcohol s dany [place]/CVA Problems Problem Type SNOMED Code ICD Code Onset Dates Problem Status W/U Status Risk Notes Problem Screening for malignant neoplasm of colon (254076437) Encounter for screening for malignant neoplasm of colon (Z12.11) Active confirmed Problem Preprocedural examination (018996429474876) Preprocedural examination (Z01.818) Active confirmed Problem History of excision of intestinal structure (404845221) History of partial surgical removal of colon (Z90.49) Active confirmed Problem Postprocedural states (867624206) History of colon surgery (Z98.890) Active confirmed Problem Diverticulitis of colon (426930198) Diverticulitis of large intestine without bleeding, unspecified complication status (K57.32) Active confirmed Plan Of Treatment Future Test Test Name Order Date COLONOSCOPY 05/05/2021 COLONOSCOPY 05/26/2021 Insurance Providers Payer Name Payer Address Payer Phone Subscriber Number Group Number Insured Name Patient Relationship to Insured Coverage Start Date Coverage End Date [facility] [address] [address] [place], [place] [id number] YOLY SAEED Self - patient is the insured Medical (General) History Medical History History ICD Code Stroke 2019 with right eye blindness and balance issues [place] 2019 Arthritis Stress/anxiety/depression Hyperlipidemia HTN Denies DM,Lung disease,renal disease 02/2021--colonic obstruction due to diverticular disease with surgery as below--preop colonoscopy to the transverse colon was negative for mass and polyps Surgical History Surgery Date(Month/Year) 02/2021 Jenna's procedure with a Sigmoid resection and Colostomy formation for relief of colonic obstruction-path c/w diverticulitis/abscess/fistlous disease by Dr. Romano
== END 2025-08-07 09:10 | disposition home or self-care (01) ==
LOC: HO.ACS 08:46
PROVIDERS: PCP Internal Medicine; Visit Provider Internal Medicine Medical Oncology
DX: Z79.01 Long term (current) use of anticoagulants (principal)

== ENCOUNTER → 2025-08-07 08:46 | Outpatient (BNVA) | payer MEDICARE, SELFPAY ==
[2022-01-27 10:42] VITALS: BP 110/58
[2022-02-24 11:06] VITALS: BMI 33.9
[2022-03-17 11:16] VITALS: BP 100/60; BP 128/56
== END ==
PROVIDERS: PCP Internal Medicine; Visit Provider Internal Medicine Medical Oncology
DX: I69.30 Unspecified sequelae of cerebral infarction (principal); Z79.01 Long term (current) use of anticoagulants; Z51.81 Encounter for therapeutic drug level monitoring
CPT/HCPCS: 85610; 99211

== ENCOUNTER 2025-09-11 09:54 | Outpatient (AMB) | payer MEDICARE, SELFPAY ==
[2022-01-27 10:42] VITALS: BP 110/58
[2022-02-24 11:06] VITALS: BMI 33.9
[2022-03-17 11:16] VITALS: BP 100/60; BP 128/56
--- NOTE | 2025-09-11 10:05 | MHC.OFFVISCO ---
Intake Intake Visit Reasons: Anticoagulation Allergies No Known Allergies Allergy (Verified 09/11/25 09:55) Medication List - Last Reconciled 09/11/25 by Kitty Guerrero RN atorvastatin 80 mg PO DAILY ezetimibe (Zetia) 10 mg PO DAILY [floor to [facility] rail As directed] gabapentin 300 mg PO Q8H 90 days metoprolol succinate ER 25 mg PO DAILY sertraline 100 mg PO DAILY warfarin See Protocol 8mg orally once a day for four days. 10 mg orally daily for three days; Nursing Note INR: 2.5 in therapeutic range Medications and supplements reviewed No changes in health, diet, medications, or supplements, Denies any signs and symptoms of bleeding or bruising or clotting. Bleeding, bruising, clotting discussed Nutritional guidance given Dose: 10MG X 1 DAY/ 8MG X 6 DAYS F/U INR: 1 MONTH Patient verbalizes understanding of instructions given Anti-Coag Initial Assessment Social Hx Patient Tobacco Use Status: Current everyday Tobacco user Tobacco use type: Cigarette Smoking packs per day: 1 alcohol intake: current Alcohol intake frequency: holidays/special occasions only Questionnaires HAS-BLED Does the patient had uncontrolled Hypertension?: No Does the patient have renal disease?: No Does the patient have liver disease?: No Does the patient have a history of stroke?: Yes Has the patient had major bleeding or predisposition to bleeding?: Yes (RISK OF FALLING DUE TO LOSS OF EYE SIGHT ) Does the patient have labile INRs?: Yes Is the patient over 65 years of age?: No Is the patient on medications that gives them a predisposition to bleeding?: Yes Does the patient use alcohol?: No HAS-BLED Score: 4 CHADSVASC Age: <65 Gender: Male Does the patient have a history of CHF?: No Does the patient have a history of Hypertension?: Yes Does the patient have a history of Stroke/TIA/Thromboembolism?: Yes Does the patient have a history of Vascular Disease (prior SC, PAD or aortic plaque)?: Yes (CAD, SMOKES , CHOLESTEROL) Does the patient have a history of Diabetes?: No CHADS VACS Score: 4 Juan Jose Prediction Score Rsk VTE Active Cancer: No Previous VTE, excluding superficial vein thrombosis: No Reduced mobility: No Already known Thrombophilic Condition: No With-in last month Trauma and/or Surgery: No Elderly 70 year or older: No Heart and/or Respiratory Failure: No Acute Myocardial infarction and/or Ischemic Stroke: Yes Acute Infection and/or Rheumatologic Disorder: No Obesity (BMI 30 or greater): Yes Ongoing Hormonal Treatment: No Score: 2 Juan Jose Score less than 4; Low Risk of VTE Juan Jose Score 4 or greater; High Risk of VTE Coding Level of Care Code Est Patient Level 1 Diagnoses Current use of anticoagulant therapy Z79.01 Results AMB INR Fingerstick AMB INR Fingerstick 2.5 Last Edit by Kitty Guerrero RN on 09/11/25 10:00 MANUAL ENTRY Assessment & Plan Assessment & Plan (1) Current use of anticoagulant therapy: 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
[2025-09-11 12:08] LABS: Prothrombin Time Whole Bld POC 30.4 sec (11.1-13.5); ~PT, ~INR - Anti Coag Clinic 2.5 (0.9-1.1)
== END 2025-09-11 10:11 | disposition home or self-care (01) ==
LOC: HO.ACS 09:54
PROVIDERS: PCP Internal Medicine; Visit Provider Internal Medicine Medical Oncology
DX: Z79.01 Long term (current) use of anticoagulants (principal)

== ENCOUNTER → 2025-09-11 09:54 | Outpatient (BNVA) | payer MEDICARE, SELFPAY ==
[2022-01-27 10:42] VITALS: BP 110/58
[2022-02-24 11:06] VITALS: BMI 33.9
[2022-03-17 11:16] VITALS: BP 100/60; BP 128/56
== END ==
PROVIDERS: PCP Internal Medicine; Visit Provider Internal Medicine Medical Oncology
DX: Z79.01 Long term (current) use of anticoagulants (principal)
CPT/HCPCS: 85610; 99211